=== PATIENT | female | born 1960 | race Caucasian/White ===

== ENCOUNTER 2022-11-06 09:48 | Outpatient (OUT) | payer OTHER, SELFPAY ==
[2022-11-06 10:13] LABS: Basophils Percent Auto 0.7 % (0.2-2.0); Eosinophils Absolute Auto 0.1 10^3/uL (0.0-0.7); Eosinophils Percent Auto 2.4 % (0.9-7.0); Hematocrit 40.3 % (36.0-48.0); Hemoglobin 13.6 g/dL (12.0-16.0); Immature Granulocytes Abs Auto 0.01 10^3/uL (0.00-0.03); Immature Granulocytes Pct Auto 0.2 % (0.0-0.5); Lymphocytes Absolute Auto 1.5 10^3/uL (1.2-3.8); Lymphocytes Percent Auto 32.3 % (20.5-60.0); Mean Corpuscular HGB Conc 33.7 g/dL (29.9-35.2); Mean Corpuscular Hemoglobin 29.6 pg (26.7-34.0); Mean Corpuscular Volume 87.6 fL (81.0-99.0); Mean Platelet Volume 10.5 fL (9.5-13.5); Monocytes Absolute Auto 0.4 10^3/uL (0.3-0.8); Monocytes Percent Auto 8.7 % (1.7-12.0); Neutrophils Absolute Auto 2.6 10^3/uL (1.4-6.5); Neutrophils Percent Auto 55.7 % (43.0-75.0); Platelet Count 208 10^3/uL (150-450); Red Cell Distribution Width 12.4 % (11.0-15.0); White Blood Count 4.6 10^3/uL (4.0-11.0)
[2022-11-06 12:29] LABS: Estimated Average Glucose 105 mg/dL; Glycohemoglobin A1C 5.3 % (4.5-6.2)
[2022-11-06 14:41] LABS: Alanine Aminotransferase 22 U/L (14-59); Albumin Globulin Ratio 1.2; Albumin Level 4.1 g/dL (3.4-5.0); Alkaline Phosphatase 106 U/L (46-116); Anion Gap 10.2; Aspartate Amino Transferase 16 U/L (15-37); BUN Creatinine Ratio 19.7; Bilirubin Total 0.5 mg/dL (0.2-1.0); Calcium 9.4 mg/dL (8.5-10.1); Carbon Dioxide 27.9 mmol/L (21.0-32.0); Chloride 106 mmol/L (98-107); Chol HDL Ratio 2.8; Cholesterol 167 mg/dL (<=200); Estimated GFR (African America >60 (>=60); Estimated GFR (Non-African Ame >60 (>=60); Free T3 2.51 pg/mL (2.18-3.98); Globulin 3.3 g/dL; Glucose 98 mg/dL (74-106); HDL Cholesterol 60 mg/dL (40-60); LDL Cholesterol Calculated 89.4 mg/dL; Potassium 4.1 mmol/L (3.5-5.1); Sodium 140 mmol/L (136-145); Thyroid Stimulating Hormone 1.279 uIU/mL (0.358-3.740); Total Protein 7.4 g/dL (6.4-8.2); Triglycerides 88 mg/dL (<=150); VLDL CHOLESTEROL 17.6 mg/dL
== END 2022-11-06 09:49 | disposition home or self-care (01) ==
LOC: LAB 09:51
PROVIDERS: PCP Family Medicine; Visit Provider Family Medicine
DX: Z00.00 Encounter for general adult medical examination without abnormal findings (principal)
CPT/HCPCS: 36415; 80053; 80061; 83036; 84436; 84443; 84481; 85025

== ENCOUNTER 2022-11-11 09:36 | Outpatient (OUT) | payer OTHER, SELFPAY ==
--- NOTE | 2022-11-11 09:44 | XR_ITS ---
[place] [id number] Patient Name: OLIVE TURPIN MRN: [id number] date: 1960 Sex: F Assigned Patient Location: [facility] Current Patient Location: [facility] Accession/Order Number: [id number] Exam Date: 11/11/2022 09:52 Report Date: 11/11/2022 10:35 At the request of: MIREYA MARTIN Procedure: XR hip RT 2V w/ pelvis PROCEDURE: XR hip RT 2V w/ pelvis COMPARISON: None. HISTORY: RIGHT HIP PAIN M25.551 FINDINGS: BONES:No fracture, acute abnormality, or significant arthropathy. SOFT TISSUES:Negative. No visible soft tissue swelling. EFFUSION:None visible. OTHER: Negative. IMPRESSION: No acute radiographic abnormality Electronically authenticated by: RYAN BRADSHAW Date: 11/11/2022 10:35
== END 2022-11-11 09:37 | disposition home or self-care (01) ==
LOC: RAD 09:37
PROVIDERS: PCP Family Medicine; Visit Provider Family Medicine
DX: M25.551 Pain in right hip (principal)
CPT/HCPCS: 73502

== ENCOUNTER 2022-11-19 12:44 | Day surgery (SDC) | payer OTHER, SELFPAY ==
--- NOTE | 2022-11-19 12:49 | FL_ITS ---
[address] [address] Patient Name: OLIVE TURPIN MRN: [id number] date: 1960 Sex: F Assigned Patient Location: MRI Current Patient Location: MRI Accession/Order Number: [id number] Exam Date: 11/19/2022 13:00 Report Date: 11/19/2022 14:03 At the request of: MIREYA MARTIN Procedure: FL arthrogram hip RT EXAMINATION: FL arthrogram hip RT HISTORY: Right Hip Pain M25.551 COMPARISON: No relevant comparison available. TECHNIQUE: An arthrogram was performed under fluoroscopic guidance using non-ionic contrast material in the usual sterile manner after obtaining informed consent. Standard level fluoroscopic mode of operation utilized. FINDINGS: JOINT: NEEDLE: Right hip MEDICATION: 2 mL buffered 1% lidocaine for subcutaneous anesthesia. Approximately 8 mL injected into joint space consisting of a mixture of 5 mL Omnipaque-300, 5 mL 1% Xylocaine and 0.2 mL Dotarem. TECHNIQUE: Anterior approach under fluoroscopic guidance. CLINICAL: No change in pain following the injection. COMPLICATIONS: None. OTHER: Negative. IMPRESSION: 1. Technically successful arthrogram without complication. 2. Please see separate MRI arthrogram report. Electronically authenticated by: DAMON OLIVAREZ Date: 11/19/2022 14:03
[2022-11-19] MEDS: LIDOCAINE HCL 15 ML, SODIUM BICARBONATE 1 MEQ INJ (13:25)
--- NOTE | 2022-11-19 13:45 | MR_ITS ---
[address] [address] Patient Name: OLIVE TURPIN MRN: [id number] date: 1960 Sex: F Assigned Patient Location: MRI Current Patient Location: MRI Accession/Order Number: [id number] Exam Date: 11/19/2022 13:45 Report Date: 11/20/2022 08:46 At the request of: MIREYA MARTIN Procedure: MR arthogram hip EXAMINATION: MR arthrogram hip HISTORY: Right Hip Pain M25.551 COMPARISON: No relevant comparison available. TECHNIQUE: A comprehensive examination was performed utilizing a variety of imaging planes and imaging parameters to optimize visualization of suspected pathology. Images were obtained without and/or with IV contrast as indicated by type of examination. FINDINGS: FEMORAL HEAD: Normal. No AVN, fracture, or significant arthropathy. ACETABULUM: Normal. No fracture or significant arthropathy. OTHER BONES: Normal appearance of the visualized portion of the pelvis. LABRUM: Normal appearance for a patient in this age group, with no visible tear. EFFUSIONS: None. No synovitis or loose bodies. BURSAE: Normal. No evidence of iliopsoas or trochanteric bursitis. TENDONS: Normal. Normal gluteus tendons, iliopsoas tendon, and hamstring origin. MUSCLES: Normal. No tear or strain. No inappropriate atrophy. OTHER: Negative. IMPRESSION: 1. No abnormal or suspicious findings to account for patient's symptoms. Electronically authenticated by: DAMON OLIVAREZ Date: 11/20/2022 08:46
[2022-11-19 14:10] VITALS: BMI 24.2
== END 2022-11-19 13:40 | disposition home or self-care (01) ==
LOC: MRI 12:44
PROVIDERS: Radiology Diagnostic Radiology; PCP Family Medicine; Visit Provider Family Medicine
DX: M25.551 Pain in right hip (principal)
CPT/HCPCS: 27093; 73525; 73722; 77002; A9575; Q9967

== ENCOUNTER 2023-02-15 17:24 | Outpatient (OUT) | payer OTHER, SELFPAY ==
--- NOTE | 2023-02-15 | XR_ITS ---
The [address] [address] Patient Name: OLIVE TURPIN MRN: [id number] date: 1960 Sex: F Assigned Patient Location: [facility] Current Patient Location: [facility] Accession/Order Number: [id number] Exam Date: 02/15/2023 17:43 Report Date: 02/15/2023 18:03 At the request of: MIREYA MARTIN Procedure: XR hand RT min 3V EXAM: XR hand RT min 3V HISTORY: L03.019; Paronychia . Pain. COMPARISON: None. TECHNIQUE: 3 views of the right hand were obtained. FINDINGS: There is no evidence of an acute fracture or dislocation. The joint spaces are intact throughout no significant focal osseous abnormality is identified. Soft tissue swelling is seen along the dorsal aspect of the thumb at the level of the base of the distal phalanx, which may be related to the nail bed. No abnormal soft tissue calcifications are present. XR/XR hand RT min 3V IMPRESSION: Acute fracture or dislocation. The joint spaces are intact and no significant osseous abnormality is identified. Soft tissue swelling of the distal thumb is noted. Electronically authenticated by: BRISA REDDY Date: 02/15/2023 18:03
== END 2023-02-15 17:25 | disposition home or self-care (01) ==
PROVIDERS: PCP Family Medicine; Visit Provider Family Medicine
DX: L03.019 Cellulitis of unspecified finger (principal)
CPT/HCPCS: 73130

== ENCOUNTER 2023-09-10 08:59 | Outpatient (OUT) | payer OTHER, SELFPAY ==
[2023-09-10 09:31] LABS: Basophils Absolute Auto 0.1 10^3/uL (0.0-0.1); Eosinophils Absolute Auto 0.1 10^3/uL (0.0-0.7); Eosinophils Percent Auto 1.8 % (0.9-7.0); Estimated Average Glucose 108 mg/dL; Glycohemoglobin A1C 5.4 % (4.5-6.2); Hematocrit 41.8 % (36.0-48.0); Hemoglobin 13.4 g/dL (12.0-16.0); Immature Granulocytes Abs Auto 0.02 10^3/uL (0.00-0.03); Immature Granulocytes Pct Auto 0.4 % (0.0-0.5); Lymphocytes Absolute Auto 1.7 10^3/uL (1.2-3.8); Lymphocytes Percent Auto 33.7 % (20.5-60.0); Mean Corpuscular HGB Conc 32.1 g/dL (29.9-35.2); Mean Corpuscular Hemoglobin 28.7 pg (26.7-34.0); Mean Corpuscular Volume 89.5 fL (81.0-99.0); Mean Platelet Volume 10.6 fL (9.5-13.5); Monocytes Absolute Auto 0.5 10^3/uL (0.3-0.8); Monocytes Percent Auto 9.1 % (1.7-12.0); Neutrophils Absolute Auto 2.8 10^3/uL (1.4-6.5); Platelet Count 216 10^3/uL (150-450); Red Blood Count 4.67 10^6/uL (4.20-5.40); Red Cell Distribution Width 12.4 % (11.0-15.0); White Blood Count 5.1 10^3/uL (4.0-11.0)
[2023-09-10 12:32] LABS: Alanine Aminotransferase 23 U/L (14-59); Albumin Globulin Ratio 1.4; Albumin Level 4.2 g/dL (3.4-5.0); Alkaline Phosphatase 96 U/L (46-116); Anion Gap 13.9; Aspartate Amino Transferase 14 U/L (15-37); BUN Creatinine Ratio 28.6; Bilirubin Total 0.4 mg/dL (0.2-1.0); Calcium 9.5 mg/dL (8.5-10.1); Carbon Dioxide 27.6 mmol/L (21.0-32.0); Chloride 106 mmol/L (98-107); Cholesterol 203 mg/dL (<=200); Estimated GFR (African America >60 (>=60); Estimated GFR (Non-African Ame >60 (>=60); Free T3 2.98 pg/mL (2.18-3.98); Globulin 3.1 g/dL; Glucose 96 mg/dL (74-106); HDL Cholesterol 67 mg/dL (40-60); Potassium 4.5 mmol/L (3.5-5.1); Sodium 143 mmol/L (136-145); Total Protein 7.3 g/dL (6.4-8.2); Triglycerides 84 mg/dL (<=150); VLDL CHOLESTEROL 16.8 mg/dL
== END 2023-09-10 09:00 | disposition home or self-care (01) ==
LOC: LAB 09:00
PROVIDERS: PCP Family Medicine; Visit Provider Family Medicine
DX: Z00.00 Encounter for general adult medical examination without abnormal findings (principal); E78.5 Hyperlipidemia, unspecified; R73.09 Other abnormal glucose
CPT/HCPCS: 36415; 80053; 80061; 83036; 84436; 84443; 84481; 85025

== ENCOUNTER 2024-10-12 09:26 | Outpatient (OUT) | payer OTHER, SELFPAY ==
--- OUTSIDE RECORDS SUMMARY | 2024-10-12 09:36 | XMS_ITS | CCD ---
Author Organization [facility] Care Team Providers Care Oil Transport Driver Name Role Phone DR MIREYA ALLEN Consulting Unavailable MARIO, DR GOMES Attending Unavailable MARIO, DR GOMES Admitting Unavailable MARIO, DR GOMES Primary Care Unavailable MARIO, DR GOMES Attending Unavailable MARIO, DR GOMES Admitting Unavailable MARIO, DR GOMES Consulting Unavailable MD Mireya Allen Primary Care Provider [phone] DO Fiona Fraser Attending Provider MD Mireya Allen Primary Care Provider [phone] MD Kasi Antoine II Attending Provider Kasi Antoine II Unavailable [phone] Roque Davila Attending Unava ilable MD Mireya Allen Primary Care Provider Self, Referral Attending Provider Unavailable DO Fiona Fraser Referring Provider Mireya Allen Primary Care Physician Wali MCCOY Attending Unavailable Wali MCCOY Attending Unavailable Mireya Allen Referring Unavailable Wali MCCOY Attending Unavailable Wali MCCOY Attending Unavailable Wali MCCOY Admitting Unavailable Wali MCCOY Attending Unavailable Mireya Allen MD Primary Care Provider Self, Referral Attending Provider Unavailable Fiona Fraser DO Referring Provider Mireya Allen Primary Care Unavailable Fiona Fraser Referring Unavailable Self, Referral Attending Unavailable Self, Referral Admitting Unavailable Mireya Allen MD Primary Care Provider FIONA FRASER Attending Unavailable Allergies Allergy Classification Reported Allergen(s) Allergy Type Date of Onset Reaction(s) Facility (1 source) No Known Medication Allergies; Translations: [No Known Medication Allergies] Propensity to adverse reactions (disorder) [facility] Repository Medications Current Medications Medication Drug Class(es) Dates Sig (Normalized) Sig (Original) eletriptan 40 mg oral tablet (7 sources) Serotonin-1b and Serotonin-1d Receptor Agonist Start: 12-30-2023 take 1 tablet by mouth once Relpax 40 mg Tab 40 mg = 1 tab(s), Oral, Once, Refills(s) 0 Start Date: 12/30/23 Status: Ordered take 1 tablet by mouth every two hours eletriptan (Relpax) 40 MG tablet 1 tablet Orally At onset of migraine. May repeat in 2 hours Active topiramate 25 mg oral tablet (3 sources) topiramate (Topa max) 25 MG tablet 1 (one) time each day at the same time Active Problems Problem Classification Problem Date Documented Da te Episodic/Chronic Abdominal pain (1 source) Unspecified abdominal pain Episodic Allergic reactions (6 sources) Vesicular eczema; Translations: [Eczema] Onset: 02-15-2024 12-30-2023 Episodic Headache; including migraine (4 sources) Migraine 12-30-2023 Chronic Neoplasms of unspecified nature or uncertain behavior (6 sources) Neoplasm of uncertain behavior of skin; Translations: [Neoplasm of uncertain behavior of skin] Onset: 01-19-2024 Episodic Other non-traumatic joint disorders (1 source) Pain in right hip Episodic Other screening for suspected conditions (not mental disorders or infectious disease) (5 sources) Encounter for screening mammogram for malignant neoplasm of breast; Translations: [Cancer cervix screening status] Onset: 08-26-2024 09-27-2024 Episodic Prolapse of female genital organs (4 sources) Uterine prolapse; Translations: [Uterovaginal prolapse, unspecified] 09-28-2024 Chronic Residual codes; unclassified (4 sources) Insomnia 12-30-2023 Episodic Results Test Name Value Interpretation Reference Range Facility MM screening mammo BI w/CADo n 08-28-2024 MM screening mammo BI w/CAD [facility] [address] [place] [address] Mammography Report Signed Patient: Olive Turpin MR#: [id number] : 1960 Acct:[id number] Age/Sex: 63 / F Adm Date: 08/26/24 Loc: [place] Room: Type: [facility] Attending Dr: Referral Ton Ordering Provider: SELF,REFERRAL Date of Service: 08/26/24 Procedure(s): MM screening mammo BI w/CAD Accession Number(s): ([id number]) MM/MM screening mammo BI w/CAD: ROUTINE Copies to: MD Fiona Joy, SELF,REFERRAL CLINICAL DATA: Screening for malignancy. SCREENING MAMMOGRAM - FULL FIELD DIGITAL WITH TOMOSYNTHESIS AND CAD COMPARISON:Mammogram s dating back to 2019 Tomosynthesis craniocaudal and mediolateral oblique views of both breasts were obtained using low- dose digital technique. This examination was reviewed with the aid of CAD. FINDINGS: The breast tissue is composed of scattered fibroglandular densities. There are no dominant masses, typically malignant calcifications or architectural distortion. There has been no significant interval change. MM/MM screening mammo BI w/CAD IMPRESSION: NO MAMMOGRAPHIC EVIDENCE OF MALIGNANCY. ROUTINE FOLLOW-UP IS RECOMMENDED IN ONE YEAR. RESULT CODE: 1 Negative DENSITY CODE: 2 (approximately 25-50% glandular) There are scattered areas of fibroglandular density. FOLLOW UP: 1YR The false-negative rate of mammography is approximately 10-percent. Management of a palpable abnormality must be based on clinical grounds. Patient was entered into a reminder system with a target due date for the next mammogram. Impression dictated by: Junaid Ware Jr., D.O.08/28/2024 9:44 AM Dictation Location: [facility] Dictated By: Junaid Ware Jr, DO 08/28/24 0943 Signed By: 08/28/24 0944 Normal [facility] Ambulatory Visit Summaryon 1 Ambulatory Visit Summary Ambulatory Visit Summary OLIVE TURPIN :1960 Visit Date:02/15/2024 Ambulatory Visit Instructions Your Diagnosis Eczematous dermatitis Your Care Team Attending Physician - DARIUS OCONNOR, Wali Baxter Primary Care Physician - Mireya Allen MD This Is Your Medications List Contact prescribing physician if questions or concerns eletriptan (Relpax 40 mg Tab) Procedures Performed Endometrial ablation. Medications What How Much When Instructions Unchanged eletriptan (Relpax 40 mg Tab) 1 Tablets By Mouth Once Contact prescribing physician if questions or concerns Allergies No Known Allergies No Known Medication Allergies Problems Ongoing - Any problem that you are currently receiving treatment for. 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 Please share your experience with us by completing your survey. We appreciate your feedback and thank you for choosing us for your care. Normal [facility] General Surgery Office/Clini c Noteon 02-15-2024 General Surgery Office/Clinic Note General Surgery Office/Clinic Note Chief Complaint follow up incisional biopsy HPI Staff 13 day follow up post in-office incisional biopsy right ankle lesion. Denies discomfort, bleeding or drainage. Sutures intact. History of Present Illness 13 days s/p incisional biopsy of right ankle skin lesion; consistent with eczematous dermatitis; lesions resolving spontaneously. Review of Systems ROS - Provider Constitutional: no fever, no sweats, no weight loss. Eyes: no glasses, no blurred vision, no visual loss. ENMT: no dentures, no hoarseness, no swallowing difficulties, no hearing loss, no ear infection(s), no nose bleeds. Cardiovascular: normal blood pressure, no chest pain, regular heartbeat, no heart murmur. Respiratory: no shortness of breath, no cough, no asthma, no wheezing. Gastrointestinal: no nausea, no vomiting, no diarrhea, no constipation, no blood in stool, no change in bowel habits, no abdominal pain, no hepatitis. Genitourinary: no kidney stones, no urine infection, no dysuria. Musculoskeletal: no pain, no weakness. Skin: no changing moles, no rash, no skin lumps. Neurologic: no seizures, no epilepsy, no headache. Psychiatric: no emotional or psychiatric problem. Heme/Lymph: no bleeding problems, no anemia, no blood clots, no transfusions. Allergy/Immunologic: no swollen lymph nodes/glands, no IV drug abuse. Other: Additional ROS info: Except as noted in the above Review of Systems and in the History of Present Illness, all other systems have been reviewed and are negative or noncontributory. Physical Exam skin: lesions resolving; incision healing well, no erythema or drainage; no ecchymosis. Assessment/Plan 1. 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 Medications Relpax 40 mg Tab, 40 mg= 1 tab(s), Oral, Once Allergies No Known Allergies No Known Medication Allergies Social History Alcohol Current, Wine, 1-2 times per week, 01/19/2024 Substance Abuse - Denies Substance Abuse, 01/19/2024 Tobacco Never (less than 100 in lifetime) Tobacco Use:. Never Smokeless Tobacco Use:., 02/02/2024 Family History Primary malignant neoplasm of female breast: Sister. Immunizations Vaccine Date Status influenza virus vaccine, inactivated 03/31/2023 Recorded SARS-CoV-2 (COVID-19) mRNA-1273 vaccine 06/12/2020 Recorded SARS-CoV-2 (COVID-19) mRNA-1273 vaccine 05/14/2020 Recorded Normal [facility] Comment on above: Result Comment: Elec tronically Signed By: DARIUS OCONNOR, Wali Baxter\.br\Date and Time Signed: 02/15/24 15:15 EDT Surgical Pathology Reporton 02-11-2024 Surgical Pathology Report [facility] [address] [place] [address]- Surgical Pathology Report Collected Date/Time: 02/02/2024 15:46 EDT Pathologist: Joel March MD Received Date/Time: 02/04/2024 08:40 EDT DARIUS OCONNOR, Wali MCCOY MD, Wali Sousa Surgical Pathology Report - 02/11/2024 09:26 EDT - Auth (Verified) Final Diagnosis SKIN LESION, RIGHT ANKLE, EXCISION: - Spongiotic dermatitis with perivascular lymphocytic infiltrate and mild pigmentation. - See Comment. (Electronic Signature) Yan. Anca MD 02/11/2024 09:26 Diagnosis Comment These findings are most consistent with an eczematous dermatitis, such as may be seen in atopic dermatitis, ID reaction, eczematous drug reaction, or contact dermatitis. Clinical correlation is required. 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 The specimen is not oriented. The resection margin is inked green. Specimen is trisected and entirely submitted in one cassette. (DC) DC:[facility] Microscopic Description Microscopic examination performed unless gross only specified. Normal [facility] Comment on above: Performed By: #### [id number] #### [facility] [address] [place] [address] Ambulatory Visit Summaryon 0 02-02-2024 Ambulatory Visit Summary Ambulatory Visit Summary OLIVE TURPIN :1960 Visit Date:02/02/2024 Ambulatory Visit Instructions Your Care Team Attending Physician - Wali MCCOY MD Primary Care Physician - Mireya Allen MD This Is Your Medications List eletriptan (Relpax 40 mg Tab) Procedures Performed Endometrial ablation. What to do next Scheduled Follow-Up Appointments Wednesday 3:00 PM EDT With: Wali MCCOY MD Where: [address], [address], [place] [address]- Medications What How Much When Instructions Unchanged eletriptan (Relpax 40 mg Tab) 1 Tablets By Mouth Once Allergies No Known Allergies No Known Medication Allergies Problems Ongoing - Any problem that you are currently receiving treatment for. 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 Please share your experience with us by completing your survey. We appreciate your feedback and thank you for choosing us for your care. Normal [facility] General Surgery Office/Clini c Noteon 02-02-2024 General Surgery Office/Clinic Note General Surgery Office/Clinic Note Chief Complaint in-office incisional biopsy HPI Staff Presents for in-office incisional biopsy right anterior ankle lesion. Physical Exam skin; 2 adjacent pigmented lesions with indistinct borders, no ulceration or scab; no change. Procedure patient brought to the procedure room, placed in supine position, area prepped and draped in sterile fashion; anesthetized with 1 % lidocaine; incisional biopsy performed in elliptical fashion down to subcutaneous fat; total length 5 mm; closed with interrupted 4-0 nylon sutures; tolerated well; ebl < 2 ml; sterile dressing applied. Assessment/Plan 1. 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 Medications Relpax 40 mg Tab, 40 mg= 1 tab(s), Oral, Once Allergies No Known Allergies No Known Medication Allergies Social History Alcohol Current, Wine, 1-2 times per week, 01/19/2024 Substance Abuse - Denies Substance Abuse, 01/19/2024 Tobacco Never (less than 100 in lifetime) Tobacco Use:. Never Smokeless Tobacco Use:., 02/02/2024 Family History Primary malignant neoplasm of female breast: Sister. Immunizations Vaccine Date Status influenza virus vaccine, inactivated 03/31/2023 Recorded SARS-CoV-2 (COVID-19) mRNA-1273 vaccine 06/12/2020 Recorded SARS-CoV-2 (COVID-19) mRNA-1273 vaccine 05/14/2020 Recorded Normal [facility] Comment on above: Result Comment: Elec tronically Signed By: DARIUS OCONNOR, Wali Rick\Date and Time Signed: 02/02/24 15:34 EDT Charles Stiles 02-19-2023 Charles VILLA ------- Final No anaerobic growth after 72 hrs. Normal [facility] Comment on above: Performed By: #### A NAC #### [facility] [address] [place] [id number] C [place] 02-18-2023 C Wound ------- Final Light Growth of Methicillin-Resistan t Staphylococcus aureus isolated ORGANISM MRSA ----- SUSCEPTIBILITY ---- ORGANISM ID: 1 ANTIBIOTIC INTERPRETATION PENELOPE STATUS POS Methicillin-Resistan t Staphylococcus aureus Clindamycin S 0.25 V Daptomycin S 0.5 V Doxycycline S <=0.5 V Erythromycin R >=8 V Linezolid S 2 V Levofloxacin I 4 V Oxacillin R 2 V This Organism should be considered resistant to cephalosporin vivo Per (CLSI) Clinical and Laboratory Standards Krypton. oxacillin resistant, beta-lactamase positive (penicillin-R) staphlococci are considered resistant to all cephems,beta-lactam/ beta-lactamase inhibitor combination,carbapen ems, and penicillins. INFECTION PREVENTION NOTE:CONTACT or DROPLET Isolation Precautions may be appropriate in addition to Standard Precautions for this patient with Multi-drug Resistant Organism.This patient may be a candidate for antibiotic nasal cream. Tetracycline S <=1 V Trimethoprim/Sulfa S <=10 V Vancomycin S 1 V Normal [facility] Comment on above: Performed By: #### W DC #### [facility] (DEFAULT) [address] [place] [address] [address] T4 LABCORPon 10-10-2021 T4 [Mass/Vol] 8.3 ug/dL Normal 4.5-12.0 [facility] Comment on above: Performed By: #### T 4LC #### [facility] [address] [place] [address] Dr. Ingris Acosta CBC AUTO DIFFon 2021 BASO # 0.1 103/ul Normal 0.0-0.1 [facility] Comment on above: Performed By: #### C BC #### [facility] [address] [place] [address] Dr. Ingris Acosta Basophils/100 WBC (Bld) 1.1 % Normal 0.2-2.0 [facility] Comment on above: Performed By: #### C BC #### [facility] [address] [place] [address] Dr. Ingris Acosta EO # 0.1 103/ul Normal 0.0-0.7 [facility] Comment on above: Performed By: #### C BC #### [facility] [address] [place] [address] Dr. Ingris Acosta Eosinophils/100 WBC (Bld) 1.7 % Normal 0.9-7.0 [facility] Comment on above: Performed By: #### C BC #### [facility] [address] [place] [address] Dr. Ingris Acosta Erythrocyte distribution width (RBC) [Ratio] 12.6 % Normal 11.0-15.0 [facility] Comment on above: Performed By: #### C BC #### [facility] [address] [place] [address] Dr. Ingris Acosta Hematocrit (Bld) [Volume fraction] 40.2 % Normal 36.0-48.0 [facility] Comment on above: Performed By: #### C BC #### [facility] [address] [place] [address] Dr. Ingris Acosta Hemoglobin (Bld) [Mass/Vol] 13.3 g/dL Normal 12.0-16.0 [facility] Comment on above: Performed By: #### C BC #### [facility] [address] [place] [address] Dr. Ingris Acosta IG # 0.01 10e3/ul Normal 0.00-0.03 [facility] Comment on above: Performed By: #### C BC #### [facility] [address] [address] [address] Ingris Acosta IG % 0.2 % Normal 0.0-0.5 [facility] Comment on above: Performed By: #### C BC #### [facility] [address] [place] [address] Dr. Ingris Acosta LYMPH # 1.7 103/ul Normal 1.2-3.8 [facility] Comment on above: Performed By: #### C BC #### [facility] [address] [place] [address] Dr. Ingris Acosta Lymphocytes/100 WBC (Bld) 36.2 % Normal 20.5-60.0 [facility] Comment on above: Performed By: #### C BC #### [facility] [address] [place] [address] Dr. Ingris Acosta MANUAL DIFF REQ NO Normal [facility] Comment on above: Performed By: #### C BC #### [facility] [address] [place] [address] Dr. Ingris Acosta MCH (RBC) [Entitic mass] 29.3 pg Normal 26.7-34.0 [facility] Comment on above: Performed By: #### C BC #### [facility] [address] [place] [address] Dr. Ingris Acosta MCHC (RBC) [Mass/Vol] 33.1 g/dL Normal 29.9-35.2 [facility] Comment on above: Performed By: #### C BC #### [facility] [address] [place] [address] Dr. Ingris Acosta MCV (RBC) [Entitic vol] 88.5 fL Normal 81.0-99.0 [facility] Comment on above: Performed By: #### C BC #### [facility] [address] [place] [address] Dr. Ingris Acosta MONO # 0.5 103/ul Normal 0.3-0.8 [facility] Comment on above: Performed By: #### C BC #### [facility] [address] [place] [address] Dr. Ingris Acosta Monocytes/100 WBC (Bld) 10.4 % Normal 1.7-12.0 [facility] Comment on above: Performed By: #### C BC #### [facility] [address] [place] [address] Dr. Ingris Acosta NEUT # 2.3 103/ul Normal 1.4-6.5 [facility] Comment on above: Performed By: #### C BC #### [facility] [address] [place] [address] Dr. Ingris Acosta Neutrophils/100 WBC (Bld) 50.4 % Normal 43.0-75.0 [facility] Comment on above: Performed By: #### C BC #### [facility] [address] [place] [address] Dr. Ingris Acosta Platelet mean volume (Bld) [Entitic vol] 10.8 fL Normal 9.5-13.5 [facility] Comment on above: Performed By: #### C BC #### [facility] [address] [place] [address] Dr. Ingris Acosta PLT 211 103/ul Normal 150-450 [facility] Comment on above: Performed By: #### C BC #### [facility] [address] [place] [address] Dr. Ingris Acosta RBC 4.54 106/ul Normal 4.20-5.40 [facility] Comment on above: Performed By: #### C BC #### [facility] [address] [place] [address] Dr. Ingris Acosta WBC 4.6 103/ul Normal 4.0-11.0 [facility] Comment on above: Performed By: #### C BC #### [facility] [address] [place] [address] Dr. Ingris Acotsa FREE THYROXINE INDEX T7on FTI 2.66 Normal 1.30-4.50 [facility] Comment on above: Performed By: #### T 7, TSH, CMP, LIPID #### [facility] [address] [address] [address] Ingris Acosta T3U 32.0 % Normal 30.0-39.0 [facility] Comment on above: Performed By: #### T 7, TSH, CMP, LIPID #### [facility] [address] [place] [address] Dr. Ingris Acosta T4 [Mass/Vol] 8.30 ug/dL Normal 4.80-13.90 [facility] Comment on above: Performed By: #### T 7, TSH, CMP, LIPID #### [facility] [address] [place] [address] Dr. Ingris Acosta GLYCOHEMOGLOBIN A1Con 2021 ADA RECOMMENDATION SEE BELOW Normal [facility] Comment on above: Result Comment: ADA RECOMMENDED LIMIT 4.0 - 6.0 ADA THERAPEUTIC TARGET < 7.0 ACTION SUGGESTED > 7.0 Performed By: #### A 1C #### [facility] [address] [place] [address] Dr. Ingris Acosta Glucose [Mass/Vol] 111 mg/dL Normal [facility] Comment on above: Performed By: #### A 1C #### [facility] [address] [place] [address] Dr. Ingris Acosta HbA1c (Bld) [Mass fraction] 5.5 % Normal 4.5-6.2 [facility] Comment on above: Performed By: #### A 1C #### [facility] [address] [place] [address] Dr. Ingris Acosta LIPID PROFILEon 2021 CHOL-HDL RATIO NORM SEE BELOW Normal [facility] Comment on above: Result Comment: 3.3 - 4.4 LOW RISK 4.4 - 7.1 AVERAGE RISK 7.1 - 11.0 MODERATE RISK >11.0 HIGH RISK Performed By: #### T 7, TSH, CMP, LIPID #### [facility] [address] [place] [address] Dr. Ingris Acosta Cholesterol [Mass/Vol] 153 mg/dL Normal <=200 [facility] Comment on above: Performed By: #### T 7, TSH, CMP, LIPID #### [facility] [address] [address] [address] Ingris Acosta Cholesterol in HDL [Mass/Vol] 59 mg/dL Normal 40-60 [facility] Comment on above: Performed By: #### T 7, TSH, CMP, LIPID #### [facility] [address] [address] [address] Ingris Acosta Cholesterol in LDL [Mass/Vol] 80.8 mg/dL Normal [facility] Comment on above: Performed By: #### T 7, TSH, CMP, LIPID #### [facility] [address] [address] [address] Ingris Acosta Cholesterol.total/Cho lesterol in HDL [Mass ratio] 2.6 {ratio} Normal [facility] Comment on above: Performed By: #### T 7, TSH, CMP, LIPID #### [facility] [address] [address] [address] Ingris Acosta HDL NORMAL > or = 60 mg/dl - LOW CARDIOVASCULAR RISK <40 mg/dl - HIGH CARDIOVASCULAR RISK Normal [facility] Comment on above: Performed By: #### T 7, TSH, CMP, LIPID #### [facility] [address] [address] [address] Ingris Acosta LDL CALC NORMAL SEE BELOW Normal [facility] [facility] Comment on above: Result Comment: <100 mg/dl OPTIMAL 100 - 129 mg/dl NEAR OR ABOVE OPTIMAL 130 - 159 mg/dl BORDERLINE HIGH 160 - 189 mg/dl HIGH >190 mg/dl VERY HIGH Performed By: #### T 7, TSH, CMP, LIPID #### [facility] [address] [address] [address] Ingris Acotsa Triglyceride [Mass/Vol] 66 mg/dL Normal <=150 [facility] Comment on above: Performed By: #### T 7, TSH, CMP, LIPID #### [facility] [address] [address] [address] Ingris Acosta VLDL CALC 13.2 mg/dL Normal [facility] Comment on above: Performed By: #### T 7, TSH, CMP, LIPID #### [facility] [address] [address] [address] Ingris Acosta PROF 14(COMP METB)on 022 Albumin [Mass/Vol] 4.2 g/dL Normal 3.4-5.0 [facility] Comment on above: Performed By: #### T 7, TSH, CMP, LIPID #### [facility] [address] [address] [address] Ingris Acosta Albumin/Globulin [Mass ratio] 1.4 {ratio} Normal [facility] Comment on above: Performed By: #### T 7, TSH, CMP, LIPID #### [facility] [address] [address] [address] Ingris Acosta ALP [Catalytic activity/Vol] 106 U/L Normal 46-116 [facility] Comment on above: Performed By: #### T 7, TSH, CMP, LIPID #### [facility] [address] [place] [address] Dr. Ingris Acosta ALT [Catalytic activity/Vol] 34 U/L Normal 14-59 [facility] Comment on above: Performed By: #### T 7, TSH, CMP, LIPID #### [facility] [address] [address] [address] Ingris Acosta Anion gap [Moles/Vol] 11.9 mmol/L Normal [facility] Comment on above: Performed By: #### T 7, TSH, CMP, LIPID #### [facility] [address] [address] [address] Ingris Acosta AST [Catalytic activity/Vol] 14 U/L Critically low 15-37 [facility] Comment on above: Performed By: #### T 7, TSH, CMP, LIPID #### [facility] [address] [address] [address] Ingris Acosta Bilirubin [Mass/Vol] 0.5 mg/dL Normal 0.2-1.0 [facility] Comment on above: Performed By: #### T 7, TSH, CMP, LIPID #### [facility] [address] [address] [address] Ingris Acosta Calcium [Mass/Vol] 9.2 mg/dL Normal 8.5-10.1 [facility] Comment on above: Performed By: #### T 7, TSH, CMP, LIPID #### [facility] [address] [address] [address] Ingris Acosta Chloride [Moles/Vol] 107 mmol/L Normal 98-107 [facility] Comment on above: Performed By: #### T 7, TSH, CMP, LIPID #### [facility] [address] [address] [address] Ingris Acosta CO2 [Moles/Vol] 26.7 mmol/L Normal 21.0-32.0 [facility] Comment on above: Performed By: #### T 7, TSH, CMP, LIPID #### [facility] [address] [place] [address] Dr. Ingris Acosta Creatinine [Mass/Vol] 0.70 mg/dL Normal 0.55-1.02 [facility] Comment on above: Performed By: #### T 7, TSH, CMP, LIPID #### [facility] [address] [place] [address] Dr. Ingris Acosta EGFR-AF CAP[place] VERDEAN >60 Normal >=60 [facility] Comment on above: Performed By: #### T 7, TSH, CMP, LIPID #### [facility] [address] [place] [address] Dr. Ingris Acosta EGFR-NON AF [place] >60 Normal >=60 [facility] Comment on above: Performed By: #### T 7, TSH, CMP, LIPID #### [facility] [address] [place] [address] Dr. Ingris Acosta Globulin (S) [Mass/Vol] 3.0 g/dL Normal [facility] Comment on above: Performed By: #### T 7, TSH, CMP, LIPID #### [facility] [address] [place] [address] Dr. Ingris Acosta Glucose [Mass/Vol] 96 mg/dL Normal 74-106 [facility] Comment on above: Performed By: #### T 7, TSH, CMP, LIPID #### [facility] [address] [place] [address] Dr. Ingris Acosta Potassium [Moles/Vol] 3.6 mmol/L Normal 3.5-5.1 [facility] Comment on above: Performed By: #### T 7, TSH, CMP, LIPID #### [facility] [address] [place] [address] Dr. Ingris Acosta Protein [Mass/Vol] 7.2 g/dL Normal 6.4-8.2 [facility] Comment on above: Performed By: #### T 7, TSH, CMP, LIPID #### [facility] [address] [place] [address] Dr. Ingris Acosta Sodium [Moles/Vol] 142 mmol/L Normal 136-145 [facility] Comment on above: Performed By: #### T 7, TSH, CMP, LIPID #### [facility] [address] [place] [address] Dr. Ingris Acosta Urea nitrogen [Mass/Vol] 14.0 mg/dL Normal 7.0-18.0 [facility] Comment on above: Performed By: #### T 7, TSH, CMP, LIPID #### [facility] [address] [place] [address] Dr. Ingris Acosta Urea nitrogen/Creatinine [Mass ratio] 20.0 mg/mg Normal [facility] Comment on above: Performed By: #### T 7, TSH, CMP, LIPID #### [facility] [address] [place] [address] Dr. Ingris Acosta TSHon 2021 TSH 1.206 uIU/mL Normal 0.358-3.740 [facility] Comment on above: Performed By: #### T 7, TSH, CMP, LIPID #### [facility] [address] [place] [address] Dr. Ingris Acosta TSH RANGE SEE BELOW Normal [facility] Comment on above: Result Comment: <0.3 4 UIU/ml HYPERTHYROID 0.34-5.60 UIU/ml EUTHYROID >5.60 UIU/ml HYPOTHYROID Performed By: #### T 7, TSH, CMP, LIPID #### [facility] [address] [place] [address] Dr. Ingris Acosta CBC AUTO DIFFon 11-08-2020 BASO # 0.0 103/ul Normal 0.0-0.1 [facility] Comment on above: Performed By: #### C BC #### [facility] [address] [place], [place] [address] Jasen Devorah Basophils/100 WBC (Bld) 0.6 % Normal 0.2-2.0 [facility] Comment on above: Performed By: #### C BC #### [facility] [address] [place] [address] Jasen Devorah EO # 0.2 103/ul Normal 0.0-0.7 [facility] Comment on above: Performed By: #### C BC #### [facility] [address] [place] [address] Jasen Devorah Eosinophils/100 WBC (Bld) 2.3 % Normal 0.9-7.0 [facility] Comment on above: Performed By: #### C BC #### [facility] [address] [place] [address] Jasen Devorah Erythrocyte distribution width (RBC) [Ratio] 12.6 % Normal 11.0-15.0 [facility] Comment on above: Performed By: #### C BC #### [facility] [address] [place] [address] Jasen Devorah Hematocrit (Bld) [Volume fraction] 38.6 % Normal 36.0-48.0 [facility] Comment on above: Performed By: #### C BC #### [facility] [address] [place] [address] Jasen Devorah Hemoglobin (Bld) [Mass/Vol] 12.7 g/dL Normal 12.0-16.0 [facility] Comment on above: Performed By: #### C BC #### [facility] [address] [place], [place] [address] Jasen Devorah IG # 0.03 10e3/ul Normal 0.00-0.03 [facility] Comment on above: Performed By: #### C BC #### [facility] [address] [place], [place] [address] Jasen Devorah IG % 0.4 % Normal 0.0-0.5 [facility] Comment on above: Performed By: #### C BC #### [facility] [address] [place] [address] Jasen Devorah LYMPH # 1.3 103/ul Normal 1.2-3.8 [facility] Comment on above: Performed By: #### C BC #### [facility] [address] [place] [address] Jasen Devorah Lymphocytes/100 WBC (Bld) 18.8 % Critically low 20.5-60.0 [facility] Comment on above: Performed By: #### C BC #### [facility] [address] [place] [address] Jasenandrzej Fairchild MANUAL DIFF REQ NO Normal [facility] Comment on above: Performed By: #### C BC #### [facility] [address] [place] [address] Jasenandrzej Viverosen MCH (RBC) [Entitic mass] 29.0 pg Normal 26.7-34.0 [facility] Comment on above: Performed By: #### C BC #### [facility] [address] [place], [place] [address] Jasenandrzej Fairchild MCHC (RBC) [Mass/Vol] 32.9 g/dL Normal 29.9-35.2 [facility] Comment on above: Performed By: #### C BC #### [facility] [address] [place] [address] Jasenandrzej Fairchild MCV (RBC) [Entitic vol] 88.1 fL Normal 81.0-99.0 [facility] Comment on above: Performed By: #### C BC #### [facility] [address] [place] [address] Jasen Devorah MONO # 0.6 103/ul Normal 0.3-0.8 [facility] Comment on above: Performed By: #### C BC #### [facility] [address] [place], [place] [address] Jasen Devorah Monocytes/100 WBC (Bld) 9.1 % Normal 1.7-12.0 [facility] Comment on above: Performed By: #### C BC #### [facility] [address] [place], [place] [address] Jasen Viverosen NEUT # 4.8 103/ul Normal 1.4-6.5 [facility] Comment on above: Performed By: #### C BC #### [facility] [address] [place], [place] [address] Jasen Fairchild Neutrophils/100 WBC (Bld) 68.8 % Normal 43.0-75.0 [facility] Comment on above: Performed By: #### C BC #### [facility] [address] [place], [place] [address] Jasen Fairchild Platelet mean volume (Bld) [Entitic vol] 10.8 fL Normal 9.5-13.5 [facility] Comment on above: Performed By: #### C BC #### [facility] [address] [place] [address] Jasen Devorah PLT 199 103/ul Normal 150-450 [facility] Comment on above: Performed By: #### C BC #### [facility] [address] [place], [place] [address] Jasen Devorah RBC 4.38 106/ul Normal 4.20-5.40 [facility] Comment on above: Performed By: #### C BC #### [facility] [address] [place] [address] Jasenandrzej Viverosen WBC 7.0 103/ul Normal 4.0-11.0 [facility] Comment on above: Performed By: #### C BC #### [facility] [address] [place], [place] [address] Jasenandrzej Viverosen FREE THYROXINE INDEX T7on FTI 2.74 Normal [facility] Comment on above: Performed By: #### A 1C #### [facility] [address] [place] [address] Jasenandrzej Viverosen T3U 33.0 % Normal 23.5-40.5 [facility] Comment on above: Performed By: #### A 1C #### [facility] [address] [phone] Jasen Devorah T4 [Mass/Vol] 8.30 ug/dL Normal 5.53-11.00 [facility] Comment on above: Performed By: #### A 1C #### [facility] [address] [place] [address] Jasen Devorah GLYCOHEMOGLOBIN A1Con 2020 ADA RECOMMENDATION ADA THERAPEUTIC TARGET 6.0 - 7.0 ACTION SUGGESTED > 7.0 Normal [facility] Comment on above: Performed By: #### A 1C #### [facility] [address] [phone] Jasen Devorah Glucose [Mass/Vol] 111 mg/dL Normal [facility] Comment on above: Performed By: #### A 1C #### [facility] [address] [place], [place] [address] Jasen Devorah HbA1c (Bld) [Mass fraction] 5.5 % Normal <=6.0 [facility] Comment on above: Performed By: #### A 1C #### [facility] [address] [place], [place] [address] Jasen Devorah LIPID PROFILEon 11-08-2020 CHOL-HDL RATIO NORM SEE BELOW Normal [facility] Comment on above: Result Comment: 3.3 - 4.4 LOW RISK 4.4 - 7.1 AVERAGE RISK 7.1 - 11.0 MODERATE RISK >11.0 HIGH RISK Performed By: #### A 1C #### [facility] [address] [place], [place] [address] Jasen Devorah Cholesterol [Mass/Vol] 147 mg/dL Normal <=200 [facility] Comment on above: Performed By: #### A 1C #### [facility] [address] [place], [place] [address] Jasen Devorah Cholesterol in HDL [Mass/Vol] 50 mg/dL Normal [facility] Comment on above: Performed By: #### A 1C #### [facility] [address] [place] [address] Jasen Devorah Cholesterol in LDL [Mass/Vol] 76.6 mg/dL Normal [facility] Comment on above: Performed By: #### A 1C #### [facility] [address] [place], [place] [address] Jasen Devorah Cholesterol.total/Cho lesterol in HDL [Mass ratio] 2.9 {ratio} Normal [facility] Comment on above: Performed By: #### A 1C #### [facility] [address] [place], [place] [address] Jasen Devorah HDL NORMAL > or = 60 mg/dl - LOW CARDIOVASCULAR RISK <40 mg/dl - HIGH CARDIOVASCULAR RISK Normal [facility] Comment on above: Performed By: #### A 1C #### [facility] [address] [place], [place] [address] Jasen Devorah LDL CALC NORMAL SEE BELOW Normal [facility] Comment on above: Result Comment: <100 mg/dl OPTIMAL 100 - 129 mg/dl NEAR OR ABOVE OPTIMAL 130 - 159 mg/dl BORDERLINE HIGH 160 - 189 mg/dl HIGH >190 mg/dl VERY HIGH Performed By: #### A 1C #### [facility] [address] [phone] Jasen Devorah Triglyceride [Mass/Vol] 102 mg/dL Normal <=150 [facility] Comment on above: Performed By: #### A 1C #### [facility] [address] [phone] Jasen Devorah VLDL CALC 20.4 mg/dL Normal [facility] Comment on above: Performed By: #### A 1C #### [facility] [address] [place], [place] [address] Jasenandrzej Viverosen PROF 14(COMP METB)on 021 Albumin [Mass/Vol] 4.0 g/dL Normal 3.5-5.0 [facility] Comment on above: Performed By: #### A 1C #### [facility] [address] [place], [place] [address] Jasen Devorah Albumin/Globulin [Mass ratio] 1.2 {ratio} Normal [facility] Comment on above: Performed By: #### A 1C #### [facility] [address] [place], [place] [address] Jasen Devorah ALP [Catalytic activity/Vol] 99 U/L Normal 38-126 [facility] Comment on above: Performed By: #### A 1C #### [facility] [address] [place], [place] [address] Jasen Devorah ALT [Catalytic activity/Vol] 20 U/L Normal 9-52 [facility] Comment on above: Performed By: #### A 1C #### [facility] [address] [place], [place] [address] Jasen Devorah Anion gap [Moles/Vol] 13.3 mmol/L Normal [facility] Comment on above: Performed By: #### A 1C #### [facility] [address] [place], [place] [address] Jasen Devorah AST [Catalytic activity/Vol] 15 U/L Normal 14-36 [facility] Comment on above: Performed By: #### A 1C #### [facility] [address] [place] [address] Jasen Devorah Bilirubin [Mass/Vol] 0.4 mg/dL Normal 0.2-1.3 [facility] Comment on above: Performed By: #### A 1C #### [facility] [address] [place] [address] Jasen Devorah Calcium [Mass/Vol] 9.2 mg/dL Normal 8.4-10.2 [facility] Comment on above: Performed By: #### A 1C #### [facility] [address] [place], [place] [address] Jasen Devorah Chloride [Moles/Vol] 109 mmol/L Critically high 98-107 [facility] Comment on above: Performed By: #### A 1C #### [facility] [address] [place] [address] Jasen Devorah CO2 [Moles/Vol] 27.4 mmol/L Normal 22.0-30.0 [facility] Comment on above: Performed By: #### A 1C #### [facility] [address] [place], [place] [address] Jasen Devorah Creatinine [Mass/Vol] 0.72 mg/dL Normal 0.52-1.04 [facility] Comment on above: Performed By: #### A 1C #### [facility] [address] [place], [place] [address] Jasen Devorah EGFR-AF CAP[place] VERDEAN >60 Normal >=60 [facility] Comment on above: Performed By: #### A 1C #### [facility] [address] [place], [place] [address] Jasen Devorah EGFR-NON AF [place] >60 Normal >=60 [facility] Comment on above: Performed By: #### A 1C #### [facility] [address] [place], [place] [address] Jasen Devorah Globulin (S) [Mass/Vol] 3.3 g/dL Normal [facility] Comment on above: Performed By: #### A 1C #### [facility] [address] [place], [place] [address] Jasen Devorah Glucose [Mass/Vol] 97 mg/dL Normal 74-106 [facility] Comment on above: Performed By: #### A 1C #### [facility] [address] [place] [address] Jasen Devorah Potassium [Moles/Vol] 3.7 mmol/L Normal 3.4-5.0 [facility] Comment on above: Performed By: #### A 1C #### [facility] [address] [place], [place] [address] Jasen Devorah Protein [Mass/Vol] 7.3 g/dL Normal 6.1-8.2 [facility] Comment on above: Performed By: #### A 1C #### [facility] [address] [place], [place] [address] Jasen Devorah Sodium [Moles/Vol] 146 mmol/L Critically high 137-145 [facility] Comment on above: Performed By: #### A 1C #### [facility] [address] [place], [place] [address] Jasen Devorah Urea nitrogen [Mass/Vol] 15.0 mg/dL Normal 7.0-17.0 [facility] Comment on above: Performed By: #### A 1C #### [facility] [address] [place], [place] [address] Jasen Devorah Urea nitrogen/Creatinine [Mass ratio] 20.8 mg/mg Normal [facility] Comment on above: Performed By: #### A 1C #### [facility] [address] [place], [place] [address] Jasen Fairchild TSHon 11-08-2020 TSH 2.227 uIU/mL Normal 0.470-4.680 [facility] Comment on above: Performed By: #### T 7, CMP, TSH, LIPID #### [facility] [address] [phone] Jasen Fairchild TSH RANGE SEE BELOW Normal [facility] Comment on above: Result Comment: <0.3 4 UIU/ml HYPERTHYROID 0.34-5.60 UIU/ml EUTHYROID >5.60 UIU/ml HYPOTHYROID Performed By: #### T 7, CMP, TSH, LIPID #### [facility] [address] [place], [place] [address] Jasen Fairchild Vital Signs Date Time Vital Sign Value Performing Clinician Facility 09-28-2024 10:27-0400 Body mass index (BMI) [Ratio] 25.13 kg/m2 Fiona AMCAD DO Work Phone: [facility] 09-28-2024 10:27-0400 Body weight 60.33 kg Fiona AMCAD DO Work Phone: [facility] 09-28-2024 10:27-0400 Diastolic blood pressure 70 mm[Hg] FionaScan DO Work Phone: [facility] 09-28-2024 10:27-0400 Systolic blood pressure 126 mm[Hg] FionaScan DO Work Phone: [facility] 01-19-2024 14:06-0400 Blood Pressure Location Wali MCCOY [facility] 01-19-2024 14:06-0400 Diastolic blood pressure 78 mm[Hg] Wali MCCOY [facility] 01-19-2024 14:06-0400 Heart rate 72 /min Wali MCCOY [facility] 01-19-2024 14:06-0400 Respiratory rate 16 /min Wali MCCOY [facility] 01-19-2024 14:06-0400 Systolic blood pressure 138 mm[Hg] Wali MCCOY [facility] 01-20-2023 14:30-0400 Body height 154.94 cm [facility] 01-20-2023 14:30-0400 Body mass index (BMI) [Ratio] 23.62 kg/m2 [facility] Other 01-20-2023 14:30-0400 Body weight 56.7 kg [facility] Other Encounters Encounter Date Encounter Type Care Provider Facility Start: 09-28-2024 End: 09-28-2024 Bamboo flowsheet Fiona Fraser DO Work Phone: [facility] Start: 09-28-2024 End: 09-28-2024 Bamboo flowsheet Fiona Fraser DO Work Phone: [facility] Start: 09-28-2024 End: 09-28-2024 Patient encounter status Fiona Fraser DO Work Phone: [facility] Work Phone: Start: 09-28-2024 End: 09-28-2024 Periodic preventive med est patient 40-64yrs Fiona Fraser DO Work Phone: [facility] Comment on above: Encounter for gyneco logical examination without abnormal finding (Primary Dx); Screening for malignant neoplasm of cervix; Encounter for screening mammogram for breast cancer; Uterine prolapse; Cystocele, midline Start: 09-28-2024 End: 09-28-2024 ambulatory FIONA FRASER Not Available Start: 08-26-2024 End: 08-26-2024 Patient encounter procedure [facility]ireya Allen MD [facility] Work Phone: Start: 08-26-2024 End: 08-26-2024 ambulatory Mireya Allen MD Work Phone: [facility] Work Phone: Start: 02-15-2024 End: 02-15-2024 ambulatory Wali R NILL Facility: [facility] Start: 02-15-2024 End: 02-15-2024 Patient encounter procedure Wali R NILL [facility] Start: 02-02-2024 End: 02-02-2024 Lab Drop off Wali R NILL [facility] Start: 02-02-2024 End: 02-02-2024 ambulatory Wali R NILL Facility:[facility] Start: 02-02-2024 End: 02-02-2024 Patient encounter procedure Wali R NILL [facility] Start: 01-19-2024 End: 01-19-2024 ambulatory Wali R NILL Facility: [facility] Start: 01-19-2024 End: 01-19-2024 Patient encounter procedure Wali R NILL [facility] Start: 12-23-2023 ambulatory Wali R NILL Facility : [facility] Start: 05-08-2023 End: 05-08-2023 ambulatory MD Mireya Allen Work Phone: [facility] Work Phone: Start: 05-08-2023 End: 05-08-2023 Patient encounter procedure MD Mireya Allen [facility] Work Phone: Start: 02-16-2023 End: 02-17-2023 ambulatory Roque Davila Facility:[facility] Start: 01-20-2023 End: 01-20-2023 Patient encounter procedure MD Mireya Allen Work Phone: [facility] Start: 01-20-2023 End: 01-20-2023 ambulatory MD Mireya Allen Work Phone: [facility] Work Phone: Start: 01-20-2023 Office outpatient ne w 45 minutes Kasi Antoine II [facility] Start: 04-04-2022 End: 04-04-2022 ambulatory MD Mireya Allen Work Phone: [facility] Work Phone: Start: 04-04-2022 End: 04-04-2022 Patient encounter procedure MD Mireya Allen Work Phone: [facility] Start: 10-09-2021 Encounter for genera l adult medical examination without abnormal findings DR MIREYA ALLEN [facility] Start: 2021 End: 10-04-[address] MIREYA ALLEN Facility:[facility] Start: 2021 End: 10-04-2021 Encounter for general adult medical examination without abnormal findings DR MIREYA ALLEN Facility:[facility] Start: 11-08-2020 End: 11-09-[address] MIREYA ALLEN Facility:[facility] Procedures Date Procedure Procedure Detail Performing Clinician Start: 08-28-2024 Mammography Fiona thomason DO Work Phone: Endometrial ablation Wali MCCOY Plan of Treatment Date Care Activity Detail Author Start: 07-20-2028 Screening for malign ant neoplasm of cervix [facility] Start: 09-28-2025 End: 11-28-2025 DBT Breast - bilateral screening Bilateral screening mammogram with tomosynthesis Imaging Routine Encounter for screening mammogram for breast cancer Expected: 09/28/2025, Expires: 11/28/2025 [facility] Comment on above: Expected: 09/28/2025 , Expires: 11/28/2025 Start: 08-28-2025 Screening for malign ant neoplasm of breast Mammogram [facility] Start: 01-15-2025 Influenza vaccination Influenz a Vaccine (Season Ended) [facility] Start: 09-28-2024 End: 09-28-2024 Patient encounter procedure 09/28/2024 10:30 AM EDT Office Visit [facility] [address] [place] [address] Evelio Fiona Carmelita, DO [address] [place] [address] Encounter for gynecological examination without abnormal finding; Screening for malignant neoplasm of cervix; Encounter for screening mammogram for breast cancer [facility] Comment on above: Encounter for gyneco logical examination without abnormal finding; Screening for malignant neoplasm of cervix; Encounter for screening mammogram for breast cancer Start: 08-26-2024 MG Breast - bilatera l Screening [facility] Start: 08-26-2024 Screening mammograph y of bilateral breasts MM screening mammo BI w/CAD [facility] Start: 05-08-2023 MG Breast - bilatera l Screening [facility] Start: 05-08-2023 Screening mammograph y of bilateral breasts MM screening mammo BI w/CAD [facility] Start: 01-20-2023 Plain X-ray of right hip XR hi p RT min 2V(w/wo pelvis)* [facility] Start: 04-04-2022 Screening mammograph y of bilateral breasts MM screening mammo BI w/CAD [facility] Start: 10-04-1983 Screening for malign ant neoplasm of cervix Pap Smear [facility] Start: 1960 Screening for malign ant neoplasm of colon [facility] IGP, RFX APTIMA HPV ASCU IGP, RF X APTIMA HPV ASCU Lab Routine Screening for malignant neoplasm of cervix Ordered: 09/28/2024 [facility] Work Phone: Comment on above: Ordered: 09/28/2024 Immunizations Immunization Date Immunization Notes Care Provider Inocencia flood 04-18-2024 influenza virus vaccine, unspecified formulation Fiona Fraser DO Work Phone: [facility] 03-31-2023 influenza virus vaccine, unspecified formulation Wali MCCOY [facility] 06-12-2020 SARS-CoV-2 (COVID-19 ) mRNA-1273 vaccine Wali MCCOY [facility] 05-14-2020 SARS-CoV-2 (COVID-19 ) mRNA-1273 vaccine Wali MCCOY [facility] Payers Date Payer Category Payer Self-pay [id number] 2024 Unknown [id number] 2023 Private Health Insurance [id number] 2023 Private Health Insurance 1960 Unknown [id number] 2.16.84 [id number] 1960 Unknown [id number] 2.16.84 [id number] 1960 Unknown [id number] 2.16. [id number] 1960 Unknown [id number] 2.16.8 [id number] 1960 Unknown [id number] 2.16.8 [id number] 1960 Unknown [id number] 2.16.8 [id number] 1960 Unknown [id number] 2.16.8 [id number] 1960 Unknown [id number] 2.16.8 [id number] 1960 Unknown [id number] 2.16.84 [id number] 1959 Private Health Insurance [id number] Unknown [id number] 2.16.8 [id number] Social History Date Type Detail [facility] Work Phone: Start: 1960 Sex Assigned At Female F [facility] Start: 04-19-2023 End: 07-21-2023 Sex Assigned At [facility] Start: 07-21-2023 End: 01-19-2024 Tobacco smoking status Never smoked tobacco (finding) [facility] Tobacco smoking status Never [facility] Work Phone: Start: 08-27-2024 Sex Female (finding) [facility] Start: 07-21-2023 Tobacco use and exposure Smokeless tobacco non-user [facility] Start: 09-27-2024 End: 09-28-2024 Alcoholic beverage intake Current drinker of alcohol (finding) [facility] Start: 07-21-2023 End: 09-27-2024 Alcoholic beverage intake [facility] How often to you hav e a drink containing alcohol? Monthly or less [facility] How many standard drinks containing alcohol do you have on a typical day? 1 or 2 [facility] How often do you hav e 6 or more drinks on 1 occasion? Never [facility] Start: 04-19-2023 Alcohol Comment Caffeine intak e: 1-2 cups per day [facility] Start: 1960 Sex assigned at Not on file [facility] Functional Status Date Assessment Result Facility 01-19-2024 Functional Status N/A [facility] Clinical Notes 01-20-2023 to 09-28-2024 Fiona Fraser, DO - 09/28/2024 10:30 AM EDT Note Date & Type Note Facility 09-28-2024 History of Present illness Narrative Images from the original note were not included. Fiona Fraser D.O. Obstetrics and Gynecology Patient: Olive Turpin : 1960 (63 y.o.) Yearly Wellness Exam Date: 09/28/2024 Reason for Visit - Chief Complaint Patient presents with Gynecologic Exam Pt would like to discuss hysterectomy, states in the past was recommended d/t prolapse. Denies bowel/bladder/breast concerns. Pt up to date with mammogram. Denies vaginal bleeding/spotting. Visit Vitals BP 126/70 Wt 133 lb BMI 25.13 kg/m OB Status Ablation Smoking Status Never BSA 1.61 m No Known Allergies History of Present Illness, Associated Treatments and Results - OB History Para Term AB Living 2 2 2 0 0 0 SAB IAB Ectopic Multiple Live Births 0 0 0 0 2 # Outcome Date GA Lbr Adriano/2nd Weight Sex Type Anes PTL Lv 2 Term 1 Term Obstetric Comments Pap smear 07/21/23 wnl, Mammogram 08/26/24 [place] [facility] Review of Systems - General: Chills denies. Allergy/Immunology: Rash Denies. ENT: Denies Difficulty swallowing. Endocrine: Denies Cold intolerance denies. Heat intolerance denied. Respiratory: Denies Chest pain denies. Shortness of breath denies. Breast: Denies Bloody nipple discharge denies. Breast lump denies. Cardiovascular: Denies Chest pain. Gastrointestinal: Abdominal pain denies. Blood in stool denies. Hematology: Easy bruising denies. Prolonged bleeding denies. Women Only: Breast lump denies. Vaginal bleeding between periods is denied. Vaginal discharge/itching denied. Genitourinary: Blood in urine denies. Painful urination denies. Incontinence denies. Skin: Hair changes. Neurologic: Seizures denied. Stroke denies. Psychiatric: Anxiety denies. Depressed mood denies. Medication Documentation Review Audit Reviewed by Lacie Sabillon MA (Gizzard Puller) on 09/28/24 at 1026 Medication Order Taking? Sig Documenting Provider Last Dose Status eletriptan (Relpax) 40 MG tablet [id number] tablet Orally At onset of migraine. May repeat in 2 hours Fiona Fraser DO Active topiramate (Topamax) 25 MG tablet [id number] 1 (one) time each day at the same time Fiona Fraser DO Active Past Medical History: Diagnosis Date Cystocele History of cataract surgery 2009 samantha. History of medical problems prolapse (normal spontaneous vaginal delivery) x2- full term Past Surgical History: Procedure Laterality Date CATARACT EXTRACTION, BILATERAL 2009 COLONOSCOPY 2015 ENDOMETRIAL ABLATION OTHER SURGICAL HISTORY 2012 Novasure ablation Family History Problem Relation Name Age of Onset Breast cancer Sister Kim Wilkins Breast cancer Sibling Physical Exam - General appearance, mentation, extraocular movements, facial strength and movement, hearing, upper and lower extremity strength and tone, sensation to gross testing, coordination, and gait are normal or at baseline unless noted below. General Examination: GENERAL APPEARANCE: alert oriented well developed, well nourished. HEAD: normocephalic atraumatic. EYES: sclera anicteric. EARS: no obvious hearing deficit. SKIN: warm and dry. HEART: regular rate and rhythm. LUNGS: clear to auscultation bilaterally. CHEST: axillary nodes grossly normal. BREASTS: no masses palpable bilaterally, normal nipples bilaterally. ABDOMEN: soft, nontender, nondistended, no masses palpable. BACK: no costovertebral angle tenderness, no obvious scoliosis/kyphosis. FEMALE GENITOURINARY: cystocele grade 3, atrophic vaginal mucosa, cervix absent of lesions, nontender, uterus AV, mobile, uterine prolapse grade 2, ovaries nonpalpable and nontender. EXTREMITIES: no edema. NEUROLOGIC: alert and oriented. PSYCH: cooperative with exam. Diagnoses and all orders for this visit: Encounter for gynecological examination without abnormal finding Screening for malignant neoplasm of cervix - IGP, RFX APTIMA HPV ASCU Encounter for screening mammogram for breast cancer - Bilateral screening mammogram with tomosynthesis; Future Uterine prolapse Cystocele, midline Pap, pelvic and breast exam completed. Findings of today's exam discussed with the patient. Continue MSBE. Ca/Vit D recommendations reviewed with the patient. The patient is to contact the office with any changes to her gynecological condition. The patient is to return in 1 year or as needed Patient is wanting to proceed with surgical management for prolapse. Discussed surgery briefly- will schedule pelvic US first, then preop visit different day. Patient is looking around November for surgery ICD-10-CM 1. Encounter for gynecological examination without abnormal finding Z01.419 2. Screening for malignant neoplasm of cervix Z12.4 IGP, RFX APTIMA HPV ASCU 3. Encounter for screening mammogram for breast cancer Z12.31 Bilateral screening mammogram with tomosynthesis 4. Uterine prolapse N81.4 5. Cystocele, midline N81.11 documented in this encounter [facility] 01-19-2024 Note General Surgery Offi ce/Clinic Note Chief Complaint consultation for skin lesion HPI Staff 63 year old female presents on consultation from Dr. Allen for skin lesion. Reports noting red/purple discoloration to right ankle approximately 4 months ago. Reports this has been enlarging. Denies pain or discomfort. Does not recall injury to area. History of Present Illness 63 yo female with h/o insomnia, referred for changing skin lesion right ankle; initial lesion present for 4 months, no injury to area, no pain or itching; no h/o other similar lesions; gradually increased in size, now second lesion appeared lateral to first lesion; no asa or NSAID use; no personal or fmhx of skin cancers; no tobacco use. Review of Systems PHQ Score Initial Depression Screen Score: 0 SCORE ROS - Provider Constitutional: no fever, no sweats, no weight loss. Eyes: no glasses, no blurred vision, no visual loss. ENMT: no dentures, no hoarseness, no swallowing difficulties, no hearing loss, no ear infection(s), no nose bleeds. Cardiovascular: normal blood pressure, no chest pain, regular heartbeat, no heart murmur. Respiratory: no shortness of breath, no cough, no asthma, no wheezing. Gastrointestinal: no nausea, no vomiting, no diarrhea, no constipation, no blood in stool, no change in bowel habits, no abdominal pain, no hepatitis. Genitourinary: no kidney stones, no urine infection, no dysuria. Musculoskeletal: no pain, no weakness. Skin: no changing moles, no rash, yes skin lumps. Neurologic: no seizures, no epilepsy, no headache. Psychiatric: no emotional or psychiatric problem. Heme/Lymph: no bleeding problems, no anemia, no blood clots, no transfusions. Allergy/Immunologic: no swollen lymph nodes/glands, no IV drug abuse. Other: Additional ROS info: Except as noted in the above Review of Systems and in the History of Present Illness, all other systems have been reviewed and are negative or noncontributory. Physical Exam Vitals & Measurements HR: 72(Peripheral) RR: 16 BP: 138/78 HT: 61 in HT: 154.9 cm WT: 59.8 kg WT: 131.56 lb BMI: 24.92 HEENT: normal conjunctiva, sclera clear, no scleral icterus, EOM intact, PERRLA, oral mucosa moist without lesions. Neck: trachea midline, no mass, symmetric, no thyromegaly or nodules, no adenopathy Musculoskeletal: normal gait, digits and nails without infection, nodes, cyanosis, clubbing. Skin: no rashes, no ulcers, right anterior ankle with 2 cm oval, raised, thickened purple lesion with indistinct border, slight scale to center, no ulceration or bleeding; 7 mm adjacent lesion laterally no subcutaneous nodules, induration. Psychiatric/Neuro: oriented to time, place, person, judgement normal, affect appropriate for age, insight intact, no focal deficits. Tests: review of old records completed , Discussed surgical options, risks, and possible complications with patient. Assessment/Plan 1. Neoplasm of uncertain behavior of skin of ankle (D48.5: Neoplasm of uncertain behavior of skin) unclear etiology; plan incisional biopsy of larger lesion for tissue diagnosis; informed consent obtained. Follow-up No qualifying data available Problem List/Past Medical History Ongoing Dyshidrotic eczema Insomnia Migraines Neoplasm of uncertain behavior of skin of ankle Historical No qualifying data Procedure/Surgical History Endometrial ablation. Medications Relpax 40 mg Tab, 40 mg= 1 tab(s), Oral, Once Allergies No Known Allergies No Known Medication Allergies Social History Alcohol Current, Wine, 1-2 times per week, 01/19/2024 Substance Abuse - Denies Substance Abuse, 01/19/2024 Tobacco Never (less than 100 in lifetime) Tobacco Use:. Never Smokeless Tobacco Use:., 01/19/2024 Family History Primary malignant neoplasm of female breast: Sister. Immunizations Vaccine Date Status influenza virus vaccine, inactivated 03/31/2023 Recorded SARS-CoV-2 (COVID-19) mRNA-1273 vaccine 06/12/2020 Recorded SARS-CoV-2 (COVID-19) mRNA-5111 vaccine 05/14/2020 Recorded [facility] Comment on above: Result Comment: Elec tronically Signed By: Wali MCCOY MD\.br\Date and Time Signed: 01/19/24 14:53 EDT 01-20-2023 Evaluation note Encounter Date Diagnosis Assessment Notes Jan, Right hip pain (ICD-10 - M25.551) Jan, Right flank pain (ICD-10 - R10.9) Jan, Other We had a long discussion today as I explained to her that her hip x-rays and MRI look relatively normal. Overall her exam is extremely benign. The fact that this is intermittent in nature to me does not seem overly concerning. At this point I would recommend getting into formal physical therapy for an evaluation and treatment. She can follow-up as needed [facility] Other Evaluation + Plan note Future Appointments Appointment Date:02/02/2024 03:20:00 PM Scheduled Provider:Wali MCCOY MD Location:[facility] Appointment Type:GS Procedure [facility] Evaluation + Plan note Future Appointments Appointment Date:02/15/2024 03:00:00 PM Scheduled Provider:Wali MCCOY MD [facility] Type:GS Established [facility] Evaluation noteNo assessment information available [facility] Work Phone: Evaluation note* Diagnosis Encounter for gynecological examination without abnormal finding- Primary Screening for malignant neoplasm of cervix Screening for malignant neoplasm of the cervix Encounter for screening mammogram for breast cancer Uterine prolapse Uterine prolapse without mention of vaginal wall prolapse Cystocele, midline [facility] - Reported* Type Description Date Surgical History ablation [facility] Other Hospital course Narrative No data available for this section [facility] Discharge instructions No data available for this section [facility] Progress note No data available for this section [facility] [place] Summary Purpose Family History No Family History Records Found Relationship Condition Age at Onset Recorded Date/T [place] sister Malignant neoplasm of breast Unknown Malignant neoplasm Unknown Advance Directives No Advanced Directives Records Found Advance Directive Response Recorded Date/ Time Advance Directives No January 3:50pm Advance Directive Response Recorded Date/ Time Advance Directives No January 4:50pm Chief Complaint and Reason for Visit Chief Complaint Screening Chief Complaint Admit Date Screening August 26, 2024 9:3 4am Additional Source Comments INFORMATION SOURCE (unrecogn ized section and content) DATE CREATED AUTHOR 10/12/2021 [facility] DATE CREATED AUTHOR AUTHOR'S ORGANIZ ATION 02/20/2023 [facility] DATE CREATED AUTHOR AUTHOR'S ORGANIZ ATION 02/12/2024 [facility] DATE CREATED AUTHOR AUTHOR'S ORGANIZ ATION 02/17/2024 [facility] DATE CREATED AUTHOR AUTHOR'S ORGANIZ ATION 02/18/2024 [facility] DATE CREATED AUTHOR AUTHOR'S ORGANIZ ATION 08/30/2024 [facility] DATE CREATED AUTHOR AUTHOR'S ORGANIZ ATION 09/29/2024 [facility] [employer] Care Teams (unrecognized sec tion and content) Team Status: Inactive Member Role Status Wilbur Allen MD Primary Care Provider Active Fiona Fraser DO Attending Provider Active Team Status: Active Member Role Status Wilbur Allen MD Primary Care Provider Active Team Status: Inactive Member Role Status Wilbur Allen MD Primary Care Provider Active Kasi Antoine II, MD Attending Provider Active Team Status: Inactive Member Role Status Wilbur Allen MD Primary Care Provider Active Referral Self Attending Provider Active Fiona Fraser DO Referring Provider Active Team Status: Inactive Member Role Status Wilbur Allen MD Primary Care Provider Active Start: August 26, 2024 End: August 26, 2024 Referral Self Attending Provider Active Start: A pril 2024 End: August 26, 2024 Fiona Fraser DO Referring Provider Active S tart: August 26, 2024 End: August 26, 2024 Oil Transport Driver Relationship Specialty Start Date End Date Mireya Allen MD PCP - General Family Medicine 04/20/23 Oil Transport Driver Relationship Specialty Start Date End Date Mireya Allen MD PCP - General Family Medicine 04/20/23 Goals (unrecognized section and content) Goals may be documented in a n alternate sectionGoals may be documented in an alternate sectionNo InformationGoals may be documented in an alternate section No data available for this section No data available for this section No data available for this section No data available for this sectionGoals may be documented in an alternate section REASON FOR VISIT (unrecogniz ed section and content) Reason Comments Gynecologic Exam Pt would like to dis cuss hysterectomy, states in the past was recommended d/t prolapse. Denies bowel/bladder/breast concerns. Pt up to date with mammogram. Denies vaginal bleeding/spotting. FOR RECORDS PERTAINING TO PATIENTS WHO ARE OR HAVE BEEN ENROLLED IN A CHEMICAL DEPENDENCY/SUBSTANCEABUSE PROGRAM, SOME INFORMATION MAY BE OMITTED. This clinical summary was aggregated from multiple sources. Caution should be exercised in using it in the provision of clinical care. This summary normalizes information from multiple sources, and as a consequence, information in this document may materially change the coding, format and clinical context of patient data. In addition, data may be omitted in some cases. CLINICAL DECISIONS SHOULD BE BASED ON THE PRIMARY CLINICAL RECORDS. [employer] provides no warranty or guarantee of the accuracy or completeness of information in this document.
[2024-10-12 09:42] LABS: Basophils Percent Auto 0.6 % (0.2-2.0); Eosinophils Absolute Auto 0.1 10^3/uL (0.0-0.7); Eosinophils Percent Auto 1.6 % (0.9-7.0); Hematocrit 40.4 % (36.0-48.0); Hemoglobin 13.4 g/dL (12.0-16.0); Immature Granulocytes Abs Auto 0.02 10^3/uL (0.00-0.03); Immature Granulocytes Pct Auto 0.4 % (0.0-0.5); Lymphocytes Absolute Auto 1.6 10^3/uL (1.2-3.8); Lymphocytes Percent Auto 31.8 % (20.5-60.0); Mean Corpuscular HGB Conc 33.2 g/dL (29.9-35.2); Mean Corpuscular Hemoglobin 29.3 pg (26.7-34.0); Mean Corpuscular Volume 88.2 fL (81.0-99.0); Mean Platelet Volume 10.7 fL (9.5-13.5); Monocytes Absolute Auto 0.4 10^3/uL (0.3-0.8); Monocytes Percent Auto 8.7 % (1.7-12.0); Neutrophils Absolute Auto 2.8 10^3/uL (1.4-6.5); Neutrophils Percent Auto 56.9 % (43.0-75.0); Platelet Count 210 10^3/uL (150-450); Red Blood Count 4.58 10^6/uL (4.20-5.40); Red Cell Distribution Width 12.7 % (11.0-15.0); White Blood Count 4.9 10^3/uL (4.0-11.0)
[2024-10-12 10:21] LABS: Alanine Aminotransferase 26 U/L (14-59); Albumin Globulin Ratio 1.3; Alkaline Phosphatase 99 U/L (46-116); Anion Gap 12.4; Aspartate Amino Transferase 17 U/L (15-37); BUN Creatinine Ratio 30.5; Bilirubin Total 0.4 mg/dL (0.2-1.0); Calcium 9.3 mg/dL (8.5-10.1); Carbon Dioxide 28.6 mmol/L (21.0-32.0); Chloride 109 mmol/L (98-107); Chol HDL Ratio 2.7; Cholesterol 169 mg/dL (<=200); Estimated GFR (African America >60 (>=60 mL/min/1.73m^2); Estimated GFR (Non-African Ame >60 (>=60 mL/min/1.73m^2); Free T3 2.89 pg/mL (2.18-3.98); Globulin 3.1 g/dL; Glucose 94 mg/dL (74-106); HDL Cholesterol 63 mg/dL (40-60); Sodium 146 mmol/L (136-145); Total Protein 7.1 g/dL (6.4-8.2); Triglycerides 72 mg/dL (<=150); VLDL CHOLESTEROL 14.4 mg/dL
[2024-10-12 10:36] LABS: Estimated Average Glucose 117 mg/dL; Glycohemoglobin A1C 5.7 % (4.5-6.2)
== END 2024-10-12 09:27 | disposition home or self-care (01) ==
LOC: LAB 09:29
PROVIDERS: PCP Family Medicine; Visit Provider Family Medicine
DX: Z00.00 Encounter for general adult medical examination without abnormal findings (principal)
CPT/HCPCS: 36415; 80053; 80061; 83036; 84436; 84443; 84481; 85025

== ENCOUNTER 2025-01-02 17:32 | Inpatient (IN) | payer OTHER, SELFPAY ==
--- OUTSIDE RECORDS SUMMARY | 2024-10-12 04:45 | XMS_ITS ---
Author Organization [facility] in [place] Address [address] [place] [address] Care Team Providers Care Audio Experience Expert Name Role Phone Edgar Allen Primary Care Provider [phone] Allergies No Known Allergies REASON FOR VISIT wellness Medications Medication SIG (Take, Route, Frequency, Duration) Notes Start Date End Date Status Relpax 40 MG 1 tablet Orally At o nset of migraine. May repeat in 2 hours PRN Active Social History Tobacco Use: Social History Observation Description Date Details (start date - stop date) Never Smoker NA - NA Tobacco Use/Smoking Question Answer Notes Patient is a nonsmoker AUDIT-C (Standard) Question Answer Notes Did you have a drink contain ing alcohol in the past year? Yes How often did you have a dri nk containing alcohol in the past year? Never (0 point) How many drinks did you have on a typical day when you were drinking in the past year? 1 or 2 drinks (0 point) How often did you have six o r more drinks on one occasion in the past year? 2 to 4 times a month (2 points) Points 2 Interpretation Negative Vital Signs Weight 137.6 lbs 10/12/2024 Height 61 in 10/12/2024 Blood pressure systolic 144 mm Hg 10/13/19 25 Blood pressure diastolic 70 mm Hg 025 BMI 26 kg/m2 10/12/2024 Encounters Encounter Location Date Provider Diagnosis [facility] [address] [place] [address] 10/12/2024 Edgar Allen Well adult Z00.0 0 Assessments Encounter Date Diagnosis (ICD Code) Assessment Notes Treatment Notes Treatment Clinical Notes Section Notes 10/12/2024 Well adult (ICD-10 - Z00.00) Plan Of Treatment Pending Test Test Name Order Date HEMOGLOBIN A1C (GLYCO) 10/12/2024 LIPID PANEL (CHOL/TRIG/HDL/LDL) 10/13/19 25 STOOL OCCULT BLOOD 10/12/2024 THYROID PANEL (T4/TSH/FREE T3) 5 CMP (COMP MET CORNELIUS) w/eGFR CKD-EPI 2024 CBC WITH DIFF 10/12/2024 Progress Notes * Jen TURPIN ADOB:1960 (64 yo F)Acc No.[id number]:10/12/2024 Progress Note Patient: Jen HINKLE Provider: Reshma Allen ([facility])MD :1960 A ge:64 Y S ex:Female Date:10/12/2024 Address:[address] [place], [place] [id number] Check In:08:39 AM ESTCheck O ut:09:21 AM EST Subjective: * Chief Complaints: * W ellness * HPI: D epression Screening: PHQ-2 (2015 Edition) L ittle interest or pleasure in doing things??Not at all F eeling down, depressed, or hopeless? N ot at all T otal Score 0 * ROS: E ENT: hearing changes d enies. v isual changes d enies.?non-healing mouth sores d enies. s wollen glands or neck lumps d enies. h oarseness d enies. s ore throat d enies. d ifficulty swallowing d enies. n ose bleeds d enies. n karyn congestion d enies. e ar ache d enies. e ar discharge?denies. r inging in ears d enies. l ight sensitivity d enies. e ye pain d enies. b lurring d enies. e ye irritation d enies. d ouble vision d enies.?vision loss d enies. G eneral/Constitutional: Sweats: D enies. F atigue d enies. S leep problems d enies. A norexia d enies. M alaise d enies. W eight loss d enies.?Fatigue or Weakness d enies. F ever or Chills d enies. C ardiovascular: Shortness of Breath w/lying flat d enies. L ightheadedness/dizziness d enies. C hest tightness/ heavy pressure d enies. S welling of legs, ankles, or feet d enies. W aking up with shortness of breath d enies. C hest pain denies. P alpitations d enies. W eight gain d enies. R espiratory: Chronic or frequent cough d enies. C oughing up blood?denies. D ifficulty breathing d enies. P roductive cough d enies. S noring?denies. S hortness of breath that awakens from sleep (PND) d enies. C hest pain d enies. S putum production d enies. W heezing d enies. M usculoskeletal: Joint pain d enies. J oint Fluid d enies. B ack pain d enies. K nee pain d enies. N ernie pain d enies. J oint Stiffness d enies. M uscle cramps d enies. W eakness of muscles d enies. A rthritis d enies. M uscle aches d enies. P ain in shoulder(s) d enies. S wollen joints d enies. 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 M other: alive. B rother(s): alive. S ister(s): alive, breast ca, diagnosed with Other malignant neoplasm of unspecified site. D aughter(s): alive. 1 brother(s) , 2 sister(s) - healthy. 2 daughter(s) - healthy. . * Social History: T obacco Use: T obacco Use/Smoking P atient is a n onsmoker D rug/Alcohol: A VLADIMIR-C (Standard) D id you have a drink containing alcohol in the past year? Y es H ow often did you have a drink containing alcohol in the past year? N ever (0 point) H ow many drinks did you have on a typical day when you were drinking in the past year? 1 or 2 drinks (0 point) H ow often did you have six or more drinks on one occasion in the past year? 2 to 4 times a month (2 points) P oints 2 I nterpretation N egative * Medications: T akingRelpax(Eletriptan Hydrobromide) 40 MG Tablet 1 tablet Orally At onset of migraine. May repeat in 2 hours , Notes to Pharmacist: PRNMedication List reviewed and reconciled with the patientTaking Relpax(Eletriptan Hydrobromide) 40 MG Tablet 1 tablet Orally At onset of migraine. May repeat in 2 hours , Notes to Pharmacist: PRNMedication List reviewed and reconciled with the patient * Allergies: N .K.D.A.no[Allergies Verified] Objective: * Vitals: W t:137.6lbs, Ht: 61 in, BP:144/70mm Hg, BMI:26Index, Ht-cm: 154.94 cm, Wt-k.41 kg. * Examination: P hysical Exam: GENERAL: w ell developed, well nourished, in no acute distress. HEAD: n ormocephalic/atraumatic. EYES: p upils equal, round and reactive to light, conjunctivae and sclerae normal. EARS: n o deformity or lesion of external ear, canals and TM appear normal bilaterally, TM's intact, not inflamed with normal light reflex, hearing grossly normal to conversational speech. NOSE: n o deformity, discharge, inflammation, or lesions.? MOUTH: m ucous membranes moist, normal oropharynx and posterior pharynx without lesions or exudates, tongue normal, dentition normal. NECK: n ernie supple, no masses or palpable cervical nodes, trachea midline, thyroid without nodules, masses, tenderness, or enlargement. CHEST: n o chest wall deformity, no chest wall tenderness.? LUNGS: n ormal respiratory effort and clear to auscultation, no wheezes, rales, or rhonchi, good air exchange. CARDIO: r egular rate and rhythm, normal S1 and S2, nor murmur, rub, or gallop. PULSES: n ormal capillary refill. ABDOMEN: s oft, non-distended, non-tender, no masses. MUSCULOSKELETAL: n o deformity or scoliosis noted, normal range of motion, joints normal, no erythema, edema, effusion, or ecchymosis. EXTREMITY: n o clubbing, cyanosis, edema, or deformity with normal ROM in both upper and lower bilateral extremities. NEUROLOGIC: g rossly normal. SKIN: n o rashes, ulcerations, or suspicious lesions. LYMPH NODES: n o cervical adenopathy, nodes normal. MENTAL STATUS: a lert and oriented x3, normal mood and affect. Assessment: * Assessment: 1. W ell adult - Z00.00 (Primary) Plan: * Treatment: * Procedure Codes: * Preventive Medicine: Screenings/Counseling: B DE ACTION PLAN Above Normal BMI Follow-up D ietary management education, guidance, and counseling * * Sign off status: Completed Visit Status: C HK (Check Out) true * Provider: Reshma Allen ([facility])MD Date: 0 10/12/2024 Generated for Juliannai ng/Ned/eTransmitting on: 0 01/02/2025 05:45 PM EDT History and Physical Notes * HPI (History of Present Illness) Category Sub-Category Detail Notes Category Not es Depression Screening PHQ-2 (2015 Edition) Little interest or pleasure in doing things?: Not at all Feeling down, depressed, or hopeless?: N ot at all Total Score: 0 Examination Category Sub-Category Detail Notes Category Not es Physical Exam GENERAL: well developed, well nourished, in no acute distress HEAD: normocephalic/atraum atic EYES: pupils equal, round and reactive to light, conjunctivae and sclerae normal EARS: no deformity or lesi on of external ear, canals and TM appear normal bilaterally, TM's intact, not inflamed with normal light reflex, hearing grossly normal to conversational speech NOSE: no deformity, discha rge, inflammation, or lesions MOUTH: mucous membranes suy[address] st, normal oropharynx and posterior pharynx without lesions or exudates, tongue normal, dentition normal NECK: neck supple, no mass es or palpable cervical nodes, trachea midline, thyroid without nodules, masses, tenderness, or enlargement CHEST: no chest wall deform ity, no chest wall tenderness LUNGS: normal respiratory e ffort and clear to auscultation, no wheezes, rales, or rhonchi, good air exchange CARDIO: regular rate and rhy thm, normal S1 and S2, nor murmur, rub, or gallop PULSES: normal capillary ref ill ABDOMEN: soft, non-distended, non-tender, no masses RECTAL: MUSCULOSKELETAL: no deformity or scol iosis noted, normal range of motion, joints normal, no erythema, edema, effusion, or ecchymosis EXTREMITY: no clubbing, cyanosi s, edema, or deformity with normal ROM in both upper and lower bilateral extremities NEUROLOGIC: grossly normal SKIN: no rashes, ulceratio ns, or suspicious lesions LYMPH NODES: no cervical adenopat hy, nodes normal MENTAL STATUS: alert and oriented x 3, normal mood and affect
--- OUTSIDE RECORDS SUMMARY | 2024-10-12 05:16 | XMS_ITS ---
Author Organization [facility] in [place] Address [address] [place] [address] Care Team Providers Care Supervisor [employer] Name Role Phone Edgar Allen Primary Care Provider REASON FOR VISIT colonoscopy Encounters Encounter Location Date Provider Diagnosis [facility] [address] [place] [address] 10/12/2024 Edgar Allen Plan Of Treatment No Information Progress Notes * Jen TURPIN ADOB:1960 (64 yo F)Acc No.[id number]:10/12/2024 Patient: Jen HINKLE :1960 A ge:64 Y S ex:Female Address:[address] [place] [id number] * true * Date: Generated for Reji green/Ned/eTransmitting on: 0 01/02/2025 05:44 PM EDT
--- OUTSIDE RECORDS SUMMARY | 2024-10-12 13:53 | XMS_ITS ---
Author Organization [facility] [place] Address [address] [place] [address] Care Team Providers Care Barrel Roller Name Role Phone Edgar Allen Primary Care Provider REASON FOR VISIT labs Encounters Encounter Location Date Provider Diagnosis [facility] [address] [place] [address] 10/12/2024 Edgar Allen Plan Of Treatment No Information Progress Notes * Jen TURPIN ADOB:1960 (64 yo F)Acc No.[id number]:10/12/2024 Patient: Jen HINKLE :1960 A ge:64 Y S ex:Female Address:[address] [place] [id number] * true * Date: Generated for Reji green/Ned/eTransmitting on: 0 01/02/2025 02:36 PM EDT
[2025-01-02] VITALS (7 sets, daily range): BP systolic 120–134; BP diastolic 62–76; PULSE 72–96; TEMP 37.5; O2SAT 92–98; BMI 23.6; BMI 24.5
--- OUTSIDE RECORDS SUMMARY | 2025-01-02 10:15 | XMS_ITS | Encounter Summary ---
Author Organization [facility] Address [address] [place] [address] Care Team Providers Care Plastic Sheets Supervisor Name Role Phone Sami Allen MD Primary Care Provider [phone] Reason for Visit * Reason Comments Post-op Visit 12/18/24 TLH/BSO anter ior Colporrhapy. Denies vaginal bleeding/spotting. Denies bowel concerns. Pt notice a little bit of bladder leakage. Denies incision concerns. Pt will have random pain/discomfort about bellybutton. Encounter Details Date Type Department Care Team (Late st Contact Info) Description 01/02/2025 10:15 AM EDT Office Visit [facility] [address] [place] [phone] Fiona Fraser DO [address] [place] [address] Postoperative examination Social History Tobacco Use Types Packs/Day Years Used Date Smoking Tobacco: Never Smokeless Tobacco: Never Alcohol Use Standard Drinks/Week Comments Yes 2 (1 standard drink = 0.6 oz pure alcohol) Caffeine intake: 1-2 cups per day AUDIT-C Answer Date Recorded Q1: How often do you have a drink containing alc ohol? Monthly or less 04/19/2023 Q2: How many drinks containi ng alcohol do you have on a typical day when you are drinking? 1 or 2 04/19/2023 Q3: How often do you have si x or more drinks on one occasion? Never 04/19/2023 PHQ-2 Answer Date Recorded Patient Health Questionnaire-2 Score 0 07/21/2023 Comments No Sex and Gender Information Value Date Recorded Sex Assigned at Not on file Legal Sex Female 8:33 PM EDT Gender Identity Not on file Sexual Orientation Not on file documented as of this encounter Last Filed Vital Signs Vital Sign Reading Time Taken Comments Blood Pressure 120/78 01/02/2025 10:28 AM EDT Pulse - - Temperature - - Respiratory Rate - - Oxygen Saturation - - Inhaled Oxygen Concentration - - Weight 60.3 kg (133 lb) 01/02/2025 10:28 AM EDT Height - - Body Mass Index 25.13 04/20/2023 10:34 AM EST documented in this encounter Progress Notes * Fiona Fraser DO - 01/02/2025 10:15 AM EDT Images from the original note were not included. Fiona Fraser D.O. Obstetrics and Gynecology Patient: Jen Balderrama : 1960 (64 y.o.) Exam Date: 01/02/2025 Reason for Visit - Chief Complaint Patient presents with Post-op Visit 12/18/24 TLH/BSO anterior Colporrhapy. Denies vaginal bleeding/spotting. Denies bowel concerns. Pt notice a little bit of bladder leakage. Denies incision concerns. Pt will have random pain/discomfort about bellybutton. Visit Vitals BP 120/78 Wt 133 lb BMI 25.13 kg/m?? OB Status Ablation Smoking Status Never BSA 1.61 m?? No Known Allergies History of Present Illness, Associated Treatments and Results - OB History Para Term AB Living 2 2 2 0 0 0 SAB IAB Ectopic Multiple Live Births 0 0 0 0 2 # Outcome Date GA Lbr Adriano/2nd Weight Sex Type Anes PTL Lv 2 Term 1 Term Obstetric Comments Pap smear 07/21/23 wnl, Mammogram 08/26/24 wnl @ [facility] Review of Systems - Const: Denies appetite change, fever, chills. Allergy: Denies medication reaction. Ocular: Denies visual acuity change. ENT: Denies hearing change. Endoc: Denies weight loss. Resp: Denies dyspnoea, wheezing. Cardiac: Denies angina, palpitations. GI: Denies nausea, vomiting. Haem: Denies bleeding. : Denies incontinence. MSK: Denies arthralgias, joint oedema. Derm: Denies rash, hair loss. Neuro: Denies ataxia, tremor. Also see HPI for elements of ROS documented therein and for details of positive findings, which shall supersede the foregoing. Medication Documentation Review Audit Reviewed by Lacie Sabillon MA ([facility]pr Ambulance Driver) on 01/02/25 at 1028 Medication Order Taking? Sig Documenting Provider Last Dose Status eletriptan (Relpax) 40 MG tablet [id number] 1 tablet Orally At onset of migraine. May repeat in 2 hours Fiona Fraser DO Active topiramate (Topamax) 25 MG tablet [id number] 1 (one) time each day at the same time Fiona Fraser DO Active Past Medical History: Diagnosis Date Cystocele History of cataract surgery 2009 samantha. History of medical problems prolapse (normal spontaneous vaginal delivery) ([facility]) x2- full term Past Surgical History: Procedure Laterality Date CATARACT EXTRACTION, BILATERAL 2009 COLONOSCOPY 2015 ENDOMETRIAL ABLATION HYSTERECTOMY 12/18/2024 TLH/BSO OTHER SURGICAL HISTORY 2012 Novasure ablation Family History Problem Relation Name Age of Onset Breast cancer Sister Kim Wilkins Breast cancer Sibling Physical Exam - General appearance, mentation, extraocular movements, facial strength and movement, hearing, upper and lower extremity strength and tone, sensation to gross testing, coordination, and gait are normalor at baseline unless noted below. General: Alert, cooperative, no distress, appears stated age Head: Normocephalic, without obvious abnormality, atraumatic Eyes: sclera anicteric Ears: no obvious hearing deficit Skin: Warm and dry Heart: Regular rate and rhythm, S1 and S2 normal, no murmur Lungs: Clear to auscultation bilaterally, respirations unlabored Abdomen: Soft, non-tender, no masses, no organomegaly, incisions healing well Extremities normal, atraumatic, no cyanosis or edema Diagnoses and all orders for this visit: Postoperative examination Pathology reviewed with the patient. Operative pictures reviewed with and given to the patient. Thepatient is to maintain pelvic rest until further notice. Activity restrictions and post operative expectations reviewed with the patient. All questions have been answered. She is to contact the office with any heavy vaginal bleeding, severe pelvic pain or fever. The patient is to return in 4 weeks for her PO visit. ICD-10-CM 1. Postoperative examination Z09 documented in this encounter Plan of Treatment Upcoming Encounters Date Type Department Care Team (Late st Contact Info) Description 02/01/2025 4:00 PM EDT Office Visit [facility]ERSON[facility] [address] [place] [address] Fiona Fraser DO [address] [place] [address] 10/02/2025 11:45 AM EDT Office Visit [facility] G[facility] [address] [place] [phone] Fiona Fraser DO [address] [place] [address] documented as of this encounter Visit Diagnoses Diagnosis Postoperative examination Follow-up examination, following unspecified surgery documented in this encounter Care Teams Plastic Sheets Supervisor Relationship Specialty Start Date End Date Sami Allen MD PCP - General Family Medicine 04/20/23 documented as of this encounter
--- OUTSIDE RECORDS SUMMARY | 2025-01-02 17:44 | XMS_ITS | Patient Health Record ---
Author Organization [facility] [place] Address [address] [place] [address] Care Team Providers Care Claims Associate Name Role Phone JovannyEdgar ahn Primary Care Provider Allergies No Known Allergies Results Component Value Reference Range Notes CBC AUTO DIFF Reviewed date:10/12/2024 05:54:43 PM Interpretation: Performing Lab: Notes/Report: [facility] , White Blood Count 4.9 4.0-11.0 10 3/uL Red Blood Count 4.58 4.20-5.40 10 6/uL Hemoglobin 13.4 12.0-16.0 g/dL Hematocrit 40.4 36.0-48.0 % Mean Corpuscular Volume 88.2 81.0-99.0 fL Mean Corpuscular Hemoglobin 29.3 26.7-34.0 pg Mean Corpuscular HGB Conc 33.2 29.9-35.2 g/dL Red Cell Distribution Width 12.7 11.0-15.0 % Platelet Count 210 150-450 10 3/uL Mean Platelet Volume 10.7 9.5-13.5 fL Neutrophils Percent Auto 56.9 43.0-75.0 % Lymphocytes Percent Auto 31.8 20.5-60.0 % Monocytes Percent Auto 8.7 1.7-12.0 % Eosinophils Percent Auto 1.6 0.9-7.0 % Basophils Percent Auto 0.6 0.2-2.0 % Immature Granulocytes Pct Auto 0.4 0.0-0.5 % Neutrophils Absolute Auto 2.8 1.4-6.5 10 3/uL Lymphocytes Absolute Auto 1.6 1.2-3.8 10 3/uL Monocytes Absolute Auto 0.4 0.3-0.8 10 3/uL Eosinophils Absolute Auto 0.1 0.0-0.7 10 3/uL Basophils Absolute Auto 0.0 0.0-0.1 10 3/uL Immature Granulocytes Abs Auto 0.02 0.00-0.03 10 3/uL Performing Lab: see note ML - [facility] GLYCOHEMOGLOBIN A1C Reviewed date:10/12/2024 05:54:43 PM Interpretation: Performing Lab: Notes/Report: [facility] , Glycohemoglobin A1C 5.7 4.5-6.2 % ACTION SUGGESTED > 7.0 ADA RECOMMENDED LIMIT 4.0 - 6.0 ADA THERAPEUTIC TARGET < 7.0 Estimated Average Glucose 117 Performing Lab: see note - [facility] TSH Reviewed date:10/12/2024 05:54:43 PM Interpretation: Performing Lab: Notes/Report: [facility] , Thyroid Stimulating Hormone 1.560 0.358-3.740 u IU/mL Performing Lab: see note - [facility] T4 Reviewed date:10/12/2024 05:54:43 PM Interpretation: Performing Lab: Notes/Report: [facility] , T4 Thyroxine 6.80 4.80-13.90 ug/dL Performing Lab: see note - [facility] PROF 14(COMP METB) Reviewed date:10/12/2024 05:54:43 PM Interpretation: Performing Lab: Notes/Report: [facility] , Sodium 146 136-145 mmol/L Potassium 4.0 3.5-5.1 mmol/L Chloride 109 98-107 mmol/L Carbon Dioxide 28.6 21.0-32.0 mmol/L Anion Gap 12.4 Glucose 94 74-106 mg/dL Blood Urea Nitrogen 18.0 7.0-18.0 mg/dL Creatinine 0.59 0.55-1.02 mg/dL Estimated GFR ( Isabel >60 >=60 mL/min/1.73m 2 Estimated GFR (Non- Beverley >60 >=60 mL/min/1.73m 2 BUN Creatinine Ratio 30.5 Calcium 9.3 8.5-10.1 mg/dL Bilirubin Total 0.4 0.2-1.0 mg/dL Aspartate Amino Transferase 17 15-37 U/L Alanine Aminotransferase 26 14-59 U/L Alkaline Phosphatase 99 46-116 U/L Total Protein 7.1 6.4-8.2 g/dL Albumin Level 4.0 3.4-5.0 g/dL Globulin 3.1 Albumin Globulin Ratio 1.3 Performing Lab: see note ML - [facility] LIPID PROFILE Reviewed date:10/12/2024 05:54:43 PM Interpretation: Performing Lab: Notes/Report: [facility] , Triglycerides 72 <=150 mg/dL Cholesterol 169 <=200 mg/dL HDL Cholesterol 63 40-60 mg/dL > or =60 mg/dl - LOW CARDIOVASCULAR RISK <40 mg/dl - HIGH CARDIOVASCULAR RISK LDL Cholesterol Calculated 92.0 160-189 mg/dl HIGH >190 mg/dl VERY HIGH 100-129 mg/dl NEAR OR ABOVE OPTIMAL 130-159 mg/dl BORDERLINE HIGH <100 mg/dl OPTIMAL VLDL CHOLESTEROL 14.4 Chol HDL Ratio 2.7 7.1 - 11.0 MODERATE RISK >11.0 HIGH RISK 4.4 - 7.1 AVERAGE RISK 3.3 - 4.4 LOW RISK Performing Lab: see note ML - [facility] FREE T3 Reviewed date:10/12/2024 05:54:43 PM Interpretation: Performing Lab: Notes/Report: [facility] , Free T3 2.89 2.18-3.98 pg/mL Performing Lab: see note ML - [facility] Reason For Referral No Information Medications Medication SIG (Take, Route, Frequency, Duration) Notes Start Date End Date Status Relpax 40 MG 1 tablet Orally At o nset of migraine. May repeat in 2 hours PRN Active Social History Tobacco Use: Social History Observation Description Date Details (start date - stop date) Never Smoker NA - NA Tobacco Use/Smoking Question Answer Notes Patient is a nonsmoker Alcohol Screen (Audit-C) Question Answer Notes Did you have a drink contain ing alcohol in the past year? Yes How often did you have 6 or more drinks on one occasion in the past year? Never (0 point) How many drinks did you have on a typical day when you were drinking in the past year? 1 or 2 drinks (0 point) How often did you have a dri nk containing alcohol in the past year? Weekly (3 points) Points 3 Interpretation Positive AUDIT-C (Standard) Question Answer Notes Did you [...] month (2 points) Points 2 Interpretation Negative Problems Problem Type SNOMED Code ICD Code Onset Dates Problem Status W/U Status Risk Notes Problem 55850202852472795 Cutaneous abscess of right hand (L02.511) Active confirmed Problem 287586751 Unspecified abdominal pain (R10.9) Active confirmed Problem Insomnia (394165775) Insomnia (G47.00) Active confirmed Problem Migraine (26113775) Migraine (G43.909) Active confirmed Problem Chronic sinusitis (46219735) Chronic sinusitis (J32.9) Active confirmed Problem Well adult (011060455) Well adult (Z00.00) Active confirmed Problem Cystocele (514296662) Cystocele (N81.10) Active confirmed Problem Paronychia (82709321) Paronychia (L03.019) Active confirmed Problem Uterine prolapse (47742318) Uterine prolapse (N81.4) Active confirmed Problem Dyshidrotic eczema (786586049) Dyshidrotic eczema (L30.1) Active confirmed Problem Nevus (2923928234) Nevus (D22.9) Active confirm ed Problem Pelvic congestion syndrome (42879430) Pelvic congestion syndrome (N94.89) Active confirmed Vital Signs Blood pressure diastolic 70 mm Hg 10/12/2024 Height 61 in 10/12/2024 Blood pressure systolic 144 mm Hg 10/12/2024 Weight 137.6 lbs 10/12/2024 BMI 26 kg/m2 10/12/2024 Encounters Encounter Location Date Provider Diagnosis [facility] [address] [place] [address] 10/12/2024 Edgar Tiffany Well adult Z00.0 0 [facility] [address] [place] [address] 08/28/2024 Edgar Allen [facility] [address] [place] [address] 10/12/2024 Edgar Allen [facility] [address] [place] [address] 10/12/2024 Edgar Allen Assessments Encounter Date Diagnosis (ICD Code) Assessment Notes Treatment Notes Treatment Clinical Notes Section Notes 10/12/2024 Well adult (ICD-10 - Z00.00) Plan Of Treatment Pending Test Test Name Order Date CMP (COMPLETE METABOLIC PANEL) 3 CMP (COMPLETE METABOLIC PANEL) 4 HEMOGLOBIN A1C (GLYCO) 09/10/2023 HEMOGLOBIN A1C (GLYCO) 10/12/2024 HEMOGLOBIN A1C (GLYCO) 11/06/2022 LIPID PANEL (CHOL/TRIG/HDL/LDL) 09/10/19 24 LIPID PANEL (CHOL/TRIG/HDL/LDL) 11/07/19 LIPID PANEL (CHOL/TRIG/HDL/LDL) 10/13/19 25 CBC WITH DIFF 11/06/2022 CBC WITH DIFF 09/10/2023 MRI Hip RT w/o contrast 11/06/2022 STOOL OCCULT BLOOD 10/12/2024 XR HIP RT 2 3V W PELVIS 11/06/2022 THYROID PANEL (T4/TSH/FREE T3) 3 THYROID PANEL (T4/TSH/FREE T3) 5 THYROID PANEL (T4/TSH/FREE T3) 4 CMP (COMP MET CORNELIUS) w/eGFR CKD-EPI 2024 CBC WITH DIFF 10/12/2024 Insurance Providers Payer Name Payer Address Payer Phone Subscriber Number Group Number Insured Name Patient Relationship to Insured Coverage Start Date Coverage End Date MMO [address] [place], [place] [id number] [phone] [id number] Jen Balderrama Self - patient is the insured Medications Administered Medication Instructions Date of Administration Dosage Notes Ceftriaxone 1 gram 02/12/2023 1 g 1 gm Ketorolac Tromethamine 02/12/2023 60 mg 60 Medical (General) History Medical History History ICD Code Dyshidrotic eczema L30.1 Pneumonia J18.9 Insomnia G47.00 Dysfunctional uterine bleeding N93.8 Migraine G43.909 Pelvic congestion syndrome N94.89 Surgical History Surgery Date(Month/Year) Cervical Ablation Colonoscopy 12/11/2015 Hospitalization History Reason Date(Month/Year) denies
--- OUTSIDE RECORDS SUMMARY | 2025-01-02 17:44 | XMS_ITS | Patient Health Record ---
Author Organization [facility] Address [address] [place] [address] Care Team Providers Care Fuel Agent Name Role Phone Sami Allen Primary Care Provider Roque Massey Unavailable [phone] Reason For Referral No Information Social History Tobacco Use: Social History Observation Description Date Details (start date - stop date) Never Smoker NA - NA Smoking History Question Answer Notes Smoking Status NonSmoker Problems Problem Type SNOMED Code ICD Code Onset Dates Problem Status W/U Status Risk Notes Problem 10505788618618024 Abscess of right thumb (L02.511) Active confirmed Problem 348869240 MRSA infection (A49.02) Active confirmed Plan Of Treatment Pending Test Test Name Order Date ANAEROBIC CULTURE 02/16/2023 AEROBIC CULTURE 02/16/2023 Insurance Providers Payer Name Payer Address Payer Phone Subscriber Number Group Number Insured Name Patient Relationship to Insured Coverage Start Date Coverage End Date [employer] [address] [place] [address] [id number] OLIVE TURPIN Self - patient is the insured
--- OUTSIDE RECORDS SUMMARY | 2025-01-02 17:44 | XMS_ITS | Encounter Summary ---
Author Organization [facility] Address [address] [place] [address] Care Team Providers Care History Tutor Name Role Phone Sami Allen MD Primary Care Provider [phone] Encounter Details Date Type Department Care Team (Latest Contact Info) Description 01/02/2025 Travel Social History Tobacco Use Types Packs/Day Years [...] on file documented as of this encounter Plan of Treatment Upcoming Encounters Date Type Department Care Team (Late st Contact Info) Description 02/01/2025 4:00 PM EDT Office Visit [facility] [address] [place] [phone] Fiona Fraser DO [address] [place] [address] 10/02/2025 11:45 AM EDT Office Visit [facility] [place] [facility] [address] [place] [address] Fiona Fraser DO [address] [place] [address] documented as of this encounter Visit Diagnoses Not on filedocumented in this encounter Care Teams History Tutor Relationship Specialty Start Date End Date Sami Allen MD PCP - General Family Medicine 04/20/23 documented as of this encounter
--- OUTSIDE RECORDS SUMMARY | 2025-01-02 17:44 | XMS_ITS | Encounter Summary ---
Author Organization [facility] Address [address] [place] [address] Care Team Providers Care Weeder Thinner Name Role Phone Sami Allen MD Primary Care Provider [phone] Encounter Details Date Type Department Care Team (Late st Contact Info) Description 08/28/2024 External Result Encounter [facility] External Department Unsolicited Provider, Generic External Data Social History Tobacco Use Types Packs/Day Years [...] [facility] [address] [place] [address] Fiona Fraser DO [address] [place] [address] 10/02/2025 11:45 AM EDT Office Visit [facility]Les PERSONMaría Elena [address] [place] [phone] EvelioFiona DO [address] [place] [address] documented as of this encounter Procedures Procedure Name Priority Date/Time Associated Diagnosis Comments BI MAMMOGRAM SCREENING TOMOSYNTHESIS BILATERAL 08/28/2024 9:43 AM EDT documented in this encounter Results * Bilateral screening mammogram with tomosynthesis (08/28/2024 9:43 AM EDT) Anatomical Region Laterality Modality Breast Bilateral Mammography 08/28/2024 9:43 AM EDT Impressions 08/28/2024 9:46 AM EDT NO MAMMOGRAPHIC EVIDENCE OF MALIGNANCY. ROUTINE FOLLOW-UP [...] mammogram. Impression dictated by: Junaid Ware Jr., D.OChaim08/28/2024 9:44 AM Dictation Location: DW01 Dictated By: Junaid Ware Jr, DO 08/28/24 0943 Signed By: <Electronically signed by Junaid Ware Jr, DO in OV> 08/28/24 0944 Narrative 08/28/2024 9:46 AM EDT [facility] [address] [place] [address] [address] [place] [address] Mammography Report Signed Patient: Jen Balderrama MR#: [id number] : 1960 Acct:[id number] Age/Sex: 63 / F Adm Date: 08/26/24 Loc: [place] Room: Type: DEP CLI Attending Dr: Referral Ton Ordering Provider: SELF,REFERRAL Date of Service: 08/26/24 Procedure(s): MM screening mammo BI w/CAD Accession Number(s): ([id number]) MM/MM screening mammo BI w/CAD: ROUTINE Copies to: MD Fiona Joy, DO SELF,REFERRAL CLINICAL DATA: Screening for malignancy. SCREENING MAMMOGRAM - FULL FIELD DIGITAL WITH TOMOSYNTHESIS AND CAD COMPARISON:Mammograms dating back to 2019 Tomosynthesis craniocaudal and mediolateral oblique views of both breasts were obtained using low- dose digital technique. This examination was reviewed with the aid of CAD. FINDINGS: The breast tissue is composed of scattered fibroglandular densities. There are no dominant masses, typically malignant calcifications or architectural distortion. There has been no significant interval change. MM/MM screening mammo BI w/CAD Procedure Note Junaid Ware Jr., MD - 08/28/2024 [place] [address] Mammography Report Signed Patient: Jen Balderrama AMR#: [id number] : 1960Acct:[id number] Age/Sex: 63 / FAdm Date: 08/26/24 Loc: [place] Room:Type: [facility] CLI Attending Dr: Laurie Camilo Ordering Provider: SELF,REFERRAL Date of Service: 08/26/24 Procedure(s): MM screening mammo BI w/CAD Accession Number(s): ([id number]) MM/MM screening mammo BI w/CAD: ROUTINE Copies to: MD Fiona Joy, DO SELF,REFERRAL CLINICAL DATA: Screening for malignancy. SCREENING MAMMOGRAM - FULL FIELD DIGITAL WITH TOMOSYNTHESIS AND CAD COMPARISON:Mammograms dating back to 2019 Tomosynthesis craniocaudal and mediolateral oblique views of both breastswere obtained using low- dose digital technique. This examination was reviewed with the aid ofCAD. FINDINGS: The breast tissue is composed of scattered fibroglandular densities.There are no dominant masses, typically malignant calcifications or architectural distortion. There hasbeen no significant interval change. MM/MM screening mammo BI w/CAD IMPRESSION: NO MAMMOGRAPHIC EVIDENCE OF MALIGNANCY. ROUTINE FOLLOW-UP IS RECOMMENDED IN ONE YEAR. RESULT CODE: 1 Negative DENSITY CODE: 2 (approximately 25-50% glandular) There are scattered areasof fibroglandular density. FOLLOW UP: 1YR The false-negative rate of mammography is approximately 10-percent. Management of a palpable abnormality must be based on clinical grounds. Patient was entered into a reminder system with a target due date for thenext mammogram. Impression dictated by: Junaid Ware Jr., Hever08/28/2024 9:44 AM Dictation Location: [facility] Dictated By: Junaid Ware Jr, DO 08/28/24 0943 Signed By: <Electronically signed by Junaid Ware Jr, DO inOV> 08/28/24 0944 Generic External Data Provider IMG BI PROCEDURES Final Result documented in this encounter Visit Diagnoses Not on filedocumented in this encounter Care Teams Weeder Thinner Relationship Specialty Start Date End Date Sami Allen MD PCP - General Family Medicine 04/20/23 documented as of this encounter
--- OUTSIDE RECORDS SUMMARY | 2025-01-02 17:45 | XMS_ITS | Encounter Summary ---
Author Organization [facility] Address [address] [place] [address] Care Team Providers Care Rcis Name Role Phone Sami Allen MD Primary Care Provider [phone] Encounter Details Date Type Department Care Team (Late st Contact Info) Description 05/11/2023 Orders Only [facility] [place] OBJACQUIEN [address] [place] [phone] Fiona Fraser DO [address] [place] [address] Social History Tobacco Use Types Packs/Day Years Used Date Smoking Tobacco: Never Alcohol Use Standard Drinks/Week Comments Yes 0 (1 standard drink = 0.6 oz pure [...] more drinks on one occasion? Never 04/19/2023 Comments Unknown Sex and Gender Information Value Date Recorded Sex Assigned at Not on file Legal Sex Female 8:33 PM EDT Gender Identity Not on file Sexual Orientation Not on file COVID-19 Exposure Response Date Recorded In the last 10 days, have yo u been in contact with someone who was confirmed or suspected to have Coronavirus/COVID-19? No / Unsure 04/19/2023 7:20 PM EST documented as of this encounter Plan of Treatment Upcoming Encounters Date Type Department Care Team (Late st Contact Info) Description 02/01/2025 4:00 PM EDT Office Visit MARISA [facility] [address] [place] [address] Fiona Fraser, DO [address] [place] [address] 10/02/2025 11:45 AM EDT Office Visit MARISA PERSONN [address] [place] [address] Fiona Fraser, DO [address] [place] [address] documented as of this encounter Procedures Procedure Name Priority Date/Time Associated Diagnosis Comments MAMMOGRAM* Routine 05/11/2023 1:54 PM EST documented in this encounter Results * MAMMOGRAM* (05/11/2023 1:54 PM EST) Anatomical Region Laterality Modality Radiographic Jazmin ging us Fiona Fraser DO IMG XR PROCEDURES Final Res ult documented in this encounter Visit Diagnoses Not on filedocumented in this encounter Care Teams Rcis Relationship Specialty Start Date End Date Sami Allen MD PCP - General Family Medicine 04/20/23 documented as of this encounter
--- OUTSIDE RECORDS SUMMARY | 2025-01-02 17:45 | XMS_ITS | Encounter Summary ---
Author Organization [facility] Address [address] [place] [address] Care Team Providers Care Vice President Regulatory Name Role Phone Sami Allen MD Primary Care Provider [phone] Encounter Details Date Type Department Care Team (Late Contact Info) Description 12/04/2024 External Result Encounter [facility] Unsolicited Fiona Fraser DO [address] [place] [address] Social History Tobacco Use Types Packs/Day Years [...] Encounters Date Type Department Care Team (Late Contact Info) Description 02/01/2025 4:00 PM EDT Office Visit [facility] [address] [place] [phone] Fiona Fraser DO [address] [place] [address] 10/02/2025 11:45 AM EDT Office Visit [facility] [address] [place] [phone] Fiona Fraser, DO [address] [place] [address] documented as of this encounter Procedures Procedure Name Priority Date/Time Associated Diagnosis Comments ECG 12-LEAD 12/04/2024 4:01 PM EDT documented in this encounter Results * ECG 12 lead (12/04/2024 4:01 PM EDT) 12/04/2024 4:01 PM EDT [facility] - 12/05/2024 2:53 PM EDT [facility] Main [address] [address] Electrocardiograph Report Signed Patient: Jen Balderrama MR#: [id number] : 1960 Acct:[id number] Age/Sex: 64 / F ADM Date: 12/04/24 Loc: Room: Type: [facility] Attending Dr: Fiona Fraser DO Ordering Provider: Fiona Fraser DO Date of Service: 12/04/24 ECG/ECG 12 lead ECG: surgery 12/18 Copies to: Test Reason : Blood Pressure : */* mmHG Vent. Rate : 67 BPM Atrial Rate : 67 BPM P-R Int : 124 ms QRS Dur : 78 ms QT Int : 424 ms P-R-T Axes : 84 69 86 degrees QTcB Int : 448 ms Normal sinus rhythm Normal ECG When compared with ECG of 05-May-2013 15:52, T wave inversion no longer evident in Anterior leads Confirmed by JONNY OCONNOR, THAIS ([id number]) on 12/05/2024 2:53:12 PM Referred By: Electronically Signed By: THAIS JONES MD Transcribed By: AZEB Signed By Thais Jones MD 0 12/05/24 3163 Procedure Note Thais Jones MD - 12/05/2024 [facility] Main [place] [address] [place] [id number] Electrocardiograph Report Signed Patient: Jen Balderrama AMR#: [id number] : 1960Acct:[id number] Age/Sex: 64 / FADM Date: 12/04/24 Loc: Room:Type: [facility] Attending Dr: Fiona Fraser DO Ordering Provider: Fiona Fraser DO Date of Service: 12/04/24 ECG/ECG 12 lead ECG: surgery 12/18 Copies to: Test Reason : Blood Pressure : */* mmHG Vent. Rate : 67 BPM Atrial Rate : 67 BPM P-R Int : 124 ms QRS Dur : 78 ms QT Int : 424 ms P-R-T Axes : 84 69 86 degrees QTcB Int : 448 ms Normal sinus rhythm Normal ECG When compared with ECG of 05-May-2013 15:52, T wave inversion no longer evident in Anterior leads Confirmed by THAIS JONES MD ([id number]) on 12/05/2024 2:53:12 PM Referred By: Electronically Signed By: THAIS JONES MD Transcribed By: AZEB Signed By Thais Jones MD0 12/05/24 7719 us Fiona Fraser DO ECG ORDERABLES Final Resul t [address] [address], documented in this encounter Visit Diagnoses Not on filedocumented in this encounter Care Teams Vice President Regulatory Relationship Specialty Start Date End Date Sami Allen MD PCP - General Family Medicine 04/20/23 documented as of this encounter
--- OUTSIDE RECORDS SUMMARY | 2025-01-02 17:50 | XMS_ITS | CCD ---
Author Organization [facility] Care Team Providers Care Mother Helper Name Role Phone DR MIREYA ALLEN Consulting Unavailable MARIO, DR GOMES Attending Unavailable MARIO, DR GOMES Admitting Unavailable MARIO, DR GOMES Primary Care Unavailable MARIO, DR GOMES Attending Unavailable MARIO, DR GOMES Admitting Unavailable MARIO, DR GOMES Consulting Unavailable MD Mireya Allen Primary Care Provider DO Fiona Fraser Attending Provider [phone] MD Mireya Allen Primary Care Provider MD Kasi Antoine II Attending Provider [phone] Kasi Antoine II Unavailable Roque Davila Attending Unava ilable MD Mireya [...] Fiona Fraser DO Referring Provider Mireya Allen MD Primary Care Provider FIONA FRASER Attending Unavailable FIONA FRASER Attending Unavailable Mireya Allen MD Primary Care Provider Fiona Fraser DO Attending Provider Self, Referral Attending Unavailable Fiona Fraser Referring Unavailable Mireya Allen Primary Care Unavailable Self, Referral Admitting Unavailable Fiona Fraser Admitting Unavailable Fiona Fraser Attending Unavailable Mireya Allen Primary Care Unavailable Fiona Fraser Admitting Unavailable Fiona Fraser Attending Unavailable Mireya Allen Primary Care Unavailable Allergies Allergy Classification Reported Allergen(s) Allergy Type Date of Onset Reaction(s) Facility (1 source) No Known Medication Allergies; Translations: [No Known Medication Allergies] Propensity to adverse reactions (disorder) [facility] Repository Medications Current Medications Medication Drug Class(es) Dates Sig (Normalized) Sig (Original) acetaminophen 500 mg oral tablet (2 sources) Start: 12-04-2024 take 1 tablet by mouth every six hours as needed for pain Acetaminophen (Tylenol Extra Strength) 500 mg tablet Active 500 MG PO Every 6 hours as needed for pain December 04, 2024 12:00am Complies with drug therapy docusate sodium 100 mg oral capsule (1 source) Start: 12-18-2024 take 1 capsule by mouth twice daily as needed for constipation eletriptan 40 mg oral tablet (14 sources) Serotonin-1b and Serotonin-1d Receptor Agonist Start: 12-30-2023 take 1 tablet by mouth once Relpax 40 mg Tab 40 mg = 1 tab(s), Oral, Once, Refills(s) 0 Start Date: 12/30/23 Status: Ordered take 1 tablet by mouth every two hours eletriptan (Relpax) 40 MG tablet 1 tablet Orally At onset of migraine. May repeat in 2 hours Active ibuprofen 600 mg oral tablet (1 source) Nonsteroidal Anti-inflammatory Drug Start: 12-18-2024 take 1 tablet by mouth every six hours as needed for pain topiramate 25 mg oral tablet (10 sources) topiramate (Topamax) 25 MG tablet 1 (one) time each day at the same time Active traMADol hydrochloride 50 mg oral tablet (1 source) Opioid Agonist Start: 12-18-2024 take 1 tablet by mouth every six hours as needed for pain Problems Active Problems Problem Classification Problem Date Documented [...] behavior of skin] Onset: 01-19-2024 Episodic Other aftercare (2 sources) Surgical follow-up; Translations: [Encounter for follow-up examination after completed treatment for conditions other than malignant neoplasm] 12-29-2024 Episodic Other non-traumatic joint disorders (1 source) Pain in right hip Episodic Prolapse of female genital organs (8 sources) Uterine prolapse; Translations: [Uterovaginal prolapse, unspecified] 09-28-2024 Chronic Residual codes; unclassified (4 sources) Insomnia 12-30-2023 Episodic Residual codes; unclassified (1 source) Acquired absence of both cervix and uterus; Translations: [Acquired absence of both cervix and uterus] Onset: 12-18-2024 Episodic Past or Other Problems Problem Classification Problem Date Documented Da te Episodic/Chronic Other screening for suspected conditions (not mental disorders or infectious disease) (5 sources) Cancer cervix screening status; Translations: [Encounter for screening for malignant neoplasm of cervix] Onset: 08-26-2024 09-27-2024 Episodic Results Test Name Value Interpretation Reference Range Facility [place] 12-18-2024 L ------ Specimen: [id number] Received: 12/18/24 Status: MADELYN Xie Num: [id number] Spec Type: Surgical Subm Dr: Fiona Fraser DO Tissues: A Uterus w/ or w/o tubes ovaries except neoplastic or prolap (CERVIX, UTERUS Procedures: , Gross/Micro L5 Age/ Patient Sex Location Account Attending Physician Olive Turpin 64/F [place] [id number] Fiona Fraser DO SPEC NUM: [id number] RECD: 12/18/24 STATUS: MADELYN XIE NUM: [id number] BRADLEY: 12/18/24- [facility] DR: Fiona Fraser DO ENTERED: 12/18/24 LC SHARPE: OTILIA TYPE: Surgical DEPT: S ENTERED BY: [id number] RECV BY: [id number] ORDERED: , Gross/Micro L5 ORDERED: , Gross/Micro L5 Pathological Diagnosis Uterus with cervix, bilateral fallopian tubes and bilateral ovaries, total hysterectomy and bilateral salpingo-oophorectomy: - Vaginal mucosa with fibrosis. - Cervix with Nabothian cysts. - Denuded endometrium consistent with the patient's history of endometrial ablation. - Adenomyoma, intramural and subserosal leiomyomata with hyalinization. - Bilateral fallopian tubes with focal endometriosis. - Bilateral ovaries with no significant histopathology. Clinical Information Uterus prolapse, cystocele, previous endometrial ablation. Gross Description Received in formalin labeled with the patients name, date of , and cervix, uterus, tubes, ovaries is a hysterectomy specimen identified by the surgeon as weighing 42 grams, which consists of a uterine corpus with attached cervix, resected with attached bilateral adnexa and 2 detached strips of mucosal lined tissue. The uterine corpus is symmetrical, 2.5 cm cornu to cornu, 2.2 cm anterior to posterior and 6.5 cm fundus to ectocervical face. The serosa is sepulveda-pink, smooth and glistening with two 0.2 and 0.7 cm in greatest dimension subserosal nodules. The ectocervical face is 0.8 cm in length by up to 3.2 cm in diameter, and exhibits sepulveda- pink, smooth, glistening mucosa. The cervical os is slitlike, up to 0.8 cm in diameter. The Specimen: [id number] Received: 12/18/24 Status: MADELYN Dianabenita Num: [id number] Spec Type: Surgical Subm Dr: Fiona Fraser, Tissues: A Uterus w/ or w/o tubes ovaries except neoplastic or prolap (CERVIX, UTERUS Procedures: , Gross/Micro L5 Patient: Olive Turpin [id number] (Continued) Specimen: [id number] Received: 12/18/24 (Continued) Gross Description (Continued) Signed (signature on file) Joel March MD 12/19/24 1100 Specimen: [id number] Received: 12/18/24 Status: MADELYN Dianabenita Num: [id number] Spec Type: Surgical Subm Dr: Fiona Fraser DO Tissues: A Uterus w/ or w/o tubes ovaries except neoplastic or prolap (CERVIX, UTERUS Procedures: , Gross/Micro L5 Patient: Olive Turpin [id number] (Continued) Specimen: [id number] Received: 12/18/24 (Continued) Gross Description (Continued) specimen is opened to reveal a sepulveda-pink, wrinkled and glistening endocervical canal. The endometrial cavity is sepulveda-pink, focally erythematous, glistening, distorted and somewhat ovoid, 1.8 x 1.4 cm with focal regions of possible endometrium, up to 0.1 cm in thickness. The myometrium is sepulveda-pink and trabecular, up to 1.3 cm in thickness. Within the myometrium are two well-circumscribed, 0.8 and 0.3 cm in greatest dimension intramural nodules. The cut surfaces of the subserosal and intramural nodules are white, whorled, rubbery and uniform with no hemorrhage or degeneration identified. The left fallopian tube with fimbriated distal end is 5.5 cm in length by up to 0.6 cm in diameter, and the right fallopian tube with fimbriated distal end is 5 cm in length by 0.6 cm in diameter. The serosa is payton purple, smooth and glistening with paratubal cysts, 0.2 cm in greatest dimension. Serial sections reveal pinpoint lumen within each segment. The left ovary is 2.3 x 0.9 x 0.7 cm, and the right ovary is 2.3 x 0.9 x 0.8 cm. The capsula r surfaces are sepulveda-pink to yellow, and (more content not included)... Normal [facility] Basic Metabolic Panelon 11-15 GFR/1.73 sq M.predicted MDRD (S/P/Bld) [Vol rate/Area] mL/min/{1.73_m2} Normal [facility] Comment on above: Performed By: #### B MP #### [address] Basic metabolic 1998 panelon 12-04-2024 Anion gap [Moles/Vol] 9.3 mmol/L 6.0 - 15.0 [facility] Calcium [Mass/Vol] 9.5 mg/dL 8.6 - 10. 3 mg/dL [facility] Chloride [Moles/Vol] 108 mmol/L High 98 - 10 7 mmol/L [facility] CO2 [Moles/Vol] 29.7 mmol/L 21.0 - 31.0 mmol/L [facility] Creatinine (U) [Mass/Vol] 0.63 mg/dL 0.60 - 1.20 mg[facility] Glucose [Mass/Vol] 95 mg/dL 70 - 100 mg/dL [facility] Comment on above: Random Glucose Refer ence Range is dependent on time and content of last meal. Glucose of more than 200 mg/dL in a nonstressed, ambulatory subject supports the diagnosis of Diabetes Mellitus. ADA recommended reference range Interpretation and review of laboratory results Abnormal [facility] Potassium [Moles/Vol] 4 mmol/L 3.5 - 5.1 mmol/L [facility] Sodium [Moles/Vol] 143 mmol/L 136 - 145 mmol/L [facility] Urea nitrogen [Mass/Vol] 11 mg/dL 7 - 25 mg/dL [facility] Basophils [#/volume] in Bloo d by Automated countOrdered By: Fiona Fraser on 12-04-2024 Basophils (Bld) [#/Vol] 0.1 10*3/uL Normal 0.0-0.2 [facility] Comment on above: Result Comment: PERF ORMED BY: [place] [address] PATHOLOGIST YARD MANAGER MICHELLE PATEL M.D. Performed By: #### C BC #### [address] Basophils/100 leukocytes in Blood by Automated countOrdered By: Fiona Fraser on 12-04-2024 Basophils/100 WBC (Bld) 0.8 % Normal . [facility] Comment on above: Performed By: #### C BC #### [address] CBC W Auto Differential pane l (Bld)on 12-04-2024 Basophils (Bld) [#/Vol] 0.1 10*3/uL 0.0 - 0.2 10*3/uL [facility] Basophils/100 WBC Manual cnt (Syn fld) 0.8 % . [facility] Eosinophils (Bld) [#/Vol] 0.1 10*3/uL 0.0 - 0.45 10*3/uL [facility] Eosinophils/100 WBC Manual cnt (Syn fld) 1.4 % . [facility] Erythrocyte distribution width (RBC) [Ratio] 13.4 % 11.9 - 15.3 % [facility] Hematocrit (Bld) [Volume fraction] 38.9 % 34.0 - 46.4 % [facility] Hemoglobin (Bld) [Mass/Vol] 13.4 g/dL 11.8 - 15.4 g/dL [facility] Lymphocytes (Bld) [#/Vol] 1.6 10*3/uL 1.00 - 4.8 10*3/uL [facility] Lymphocytes/100 WBC Manual cnt (Syn fld) 26.6 % . [facility] MCH (RBC) [Entitic mass] 29.6 pg 24.7 - 34.3 pg [facility] MCHC (RBC) [Mass/Vol] 34.4 g/dL 32.0 - 35.0 g/dL [facility] MCV (RBC) [Entitic vol] 86 fL 80 - 100 fL [facility] Monocytes (Bld) [#/Vol] 0.5 10*3/uL 0.0 - 0.8 10*3/uL [facility] Monocytes+Macrophages/ 100 WBC Manual cnt (Syn fld) 7.9 % . [facility] Neutrophils (Bld) [#/Vol] 3.8 10*3/uL 1.8 - 7.7 10*3/uL [facility] Neutrophils/100 WBC Manual cnt (Syn fld) 63.3 % . [facility] NRBC 0.1 /100{WBC} 0 - 0.5 /100{WBC} [facility] Platelet mean volume (Bld) [Entitic vol] 8.9 fL 6.3 - 10.7 fL [facility] Platelets (Bld) [#/Vol] 221 10*3/uL 150 - 450 10*3/uL [facility] RBC LM.HPF (Urine sed) [#/Area] 4.52 10*6/uL 3.60 - 5.00 10*6/uL [facility] WBC (Bld) [#/Vol] 6.1 10*3/uL 3.8 - 11.6 10*3/uL [facility] WBC LM.HPF (Urine sed) [#/Area] 6.1 [CFU]/mL 3.8 - 11.6 [CFU]/mL [facility] Calcium [Mass/volume] in Ser um or PlasmaOrdered By: Fiona Fraser on 12-04-2024 Calcium [Mass/Vol] 9.5 mg/dL Normal 8.6-10.3 [facility] Comment on above: Result Comment: PERF ORMED BY: [place] [address] PATHOLOGIST YARD MANAGER MICHELLE PATEL M.D. Performed By: #### B MP #### [address] Carbon dioxide, total [Moles /volume] in Serum or PlasmaOrdered By: Fiona Fraser on 12-04-2024 CO2 [Moles/Vol] 29.7 mmol/L Normal 21.0-31.0 [facility] Comment on above: Performed By: #### B MP #### [address] Chloride [Moles/volume] in S maria laejandra or PlasmaOrdered By: Fiona Fraser on 12-04-2024 Chloride [Moles/Vol] 108 mmol/L High 98-107 [facility] Comment on above: Performed By: #### B MP #### [address] Complete Blood Count Auto Di ffon 12-04-2024 Mean Corpuscular HGB Conc 34.4 g/dL Normal 32.0-35.0 [facility] Comment on above: Performed By: #### C BC #### [address] NRBC% 0.1 /100{WBC} Normal 0-0.5 [facility] Comment on above: Performed By: #### C BC #### [address] White Blood Count 6.1 [CFU]/mL Normal 3.8-11.6 [facility] Comment on above: Performed By: #### C BC #### [address] Creatinine [Mass/volume] in Serum or PlasmaOrdered By: Fiona Fraser on 12-04-2024 Creatinine [Mass/Vol] 0.63 mg/dL Normal 0.60-1.20 [facility] Comment on above: Performed By: #### B MP #### [facility] [address] [place] [id number] [facility] ECG 12 lead ECGon 12-04-2024 ECG 12 lead ECG [facility] [place] [address] [place] [id number] Electrocardiograph Report Signed Patient: Olive Turpin MR#: [id number] : 1960 Acct:[id number] Age/Sex: 64 / F ADM Date: 12/04/24 Loc: PS Room: Type: [facility] Attending Dr: Fiona Fraser DO Ordering Provider: [...] longer evident in Anterior leads Confirmed by KATELYN JONES MD ([facility]) on 12/05/2024 2:53:12 PM Referred By: Electronically Signed By: KATELYN JONES MD Transcribed By: MUS Signed By Katelyn Jones MD 0 12/05/24 1453 Normal [facility] Eosinophils [#/volume] in Bl ood by Automated countOrdered By: Fiona Fraser on 12-04-2024 Eosinophils (Bld) [#/Vol] 0.1 10*3/uL Normal 0.0-0.45 [facility] Comment on above: Performed By: #### C BC #### [address] [address] [place] Eosinophils/100 leukocytes i n Blood by Automated countOrdered By: Fiona Fraser on 12-04-2024 Eosinophils/100 WBC (Bld) 1.4 % Normal . [facility] Comment on above: Performed By: #### C BC #### [facility] [address] Erythrocyte distribution wid th [Ratio] by Automated countOrdered By: Fiona Fraser on 12-04-2024 Erythrocyte distribution width (RBC) [Ratio] 13.4 % Normal 11.9-15.3 [facility] Comment on above: Performed By: #### C BC #### [address] Erythrocytes [#/volume] in B lood by Automated countOrdered By: Fiona Fraser on 12-04-2024 RBC (Bld) [#/Vol] 4.52 10*6/uL Normal 3.60-5.00 [facility] Comment on above: Performed By: #### C BC #### [address] Glucose [Mass/volume] in Ser um or PlasmaOrdered By: Fiona Fraser on 12-04-2024 Glucose [Mass/Vol] 95 mg/dL Normal 70-100 [facility] Comment on above: ADA recommended refe rence rangeRandom Glucose Reference Range is dependent on time and content of last meal. Glucose of more than 200 mg/dL in a nonstressed, ambulatory subject supports the diagnosis of Diabetes Mellitus. Result Comment: [place] Glucose Reference Range is dependent on time and content of last meal. Glucose of more than 200 mg/dL in a nonstressed, ambulatory subject supports the diagnosis of Diabetes Mellitus. ADA recommended reference range Performed By: #### B MP #### [address] Hematocrit [Volume Fraction] of Blood by Automated countOrdered By: Fiona Fraser on 12-04-2024 Hematocrit (Bld) [Volume fraction] 38.9 % Normal 34.0-46.4 [facility] Comment on above: Performed By: #### C BC #### [address] Hemoglobin [Mass/volume] in BloodOrdered By: Fiona Fraser on 12-04-2024 Hemoglobin (Bld) [Mass/Vol] 13.4 g/dL Normal 11.8-15.4 [facility] Comment on above: Performed By: #### C BC #### [address] INR in Platelet poor plasma by Coagulation assayOrdered By: Fiona Fraser on 12-04-2024 INR Coag (PPP) [Relative time] 1.0 {INR} Normal [facility] Comment on above: INR Therapeutic Rang e A) Pre- and Peroperative OAT started two weeks before surgery. NOT HIP SURGERY: 1.5 - 2.5 HIP SURGERY: 2 - 3B) Primary and secondary prevention of venous THROMBOSIS: 2 - 3C) Active venous thrombosis, pulmonary embolismand prevention of recurrent venous thrombosis: 2 - 3D) Prevention of arterial thromboembolismincluding patients with mechanical heart valves: 3 - 4.5 Result Comment: INR Therapeutic Range A) Pre- and Peroperative OAT started two weeks before surgery. NOT HIP SURGERY: 1.5 - 2.5 HIP SURGERY: 2 - 3 B) Primary and secondary prevention of venous THROMBOSIS: 2 - 3 C) Active venous thrombosis, pulmonary embolism and prevention of recurrent venous thrombosis: 2 - 3 D) Prevention of arterial thromboembolism including patients with mechanical heart valves: 3 - 4.5 Performed By: #### P T, PTT #### [address] Leukocytes [#/volume] correc flakito for nucleated erythrocytes in Blood by Automated counOrdered By: Fiona Fraser on 12-04-2024 WBC corrected for nucl RBC Auto (Bld) [#/Vol] 6.1 10*3/uL 3.8-11.6 [facility] Leukocytes [#/volume] in Blo od by Automated countOrdered By: Fiona Fraser on 12-04-2024 WBC (Bld) [#/Vol] 6.1 10*3/uL Normal 3.8-11.6 [facility] Comment on above: Performed By: #### C BC #### [address] Lymphocytes [#/volume] in Bl ood by Automated countOrdered By: Fiona Fraser on 12-04-2024 Lymphocytes (Bld) [#/Vol] 1.6 10*3/uL Normal 1.00-4.8 [facility] Comment on above: Performed By: #### C BC #### [place] [address] [place] Lymphocytes/100 leukocytes i n Blood by Automated countOrdered By: Fiona Fraser on 12-04-2024 Lymphocytes/100 WBC (Bld) 26.6 % Normal . [facility] Comment on above: Performed By: #### C BC #### [address] MCH [Entitic mass] by Automa flakito countOrdered By: Fiona Fraser on 12-04-2024 MCH (RBC) [Entitic mass] 29.6 pg Normal 24.7-34.3 [facility] Comment on above: Performed By: #### C BC #### [address] MCHC Auto (RBC) [Mass/Vol]Or dered By: Fiona Fraser on 12-04-2024 MCHC (RBC) [Mass/Vol] 34.4 g/dL 32.0-35.0 [facility] MCV [Entitic volume] by Auto mated countOrdered By: Fiona Fraser on 12-04-2024 MCV (RBC) [Entitic vol] 86.0 fL Normal 80-100 [facility] Comment on above: Performed By: #### C BC #### [place] [address] [place] Monocytes [#/volume] in Bloo d by Automated countOrdered By: Fiona Fraser on 12-04-2024 Monocytes (Bld) [#/Vol] 0.5 10*3/uL Normal 0.0-0.8 [facility] Comment on above: Performed By: #### C BC #### [place] [address] [place] Monocytes/100 leukocytes in Blood by Automated countOrdered By: Fiona Fraser on 12-04-2024 Monocytes/100 WBC (Bld) 7.9 % Normal . [facility] Comment on above: Performed By: #### C BC #### [facility] [address] [place] [address] [place] Neutrophils [#/volume] in Bl ood by Automated countOrdered By: Fiona Fraser on 12-04-2024 Neutrophils (Bld) [#/Vol] 3.8 10*3/uL Normal 1.8-7.7 [facility] Comment on above: Performed By: #### C BC #### [facility] [address] [place] [address] Neutrophils/100 leukocytes i n Blood by Automated countOrdered By: Fiona Fraser on 12-04-2024 Neutrophils/100 WBC (Bld) 63.3 % Normal . [facility] Comment on above: Performed By: #### C BC #### [facility] [address] [place] [address] No Panel Informationon 12-04 [facility] No Panel InformationOrdered By: Fiona Fraser on 12-04-2024 Estimated GFR (CKD-EPI) > 60.0 mL/Min [facility] Creatinine Clearance (Chem N/A [facility] Nucleated erythrocytes [Pres ence] in Blood by Automated countOrdered By: Fiona Fraser on 12-04-2024 Nucleated RBC Auto Ql (Bld) 0.1 /100{WBC} 0-0.5 [facility] PARTIAL THROMBOPLASTIN TIMEo n 12-04-2024 aPTT Coag (Bld) [Time] 29.7 s 25.1 - 36.5 s [facility] Comment on above: A hematocrit value g reater than 55% may lead to inaccurate results in coagulation testing. Patients having hematocrit values >55% require a special collection tube for coagulation studies. Please contact the laboratory at [phone] for redraw instructions. PST Type and Screenon 2024 ABO and Rh group Nom (Bld) Blood group B Rh(D) positive Normal [facility] Comment on above: Order Comment: Date of Surgery: 20241218 Result Comment: PERF ORMED BY: [address] [place] [address] PATHOLOGIST YARD MANAGER MICHELLE PATEL M.D. PT Coag (Bld) [Time]on 12-04 INR Coag (PPP) [Relative time] 1 {INR} [facility] Comment on above: INR Therapeutic Rang e A) Pre- and Peroperative OAT started two weeks before surgery. NOT HIP SURGERY: 1.5 - 2.5 HIP SURGERY: 2 - 3 B) Primary and secondary prevention of venous THROMBOSIS: 2 - 3 C) Active venous thrombosis, pulmonary embolism and prevention of recurrent venous thrombosis: 2 - 3 D) Prevention of arterial thromboembolism including patients with mechanical heart valves: 3 - 4.5 PT Coag (PPP) [Time] 11.6 s 9.0 - 1 2.9 s [facility] Comment on above: A hematocrit value g reater than 55% may lead to inaccurate results in coagulation testing. Patients having hematocrit values >55% require a special collection tube for coagulation studies. Please contact the laboratory at [phone] for redraw instructions. Partial Thromboplastin Timeo n 12-04-2024 aPTT Coag (Bld) [Time] 29.7 s Normal 25.1-36.5 [facility] Comment on above: Result Comment: A he matocrit value greater than 55% may lead to inaccurate results in coagulation testing. Patients having hematocrit values >55% require a special collection tube for coagulation studies. Please contact the laboratory at [phone] for redraw instructions. PERFORMED BY: [place] [address] PATHOLOGIST YARD MANAGER MICHELLE PATEL M.D. Performed By: #### P T, PTT #### [facility] [address] [place] [address] [place] Platelet mean volume [Entiti c volume] in Blood by Automated countOrdered By: Fiona Fraser on 12-04-2024 Platelet mean volume (Bld) [Entitic vol] 8.9 fL Normal 6.3-10.7 [facility] Comment on above: Performed By: #### C BC #### [facility] [address] [place] [address] [place] Platelets [#/volume] in Bloo d by Automated countOrdered By: Fiona Fraser on 12-04-2024 Platelets (Bld) [#/Vol] 221 10*3/uL Normal 150-450 [facility] Comment on above: Performed By: #### C BC #### [address] Potassium [Moles/volume] in Serum or PlasmaOrdered By: Fiona Fraser on 12-04-2024 Potassium [Moles/Vol] 4.0 mmol/L Normal 3.5-5.1 [facility] Comment on above: Performed By: #### B MP #### [address] Prothrombin time (PT)Ordered By: Fiona Fraser on 12-04-2024 PT Coag (PPP) [Time] 11.6 s Normal 9.0-12.9 [facility] Comment on above: A hematocrit value g reater than 55% may lead to inaccurate results in coagulation testing. Patients having hematocrit values >55% require a special collection tube for coagulation studies. Please contact the laboratory at [phone] for redraw instructions. Result Comment: A he matocrit value greater than 55% may lead to inaccurate results in coagulation testing. Patients having hematocrit values >55% require a special collection tube for coagulation studies. Please contact the laboratory at [phone] for redraw instructions. Performed By: #### P T, PTT #### [address] Serum or plasma anion gap de terminationOrdered By: Fiona Fraser on 12-04-2024 Anion gap [Moles/Vol] 9.3 mmol/L Normal 6.0-15.0 [facility] Comment on above: Performed By: #### B MP #### [place] [address] [place] Sodium [Moles/volume] in Ser um or PlasmaOrdered By: Fiona Fraser on 12-04-2024 Sodium [Moles/Vol] 143 mmol/L Normal 136-145 [facility] Comment on above: Performed By: #### B MP #### [address] [place] [address] [facility] Urea nitrogen [Mass/volume] in Serum or PlasmaOrdered By: Fiona Fraser on 12-04-2024 Urea nitrogen [Mass/Vol] 11 mg/dL Normal 12-08 [facility] Comment on above: Performed By: #### B MP #### [facility] [address] [id number] [facility] aPTT in Platelet poor plasma by Coagulation assayOrdered By: Fiona Fraser on 12-04-2024 aPTT Coag (PPP) [Time] 29.7 s 25.1-36.5 [facility] Comment on above: A hematocrit value g reater than 55% may lead to inaccurate results in coagulation testing. Patients having hematocrit values >55% require a special collection tube for coagulation studies. Please contact the laboratory at [phone] for redraw instructions. MM screening mammo BI w/CADo n 08-28-2024 MM screening mammo BI w/CAD [facility] [address] [place] [address] Mammography Report Signed Patient: Olive Turpin MR#: [id number] : 1960 Acct:[id number] Age/Sex: 63 / F Adm Date: 08/26/24 Loc: [place] Room: Type: [facility] Attending Dr: Referral Self Ordering Provider: SELF,REFERRAL Date of Service: 08/26/24 Procedure(s): MM screening mammo BI w/CAD Accession Number(s): ([id number]) MM/MM screening mammo BI w/CAD: ROUTINE Copies [...] Ware Jr., D.OChaim08/28/2024 9:44 AM Dictation Location: [facility] Dictated By: Junaid Ware Jr, DO 08/28/2443 Signed By: 08/28/24943 Normal [facility] Ambulatory Visit Summaryon 1 Ambulatory [...] for choosing us for your care. Normal [facility] General Surgery Office/Clini c Noteon 02-15-2024 General [...] SARS-CoV-2 (COVID-19) mRNA-1273 vaccine 05/14/2020 Recorded Normal [facility] Comment on above: Result Comment: Elec tronically Signed By: DARIUS OCONNOR, Wali Saxena.br\Date and Time Signed: 02/15/24 15:15 EDT Surgical Pathology Reporton 02-11-2024 Surgical Pathology Report [facility] [address] [place] [address]- Surgical Pathology Report Collected Date/Time: 02/02/2024 15:46 [...] and entirely submitted in one cassette. (DC) DC:[facility] Microscopic Description Microscopic examination performed unless gross only specified. Normal [facility] Comment on above: Performed By: #### [id number] #### [facility] [address] [place] [address] Ambulatory Visit Summaryon 0 02-02-2024 Ambulatory Visit [...] PM EDT With: Wali MCCOY MD Where: [address], [address], [place] [address]- Medications What How Much When Instructions Unchanged [...] for choosing us for your care. Normal [facility] General Surgery Office/Clini c Noteon 02-02-2024 General [...] Ordered: Incisional biopsy of skin, single lesion [address] Pathology Tissue Exam Follow-up No qualifying data [...] SARS-CoV-2 (COVID-19) mRNA-1273 vaccine 05/14/2020 Recorded Normal [facility] Comment on above: Result Comment: Elec tronically Signed By: DARIUS OCONNOR, Wali Rick\Date and Time Signed: 02/02/24 15:34 EDT C ANAon 02-19-2023 C DAISY ------ Final No anaerobic growth after 72 hrs. Normal [facility] Comment on above: Performed By: #### A NAC #### [address] [address] [place] 02-18-2023 C Wound ------ Final Light Growth of Methicillin-Resistant Staphylococcus aureus isolated ORGANISM MRSA SUSCEPTIBILITY ORGANISM ID: 1 ANTIBIOTIC INTERPRETATION PENELOPE STATUS POS Methicillin-Resistant Staphylococcus aureus Clindamycin S 0.25 V Daptomycin S 0.5 V Doxycycline S <=0.5 V Erythromycin R >=8 V Linezolid S 2 V Levofloxacin I 4 V Oxacillin R 2 V This Organism should be considered resistant to cephalosporin vivo Per (CLSI) Clinical and Laboratory Standards [place]. oxacillin resistant, beta-lactamase positive (penicillin-R) staphlococci are considered resistant to all cephems,beta-lactam/ beta-lactamase inhibitor combination,carbapenems, and penicillins. INFECTION PREVENTION NOTE:CONTACT or DROPLET Isolation Precautions may be appropriate in addition to Standard Precautions for this patient with Multi-drug Resistant Organism.This patient may be a candidate for antibiotic nasal cream. Tetracycline S <=1 V Trimethoprim/Sulfa S <=10 V Vancomycin S 1 V Normal [facility] Comment on above: Performed By: #### W DC #### [facility] (DEFAULT) [address] [place] [address] T4 LABCORPon 10-10-2021 T4 [Mass/Vol] 8.3 ug/dL Normal 4.5-12.0 [facility] Comment on above: Performed By: #### T 4LC #### [facility] [address] [place] [address] Dr. Ingris Acosta CBC AUTO DIFFon 2021 BASO # 0.1 103/ul Normal 0.0-0.1 [facility] Comment on above: Performed By: #### C BC #### [facility] [address] [place] [address] Dr. Ingris Acosta Basophils/100 WBC (Bld) 1.1 % Normal 0.2-2.0 [facility] Comment on above: Performed By: #### C BC #### [facility] [address] [place] [address] Dr. Ingris Acosta EO # 0.1 103/ul Normal 0.0-0.7 [facility] Comment on above: Performed By: #### C BC #### [facility] [address] [place] [address] Dr. Ingris Acosta Eosinophils/100 WBC (Bld) 1.7 % Normal 0.9-7.0 [facility] Comment on above: Performed By: #### C BC #### [facility] [address] [place] [address] Dr. Ingris Acosta Erythrocyte distribution width (RBC) [Ratio] 12.6 % Normal 11.0-15.0 [facility] Comment on above: Performed By: #### C BC #### [facility] [address] [place] [address] Dr. Ingris Acosta Hematocrit (Bld) [Volume fraction] 40.2 % Normal 36.0-48.0 [facility] Comment on above: Performed By: #### C BC #### [facility] [address] [place] [address] Dr. Ingris Acosta Hemoglobin (Bld) [Mass/Vol] 13.3 g/dL Normal 12.0-16.0 [facility] Comment on above: Performed By: #### C BC #### [facility] [address] [place] [address] Dr. Ingris Acosta IG # 0.01 10e3/ul Normal 0.00-0.03 [facility] Comment on above: Performed By: #### C BC #### [facility] [address] [place] [address] Dr. Ingris Acosta IG % 0.2 % Normal 0.0-0.5 [facility] Comment on above: Performed By: #### C BC #### [facility] [address] [place] [address] Dr. Ingris Acosta LYMPH # 1.7 103/ul Normal 1.2-3.8 [facility] Comment on above: Performed By: #### C BC #### [facility] [address] [place] [address] Dr. Ingris Acosta Lymphocytes/100 WBC (Bld) 36.2 % Normal 20.5-60.0 [facility] Comment on above: Performed By: #### C BC #### [facility] [address] [place] [address] Dr. Ingris Acosta MANUAL DIFF REQ NO Normal [facility] Comment on above: Performed By: #### C BC #### [facility] [address] [address] [address] Ingris Acosta MCH (RBC) [Entitic mass] 29.3 pg Normal 26.7-34.0 [facility] Comment on above: Performed By: #### C BC #### [facility] [address] [place] [address] Dr. Ingris Acosta MCHC (RBC) [Mass/Vol] 33.1 g/dL Normal 29.9-35.2 [facility] Comment on above: Performed By: #### C BC #### [facility] [address] [place] [address] Dr. Ingris Acosta MCV (RBC) [Entitic vol] 88.5 fL Normal 81.0-99.0 [facility] Comment on above: Performed By: #### C BC #### [facility] [address] [place] [address] Dr. Ingris Acosta MONO # 0.5 103/ul Normal 0.3-0.8 [facility] Comment on above: Performed By: #### C BC #### [facility] [address] [place] [address] Dr. Ingris Acosta Monocytes/100 WBC (Bld) 10.4 % Normal 1.7-12.0 [facility] Comment on above: Performed By: #### C BC #### [facility] [address] [place] [address] Dr. Ingris Acosta NEUT # 2.3 103/ul Normal 1.4-6.5 [facility] Comment on above: Performed By: #### C BC #### [facility] [address] [place] [address] Dr. Ingris Acosta Neutrophils/100 WBC (Bld) 50.4 % Normal 43.0-75.0 [facility] Comment on above: Performed By: #### C BC #### [facility] [address] [place] [address] Dr. Ingris Aocsta Platelet mean volume (Bld) [Entitic vol] 10.8 fL Normal 9.5-13.5 [facility] Comment on above: Performed By: #### C BC #### [facility] [address] [address] [address] Ingris Acosta PLT 211 103/ul Normal 150-450 [facility] Comment on above: Performed By: #### C BC #### [facility] [address] [address] [address] Ingris Acosta RBC 4.54 106/ul Normal 4.20-5.40 [facility] Comment on above: Performed By: #### C BC #### [facility] [address] [place] [address] Dr. Ingris Acosta WBC 4.6 103/ul Normal 4.0-11.0 [facility] Comment on above: Performed By: #### C BC #### [facility] [address] [place] [address] Dr. Ingris Acosta FREE THYROXINE INDEX T7on FTI 2.66 Normal 1.30-4.50 [facility] Comment on above: Performed By: #### T 7, TSH, CMP, LIPID #### [facility] [address] [place] [address] Dr. Ingris Acosta T3U 32.0 % Normal 30.0-39.0 [facility] Comment on above: Performed By: #### T 7, TSH, CMP, LIPID #### [facility] [address] [place] [address] Dr. Ingris Acosta T4 [Mass/Vol] 8.30 ug/dL Normal 4.80-13.90 [facility] Comment on above: Performed By: #### T 7, TSH, CMP, LIPID #### [facility] [address] [place] [address] Dr. Ingris Acosta GLYCOHEMOGLOBIN A1Con 2021 ADA RECOMMENDATION SEE BELOW Normal [facility] Comment on above: Result Comment: ADA RECOMMENDED LIMIT 4.0 - 6.0 ADA THERAPEUTIC TARGET < 7.0 ACTION SUGGESTED > 7.0 Performed By: #### A 1C #### [facility] [address] [place] [address] Dr. Ingris Acosta Glucose [Mass/Vol] 111 mg/dL Normal [facility] Comment on above: Performed By: #### A 1C #### [facility] [address] [address] [address] Ingris Acosta HbA1c (Bld) [Mass fraction] 5.5 % Normal 4.5-6.2 [facility] Comment on above: Performed By: #### A 1C #### [facility] [address] [address] [address] Ingris Acosta LIPID PROFILEon 2021 CHOL-HDL RATIO NORM SEE BELOW Normal [facility] Comment on above: Result Comment: 3.3 - 4.4 LOW RISK 4.4 - 7.1 AVERAGE RISK 7.1 - 11.0 MODERATE RISK >11.0 HIGH RISK Performed By: #### T 7, TSH, CMP, LIPID #### [facility] [address] [address] [address] Ingris Acosta Cholesterol [Mass/Vol] 153 mg/dL Normal <=[address] [facility] Comment on above: Performed By: #### T 7, TSH, CMP, LIPID #### [facility] [address] [address] [address] Ingris Acosta Cholesterol in HDL [Mass/Vol] 59 mg/dL Normal 40-60 [facility] Comment on above: Performed By: #### T 7, TSH, CMP, LIPID #### [facility] [address] [address] [address] Ignris Acosta Cholesterol in LDL [Mass/Vol] 80.8 mg/dL Normal [facility] Comment on above: Performed By: #### T 7, TSH, CMP, LIPID #### [facility] [address] [address] [address] Ingris Acosta Cholesterol.total/Chol esterol in HDL [Mass ratio] 2.6 {ratio} Normal [facility] Comment on above: Performed By: #### T 7, TSH, CMP, LIPID #### [facility] [address] [address] [address] Ingris Acosta HDL NORMAL > or = 60 mg/dl - LO W CARDIOVASCULAR RISK <40 mg/dl - HIGH CARDIOVASCULAR RISK Normal [facility] Comment on above: Performed By: #### T 7, TSH, CMP, LIPID #### [facility] [address] [place] [address] Dr. Ingris Acosta LDL CALC NORMAL SEE BELOW Normal [facility] Comment on above: Result Comment: <100 mg/dl OPTIMAL 100 - 129 mg/dl NEAR OR ABOVE OPTIMAL 130 - 159 mg/dl BORDERLINE HIGH 160 - 189 mg/dl HIGH >190 mg/dl VERY HIGH Performed By: #### T 7, TSH, CMP, LIPID #### [facility] [address] [address] [address] Ingris Acosta Triglyceride [Mass/Vol] 66 mg/dL Normal <=150 [facility] Comment on above: Performed By: #### T 7, TSH, CMP, LIPID #### [facility] [address] [place] [address] Dr. Ingris Acosta VLDL CALC 13.2 mg/dL Normal [facility] Comment on above: Performed By: #### T 7, TSH, CMP, LIPID #### [facility] [address] [place] [address] Dr. Ingris Acosta PROF 14(COMP METB)on 022 Albumin [Mass/Vol] 4.2 g/dL Normal 3.4-5.0 [facility] Comment on above: Performed By: #### T 7, TSH, CMP, LIPID #### [facility] [address] [place] [address] Dr. Ingris Acosta Albumin/Globulin [Mass ratio] 1.4 {ratio} Normal [facility] Comment on above: Performed By: #### T 7, TSH, CMP, LIPID #### [facility] [address] [address] [address] Ingris Acosta ALP [Catalytic activity/Vol] 106 U/L Normal 46-116 [facility] Comment on above: Performed By: #### T 7, TSH, CMP, LIPID #### [facility] [address] [address] [address] Ingris Acosta ALT [Catalytic activity/Vol] 34 U/L Normal 14-59 [facility] Comment on above: Performed By: #### T 7, TSH, CMP, LIPID #### [facility] [address] [address] [address] Ingris Acosta Anion gap [Moles/Vol] 11.9 mmol/L Normal Th e [facility] Comment on above: Performed By: #### T 7, TSH, CMP, LIPID #### [facility] [address] [address] [address] Ingris Acosta AST [Catalytic activity/Vol] 14 U/L Critically low 15-37 [facility] Comment on above: Performed By: #### T 7, TSH, CMP, LIPID #### [facility] [address] [place] [address] Dr. Ingris Acosta Bilirubin [Mass/Vol] 0.5 mg/dL Normal 0.2-1.0 [facility] Comment on above: Performed By: #### T 7, TSH, CMP, LIPID #### [facility] [address] [place] [address] Dr. Ingris Acosta Calcium [Mass/Vol] 9.2 mg/dL Normal 8.5-10.1 [facility] Comment on above: Performed By: #### T 7, TSH, CMP, LIPID #### [facility] [address] [place] [address] Dr. Ingris Acosta Chloride [Moles/Vol] 107 mmol/L Normal 98-107 [facility] Comment on above: Performed By: #### T 7, TSH, CMP, LIPID #### [facility] [address] [place] [address] Dr. Ingris Acosta CO2 [Moles/Vol] 26.7 mmol/L Normal 21.0-32.0 [facility] Comment on above: Performed By: #### T 7, TSH, CMP, LIPID #### [facility] [address] [place] [address] Dr. Ingris Acosta Creatinine [Mass/Vol] 0.70 mg/dL Normal 0.55-1.02 [facility] Comment on above: Performed By: #### T 7, TSH, CMP, LIPID #### [facility] [address] [address] [address] Ingris Acosta EGFR-AF MALAWIAN >60 Normal >=60 [facility] Comment on above: Performed By: #### T 7, TSH, CMP, LIPID #### [facility] [address] [address] [address] Ingris Acosta EGFR-NON AF MALAWIAN >60 Normal >=60 [facility] Comment on above: Performed By: #### T 7, TSH, CMP, LIPID #### [facility] [address] [address] [address] Ingris Acosta Globulin (S) [Mass/Vol] 3.0 g/dL Normal [facility] Comment on above: Performed By: #### T 7, TSH, CMP, LIPID #### [facility] [address] [address] [address] Ingris Acosta Glucose [Mass/Vol] 96 mg/dL Normal 74-106 [facility] Comment on above: Performed By: #### T 7, TSH, CMP, LIPID #### [facility] [address] [address] [address] Ingris Acosta Potassium [Moles/Vol] 3.6 mmol/L Normal 3.5-5.1 [facility] Comment on above: Performed By: #### T 7, TSH, CMP, LIPID #### [facility] [address] [address] [address] Ingris Acosta Protein [Mass/Vol] 7.2 g/dL Normal 6.4-8.2 [facility] Comment on above: Performed By: #### T 7, TSH, CMP, LIPID #### [facility] [address] [address] [address] Ingris Acosta Sodium [Moles/Vol] 142 mmol/L Normal 136-145 [facility] Comment on above: Performed By: #### T 7, TSH, CMP, LIPID #### [facility] [address] [address] [address] Ingris Acosta Urea nitrogen [Mass/Vol] 14.0 mg/dL Normal 7.0-18.0 [facility] Comment on above: Performed By: #### T 7, TSH, CMP, LIPID #### [facility] [address] [place] [address] Dr. Ingris Acosta Urea nitrogen/Creatinine [Mass ratio] 20.0 mg/mg Normal [facility] Comment on above: Performed By: #### T 7, TSH, CMP, LIPID #### [facility] [address] [place] [address] Dr. Ingris Acosta TSHon 2021 TSH 1.206 uIU/mL Normal 0.358-3.74 0 [facility] Comment on above: Performed By: #### T 7, TSH, CMP, LIPID #### [facility] [address] [place] [address] Dr. Ingris Acosta TSH RANGE SEE BELOW Normal [facility] Comment on above: Result Comment: <0.3 4 UIU/ml HYPERTHYROID 0.34-5.60 UIU/ml EUTHYROID >5.60 UIU/ml HYPOTHYROID Performed By: #### T 7, TSH, CMP, LIPID #### [facility] [address] [place] [address] Dr. Ingris Acosta CBC AUTO DIFFon 11-08-2020 BASO # 0.0 103/ul Normal 0.0-0.1 [facility] Comment on above: Performed By: #### C BC #### [facility] [address] [place] [address] Jasen Devorah Basophils/100 WBC (Bld) 0.6 % Normal 0.2-2.0 [facility] Comment on above: Performed By: #### C BC #### [facility] [address] [place] [address] Jasen Devorah EO # 0.2 103/ul Normal 0.0-0.7 [facility] Comment on above: Performed By: #### C BC #### [facility] [address] [place] [address] Jasen Devorah Eosinophils/100 WBC (Bld) 2.3 % Normal 0.9-7.0 [facility] Comment on above: Performed By: #### C BC #### [facility] [address] [place] [address] Jasen Deovrah Erythrocyte distribution width (RBC) [Ratio] 12.6 % Normal 11.0-15.0 [facility] Comment on above: Performed By: #### C BC #### [facility] [address] [place] [address] Jasen Devorah Hematocrit (Bld) [Volume fraction] 38.6 % Normal 36.0-48.0 [facility] Comment on above: Performed By: #### C BC #### [facility] [address] [place] [address] Jasen Devorah Hemoglobin (Bld) [Mass/Vol] 12.7 g/dL Normal 12.0-16.0 [facility] Comment on above: Performed By: #### C BC #### [facility] [address] [place] [address] Jasen Devorah IG # 0.03 10e3/ul Normal 0.00-0.03 [facility] Comment on above: Performed By: #### C BC #### [facility] [address] [place] [address] Jasen Devorah IG % 0.4 % Normal 0.0-0.5 [facility] Comment on above: Performed By: #### C BC #### [facility] [address] [place] [address] Jasen Devorah LYMPH # 1.3 103/ul Normal 1.2-3.8 [facility] Comment on above: Performed By: #### C BC #### [facility] [address] [place] [address] Jasen Devorah Lymphocytes/100 WBC (Bld) 18.8 % Critically low 20.5-60.0 [facility] Comment on above: Performed By: #### C BC #### [facility] [address] [place], [place] [id number] Jasen Devorah MANUAL DIFF REQ NO Normal [facility] Comment on above: Performed By: #### C BC #### [facility] [address] [place] [address] Jasen Devorah MCH (RBC) [Entitic mass] 29.0 pg Normal 26.7-34.0 [facility] Comment on above: Performed By: #### C BC #### [facility] [address] [place] [address] Jasen Fairchild MCHC (RBC) [Mass/Vol] 32.9 g/dL Normal 29.9-35.2 [facility] Comment on above: Performed By: #### C BC #### [facility] [address] [address] Jasen Fairchild MCV (RBC) [Entitic vol] 88.1 fL Normal 81.0-99.0 [facility] Comment on above: Performed By: #### C BC #### [facility] [address] [place] [address] Jasen Fairchild MONO # 0.6 103/ul Normal 0.3-0.8 [facility] Comment on above: Performed By: #### C BC #### [facility] [address] [place] [address] Jasen Fairchild Monocytes/100 WBC (Bld) 9.1 % Normal 1.7-12.0 [facility] Comment on above: Performed By: #### C BC #### [facility] [address] [place] [address] Jasen Fairchild NEUT # 4.8 103/ul Normal 1.4-6.5 [facility] Comment on above: Performed By: #### C BC #### [facility] [address] [place] [address] Jasen Fairchild Neutrophils/100 WBC (Bld) 68.8 % Normal 43.0-75.0 [facility] Comment on above: Performed By: #### C BC #### [facility] [address] [place], [place] [id number] Jasenandrzej Fairchild Platelet mean volume (Bld) [Entitic vol] 10.8 fL Normal 9.5-13.5 [facility] Comment on above: Performed By: #### C BC #### [facility] [address] [place], [place] [id number] Jasen Devorah PLT 199 103/ul Normal 150-450 [facility] Comment on above: Performed By: #### C BC #### [facility] [address] [id number] Jasenandrzej Viverosen RBC 4.38 106/ul Normal 4.20-5.40 [facility] Comment on above: Performed By: #### C BC #### [facility] [address] [id number] Jasenandrzej Viverosen WBC 7.0 103/ul Normal 4.0-11.0 [facility] Comment on above: Performed By: #### C BC #### [facility] [address] [id number] Jasen Fairchild FREE THYROXINE INDEX T7on FTI 2.74 Normal [facility] Comment on above: Performed By: #### A 1C #### [facility] [address] [place] [address] Jasenandrzej Viverosen T3U 33.0 % Normal 23.5-40.5 [facility] Comment on above: Performed By: #### A 1C #### [facility] [address] [place], [place] [id number] Jasenandrezj Viverosen T4 [Mass/Vol] 8.30 ug/dL Normal 5.53-11.00 [facility] Comment on above: Performed By: #### A 1C #### [facility] [address] [place] [address] Jasen Fairchild GLYCOHEMOGLOBIN A1Con 2020 ADA RECOMMENDATION ADA THERAPEUTIC TARG ET 6.0 - 7.0 ACTION SUGGESTED > 7.0 Normal [facility] Comment on above: Performed By: #### A 1C #### [facility] [address], [place] [address] Jasen Devorah Glucose [Mass/Vol] 111 mg/dL Normal [facility] Comment on above: Performed By: #### A 1C #### [facility] [address] [place] [address] Jasen Devorah HbA1c (Bld) [Mass fraction] 5.5 % Normal <=6.0 [facility] Comment on above: Performed By: #### A 1C #### [facility] [address], [place] [address] Jasen Devorah LIPID PROFILEon 11-08-2020 CHOL-HDL RATIO NORM SEE BELOW Normal [facility] Comment on above: Result Comment: 3.3 - 4.4 LOW RISK 4.4 - 7.1 AVERAGE RISK 7.1 - 11.0 MODERATE RISK >11.0 HIGH RISK Performed By: #### A 1C #### [facility] [address], [place] [address] Jasen Devorah Cholesterol [Mass/Vol] 147 mg/dL Normal <=[address] [facility] Comment on above: Performed By: #### A 1C #### [facility] [address] [id number] Jasen Devorah Cholesterol in HDL [Mass/Vol] 50 mg/dL Normal [facility] Comment on above: Performed By: #### A 1C #### [facility] [address] [id number] Jasen Devorah Cholesterol in LDL [Mass/Vol] 76.6 mg/dL Normal [facility] Comment on above: Performed By: #### A 1C #### [facility] [address], [place] [address] Jasen Devorah Cholesterol.total/Chol esterol in HDL [Mass ratio] 2.9 {ratio} Normal [facility] Comment on above: Performed By: #### A 1C #### [facility] [address] [place] [address] Jasen Devorah HDL NORMAL > or = 60 mg/dl - LO W CARDIOVASCULAR RISK <40 mg/dl - HIGH CARDIOVASCULAR RISK Normal [facility] Comment on above: Performed By: #### A 1C #### [facility] [address], [place] [address] Jasen Devorah LDL CALC NORMAL SEE BELOW Normal [facility] Comment on above: Result Comment: <100 mg/dl OPTIMAL 100 - 129 mg/dl NEAR OR ABOVE OPTIMAL 130 - 159 mg/dl BORDERLINE HIGH 160 - 189 mg/dl HIGH >190 mg/dl VERY HIGH Performed By: #### A 1C #### [facility] [address], [place] [address] Jasen Devorah Triglyceride [Mass/Vol] 102 mg/dL Normal <=150 [facility] Comment on above: Performed By: #### A 1C #### [facility] [address] [place], [place] [id number] Jasen Devorah VLDL CALC 20.4 mg/dL Normal [facility] Comment on above: Performed By: #### A 1C #### [facility] [address] [place], [place] [id number] Jasenandrzej Fairchild PROF 14(COMP METB)on 021 Albumin [Mass/Vol] 4.0 g/dL Normal 3.5-5.0 [facility] Comment on above: Performed By: #### A 1C #### [facility] [address] [place] [address] Jasenandrzej Fairchild Albumin/Globulin [Mass ratio] 1.2 {ratio} Normal [facility] Comment on above: Performed By: #### A 1C #### [facility] [address] [place], [place] [id number] Jasen Devorah ALP [Catalytic activity/Vol] 99 U/L Normal 38-126 [facility] Comment on above: Performed By: #### A 1C #### [facility] [address] [place] [address] Jasen Devorah ALT [Catalytic activity/Vol] 20 U/L Normal 9-52 [facility] Comment on above: Performed By: #### A 1C #### [facility] [address] [place], [place] [id number] Jasen Devorah Anion gap [Moles/Vol] 13.3 mmol/L Normal [facility] Comment on above: Performed By: #### A 1C #### [facility] [address] [place], [place] [id number] Jasen Devorah AST [Catalytic activity/Vol] 15 U/L Normal 14-36 [facility] Comment on above: Performed By: #### A 1C #### [facility] [address] [place] [address] Jasen Devorah Bilirubin [Mass/Vol] 0.4 mg/dL Normal 0.2-1.3 [facility] Comment on above: Performed By: #### A 1C #### [facility] [address] [id number] Jasen Devorah Calcium [Mass/Vol] 9.2 mg/dL Normal 8.4-10.2 [facility] Comment on above: Performed By: #### A 1C #### [facility] [address] [address] Jasen Devorah Chloride [Moles/Vol] 109 mmol/L Critically high 98-107 [facility] Comment on above: Performed By: #### A 1C #### [facility] [address] [address] Jasen Devorah CO2 [Moles/Vol] 27.4 mmol/L Normal 22.0-30.0 [facility] Comment on above: Performed By: #### A 1C #### [facility] [address] [address] Jasen Devorah Creatinine [Mass/Vol] 0.72 mg/dL Normal 0.52-1.04 [facility] Comment on above: Performed By: #### A 1C #### [facility] [address] [phone] Jasen Devorah EGFR-AF MALAWIAN >60 Normal >=60 [facility] Comment on above: Performed By: #### A 1C #### [facility] [address] [phone] Jasen Devorah EGFR-NON AF MALAWIAN >60 Normal >=60 [facility] Comment on above: Performed By: #### A 1C #### [facility] [address] [phone] Jasen Devorah Globulin (S) [Mass/Vol] 3.3 g/dL Normal [facility] Comment on above: Performed By: #### A 1C #### [facility] [address] [phone] Jasen Devorah Glucose [Mass/Vol] 97 mg/dL Normal 74-106 [facility] Comment on above: Performed By: #### A 1C #### [facility] [address] [address] Jasen Devorah Potassium [Moles/Vol] 3.7 mmol/L Normal 3.4-5.0 [facility] Comment on above: Performed By: #### A 1C #### [facility] [address] [place], [place] [phone] Jasen Devorah Protein [Mass/Vol] 7.3 g/dL Normal 6.1-8.2 [facility] Comment on above: Performed By: #### A 1C #### [facility] [address] [place] [address] Jasen Devorah Sodium [Moles/Vol] 146 mmol/L Critically high 137-145 [facility] Comment on above: Performed By: #### A 1C #### [facility] [address] [place] [address] Jasen Devorah Urea nitrogen [Mass/Vol] 15.0 mg/dL Normal 7.0-17.0 [facility] Comment on above: Performed By: #### A 1C #### [facility] [address] [place] [address] Jasen Devorah Urea nitrogen/Creatinine [Mass ratio] 20.8 mg/mg Normal [facility] Comment on above: Performed By: #### A 1C #### [facility] [address] [place], [place] [id number] Jasen Devorah TSHon 11-08-2020 TSH 2.227 uIU/mL Normal 0.470-4.68 0 [facility] Comment on above: Performed By: #### T 7, CMP, TSH, LIPID #### [facility] [address] [place], [place] [phone] Jasen Devorah TSH RANGE SEE BELOW Normal [facility] Comment on above: Result Comment: <0.3 4 UIU/ml HYPERTHYROID 0.34-5.60 UIU/ml EUTHYROID >5.60 UIU/ml HYPOTHYROID Performed By: #### T 7, CMP, TSH, LIPID #### [facility] [address] [place], [place] [phone] Jasen Devorah Vital Signs Date Time Vital Sign Value Performing Clinician Facility 01-02-2025 10:28-0400 Body mass index (BMI) [Ratio] 25.13 kg/m2 Fiona Rinkes DO Work Phone: [facility] 01-02-2025 10:28-0400 Body weight 60.33 kg Fiona Rinkes DO Work Phone: [facility] 01-02-2025 10:28-0400 Diastolic blood pressure 78 mm[Hg] Fiona Rinkes DO Work Phone: [facility] 01-02-2025 10:28-0400 Systolic blood pressure 120 mm[Hg] Fiona Rinkes DO Work Phone: [facility] 12-18-2024 11:53-0400 Diastolic blood pressure 69 mm[Hg] Mireya Allen MD Work Phone: [facility] 12-18-2024 11:53-0400 Heart rate 71 /min Mireya Allen MD Work Phone: [facility] 12-18-2024 11:53-0400 Respiratory rate 14 /min Mireya Allen MD Work Phone: [facility] 12-18-2024 11:53-0400 SaO2% (BldA) [Mass fraction] 98 % Mireya Allen MD Work Phone: [facility] 12-18-2024 11:53-0400 Systolic blood pressure 120 mm[Hg] Mireya Allen MD Work Phone: [facility] 12-18-2024 09:55-0400 Body temperature 97.8 [degF] Mireya Allen MD Work Phone: [facility] 12-18-2024 09:15-0400 Inhaled oxygen flow rate 8 L/min Mireya Allen MD Work Phone: [facility] 12-18-2024 06:35-0400 Body height 154.94 cm Mireya Allen MD Work Phone: [facility] 12-18-2024 06:35-0400 Body weight 59.4 kg Mireya Allen MD Work Phone: [facility] 11-09-2024 14:15-0400 Body mass index (BMI) [Ratio] 25.13 kg/m2 Fiona Rinkes DO Work Phone: [facility] 11-09-2024 14:15-0400 Body weight 60.33 kg Fiona Rinkes DO Work Phone: [facility] 11-09-2024 14:15-0400 Diastolic blood pressure 70 mm[Hg] Fiona Rinkes DO Work Phone: [facility] 11-09-2024 14:15-0400 Systolic blood pressure 120 mm[Hg] Fiona Rinkes DO Work Phone: [facility] 09-28-2024 10:27-0400 Body mass index (BMI) [Ratio] 25.13 kg/m2 Fiona Rinkes DO Work Phone: [facility] 09-28-2024 10:27-0400 Body weight 60.33 kg Fiona Rinkes DO Work Phone: [facility] 09-28-2024 10:27-0400 Diastolic blood pressure 70 mm[Hg] Fiona Rinkes DO Work Phone: [facility] 09-28-2024 10:27-0400 Systolic blood pressure 126 mm[Hg] Fiona Rinkes DO Work Phone: [facility] 01-19-2024 14:06-0400 Blood Pressure Location Wali ADONAYL [facility] 01-19-2024 14:06-0400 Diastolic blood pressure 78 mm[Hg] Wali URIASL [facility] [place] 01-19-2024 14:06-0400 Heart rate 72 /min Wali URIASL [facility] 01-19-2024 14:06-0400 Respiratory rate 16 /min Wali URIASL [facility] 01-19-2024 14:06-0400 Systolic blood pressure 138 mm[Hg] Wali MCCOY [facility] 01-20-2023 14:30-0400 Body height 154.94 cm Kasi Antoine II Other [facility] Other 01-20-2023 14:30-0400 Body mass index (BMI) [Ratio] 23.62 kg/m2 Kasi Antoine II Other [facility] Other 01-20-2023 14:30-0400 Body weight 56.7 kg Kasi Antoine II Other [facility] Other Encounters Encounter Date Encounter Type Care Provider Facility Start: 01-02-2025 End: 01-02-2025 Postop follow up visit related to original px Fiona Fraser DO Work Phone: [facility] Comment on above: Postoperative examin ation Start: 12-18-2024 End: 12-18-2024 Admission to same day surgery center Fiona Fraser DO [facility] Start: 12-18-2024 End: 12-18-2024 ambulatory Mireya Allen MD Work Phone: [facility] Work Phone: Start: 12-04-2024 End: 12-04-2024 Patient encounter procedure Fiona Fraser DO -Pre-Surgical Testing Work Phone: Start: 12-04-2024 End: 12-04-2024 ambulatory Mireya Allen MD Work Phone: [facility] Work Phone: Start: 12-04-2024 Encounter for other preprocedural examination Fiona Fraser [facility] Start: 12-04-2024 End: 12-04-2024 External Result Encounter Fiona Fraser DO Work Phone: [facility] External Department Unsolicited Start: 12-04-2024 End: 12-04-2024 External Result Encounter Fiona E Rinkes DO Work Phone: [facility] External Department Unsolicited Start: 11-09-2024 End: 11-09-2024 Office outpatient visit 25 minutes Fiona E Rinkes DO Work Phone: [facility] Comment on above: Cystocele, midline; Uterine prolapse Start: 11-09-2024 End: 11-09-2024 ambulatory FIONA E RINKES Not Available Start: 11-08-2024 End: 11-08-2024 ambulatory FIONA RINKES Not Available Start: 09-28-2024 End: 09-28-2024 Bamboo flowsheet Fiona E Rinkes DO Work Phone: [facility] Start: 09-28-2024 End: 09-28-2024 Bamboo flowsheet Fiona E Rinkes DO Work Phone: [facility] Start: 09-28-2024 End: 09-28-2024 Patient encounter status Fiona E Rinkes DO Work Phone: [facility] Work Phone: Start: 09-28-2024 End: 09-28-2024 Periodic preventive med est patient 40-64yrs Fiona E Rinkes DO Work Phone: [facility] Comment on above: Encounter for gyneco logical examination without abnormal finding (Primary Dx); Screening for malignant neoplasm of cervix; Encounter for screening mammogram for breast cancer; Uterine prolapse; Cystocele, midline Start: 09-28-2024 End: 09-28-2024 ambulatory FIONA E RINKES Not Available Start: 08-26-2024 End: 08-26-2024 Patient encounter procedure Mireya Allen MD Work Phone: [facility] Work Phone: Start: 08-26-2024 End: 08-26-2024 ambulatory Mireya Allen MD Work Phone: [facility] Work Phone: Start: 02-15-2024 End: 02-15-2024 ambulatory Wali R NILL Facility: [facility] Start: 02-15-2024 End: 02-15-2024 Patient encounter procedure Wali R NILL [facility] Start: 02-02-2024 End: 02-02-2024 Lab Drop off Wali R NILL [facility] Start: 02-02-2024 End: 02-02-2024 ambulatory Wali R NILL Facility:[facility] Start: 02-02-2024 End: 02-02-2024 Patient encounter procedure Wali R NILL [facility] Start: 01-19-2024 End: 01-19-2024 ambulatory [facility]ILL [facility] Start: 01-19-2024 End: 01-19-2024 Patient encounter procedure Wali R NILL [facility] Start: 12-23-2023 ambulatory [facility] R NILL [facility] Start: 05-08-2023 End: 05-08-2023 ambulatory MD Mireya Allen Work Phone: [facility] Work Phone: Start: 05-08-2023 End: 05-08-2023 Patient encounter procedure MD Mireya Allen Work Phone: [facility] Work Phone: Start: 02-16-2023 End: 02-17-2023 ambulatory Roque Davila Facility:[facility] Start: 01-20-2023 End: 01-20-2023 Patient encounter procedure MD Mireya Allen Work Phone: [facility] [place] [facility] Start: 01-20-2023 End: 01-20-2023 ambulatory MD Mireya Allen Work Phone: [facility] Work Phone: Start: 01-20-2023 Office outpatient ne w 45 minutes Kasi Antoine II [facility] Start: 04-04-2022 End: 04-04-2022 ambulatory MD Mireya Allen Work Phone: [facility] Work Phone: Start: 04-04-2022 End: 04-04-2022 Patient encounter procedure MD Mireya Allen Work Phone: [facility] Start: 10-09-2021 Encounter for genera l adult medical examination without abnormal findings DR MIREYA ALLEN [facility] Start: 2021 End: 10-04-[address] MIREYA ALLEN Facility:[facility] Start: 2021 End: 10-04-2021 Encounter for general adult medical examination without abnormal findings DR MIREYA ALLEN Facility:[facility] Start: 11-08-2020 End: 11-09-[address] MIREYA ALLEN Facility:[facility] Procedures Date Procedure Procedure Detail Performing Clinician Start: 12-18-2024 Total hysterectomy v ia vaginal approach Mireya Allen MD Work Phone: Start: 12-04-2024 Antibody screen Referra l Self Comment on above: Order Comment: Date of Surgery: [id number] Result Comment: PERF ORMED BY: [facility] [address] [place] [address] PATHOLOGIST YARD MANAGER MICHELLE PATEL M.D. Start: 12-04-2024 aPTT in Blood by Coagulation assay Fiona Fraser DO Work Phone: Start: 12-04-2024 Complete blood count with white cell differential, automated Fiona Fraser DO Work Phone: Start: 12-04-2024 Prothrombin time Sandy Fraser DO Work Phone: Start: 08-28-2024 Mammography Fiona thomason DO Work Phone: Endometrial ablation Wali MCCOY H/O: hysterectomy S/P laparoscop ic hysterectomy Mireya Allen MD Work Phone: Plan of Treatment Date Care Activity Detail Author Start: 07-20-2028 Screening for malign ant neoplasm of cervix [facility] Start: 10-02-2025 End: 10-02-2025 Patient encounter procedure [facility] Start: 09-28-2025 End: 11-28-2025 DBT Breast - bilateral screening Bilateral screening mammogram with tomosynthesis Imaging Routine Encounter for screening mammogram for breast cancer Expected: 09/28/2025, Expires: 11/28/2025 [facility] Comment on above: Expected: 09/28/2025 , Expires: 11/28/2025 Start: 08-28-2025 Screening for malign ant neoplasm of breast Mammogram [facility] Start: 01-15-2025 Influenza vaccination N [facility] Start: 01-02-2025 End: 01-02-2025 Patient encounter procedure 01/02/2025 10:15 AM EDT Office Visit [facility] [address] [place] [phone] Fiona Fraser, DO [address] [place] [address] [facility] Start: 12-18-2024 [facility] Start: 09-28-2024 End: 09-28-2024 Patient encounter procedure 09/28/2024 10:30 AM EDT Office Visit [facility] [address] [place] [phone] Fiona Fraser, DO [address] [place] [address] Encounter for gynecological examination without abnormal finding; Screening for malignant neoplasm of cervix; Encounter for screening mammogram for breast cancer [facility] Comment on above: Encounter for gyneco logical examination without abnormal finding; Screening for malignant neoplasm of cervix; Encounter for screening mammogram for breast cancer Start: 08-26-2024 MG Breast - bilatera l Screening [facility] Start: 08-26-2024 Screening mammograph y of bilateral breasts MM screening mammo BI w/CAD [facility] Start: 05-08-2023 MG Breast - bilatera l Screening [facility] Start: 05-08-2023 Screening mammograph y of bilateral breasts MM screening mammo BI w/CAD [facility] Start: 01-20-2023 Plain X-ray of right hip XR hi p RT min 2V(w/wo pelvis)* [facility] Start: 04-04-2022 Screening mammograph y of bilateral breasts MM screening mammo BI w/CAD [facility] Start: 10-04-1983 Screening for malign ant neoplasm of cervix Pap Smear [facility] Start: 1960 Screening for malign ant neoplasm of colon [facility] IGP, RFX APTIMA HPV ASCU IGP, RF X APTIMA HPV ASCU Lab Routine Screening for malignant neoplasm of cervix Ordered: 09/28/2024 [facility] Work Phone: Comment on above: Ordered: 09/28/2024 Patient Education Know your Meds [facility] Work Phone: Patient referral [facility] Work Phone: Immunizations Immunization Date Immunization Notes Care Provider Inocencia flood 04-18-2024 influenza virus vaccine, unspecified formulation Fiona Fraser DO Work Phone: [facility] 03-31-2023 influenza virus vaccine, unspecified formulation Wali MCCOY [facility] 06-12-2020 SARS-CoV-2 (COVID-19 ) mRNA-1273 vaccine Wali MCCOY [facility] 05-14-2020 SARS-CoV-2 (COVID-19 ) mRNA-1273 vaccine Wali MCCOY [facility] Payers Date Payer Category Payer Self-pay [id number] 2024 Unknown [id number] 2023 Private Health Insurance 2 [id number] 2023 Private Health Insurance 1960 Unknown [id number] 2.16.84 [id number] 1960 Unknown [id number] 2.16.84 [id number] 1960 Unknown [id number] 2.16. [id number] 1960 Unknown [id number] 2.16.8 [id number] 1960 Unknown [id number] 2.16.8 [id number] 1960 Unknown [id number] 2.16.8 [id number] 1960 Unknown [id number] 2.16.8 [id number] 1962 Unknown [id number] 2.16.8 [id number] 1960 Unknown [id number] 2.16.8 [id number] 1962 Unknown [id number] 2.16.8 [id number] 1960 Unknown [id number] 2.16.84 [id number] 1959 Private Health Insurance 2 [id number] Unknown [id number] 2.16.8 [id number] Unknown [id number] 2.16.8 [id number] Unknown [id number] 2.16.8 [id number] Social History Date Type Detail Facility [facility] Work Phone: Start: 1960 Sex Assigned At Female F [facility] Start: 04-19-2023 End: 07-21-2023 Sex Assigned At [facility] Start: 07-21-2023 End: 01-19-2024 Tobacco smoking status Never smoked tobacco (finding) [facility] Tobacco smoking status Never [facility] Work Phone: Start: 08-27-2024 Sex Female (finding) [facility] Start: 07-21-2023 Tobacco use and exposure Smokeless tobacco non-user [facility] Start: 09-27-2024 End: 01-02-2025 Alcoholic beverage intake Current drinker of alcohol [...] at Not on file [facility] Goals Date Patient Goal Desired Activity /State Functional Status Date Assessment Result Facility 12-18-2024 Functional status Patient at Baseline [facility] Work Phone: 01-19-2024 Functional Status N/A [facility] Mental Status Date Assessment Result Facility 12-18-2024 Cognitive function Cognitive Sta tus Patient at Baseline [facility] Work Phone: Clinical Notes 01-20-2023 to 01-02-2025 Fiona Fraser, - 01/02/2025 10:15 AM EDClara Fraser, DO - 11/09/2024 2:15 PM EDClara Carmelita Isabelsanam, DO - 09/28/2024 10:30 AM EDT Note Date & Type Note Facility 01-02-2025 History of Present illness Narrative Images from the original note were not included. Fiona Fraser D.O. Obstetrics and Gynecology Patient: Olive Turpin : 1960 (64 y.o.) Exam Date: 01/02/2025 Reason for Visit - Chief Complaint Patient presents with Post-op Visit 12/18/24 TLH/BSO anterior Colporrhapy. Denies vaginal bleeding/spotting. Denies bowel concerns. Pt notice a little bit of bladder leakage. Denies incision concerns. Pt will have random pain/discomfort about bellybutton. Visit Vitals BP 120/78 Wt 133 lb BMI 25.13 kg/m OB [...] smear 07/21/23 wnl, Mammogram 08/26/24 [place] [place] [facility] Review of Systems - Const: Denies appetite [...] Review Audit Reviewed by Lacie Sabillon MA (Toter) on 01/02/25 at 1028 Medication Order Taking? Sig Documenting Provider Last Dose Status eletriptan (Relpax) 40 MG tablet [id number] 1 tablet Orally At onset of migraine. May repeat in 2 hours Fiona Fraser DO Active topiramate (Topamax) 25 MG tablet [id number] 1 (one) time each day at the same time Fiona Fraser DO Active Past Medical History: Diagnosis Date Cystocele History of cataract surgery 2009 samantha. History of medical problems prolapse (normal spontaneous vaginal delivery) ([facility]) x2- full term Past Surgical History: Procedure [...] normal or at baseline unless noted below. General: Alert, [...] reviewed with and given to the patient. The patient is to maintain pelvic rest until further notice. Activity restrictions and post operative expectations reviewed with the patient. All questions have been answered. She is to contact the office with any heavy vaginal bleeding, severe pelvic pain or fever. The patient is to return in 4 weeks for her PO visit. ICD-10-CM 1. Postoperative examination Z09 documented in this encounter [facility] 11-09-2024 History of Present illness Narrative Images from the original note were not included. Fiona Fraser D.O. Obstetrics and Gynecology Patient: Olive Turpin : 1960 (64 y.o.) Exam Date: 11/09/2024 Reason for Visit - Chief Complaint Patient presents with Follow-up Pt presents for US follow up. Denies concerns. Visit Vitals BP 120/70 Wt 133 lb BMI 25.13 kg/m OB [...] smear 07/21/23 wnl, Mammogram 08/26/24 wnl [facility] [facility] Review of Systems - Const: Denies appetite [...] Review Audit Reviewed by Lacie Sabillon MA (Toter) on 11/09/24 at 1415 Medication Order Taking? Sig Documenting Provider Last Dose Status eletriptan (Relpax) 40 MG tablet [id number] 1 tablet Orally At onset of migraine. May repeat in 2 hours Fiona Fraser DO Active topiramate (Topamax) 25 MG tablet [id number] 1 (one) time each day at the same time Fiona Fraser DO Active Past Medical History: Diagnosis Date Cystocele History of cataract surgery 2009 samantha. History of medical problems prolapse (normal spontaneous vaginal delivery) ([facility]) x2- full term Past Surgical History: Procedure [...] normal or at baseline unless noted below. General: Alert, cooperative, no distress, appears stated age Head: Normocephalic, without obvious abnormality, atraumatic Eyes: sclera anicteric Ears: no obvious hearing deficit Skin: Warm and dry Heart: Regular rate and rhythm, S1 and S2 normal, no murmur Lungs: Clear to auscultation bilaterally, respirations unlabored Extremities normal, atraumatic, no cyanosis or edema Neurologic: alert and oriented Psych: cooperative with exam Diagnoses and all orders for this visit: Cystocele, midline Uterine prolapse Reviewed pelvic US at length- small calcified fibroids noted. Ovaries WNL. The patient desires treatment with hysterectomy. Will plan for TLH/BSO, anterior repair. The surgical procedure was reviewed at length with the patient. The risks and alternatives of surgery were reviewed. The patient was advised of the potential complications of surgery- including, but not limited to- bleeding, infection, scarring, injury to the bowel/bladder/ureters/major blood vessels - further surgery to repair those injuries- stroke, heart attack, blood clots to the legs/lungs or . Postoperative expectations and activity restrictions reviewed with the patient. Time was given for the patient to ask questions and all questions have been answered. The surgical consent was signed. ICD-10-CM 1. Cystocele, midline N81.11 2. Uterine prolapse N81.4 documented in this encounter [facility] 09-28-2024 History of Present illness Narrative Images [...] smear 07/21/23 wnl, Mammogram 08/26/24 wnl @ [facility] Review of Systems - General: Chills denies. [...] denies. Medication Documentation Review Audit Reviewed by Lcaie Sabillon MA (Toter) on 09/28/24 at 1026 Medication Order Taking? Sig Documenting Provider Last Dose Status eletriptan (Relpax) 40 MG tablet [id number] 1 tablet Orally At onset of migraine. May repeat in 2 hours Fiona Fraser DO Active topiramate (Topamax) 25 MG tablet [id number] 1 (one) time each day at the [...] Cystocele, midline N81.11 documented in this encounter [facility] 01-19-2024 Note General Surgery Offi ce/Clinic Note [...] Recorded SARS-CoV-2 (COVID-19) mRNA-1273 vaccine 05/14/2020 Recorded [facility] Comment on above: Result Comment: Elec tronically Signed By: DARIUS OCONNOR, Wali Rick\Date and Time Signed: 01/19/24 14:53 EDT 01-20-2023 [...] and treatment. She can follow-up as needed [employer] Other Evaluation + Plan note Future Appointments Appointment Date:02/02/2024 03:20:00 PM Scheduled Provider:Wali MCCOY MD Location:[facility] Aya[place] Appointment Type:GS Procedure [facility] note Future Appointments Appointment Date:02/15/2024 03:00:00 PM Scheduled Provider:Wali MCCOY MD Location:[facility] Aya[place] Appointment Type:GS Established 15 [facility] [place] Evaluation noteNo assessment information available [facility] Work Phone: evaluation note* Diagnosis Encounter for gynecological examination without abnormal finding- Primary Screening for malignant neoplasm of cervix Screening for malignant neoplasm of the cervix Encounter for screening mammogram for breast cancer Uterine prolapse Uterine prolapse without mention of vaginal wall prolapse Cystocele, midline [facility] Diagnosis Cystocele, midline Uterine prolapse Uterine prolapse without mention of vaginal wall prolapse [facility] Diagnosis Postoperative examination Follow-up examination, following unspecified surgery [facility] N[facility]ative - Reported* Type Description Date Surgical History ablation [facility] Other Hospital course Narrative No data available for this section [facility] Discharge instructions No data available for this section [facility] Discharge instructions Additional Instructions DISCHARGE INSTRUCTIONS FOR HYSTERECTOMY (TVH, LAVH, TLH) -During your time at home until your first office appointment we recommend that you assume the same type of activities that you have been doing while in the hospital. You may ride in the car unless otherwise specifically told not to. Unless specifically otherwise stated, generally you may drive the car when you feel strong enough to make emergency manuevers as needed. -You may walk up and down stairs. At first take one step at a time -- one step - stop, one step - stop, one step - stop. -You may do light housework, such as dusting, dishes, and cooking. -From your first office visit until the six week postoperative examination we recommend that you do not do any heavy lifting or straining, that you do not do any vacuuming, mopping, or sweeping. -We advise that you do not lift any heavy grocery bags from the cart to the car or from the car home. -We recommend that you do not do any yard work such as shoveling of snow, raking of leaves, cutting grass or gardening. -We recommend that you do not make beds or lift mattresses to change fitted sheets. -Light bleeding is normal for the first 4 weeks (i.e. changing panty liner 3 - 4 times a day.) Call me or go to the Emergency Room for heavy bleeding (soaking a maxipad every hour for 4 hours.) -Call the office or go to the Emergency Room if unable to reach me for fever, chills, worsening pain, persistent nausea/vomiting. -Call the office or go to the Emergency Room for shortness of breath, pain in your calfs or unusual swelling in your legs. -Showers are allowed, but no tub baths until advised when to resume. -The incisions on your abdomen have been closed with suture that will dissolve. The outer bandages may be removed in 48 hours and the steri-strips underlying may be removed in 7 days. You may get these incisions wet while in the shower, but otherwise keep clean and dry. -You will be advised at your first office visit when you may resume intercourse. This will be dependent upon the type of surgery performed. -We recommend that you use home remedies such as aspirin, Tylenol, Motrin for pain, Milk of Magnesia for laxative. If these preparations do not take care of your problem we want to be called and notified of your distress. -Please get prescriptions filled upon leaving the hospital and follow directions as outlined. Please note the refill limitations on the prescription. -If you have any specific questions not covered by these instructions please feel free to contact myself or one of the nurses who will answer your questions with my recommendations. -These instructions are intended to be a guideline for your postoperative care and recovery and are by no means intended to be totally complete. FOLLOW UP -Please call the office at ([phone]) to make follow appointment before leaving the hospital. -2 Weeks [facility] Work Phone: Progress note No data available for this section [facility] [place] Reason for referral (narrative)No reason for referral information available[facility] Work Phone: Summary Purpose Family History Relationship Condition Age at Onset Recorded Date/T [place] sister Malignant neoplasm of breast Unknown Malignant neoplasm Unknown Advance Directives Advance Directive Response Recorded Date/ Time Advance Directives No January 3:50pm Advance Directive Response Recorded Date/ Time Advance Directives No January 4:50pm Chief Complaint and Reason for Visit Chief Complaint Screening Chief Complaint Admit Date Screening August 26, 2024 9:3 4am Chief Complaint Admit Date Uterine Prolapse, Cystocele December 04, 2 025 3:38pm Chief Complaint Admit Date Uterine Prolapse, Cystocele December 04, 2 025 3:38pm Uterine Prolapse, Cystocele December 18, 2024 6:17am Additional Source Comments INFORMATION SOURCE (unrecogn ized section and content) DATE CREATED AUTHOR 10/12/2021 [facility] DATE CREATED AUTHOR AUTHOR'S ORGANIZ ATION 02/20/2023 [facility] DATE CREATED AUTHOR AUTHOR'S ORGANIZ ATION 02/12/2024 [facility] DATE CREATED AUTHOR AUTHOR'S ORGANIZ ATION 02/17/2024 [facility] DATE CREATED AUTHOR AUTHOR'S ORGANIZ ATION 02/18/2024 [facility] DATE CREATED AUTHOR AUTHOR'S ORGANIZ ATION 11/09/2024 [facility] DATE CREATED AUTHOR AUTHOR'S ORGANIZ ATION 12/21/2024 [facility] Care Teams (unrecognized sec tion and content) Team Status: Inactive Member Role Status Dates Mireya Allen MD Primary Care Provider Active Fiona Fraser DO Attending Provider Active Team Status: Active Member Role Status Dates Mireya Allen MD Primary Care Provider Active Team Status: Inactive Member Role Status Dates Mireya Allen MD Primary Care Provider Active Kasi Antoine II, MD Attending Provider Active Team Status: Inactive Member Role Status Dates Mireya Allen MD Primary Care Provider Active Referral Self Attending Provider Active Fiona Fraser DO Referring Provider Active Team Status: Inactive Member Role Status Dates Mireya Allen MD Primary Care Provider Active Start: August 26, 2024 End: August 26, 2024 Referral Self Attending Provider Active Start: A pril 2024 End: August 26, 2024 Fiona Fraser DO Referring Provider Active S tart: August 26, 2024 End: August 26, 2024 Mother Helper Relationship Specialty Start Date End Date Mireya Allen MD PCP - General Family Medicine 04/20/23 Mother Helper Relationship Specialty Start Date End Date Mireya Allen MD PCP - General Family Medicine 04/20/23 Mother Helper Relationship Specialty Start Date End Date Mireya Allen MD PCP - General Family Medicine 04/20/23 Mother Helper Relationship Specialty Start Date End Date Mireya Allen MD PCP - General Family Medicine 04/20/23 Mother Helper Relationship Specialty Start Date End Date Mireya Allen MD PCP - General Family Medicine 04/20/23 Team Status: Inactive Member Role Status Wilbur Allen MD Primary Care Provider Active Start: December 04, 2024 End: December 04, 2024 Fiona Fraser DO Attending Provider Active S tart: December 04, 2024 End: December 04, 2024 Team Status: Inactive Member Role Status Dates Mireya Allen MD Primary Care Provider Active Start: December 18, 2024 End: December 18, 2024 Fiona Fraser DO Attending Provider Active S tart: December 18, 2024 End: December 18, 2024 Mother Helper Relationship Specialty Start Date End Date iMreya Allen MD PCP - General Family Medicine [...] sectionGoals may be documented in an alternate sectionGoals may be documented in an alternate section REASON FOR VISIT (unrecogniz ed section and content) Reason Comments Gynecologic Exam Pt would like to dis cuss hysterectomy, states in the past was recommended d/t prolapse. Denies bowel/bladder/breast concerns. Pt up to date with mammogram. Denies vaginal bleeding/spotting. Reason Comments Follow-up Pt presents for US roly carusolow up. Denies concerns. Reason Comments Post-op Visit 12/18/24 TLH/BSO anter ior Colporrhapy. Denies vaginal bleeding/spotting. Denies bowel concerns. Pt notice a little bit of bladder leakage. Denies incision concerns. Pt will have random pain/discomfort about bellybutton. FOR RECORDS PERTAINING TO PATIENTS WHO ARE [...] BE BASED ON THE PRIMARY CLINICAL RECORDS. [facility]. provides no warranty or guarantee of the accuracy or completeness of information in this document.
--- NOTE | 2025-01-02 17:52 | ECG_ITS ---
[facility] Test Date: 2025-01-02 Pat Name: OLIVE TURPIN Department: Room: - Gender: Female Management Analyst: : 1960 Requested By: [id number] Order Number: [id number] Reading MD: ASPEN CHAVEZ M.D. Measurements Intervals [place] Rate: 89 P: 63 IL: 126 QRS: -27 QRSD: 116 T: 86 QT: 398 QTc: 444 Interpretive Statements 1100 Sinus rhythm LEFT BUNDLE BRANCH BLOCK 9150 abnormal ECG No previous ECG available for comparison Electronically Signed On 01-02-2025 21:00:35 EDT by ASPEN CHAVEZ M.D.
--- NOTE | 2025-01-02 18:05 | XR_ITS ---
[place] [id number] Patient Name: OLIVE TURPIN MRN: [id number] date: 1960 Sex: F Assigned Patient Location: ER Current Patient Location: ER Accession/Order Number: [id number] Exam Date: 01/02/2025 18:53 Report Date: 01/02/2025 18:57 At the request of: MARLYN PRADHAN Procedure: XR chest 1V Plain film chest Single view HISTORY: Upper back pain with radiation to lower back COMPARISON: None FINDINGS: SUPPORT DEVICES: None POSTSURGICAL CHANGES: None HEART: Within normal limits PULMONARY VICTORIA: Within normal limits MEDIASTINUM: Unremarkable LUNGS AND PLEURA: No acute lung process, pleural effusion or pneumothorax identified. Mild atelectasis BONY STRUCTURES: Intact ADDITIONAL FINDINGS None XR/XR chest 1V IMPRESSION: No acute process. Impression dictated by: Pablo Swift M.D. 01/02/2025 6:57 PM Dictation Location: [place] [address] Electronically authenticated by: [id number] Y Date: 01/02/2025 18:57
[2025-01-02 18:13] LABS: Hematocrit 40.2 % (36.0-48.0); Hemoglobin 13.8 g/dL (12.0-16.0); Immature Granulocytes Abs Auto 0.03 10^3/uL (0.00-0.03); Immature Granulocytes Pct Auto 0.2 % (0.0-0.5); Lymphocytes Absolute Auto 1.5 10^3/uL (1.2-3.8); Mean Corpuscular HGB Conc 34.3 g/dL (29.9-35.2); Mean Corpuscular Hemoglobin 30.3 pg (26.7-34.0); Mean Corpuscular Volume 88.2 fL (81.0-99.0); Platelet Count 254 10^3/uL (150-450); Red Blood Count 4.56 10^6/uL (4.20-5.40); White Blood Count 12.7 10^3/uL (4.0-11.0)
[2025-01-02 18:26] LABS: INR 1.00; Partial Thromboplastin Time 26.2 sec (22.3-36.2); Prothrombin Time 10.6 sec (9.0-11.6)
[2025-01-02] MEDS: MORPHINE SULFATE 2 MG/ML SYRINGE IV (18:28)
[2025-01-02 18:31] LABS: Alanine Aminotransferase 19 U/L (14-59); Albumin Globulin Ratio 1.2; Albumin Level 4.5 g/dL (3.4-5.0); Alkaline Phosphatase 112 U/L (46-116); Anion Gap 13.1; Aspartate Amino Transferase 13 U/L (15-37); Blood Urea Nitrogen 11.0 mg/dL (7.0-18.0); Calcium 9.5 mg/dL (8.5-10.1); Carbon Dioxide 27.6 mmol/L (21.0-32.0); Chloride 104 mmol/L (98-107); Estimated GFR (African America >60 (>=60 mL/min/1.73m^2); Estimated GFR (Non-African Ame >60 (>=60 mL/min/1.73m^2); Globulin 3.9 g/dL; Glucose 106 mg/dL (74-106); Potassium 3.7 mmol/L (3.5-5.1); Sodium 141 mmol/L (136-145); Total Protein 8.4 g/dL (6.4-8.2)
--- NOTE | 2025-01-02 18:48 | CT_ITS ---
[address] [address] Patient Name: OLIVE TURPIN MRN: [id number] date: 1960 Sex: F Assigned Patient Location: ER Current Patient Location: ER Accession/Order Number: [id number] Exam Date: 01/02/2025 18:59 Report Date: 01/02/2025 19:07 At the request of: MARLYN PRADHAN Procedure: CT angio chest CTA Chest with PE protocol TECHNIQUE: Axial imaging with 2-D and 3-D reconstruction 100 cc of Omnipaque [address] exam was performed using one or more the following dose reduction techniques: Automated exposure control, adjustment of the MA and/or Kv according to patient size, or use of the iterative reconstruction technique. History: Upper back pain rating to lower back. 2 days duration COMPARISON: None THYROID: Unremarkable TRACHEA AND BRONCHI: Patent ESOPHAGUS: Unremarkable. HEART: Within normal limits no right ventricular strain. PERICARDIAL EFFUSION: None CORONARY ARTERY CALCIFICATION: None MEDIASTINUM: No adenopathy. No pneumoperitoneum. No mediastinal hematoma. PULMONARY VICTORIA: No hilar mass or adenopathy is seen. THORACIC AORTA Unremarkable PULMONARY EMBOLUS: Small burden of pulmonary metastases identified in the right lower lobe pulmonary artery branch. Adjacent consolidation suggests atelectasis/infarction. LUNG NODULE None LUNGS: Right basilar atelectasis/infarction. Linear left basilar atelectasis. PLEURAL EFFUSION: A tiny layering right pleural effusion. PNEUMOTHORAX: No pneumothorax seen. CHEST WALL: No abnormality AXILLA: Unremarkable BONY STRUCTURES Intact UPPER ABDOMEN: Images of the upper abdomen are noncontributory. CT/CT angio chest IMPRESSION: Small burden of pulmonary embolus in branches of right lower lobe pulmonary artery. Adjacent wedge-shaped consolidation suggests atelectasis and/or infarct. Tiny layering right pleural effusion. No right ventricular strain. Impression dictated by: Pablo Swift M.D. 01/02/2025 7:07 PM Dictation Location: [facility] Electronically authenticated by: [id number] Y Date: 01/02/2025 19:07
--- NOTE | 2025-01-02 18:49 | ED_ITS ---
HPI HPI - General Adult General Chief complaint: Back Pain/Injury Stated complaint: Back Pain Time Seen by Provider: 01/02/25 17:46 Source: patient Mode of arrival: Wheelchair Limitations: no limitations History of Present Illness HPI narrative: 64-year-old female presents here with a chief complaint of back pain that radiates from her shoulder down to her right lower rib cage. Patient had a total abdominal hysterectomy performed on December 18 at [facility]. She states she saw her PHYSICAL CHEMISTRY TEACHER today for postop. Back Pain began last evening and became progressivley worse today. She had no other injury or trauma. She does denies chest pain but has shortness of breath with movement. Pain increased with deep inspiration. She is not tachycardic or tachypneic. She does have a low-grade fever. Related Data Home Medications ?Medication ?Instructions ?Recorded ?Confirmed eletriptan 40 mg tablet (Relpax) 40 mg PO Q2H PRN migr hussein headache 11/13/22 11/19/22 Allergies Allergy/AdvReac Type Severity Reaction Status Date / Time No Known Drug Allergies Allergy Verified 01/02/25 17:44 Opioid HPI Opioid Management Most Recent Opioid Data: Last Pain Scale 9 Today, 18:28 Last MAR Pain Assessment Today, 18:28 Review of Systems ROS Status of ROS 10 or more systems reviewed and unremark able except as noted in history and below [facility] Medical History (Updated 01/02/25 @ 19:37 by Shelia Arnold) Hip pain, right ?M25.551 - Pain in right hip (ICD-10) Migraines ?G43.909 - Migraine, unspecified, not intractable, without status migrainosus (ICD-10) Surgical History (Updated 11/13/22 @ 13:45 by Virginia Mares) History of endometrial ablation ?Z98.890 - Other specified postprocedural states (ICD-10) Social History Little interest or pleasure in doing things: not at all Feeling down, depressed, or hopeless: not at all Exam Narrative Exam Narrative: All Systems are negative except as noted/marked.All systems reviewed and otherwise negative Nurses note and vital signs reviewed and patient is not hypoxic. General: The patient appears well and in no apparent distress. Patient is resting comfortably on cart. Skin: Warm, dry, no pallor noted. There is no rash noted. Head: Normocephalic, atraumatic Eye: Normal conjunctiva, no drainage, EOMI. PERRL Ears, Nose, Mouth, and Throat: oral mucosa is moist. Nares patent. Mouth without vesicles. Ear canals patent. Tm's without Erythema Cardiovascular: Regular Rate and Rhythm Respiratory: Patient is in no distress, no accessory muscle use, lungs are clear to auscultation, no wheezing, rales or rhonchi Back: non-tender, no CVA tenderness bilaterally to percussion. GI: Normal bowel sounds, no tenderness to palpation, no masses appreciated. No rebound, guarding, or rigidity noted. Musculoskeletal: The patient has no evidence of calf tenderness, no pitting edema, symmetrical pulses noted bilaterally Neurological: A&O x4, normal speech Psychiatric: Cooperative Constitutional Vital Signs, click to edit/add: Last Vital Signs Temp 99.5 F 01/02/25 17:45 Pulse 96 H 01/02/25 17:45 Resp 16 01/02/25 17:45 BP 128/62 01/02/25 17:45 Pulse Ox 97 01/02/25 18:37 O2 Del Method Room Air 01/02/25 18:37 Course Vital Signs Vital signs: Vital Signs Temperature 99.5 F 01/02/25 17:45 Pulse Rate 96 H 01/02/25 17:45 Respiratory Rate 16 01/02/25 17:45 Blood Pressure 128/62 01/02/25 17:45 Pulse Oximetry 97 01/02/25 17:45 Oxygen Delivery Method Room Air 01/02/25 17:45 Temperature 99.5 F 01/02/25 17:45 Pulse Rate 96 H 01/02/25 17:45 Respiratory Rate 16 01/02/25 17:45 Blood Pressure 128/62 01/02/25 17:45 Pulse Oximetry 97 01/02/25 18:37 Oxygen Delivery Method Room Air 01/02/25 18:37 Medical Decision Making MDM Narrative Medical decision making narrative: 64-year-old female presents here with a chief complaint of back pain that radiates from her shoulder down to her right lower rib cage. Patient had a total abdominal hysterectomy performed on December 18 at [facility]. She states she saw her PHYSICAL CHEMISTRY TEACHER today for postop. Back Pain began last evening and became progressivley worse today. She had no other injury or traum a. She does denies chest pain but has shortness of breath with movement. Pain increased with deep inspiration. She is not tachycardic or tachypneic. She does have a low-grade fever. Presenting here to the emergency room chief complaint of back pain that radiated down her right scapula and into her right lower rib cage. She states the pain was worsening throughout the day she did see her PHYSICAL CHEMISTRY TEACHER today. At that time she did not have this pain has been so this now. Upon arrival to the emergency room IV was established patient did have a CTA of the chest. CTA results does show a pulmonary embolism with no heart strain. EKG had some change with ST depression but troponin was negative here. I did speak to hospitalist Dr. rivera this patient's care. He agrees to have the patient admitted. Patient be medically MedSurg telemetry here in the hospital. She does agree with plan of care. Patient had been medicated here with 2 mg of morphine and her pain went from a 9 out of 10 down to a 2. Patient is currently stable. Differential Diagnosis Differential Diagnosis: pneumonia, pe Medical Records Medical records reviewed: Yes I reviewed the patient's medical records Lab Data Lab results reviewed: Yes I reviewed the patient's lab results Labs: Lab Results 01/02/25 Range/Units 18:02 WBC 12.7 H (4.0-11.0) 10^3/uL RBC 4.56 (4.20-5.40) 10^6/uL Hgb 13.8 (12.0-16.0) g/dL Hct 40.2 (36.0-48.0) % MCV 88.2 (81.0-99.0) fL MCH 30.3 (26.7-34.0) pg MCHC 34.3 (29.9-35.2) g/dL RDW 12.3 (11.0-15.0) % Plt Count 254 (150-450) 10^3/uL MPV 10.5 (9.5-13.5) fL Neut % (Auto) 78.0 H (43.0-75.0) % Lymph % (Auto) 11.6 L (20.5-60.0) % Levy % (Auto) 9.2 (1.7-12.0) % Eos % (Auto) 0.8 L (0.9-7.0) % Baso % (Auto) 0.2 (0.2-2.0) % Neut # (Auto) 9.9 H (1.4-6.5) 10^3/uL Lymph # (Auto) 1.5 (1.2-3.8) 10^3/uL Levy # (Auto) 1.2 H (0.3-0.8) 10^3/uL Eos # (Auto) 0.1 (0.0-0.7) 10^3/uL Baso # (Auto) 0.0 (0.0-0.1) 10^3/uL Abs Immat Gran (auto) 0.03 (0.00-0.03) 10^3/uL Imm/Tot Granulo (auto) 0.2 (0.0-0.5) % PT 10.6 (9.0-11.6) sec INR 1.00 APTT 26.2 (22.3-36.2) sec Sodium 141 (136-145) mmol/L Potassium 3.7 (3.5-5.1) mmol/L Chloride 104 (98-107) mmol/L Carbon Dioxide 27.6 (21.0-32.0) mmol/L Anion Gap 13.1 BUN 11.0 (7.0-18.0) mg/dL Creatinine 0.70 (0.55-1.02) mg/dL Est GFR ( Amer) >60 (>=60 mL/min/1.73m^2) Est GFR (Non-Af Amer) >60 (>=60 mL/min/1.73m^2) BUN/Creatinine Ratio 15.7 Glucose 106 (74-106) mg/dL Calcium 9.5 (8.5-10.1) mg/dL Total Bilirubin 0.8 (0.2-1.0) mg/dL AST 13 L (15-37) U/L ALT 19 (14-59) U/L Alkaline Phosphatase 112 (46-116) U/L Troponin I High Sens <4.0 L (4.0-51.3) pg/mL Total Protein 8.4 H (6.4-8.2) g/dL Albumin 4.5 (3.4-5.0) g/dL Globulin 3.9 g/dL Albumin/Globulin Ratio 1.[address] scan - chest: Radiologist's impression: ITS Impressions Chest X-Ray 01/02/25 18:05 IMPRESSION: No acute process. Impression dictated by: Pablo Swift M.D. 01/02/2025 6:57 PM Dictation Location: [employer] Electronically authenticated by: [id number] Y Date: 01/02/2025 18:57 Chest CTA 01/02/25 18:48 IMPRESSION: Small burden of pulmonary embolus in branches of right lower lobe pulmonary artery. Adjacent wedge-shaped consolidation suggests atelectasis and/or infarct. Tiny layering right pleural effusion. No right ventricular strain. Impression dictated by: Pablo Swift M.D. 01/02/2025 7:07 PM Dictation Location: [employer] Electronically authenticated by: [id number] Y Date: 01/02/2025 19:07 ECG Data Interpretation: 1834 sinus rhythm with a rate of 90 bpm [place] interval 126 ms and QRS duration 116 ms depression noted in 1 and aVL,no comparison ekg Discharge Plan Discharge Chief Complaint: Back Pain/Injury Clinical Impression: Pulmonary embolism Patient Disposition: Admitted As Inpatient Time of Disposition Decision: 19:36 Condition: Good
--- NOTE | 2025-01-02 20:30 | ECG_ITS ---
[facility] Test Date: 2025-01-02 Pat Name: OLIVE TURPIN Department: Room: 213 Gender: Female Data Analytics Analyst: : [id number] Requested By: [id number] Order Number: [id number] Reading MD: ASPEN CHAVEZ M.D. Measurements Intervals [place] Rate: 89 P: 56 LA: 126 QRS: -30 QRSD: 118 T: 106 QT: 386 QTc: 471 Interpretive Statements SINUS RHYTHM LEFT BUNDLE BRANCH BLOCK Compared to ECG 01/02/2025 18:34:02 No significant changes Electronically Signed On 01-03-2025 18:21:07 EDT by ASPEN CHAVEZ M.D.
--- OUTSIDE RECORDS SUMMARY | 2025-01-02 20:48 | XMS_ITS | CCD ---
Author Organization [facility] Care Team Providers Care Fuel Cell Assembler Name Role Phone DR MIREYA ALLEN Consulting Unavailable MARIO, DR GOMES Attending Unavailable MARIO, DR GOMES Admitting Unavailable MARIO, DR GOMES Primary Care Unavailable MARIO, DR GOMES Attending Unavailable MARIO, DR GOMES Admitting Unavailable MARIO, DR GOMES Consulting Unavailable MD Mireya Allen Primary Care Provider DO Fiona Fraser Attending Provider [phone] MD Mireya Allen Primary Care Provider MD Kasi Antoine II Attending Provider Kasi Antoine II Unavailable [phone] Roque Davila Attending Unava ilable MD Mireya Allen Primary Care Provider Self, Referral Attending Provider Unavailable DO Fiona Fraser Referring Provider [phone] Mireya Allen Primary Care Physician Wali MCCOY [...] Medication Allergies] Propensity to adverse reactions (disorder) [facility] Repository Medications Current Medications Medication Drug [...] [place] Facility [place] 12-18-2024 L ------ Specimen: [id number] Received: 12/18/24 Status: MADELYN Xie Num: [id number] Spec Type: Surgical Subm Dr: Fiona Fraser DO Tissues: A Uterus w/ or w/o tubes ovaries except neoplastic or prolap (CERVIX, UTERUS Procedures: , Gross/Micro L5 Age/ Patient Sex Location Account Attending Physician Olive Turpin 64/F [place] [id number] Fiona Fraser DO SPEC NUM: [id number] RECD: 12/18/24 STATUS: MADELYN XIE NUM: [id number] BRADLEY: 12/18/24- [facility] DR: Fiona Fraser DO ENTERED: 12/18/24 LC SHARPE: OTILIA TYPE: Surgical DEPT: S ENTERED BY: [id number] RECV BY: [id number] ORDERED: , Gross/Micro L5 ORDERED: , Gross/Micro [...] to 0.8 cm in diameter. The Specimen: [id number] Received: 12/18/24 Status: MADELYN Dianabenita Num: [id number] Spec Type: Surgical Subm Dr: Fiona Fraser, Tissues: A Uterus w/ or w/o tubes ovaries except neoplastic or prolap (CERVIX, UTERUS Procedures: , Gross/Micro L5 Patient: Olive Turpin [id number] (Continued) Specimen: [id number] Received: 12/18/24 (Continued) Gross Description (Continued) Signed (signature on file) Joel March MD 12/19/24 1100 Specimen: [id number] Received: 12/18/24 Status: MADELYN Dianabenita Num: [id number] Spec Type: Surgical Subm Dr: Fiona Fraser DO Tissues: A Uterus w/ or w/o tubes ovaries except neoplastic or prolap (CERVIX, UTERUS Procedures: , Gross/Micro L5 Patient: Olive Turpin [id number] (Continued) Specimen: [id number] Received: 12/18/24 (Continued) Gross Description (Continued) specimen [...] and (more content not included)... Normal [facility] Basic Metabolic Panelon 11-15 GFR/1.73 sq M.predicted MDRD (S/P/Bld) [Vol rate/Area] mL/min/{1.73_m2} Normal [facility] Comment on above: Performed By: #### B MP #### [address] Basic metabolic 1998 panelon 12-04-2024 Anion gap [Moles/Vol] 9.3 mmol/L 6.0 - 15.0 [facility] Calcium [Mass/Vol] 9.5 mg/dL 8.6 - 10. 3 mg/dL [facility] Chloride [Moles/Vol] 108 mmol/L High 98 - 10 7 mmol/L [facility] CO2 [Moles/Vol] 29.7 mmol/L 21.0 - 31.0 mmol/L [facility] Creatinine (U) [Mass/Vol] 0.63 mg/dL 0.60 - 1.20 mg/dL [facility] ESTIMATED GFR [facility] [...] [Mass/Vol] 11 mg/dL 7 - 25 mg/dL [facility] Basophils [#/volume] in Bloo d by Automated countOrdered By: Fiona Fraser on 12-04-2024 Basophils (Bld) [#/Vol] 0.1 10*3/uL Normal 0.0-0.2 [facility] Comment on above: Result Comment: PERF ORMED BY: [place] [address] PATHOLOGIST [employer] TECHNICIAN MICHELLE PATEL M.D. Performed By: #### C BC #### [address] Basophils/100 leukocytes in Blood by Automated countOrdered By: Fiona Fraser on 12-04-2024 Basophils/100 WBC (Bld) 0.8 % Normal . [facility] Comment on above: Performed By: #### C BC #### [address] CBC W Auto Differential pane l [...] [#/Area] 6.1 [CFU]/mL 3.8 - 11.6 [CFU]/mL [facility] Calcium [Mass/volume] in Ser um or PlasmaOrdered By: Fiona Fraser on 12-04-2024 Calcium [Mass/Vol] 9.5 mg/dL Normal 8.6-10.3 [facility] Comment on above: Result Comment: PERF ORMED BY: [place] [address] PATHOLOGIST [employer] TECHNICIAN MICHELLE PATEL M.D. Performed By: #### B MP #### [address] Carbon dioxide, total [Moles /volume] in Serum or PlasmaOrdered By: Fiona Fraser on 12-04-2024 CO2 [Moles/Vol] 29.7 mmol/L Normal 21.0-31.0 [facility] Comment on above: Performed By: #### B MP #### [address] Chloride [Moles/volume] in S maria alejandra or PlasmaOrdered By: Fiona Fraser on 12-04-2024 Chloride [Moles/Vol] 108 mmol/L High 98-107 [facility] Comment on above: Performed By: #### B MP #### [address] Complete Blood Count Auto Di ffon 12-04-2024 Mean Corpuscular HGB Conc 34.4 g/dL Normal 32.0-35.0 [facility] Comment on above: Performed By: #### C BC #### [address] NRBC% 0.1 /100{WBC} Normal 0-0.5 [facility] Comment on above: Performed By: #### C BC #### [address] White Blood Count 6.1 [CFU]/mL Normal 3.8-11.6 [facility] Comment on above: Performed By: #### C BC #### [address] Creatinine [Mass/volume] in Serum or PlasmaOrdered By: Fiona Fraser on 12-04-2024 Creatinine [Mass/Vol] 0.63 mg/dL Normal 0.60-1.20 [facility] Comment on above: Performed By: #### B MP #### [facility] [address] [place] [address] [facility] ECG 12 lead ECGon 12-04-2024 ECG 12 lead ECG [facility] Main Panther [address] [place] [id number] Electrocardiograph Report Signed Patient: Olive Turpin MR#: [id number] : 1960 Acct:[id number] Age/Sex: 64 / F ADM Date: 12/04/24 Loc: PS Room: Type: [facility] Attending Dr: Fiona Fraser DO [...] Anterior leads Confirmed by KATELYN JONES MD ([facility]) on 12/05/2024 2:53:12 PM Referred By: Electronically Signed By: KATELYN JONES MD Transcribed By: MUS Signed By Katelyn Jones MD 0 12/05/24 1453 Normal [facility] Eosinophils [#/volume] in Bl ood by Automated countOrdered By: Fiona Fraser on 12-04-2024 Eosinophils (Bld) [#/Vol] 0.1 10*3/uL Normal 0.0-0.45 [facility] Comment on above: Performed By: #### C BC #### [address] [address] [place] Eosinophils/100 leukocytes i n Blood by Automated countOrdered By: Fiona Fraser on 12-04-2024 Eosinophils/100 WBC (Bld) 1.4 % Normal . [facility] Comment on above: Performed By: #### C BC #### [facility] [address] Erythrocyte distribution wid th [Ratio] by Automated countOrdered By: Fiona Fraser on 12-04-2024 Erythrocyte distribution width (RBC) [Ratio] 13.4 % Normal 11.9-15.3 [facility] Comment on above: Performed By: #### C BC #### [address] Erythrocytes [#/volume] in B lood by Automated countOrdered By: Fiona Fraser on 12-04-2024 RBC (Bld) [#/Vol] 4.52 10*6/uL Normal 3.60-5.00 [facility] Comment on above: Performed By: #### C BC #### [address] Glucose [Mass/volume] in Ser um or PlasmaOrdered By: Fiona Fraser on 12-04-2024 Glucose [Mass/Vol] 95 mg/dL Normal 70-100 [facility] Comment on above: ADA recommended refe rence rangeRandom Glucose Reference Range is dependent on time and content of last meal. Glucose of more than 200 mg/dL in a nonstressed, ambulatory subject supports the diagnosis of Diabetes Mellitus. Result Comment: [place] om Glucose Reference Range is dependent on time and content of last meal. Glucose of more than 200 mg/dL in a nonstressed, ambulatory subject supports the diagnosis of Diabetes Mellitus. ADA recommended reference range Performed By: #### B MP #### [address] Hematocrit [Volume Fraction] of Blood by Automated countOrdered By: Fiona Fraser on 12-04-2024 Hematocrit (Bld) [Volume fraction] 38.9 % Normal 34.0-46.4 [facility] Comment on above: Performed By: #### C BC #### [address] Hemoglobin [Mass/volume] in BloodOrdered By: Fiona Fraser on 12-04-2024 Hemoglobin (Bld) [Mass/Vol] 13.4 g/dL Normal 11.8-15.4 [facility] Comment on above: Performed By: #### C BC #### [address] INR in Platelet poor plasma by Coagulation assayOrdered By: Fiona Fraser on 12-04-2024 INR Coag (PPP) [Relative time] 1.0 {INR} Normal [facility] Comment on above: INR Therapeutic Rang e [...] Performed By: #### P T, PTT #### [address] Leukocytes [#/volume] correc flakito for nucleated erythrocytes in Blood by Automated counOrdered By: Fiona Fraser on 12-04-2024 WBC corrected for nucl RBC Auto (Bld) [#/Vol] 6.1 10*3/uL 3.8-11.6 [facility] Leukocytes [#/volume] in Blo od by Automated countOrdered By: Fiona Fraser on 12-04-2024 WBC (Bld) [#/Vol] 6.1 10*3/uL Normal 3.8-11.6 [facility] Comment on above: Performed By: #### C BC #### [address] Lymphocytes [#/volume] in Bl ood by Automated countOrdered By: Fiona Fraser on 12-04-2024 Lymphocytes (Bld) [#/Vol] 1.6 10*3/uL Normal 1.00-4.8 [facility] Comment on above: Performed By: #### C BC #### [place] [address] [place] Lymphocytes/100 leukocytes i n Blood by Automated countOrdered By: Fiona Fraser on 12-04-2024 Lymphocytes/100 WBC (Bld) 26.6 % Normal . [facility] Comment on above: Performed By: #### C BC #### [address] MCH [Entitic mass] by Automa flakito countOrdered By: Fiona Fraser on 12-04-2024 MCH (RBC) [Entitic mass] 29.6 pg Normal 24.7-34.3 [facility] Comment on above: Performed By: #### C BC #### [address] MCHC Auto (RBC) [Mass/Vol]Or dered By: Fiona Fraser on 12-04-2024 MCHC (RBC) [Mass/Vol] 34.4 g/dL 32.0-35.0 [facility] MCV [Entitic volume] by Auto mated countOrdered By: Fiona Fraser on 12-04-2024 MCV (RBC) [Entitic vol] 86.0 fL Normal 80-100 [facility] Comment on above: Performed By: #### C BC #### [place] [address] [place] Monocytes [#/volume] in Bloo d by Automated countOrdered By: Fiona Fraser on 12-04-2024 Monocytes (Bld) [#/Vol] 0.5 10*3/uL Normal 0.0-0.8 [facility] Comment on above: Performed By: #### C BC #### [place] [address] [place] Monocytes/100 leukocytes in Blood by Automated countOrdered By: Fiona Fraser on 12-04-2024 Monocytes/100 WBC (Bld) 7.9 % Normal . [facility] Comment on above: Performed By: #### C BC #### [facility] [address] [place] [address] [place] Neutrophils [#/volume] in Bl ood by Automated countOrdered By: Fiona Fraser on 12-04-2024 Neutrophils (Bld) [#/Vol] 3.8 10*3/uL Normal 1.8-7.7 [facility] Comment on above: Performed By: #### C BC #### [facility] [address] [place] [address] Neutrophils/100 leukocytes i n Blood by Automated countOrdered By: Fiona Fraser on 12-04-2024 Neutrophils/100 WBC (Bld) 63.3 % Normal . [facility] Comment on above: Performed By: #### C BC #### [facility] [address] [place] [address] No Panel Informationon 12-04 [facility] No Panel InformationOrdered By: Fiona Fraser on 12-04-2024 Estimated GFR (CKD-EPI) > 60.0 mL/Min [facility] Creatinine Clearance (Chem N/A [facility] Nucleated erythrocytes [Pres ence] in Blood by Automated countOrdered By: Fiona Fraser on 12-04-2024 Nucleated RBC Auto Ql (Bld) 0.1 /100{WBC} 0-0.5 [facility] PARTIAL THROMBOPLASTIN TIMEo n 12-04-2024 aPTT Coag (Bld) [Time] 29.7 s 25.1 - 36.5 s [facility] Comment on above: A hematocrit value g reater than 55% may lead to inaccurate results in coagulation testing. Patients having hematocrit values >55% require a special collection tube for coagulation studies. Please contact the laboratory at [phone] for redraw instructions. PST Type and Screenon 2024 ABO and Rh group Nom (Bld) Blood group B Rh(D) positive Normal [facility] Comment on above: Order Comment: Date of Surgery: [id number] Result Comment: PERF ORMED BY: [address] [place] [address] PATHOLOGIST [employer] TECHNICIAN MICHELLE PATEL M.D. PT Coag (Bld) [Time]on [...] coagulation studies. Please contact the laboratory at [phone] for redraw instructions. Partial Thromboplastin Timeo n 12-04-2024 aPTT Coag (Bld) [Time] 29.7 s Normal 25.1-36.5 [facility] Comment on above: Result Comment: A he matocrit value greater than 55% may lead to inaccurate results in coagulation testing. Patients having hematocrit values >55% require a special collection tube for coagulation studies. Please contact the laboratory at [phone] for redraw instructions. PERFORMED BY: [place] [address] PATHOLOGIST [employer] TECHNICIAN MICHELLE PATEL M.D. Performed By: #### P T, PTT #### [facility] [address] [place] [address] [place] Platelet mean volume [Entiti c volume] in Blood by Automated countOrdered By: Fiona Fraser on 12-04-2024 Platelet mean volume (Bld) [Entitic vol] 8.9 fL Normal 6.3-10.7 [facility] Comment on above: Performed By: #### C BC #### [facility] [address] [place] [address] [place] Platelets [#/volume] in Bloo d by Automated countOrdered By: Fiona Fraser on 12-04-2024 Platelets (Bld) [#/Vol] 221 10*3/uL Normal 150-450 [facility] Comment on above: Performed By: #### C BC #### [address] Potassium [Moles/volume] in Serum or PlasmaOrdered By: Fiona Fraser on 12-04-2024 Potassium [Moles/Vol] 4.0 mmol/L Normal 3.5-5.1 [facility] Comment on above: Performed By: #### B MP #### [address] Prothrombin time (PT)Ordered By: Fiona Fraser on 12-04-2024 PT Coag (PPP) [Time] 11.6 s Normal 9.0-12.9 [facility] Comment on above: A hematocrit value g reater than 55% may lead to inaccurate results in coagulation testing. Patients having hematocrit values >55% require a special collection tube for coagulation studies. Please contact the laboratory at [phone] for redraw instructions. Result Comment: A he matocrit value greater than 55% may lead to inaccurate results in coagulation testing. Patients having hematocrit values >55% require a special collection tube for coagulation studies. Please contact the laboratory at [phone] for redraw instructions. Performed By: #### P T, PTT #### [address] Serum or plasma anion gap de terminationOrdered By: Fiona Fraser on 12-04-2024 Anion gap [Moles/Vol] 9.3 mmol/L Normal 6.0-15.0 [facility] Comment on above: Performed By: #### B MP #### [place] [address] [place] Sodium [Moles/volume] in Ser um or PlasmaOrdered By: Fiona Fraser on 12-04-2024 Sodium [Moles/Vol] 143 mmol/L Normal 136-145 [facility] Comment on above: Performed By: #### B MP #### [address] [place] [address] [facility] Urea nitrogen [Mass/volume] in Serum or PlasmaOrdered By: Fiona Fraser on 12-04-2024 Urea nitrogen [Mass/Vol] 11 mg/dL Normal 12-08 [facility] Comment on above: Performed By: #### B MP #### [facility] [address] [id number] [facility] aPTT in Platelet poor plasma by Coagulation assayOrdered By: Fiona Fraser on 12-04-2024 aPTT Coag (PPP) [Time] 29.7 s 25.1-36.5 [facility] Comment on above: A hematocrit value g reater than 55% may lead to inaccurate results in coagulation testing. Patients having hematocrit values >55% require a special collection tube for coagulation studies. Please contact the laboratory at [phone] for redraw instructions. MM screening mammo BI w/CADo n 08-28-2024 MM screening mammo BI w/CAD [facility] [address] [place] [address] Mammography Report Signed Patient: Olive Turpin MR#: [id number] : 1960 Acct:[id number] Age/Sex: 63 / F Adm Date: 08/26/24 Loc: DC Room: Type: [facility] Attending Dr: Referral Self Ordering Provider: SELF,REFERRAL Date of Service: 08/26/24 Procedure(s): MM screening mammo BI w/CAD Accession Number(s): ([id number]) MM/MM screening mammo BI w/CAD: ROUTINE Copies [...] Ware Jr., D.OChaim08/28/2024 9:44 AM Dictation Location: [facility] Dictated By: Junaid Ware Jr, DO 08/28/2443 Signed By: 08/28/24943 Normal [facility] Ambulatory Visit Summaryon 1 Ambulatory [...] for choosing us for your care. Normal [facility] General Surgery Office/Clini c Noteon 02-15-2024 [...] SARS-CoV-2 (COVID-19) mRNA-1273 vaccine 05/14/[address] [facility] Comment on above: Result Comment: Elec tronically Signed By: DARIUS OCONNOR, Wali Saxena.br\Date and Time Signed: 02/15/24 15:15 EDT Surgical Pathology Reporton 02-11-2024 Surgical Pathology Report [facility] [address] [facility] [place] [address]- Surgical Pathology Report Collected Date/Time: 02/02/2024 15:46 [...] and entirely submitted in one cassette. (DC) DC:[facility] Microscopic Description Microscopic examination performed unless gross only specified. Normal [facility] Comment on above: Performed By: #### [id number] #### [facility] [address] [place] [address] Ambulatory Visit Summaryon 0 02-02-2024 Ambulatory Visit [...] PM EDT With: Wali MCCOY MD Where: [address], [address], [place] [address]- Medications What How Much When Instructions Unchanged [...] for choosing us for your care. Normal [facility] General Surgery Office/Clini c Noteon 02-02-2024 [...] Ordered: Incisional biopsy of skin, single lesion 173[address] Pathology Tissue Exam Follow-up No qualifying data [...] SARS-CoV-2 (COVID-19) mRNA-1273 vaccine 05/14/[address] [facility] Comment on above: Result Comment: Elec tronically Signed By: DARIUS OCONNOR, Wali Rick\Date and Time Signed: 02/02/24 15:34 EDT C ANAon 02-19-2023 C DAISY ------ Final No anaerobic growth after 72 hrs. Normal [facility] Comment on above: Performed By: #### A NAC #### [address] [address] [place] 02-18-2023 C Wound ------ Final [...] vivo Per (CLSI) Clinical and Laboratory Standards [place]. oxacillin resistant, beta-lactamase positive (penicillin-R) staphlococci are considered resistant to all cephems,beta-lactam/ beta-lactamase inhibitor combination,carbapenems, and penicillins. INFECTION PREVENTION NOTE:CONTACT or DROPLET Isolation Precautions may be appropriate in addition to Standard Precautions for this patient with Multi-drug Resistant Organism.This patient may be a candidate for antibiotic nasal cream. Tetracycline S <=1 V Trimethoprim/Sulfa S <=10 V Vancomycin S 1 V Normal [facility] Comment on above: Performed By: #### W DC #### [facility] (DEFAULT) [address] [place] [address] T4 [facility]ORPon 10-10-2021 T4 [Mass/Vol] 8.3 ug/dL Normal 4.5-12.0 [facility] Comment on above: Performed By: #### T 4LC #### [facility] [address] [place] [address] Dr. Ingris Acosta CBC AUTO DIFFon 2021 BASO # 0.1 103/ul Normal 0.0-0.1 [facility] Comment on above: Performed By: #### C BC #### [facility] [address] [place] [address] Dr. Ingris Acosta Basophils/100 WBC (Bld) 1.1 % Normal 0.2-2.0 [facility] Comment on above: Performed By: #### C BC #### [facility] [address] [place] [address] Dr. Ingris Acosta EO # 0.1 103/ul Normal 0.0-0.7 [facility] Comment on above: Performed By: #### C BC #### [facility] [address] [place] [address] Dr. Ingris Acosta Eosinophils/100 WBC (Bld) 1.7 % Normal 0.9-7.0 [facility] Comment on above: Performed By: #### C BC #### [facility] [address] [place] [address] Dr. Ingris Acosta Erythrocyte distribution width (RBC) [Ratio] 12.6 % Normal 11.0-15.0 [facility] Comment on above: Performed By: #### C BC #### [facility] [address] [place] [address] Dr. Ingris Acosta Hematocrit (Bld) [Volume fraction] 40.2 % Normal 36.0-48.0 [facility] Comment on above: Performed By: #### C BC #### [facility] [address] [place] [address] Dr. Ingris Acosta Hemoglobin (Bld) [Mass/Vol] 13.3 g/dL Normal 12.0-16.0 [facility] Comment on above: Performed By: #### C BC #### [facility] [address] [place] [address] Dr. Ingris Acosta IG # 0.01 10e3/ul Normal 0.00-0.03 [facility] Comment on above: Performed By: #### C BC #### [facility] [address] [place] [address] Dr. Ingris Acosta IG % 0.2 % Normal 0.0-0.5 [facility] Comment on above: Performed By: #### C BC #### [facility] [address] [place] [address] Dr. Ingris Acosta LYMPH # 1.7 103/ul Normal 1.2-3.8 [facility] Comment on above: Performed By: #### C BC #### [facility] [address] [place] [address] Dr. Ingris Acosta Lymphocytes/100 WBC (Bld) 36.2 % Normal 20.5-60.0 [facility] Comment on above: Performed By: #### C BC #### [facility] [address] [place] [address] Dr. Ingris Acosta MANUAL DIFF REQ NO Normal [facility] Comment on above: Performed By: #### C BC #### [facility] [address] [address] [address] Ingris Acosta MCH (RBC) [Entitic mass] 29.3 pg Normal 26.7-34.0 [facility] Comment on above: Performed By: #### C BC #### [facility] [address] [place] [address] Dr. Ingris Acosta MCHC (RBC) [Mass/Vol] 33.1 g/dL Normal 29.9-35.2 [facility] Comment on above: Performed By: #### C BC #### [facility] [address] [place] [address] Dr. Ingris Acosta MCV (RBC) [Entitic vol] 88.5 fL Normal 81.0-99.0 [facility] Comment on above: Performed By: #### C BC #### [facility] [address] [place] [address] Dr. Ingris Acosta MONO # 0.5 103/ul Normal 0.3-0.8 [facility] Comment on above: Performed By: #### C BC #### [facility] [address] [place] [address] Dr. Ingris Acosta Monocytes/100 WBC (Bld) 10.4 % Normal 1.7-12.0 [facility] Comment on above: Performed By: #### C BC #### [facility] [address] [place] [address] Dr. Ingris Acosta NEUT # 2.3 103/ul Normal 1.4-6.5 [facility] Comment on above: Performed By: #### C BC #### [facility] [address] [place] [address] Dr. Ingris Acosta Neutrophils/100 WBC (Bld) 50.4 % Normal 43.0-75.0 [facility] Comment on above: Performed By: #### C BC #### [facility] [address] [place] [address] Dr. Ingris Acosta Platelet mean volume (Bld) [Entitic vol] 10.8 fL Normal 9.5-13.5 [facility] Comment on above: Performed By: #### C BC #### [facility] [address] [address] [address] Ingris Acosta PLT 211 103/ul Normal 150-450 [facility] Comment on above: Performed By: #### C BC #### [facility] [address] [address] [address] Ingris Acosta RBC 4.54 106/ul Normal 4.20-5.40 [facility] Comment on above: Performed By: #### C BC #### [facility] [address] [place] [address] Dr. Ingris Acosta WBC 4.6 103/ul Normal 4.0-11.0 [facility] Comment on above: Performed By: #### C BC #### [facility] [address] [place] [address] Dr. Ingris Acosta FREE THYROXINE INDEX T7on FTI 2.66 Normal 1.30-4.50 [facility] Comment on above: Performed By: #### T 7, TSH, CMP, LIPID #### [facility] [address] [place] [address] Dr. Ingris Acosta T3U 32.0 % Normal 30.0-39.0 [facility] Comment on above: Performed By: #### T 7, TSH, CMP, LIPID #### [facility] [address] [place] [address] Dr. Ingris Acosta T4 [Mass/Vol] 8.30 ug/dL Normal 4.80-13.90 [facility] Comment on above: Performed By: #### T 7, TSH, CMP, LIPID #### [facility] [address] [place] [address] Dr. Ingris Acosta GLYCOHEMOGLOBIN A1Con 2021 ADA RECOMMENDATION SEE BELOW Normal [facility] Comment on above: Result Comment: ADA RECOMMENDED LIMIT 4.0 - 6.0 ADA THERAPEUTIC TARGET < 7.0 ACTION SUGGESTED > 7.0 Performed By: #### A 1C #### [facility] [address] [place] [address] Dr. Ingris Acosta Glucose [Mass/Vol] 111 mg/dL Normal [facility] Comment on above: Performed By: #### A 1C #### [facility] [address] [address] [address] Ingris Acosta HbA1c (Bld) [Mass fraction] 5.5 % Normal 4.5-6.2 [facility] Comment on above: Performed By: #### A 1C #### [facility] [address] [address] [address] Ingris Acosta LIPID PROFILEon 2021 CHOL-HDL RATIO NORM SEE BELOW Normal [facility] Comment on above: Result Comment: 3.3 - 4.4 LOW RISK 4.4 - 7.1 AVERAGE RISK 7.1 - 11.0 MODERATE RISK >11.0 HIGH RISK Performed By: #### T 7, TSH, CMP, LIPID #### [facility] [address] [address] [address] Ingris Acosta Cholesterol [Mass/Vol] 153 mg/dL Normal <=200 [facility] Comment on above: Performed By: #### T 7, TSH, CMP, LIPID #### [facility] [address] [address] [address] Ingris Acosta Cholesterol in HDL [Mass/Vol] 59 mg/dL Normal 40-60 [facility] Comment on above: Performed By: #### T 7, TSH, CMP, LIPID #### [facility] [address] [address] [address] Ingris Acosta Cholesterol in LDL [Mass/Vol] 80.8 mg/dL Normal [facility] Comment on above: Performed By: #### T 7, TSH, CMP, LIPID #### [facility] [address] [address] [address] Ingris Acosta Cholesterol.total/Chol esterol in HDL [Mass ratio] 2.6 {ratio} Normal [facility] Comment on above: Performed By: #### T 7, TSH, CMP, LIPID #### [facility] [address] [address] [address] Ingris Acosta HDL NORMAL > or = 60 mg/dl - LO W CARDIOVASCULAR RISK <40 mg/dl - HIGH CARDIOVASCULAR RISK Normal [facility] Comment on above: Performed By: #### T 7, TSH, CMP, LIPID #### [facility] [address] [place] [address] Dr. Ingris Acosta LDL CALC NORMAL SEE BELOW Normal [facility] Comment on above: Result Comment: <100 mg/dl OPTIMAL 100 - 129 mg/dl NEAR OR ABOVE OPTIMAL 130 - 159 mg/dl BORDERLINE HIGH 160 - 189 mg/dl HIGH >190 mg/dl VERY HIGH Performed By: #### T 7, TSH, CMP, LIPID #### [facility] [address] [address] [address] Ingris Acosta Triglyceride [Mass/Vol] 66 mg/dL Normal <=150 [facility] Comment on above: Performed By: #### T 7, TSH, CMP, LIPID #### [facility] [address] [place] [address] Dr. Ingris Acosta VLDL CALC 13.2 mg/dL Normal [facility] Comment on above: Performed By: #### T 7, TSH, CMP, LIPID #### [facility] [address] [place] [address] Dr. Ingris Acosta PROF 14(COMP METB)on 022 Albumin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 History of cataract surgery 2009 [facility]. History of medical problems prolapse (normal spontaneous vaginal delivery) ([facility]) x2- full term Past Surgical History: Procedure [...] smear 07/21/23 wnl, Mammogram 08/26/24 wnl @ [facility] Review of Systems - Const: Denies appetite [...] Review Audit Reviewed by Lacie Sabillon MA (Condenser Tube Tender) on 11/09/24 at 1415 Medication Order Taking? Sig Documenting Provider Last Dose Status eletriptan (Relpax) 40 MG tablet [id number] 1 tablet Orally At onset of migraine. May repeat in 2 hours Fiona Fraser DO Active topiramate (Topamax) 25 MG tablet [id number] 1 (one) time each day at the same time Fiona Fraser DO Active Past Medical History: Diagnosis Date Cystocele History of cataract surgery 2009 [facility]. History of medical problems prolapse (normal spontaneous vaginal delivery) ([facility]) x2- full term Past Surgical History: Procedure [...] smear 07/21/23 wnl, Mammogram 08/26/24 wnl @ [facility] Review of Systems - General: Chills denies. [...] Review Audit Reviewed by Lacie Sabillon MA (Condenser Tube Tender) on 09/28/24 at 1026 Medication Order Taking? Sig Documenting Provider Last Dose Status eletriptan (Relpax) 40 MG tablet [id number] 1 tablet Orally At onset of migraine. May repeat in 2 hours Fiona Fraser DO Active topiramate (Topamax) 25 MG tablet [id number] 1 (one) time each day at the [...] Recorded SARS-CoV-2 (COVID-19) mRNA-1273 vaccine 05/14/[address] [facility] Comment on above: Result Comment: Elec [...] and treatment. She can follow-up as needed [facility] Other Evaluation + Plan note Future Appointments Appointment Date:02/02/2024 03:20:00 PM Scheduled Provider:Wali MCCOY MD Location:[facility] [place] Appointment Type[facility] note Future Appointments Appointment Date:02/15/2024 03:00:00 PM Scheduled Provider:Wali MCCOY MD Location:[facility] [place] Appointment Type:GS Established 15 [facility] [place] Evaluation noteNo assessment information available [facility] Work Phone: evaluation note* Diagnosis Encounter [...] Reported* Type Description Date Surgical History ablation [facility] Other Hospital course Narrative No data available for this section [facility] Discharge instructions No data available for this section [facility] Discharge instructions Additional Instructions DISCHARGE [...] FOLLOW UP -Please call the office at ([phone]) to make follow appointment before leaving the hospital. -2 Weeks [facility] Work Phone: Progress note No data available for this section [facility] [place] Reason for referral (narrative)No reason for referral [facility] Work Phone: Summary Purpose Family History [...] and content) DATE CREATED AUTHOR 10/12/2021 [facility] DATE CREATED AUTHOR AUTHOR'S ORGANIZ ATION 02/20/2023 [facility] DATE CREATED AUTHOR AUTHOR'S ORGANIZ ATION 02/12/2024 [facility] DATE CREATED AUTHOR AUTHOR'S ORGANIZ ATION 02/17/2024 [facility] DATE CREATED AUTHOR AUTHOR'S ORGANIZ ATION 02/18/2024 [facility] DATE CREATED AUTHOR AUTHOR'S ORGANIZ ATION 11/09/2024 [facility] Specialists [facility] DATE CREATED AUTHOR AUTHOR'S ORGANIZ ATION 12/21/2024 [facility] ysician Group Care Teams (unrecognized sec tion [...] August 26, 2024 End: August 26, 2024 [employer] 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 Assembler Relationship Specialty Start Date End Date Mireya Allen MD PCP - General Family Medicine 04/20/23 [employer] As[employer]er Relationship Specialty Start Date End Date Mireya Allen MD PCP - General Family Medicine 04/20/23 [employer] Cell Assembler Relationship Specialty Start Date End Date Mireya Allen MD PCP - General Family Medicine 04/20/23 [employer] Cell Assembler Relationship Specialty Start Date End Date Mireya Allen MD PCP - General Family Medicine 04/20/23 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 [facility]. provides no warranty or guarantee of the accuracy or completeness of information in this document.
[2025-01-02] MEDS: ENOXAPARIN SODIUM 60 MG/0.6 ML SYRINGE SUBQ (22:13)
[2025-01-02] MEDS: ACETAMINOPHEN 325 MG TABLET 650 MG PO (22:13)
[2025-01-02] MEDS: HYDROMORPHONE HCL 1 MG/ML CARTRIDGE 0.5 MG IVP (22:39)
[2025-01-03] VITALS (21 sets, daily range): BP systolic 112–124; BP diastolic 66–83; PULSE 69–103; TEMP 36.6–37.6; O2SAT 92–97
[2025-01-03] MEDS: ACETAMINOPHEN 325 MG TABLET 650 MG PO (04:35)
[2025-01-03 05:36] LABS: Hematocrit 36.1 % (36.0-48.0); Hemoglobin 12.2 g/dL (12.0-16.0); Immature Granulocytes Abs Auto 0.04 10^3/uL (0.00-0.03); Immature Granulocytes Pct Auto 0.4 % (0.0-0.5); Lymphocytes Absolute Auto 1.2 10^3/uL (1.2-3.8); Mean Corpuscular HGB Conc 33.8 g/dL (29.9-35.2); Mean Corpuscular Hemoglobin 29.8 pg (26.7-34.0); Mean Corpuscular Volume 88.0 fL (81.0-99.0); Platelet Count 226 10^3/uL (150-450); Red Blood Count 4.10 10^6/uL (4.20-5.40); White Blood Count 11.3 10^3/uL (4.0-11.0)
[2025-01-03 05:49] LABS: Anion Gap 11.9; Blood Urea Nitrogen 12.0 mg/dL (7.0-18.0); Calcium 9.4 mg/dL (8.5-10.1); Carbon Dioxide 28.1 mmol/L (21.0-32.0); Chloride 104 mmol/L (98-107); Estimated GFR (African America >60 (>=60 mL/min/1.73m^2); Estimated GFR (Non-African Ame >60 (>=60 mL/min/1.73m^2); Glucose 125 mg/dL (74-106); Potassium 4.0 mmol/L (3.5-5.1); Sodium 140 mmol/L (136-145)
[2025-01-03] MEDS: ENOXAPARIN SODIUM 60 MG/0.6 ML SYRINGE SUBQ ×2 (08:12→21:09)
--- NOTE | 2025-01-03 08:20 | CM.NOTE ---
Rounds made with Dr. Arredondo, discussed diagnosis and plan of care with patient. Dr. Arredondo talked with patient about starting Eliquis d/t PE. Pt verbalizes understanding of reason for Eliquis and how it will be taken. CM will also go back out and give patient card for free 30 day supply of Eliquis and 10 dollar co-pay card.
--- NOTE | 2025-01-03 09:40 | P.HP_ITS ---
HPI H&P: HPI History of Present Illness Chief complaint: Back PainPULMONARY EMBO Narrative: Mrs. Law is a 64-year-old female who came to the emergency room complaining of 3 days history of progressive cough, shortness of breath, dyspnea, pleuritic chest pain when she takes deep breath, back pain. No fever or chills. No hemoptysis. She was found to have pulm embolism. Patient had hysterectomy 2 weeks ago. No abdominal pain. No nausea or vomiting. Opioid HPI Opioid Management Most Recent Pain and Opioid Data: Last Pain Scale 4 Today, 07:32 Last Pain Assessment 01/02/25, 22:00 Last MAR Pain Assessment 01/02/25, 18:28 Last ORT Total Score 0 01/02/25, 21:04 Last ORT Risk Category Low Risk 01/02/25, 21:04 Review of Systems ROS Status of ROS 10 or more systems reviewed and unremark able except as noted in history and below PFSH PFS Medical History (Updated 01/03/25 @ 09:41 by Miranda Arredondo MD) Hip pain, right ?M25.551 - Pain in right hip (ICD-10) Migraines ?G43.909 - Migraine, unspecified, not intractable, without status migrainosus (ICD-10) Surgical History (Updated 01/02/25 @ 21:52 by Lacie Issa) H/O: hysterectomy ?Z90.710 - Acquired absence of both cervix and uterus (ICD-10) History of endometrial ablation ?Z98.890 - Other specified postprocedural states (ICD-10) Family History (Updated 01/02/25 @ 22:08 by Lacie Issa) Sister Family history of cancer Social History (Updated 01/02/25 @ 22:09 by Lacie Issa) Within the past year, how often did you have a drink containing alcohol: monthly or less Smoking status: Never smoker Non-prescribed substance use: denies use Previous occupational history: [employer] Highest level of school completed/degree received: high school graduate Are you now , , , , never or living with a partner: In a typical week, how many times do you talk on the telephone with family, friends, or neighbors: 3 or more times per week How often do you get together with friends or relatives: 3 or more times per week How often do you attend baptism or moravian services: 4 or more times per year Little interest or pleasure in doing things: not at all Feeling down, depressed, or hopeless: not at all Feel stressed/tense/nervous/anxious/difficulty sleeping: not at all Do you think of yourself as: straight/heterosexual Gender Identity: female Gender Identity Comment: patient had a hysterectomy on Meds Home Medications and Allergies Home Medications ?Medication ?Instructions ?Recorded ?Confirmed ?Type eletriptan 40 mg tablet (Relpax) 40 mg PO Q2H PRN migr hussein headache 11/13/22 01/02/25 History Allergies Allergy/AdvReac Type Severity Reaction Status Date / Time No Known Drug Allergies Allergy Verified 01/02/25 17:44 Exam Narrative Exam Narrative: [pt is awake and alert. oriented to place, time and person HEENT: Northwest conjunctiva and NL buccal mucosa Neck: Supple, no tenderness Endocrine: No Thyromegaly. Vascular: No JVD or carotid bruit. Lymphatic: No cervical lymphadenopathy. Chest: CTA no DTP. Heart RRR, no extra sound or murmur. Abd: Soft, no tenderness, no rebound and no rigidity. Increase abd girth therefore clinically I could not exclude the possibility of intra abd mass or organomegaly. LE: No cyanosis or clubbing, no varices or edema. Neuro: A A O. Nl speech, comprehension and attention. Nl and symetrical motor and tone examination through out. []] Constitutional Vital Signs, click to edit/add: Last Vital Signs Temp 98.4 F 01/03/25 04:00 Pulse 91 H 01/03/25 08:00 Resp 14 01/03/25 07:12 BP 114/70 01/03/25 07:12 Pulse Ox 95 01/03/25 07:12 O2 Del Method Room Air 01/03/25 07:12 Results Labs Labs: Short CBC 01/02/25 01/03/25 Range/Units 18:02 05:06 WBC 12.7 H 11.3 H (4.0-11.0) 10^3/uL Hgb 13.8 12.2 (12.0-16.0) g/dL Hct 40.2 36.1 (36.0-48.0) % Plt Count 254 226 (150-450) 10^3/uL BMP 01/02/25 01/03/25 18:02 05:06 Sodium 141 140 Potassium 3.7 4.0 Chloride 104 104 Carbon Dioxide 27.6 28.1 BUN 11.0 12.0 Creatinine 0.70 0.61 Glucose 106 125 H Calcium 9.5 9.4 Liver Function 01/02/25 Range/Units 18:02 Total Bilirubin 0.8 (0.2-1.0) mg/dL AST 13 L (15-37) U/L ALT 19 (14-59) U/L Alkaline Phosphatase 112 (46-116) U/L Albumin 4.5 (3.4-5.0) g/dL Assessment and Plan Assessment and Plan (1) Pulmonary embolism: (2) Pulmonary infarct: Plan Acute pulmonary embolus Pulmonary infarction Pleuritic chest pain I had accepted to admit patient to the medical telemetry unit I started patient on Lovenox 1 mg/kg twice a day. Convert to Eliquis 10 mg twice a day for 7 days followed by 5 mg twice a day Echocardiogram rule out cardiac strain. Venous ultrasound rule out DVT. Recent history of hysterectomy No active bleed. Patient is to follow-up with BENEFITS ASSISTANT I discussed her case with her
[2025-01-03] MEDS: HYDROMORPHONE HCL 0.5 MG/0.5 ML SYRINGE IVP ×2 (10:37→15:24)
--- NOTE | 2025-01-03 11:30 | CA_ITS ---
Patient Name: OLIVE TURPIN MR#: [id number] : 1960 Exam Date: 01/03/2025 Ordering Doctor: MIMA BOWLING ECHOCARDIOGRAM REPORT PROCEDURE: CA ECHO DOPPLER COMPLETE INDICATIONS: Pulmonary emboli COMPARISON: None. DESCRIPTION: COMPLETE ECHOCARDIOGRAM Real-time transthoracic echocardiography with 2D, M-mode, spectral and color flow Doppler performed. QUALITY: Technical quality was good. LEFT VENTRICLE: Normal chamber size. Normal left ventricular wall thickness. Estimated left ventricular ejection fraction is 60-65 %. LV EF: Normal left ventricular ejection fraction, (>55%). DIASTOLIC: Normal diastolic function. ATRIAL SEPTUM: LEFT ATRIUM: Normal chamber size. RIGHT ATRIUM: Normal chamber size. RIGHT VENTRICLE: Normal chamber size. Normal right ventricular systolic function. TRICUSPID VALVE: Normal mobility and thickness. No stenosis with mild regurgitation. No evidence of pulmonary hypertension. RVSP 33 mmHg MITRAL VALVE: Normal mobility and thickness. No evidence of mitral valve stenosis. There is no mitral annular calcification. No mitral regurgitation. AORTIC VALVE: Normal trileaflet appearance. No visible sclerosis. Normal leaflet mobility. No evidence of aortic valve stenosis. No aortic regurgitation. AORTIC ROOT: Normal diameter and appearance, measuring 3.0 cm. Ascending aorta is normal in size, measuring 2.5 cm. PULMONIC VALVE: Normal thickness and mobility. No stenosis. Trivial regurgitation. PERICARDIUM: No evidence of pericardial effusion. IVC: Not well visualized. PLEURA: CONCLUSION: 1. Normal left ventricular size and systolic function. LVEF is 60 to 65%. 2. Normal right ventricular size and systolic function. 3. Normal diastolic function. 4. Mild tricuspid regurgitation. 5. Normal right-sided pressures. Adult Echocardiography Procedure Report Left Ventricle LVEDD (3.7 - 5.6 cm): 3.57 cm LVESD (2.2 - 4.0 cm): 2.22 cm LVIVS thickness (0.6 - 1.2 cm): 0.78 cm LVPW thickness (0.5 - 1.0 cm): 0.96 cm e': 0.10 m/s E - e': 6.84 LVOT Max Gradient: 6.13 mm[Hg] LVOT Area (cm2): 1.24 m/s Peak Velocity (LVOT): 1.24 m/s Mean Velocity (LVOT): 0.86 m/s LVOT Diameter 1.99 cm Left Ventricular Ejection Fraction: 60-65 % Left Atrium LA Volume Index (2D A2C): 26.53 ml/m2 Left Atrium Systolic Dimension: 2.81 cm Mitral Valve MV E to A Ratio: 0.93 Mitral Valve A-Wave Peak Velocity: 0.75 m/s Mitral Valve E-Wave Peak Velocity: 0.70 m/s Right Ventricle Aorta AO Root Diam: 2.96 cm Ascending Ao Diam: 2.48 cm Aortic Valve AoV Area (Peak Filipe): 2.17 cm2, 2.17 cm2 AoV Area (VTI): 1.99 cm2, 1.99 cm2 Peak Velocity(Antegrade Flow): 1.78 m/s Peak Gradient(Antegrade Flow): 12.61 mm[Hg] Mean Velocity(Antegrade Flow): 1.07 m/s Mean Gradient(Antegrade Flow): 5.60 mm[Hg] Velocity Time Integral: 32.14 cm Tricuspid Valve Peak Velocity (Regurgitant Flow): 2.46 m/s, 2.73 m/s, 2.59 m/s Pulmonic Valve Peak Gradient: 7.58 mm[Hg], 6.44 mm[Hg] Right Atrium Right Atrium Systolic Pressure: 24.91 ml, 24.91 ml Dictated by: Vinicius Real M.D. on 01/03/2025 at 17:47 Approved by: Vinicius Real M.D. on 01/03/2025 at 17:50
--- NOTE | 2025-01-03 15:01 | SWNOTE1 ---
SW provided pt with free 30 day triall Eliquis card and $10 co pay card. Pt's in room as well. At this time no further questions. SW let pt and know to reach out if further questions in regards to Eliquis.
[2025-01-03] MEDS: OXYCODONE HCL 5 MG TABLET PO ×2 (17:54→22:44)
[2025-01-04] VITALS (17 sets, daily range): BP systolic 96–115; BP diastolic 60–71; PULSE 64–93; TEMP 36.7–37.6; O2SAT 93
[2025-01-04] MEDS: OXYCODONE HCL 5 MG TABLET PO (03:53)
--- NOTE | 2025-01-04 08:20 | CM.NOTE ---
Rounds made with Dr. Arredondo, pt continues to have pain. No discharge today, will repeat EKG.
--- NOTE | 2025-01-04 08:57 | ECG_ITS ---
[facility] Test Date: 2025-01-04 Pat Name: OLIVE TURPIN Department: Room: 2131 Gender: Female Shear Helper: : 1960 Requested By: MIREYA MARTIN Order Number: [id number] Reading MD: OH MONAHAN Measurements Intervals [place] Rate: 84 P: 56 MI: 124 QRS: 18 QRSD: 90 T: 26 QT: 354 QTc: 420 Interpretive Statements SINUS RHYTHM MINIMAL VOLTAGE CRITERIA FOR LVH, CONSIDER NORMAL VARIANT [MEETS CRITERIA IN ONE OF: R(aVL), S(V1), R(V5), R(V5/V6)+S(V1)] NONSPECIFIC T-WAVE ABNORMALITY Compared to ECG 01/02/2025 21:11:41 T-wave abnormality now present Left bundle-branch block no longer present Electronically Signed On 01-04-2025 16:40:37 EDT by OH MONAHAN
--- NOTE | 2025-01-04 09:15 | P.PN_ITS ---
Progress Note: Subjective Subjective Interval history: Patient continues to have pleuritic chest pain mostly in the right mid back. That is causing her to catch her breath. No pain in the left side. Exam Narrative Exam Narrative: [pt is awake and alert. oriented to place, time and person. Patient appears to be uncomfortable. Unable to take deep breath. HEENT: [place] conjunctiva and NL buccal mucosa Neck: Supple, no tenderness Endocrine: No Thyromegaly. Vascular: No JVD or carotid bruit. Lymphatic: No cervical lymphadenopathy. Chest: Diminished breath sound. Crackles of the right lower lung Heart RRR, no extra sound or murmur. Abd: Soft, no tenderness, no rebound and no rigidity. Increase abd girth therefore clinically I could not exclude the possibility of intra abd mass or organomegaly. LE: No cyanosis or clubbing, no varices or edema. Neuro: A A O. Nl speech, comprehension and attention. Nl and symetrical motor and tone examination through out. []] Constitutional Vital Signs, click to edit/add: Last Vital Signs Temp 99.6 F 01/04/25 07:11 Pulse 88 01/04/25 07:11 Resp 18 01/04/25 07:11 BP 115/70 01/04/25 07:11 Pulse Ox 93 L 01/04/25 07:11 O2 Del Method Room Air 01/04/25 07:11 Progress Note: A&P Assessment and Plan (1) Pulmonary embolism: (2) Pulmonary infarct: (3) Pleuritic chest pain: (4) Left bundle branch block: Plan Acute pulmonary embolus Acute pulmonary infarction causing severe pleuritic chest pain. I started patient on Lovenox 1 mg/kg twice a day. Converting today to Eliquis 10 mg twice a day for 7 days followed by 5 mg twice a day Echocardiogram rule out cardiac strain. Echocardiogram does not show any strain however her EKG showed left bundle branch block. I reviewed her records from [facility]. She had an EKG a few weeks ago which did not show any LBBB Requested repeat EKG to see if there is any resolution of LBBB Venous ultrasound rule out DVT. Skin back negative for DVT Pleuritic chest pain secondary to pulmonary infarction Patient is not ready to go home as a result requiring intravenous pain medication I started patient on Decadron, Lyrica, Tylenol and Toradol Monitor pain intensity over the next 24 to 48 hours Recent history of hysterectomy No active bleed. Patient is to follow-up with BUSINESS DEVELOPMENT ASSOCIATE
[2025-01-04] MEDS: APIXABAN 5 MG TABLET 10 MG PO ×2 (09:22→21:49)
[2025-01-04] MEDS: DOXYCYCLINE MONOHYDRATE 100 MG CAPSULE PO ×2 (09:22→21:49)
[2025-01-04] MEDS: KETOROLAC TROMETHAMINE 30 MG/ML VIAL 15 MG IVP ×3 (09:26→21:49)
[2025-01-04] MEDS: ACETAMINOPHEN 500 MG TABLET 1000 MG PO ×3 (09:26→21:49)
[2025-01-04] MEDS: PREGABALIN 50 MG CAPSULE PO ×2 (09:26→21:49)
[2025-01-04] MEDS: DEXAMETHASONE SOD PHOS 4 MG/ML VIAL IV ×2 (09:27→21:49)
[2025-01-05] VITALS (8 sets, daily range): BP systolic 107–119; BP diastolic 62–70; PULSE 57–80; TEMP 36.6–36.7; O2SAT 92
[2025-01-05] MEDS: KETOROLAC TROMETHAMINE 30 MG/ML VIAL 15 MG IVP (05:34)
--- NOTE | 2025-01-05 09:10 | CM.NOTE ---
Rounds made with Dr. Arredondo, pt c/o vaginal bleeding that started last night. Consult entered for Dr. Diaz to evaluate bleeding. Pt will discharge today if ok with OBGYN and will f/u with on Wednesday and PCP. [place] workers compensation legal secretary will call for f/u appointments. Pt will have repeat H&H prior to discharge.
[2025-01-05] MEDS: DEXAMETHASONE SOD PHOS 4 MG/ML VIAL IV (09:23)
[2025-01-05] MEDS: DOXYCYCLINE MONOHYDRATE 100 MG CAPSULE PO (09:23)
[2025-01-05] MEDS: APIXABAN 5 MG TABLET 10 MG PO (09:23)
[2025-01-05] MEDS: PREGABALIN 50 MG CAPSULE PO (09:23)
--- NOTE | 2025-01-05 09:31 | CM.NOTE ---
Spoke with Dr. Diaz regarding consult. Talked with OR and Delmy will bring over supplies to evaluate vaginal bleeding.
[2025-01-05 10:02] LABS: Hematocrit 38.4 % (36.0-48.0); Hemoglobin 13.0 g/dL (12.0-16.0)
--- NOTE | 2025-01-05 10:43 | CM.NOTE ---
Pt provided with outpatient lab requisition for CBC prior to f/u with OBGYN.
--- NOTE | 2025-01-05 10:51 | PM.DS1 ---
DS: Providers Provider Date of admission: 01/02/25 20:21 Primary care physician: Sami Allen MD Consults: 01/05/25 Consult to OBGYN Routine Consulting Provider: Santana Diaz Reason For Exam: Reason for consultation: vagnal bleeding, post hysterectomy DS: Diagnosis Discharge Diagnosis (1) Pulmonary embolism: (2) Pulmonary infarct: (3) Pleuritic chest pain: (4) Left bundle branch block: Plan As listed above and others that are not listed DS: Summary Hospital Course Hospital Course: Mrs. Balderrama is a 64-year-old female who came in with chest pain and was found to have the following Acute pulmonary embolus Acute pulmonary infarction causing severe pleuritic chest pain. I started patient on Lovenox 1 mg/kg twice a day. Converting today to Eliquis 10 mg twice a day for 7 days followed by 5 mg twice a day Echocardiogram rule out cardiac strain. Echocardiogram does not show any strain however her EKG showed left bundle branch block. I reviewed her records from [facility]. She had an EKG a few weeks ago which did not show any LBBB. Repeat EKG showed resolution of LBBB Venous ultrasound rule out DVT. Skin back negative for DVT Patient will be discharged home on oral Eliquis. Patient and her were given information about blood thinners benefit, risk, precautions, alerts and other related items Given the pulmonary infarction, the patient is at risk for developing infection in that region therefore I will discharge her on doxycycline orally. Consider repeat imaging if she continues to be symptomatic to be addressed by PCP. Pleuritic chest pain secondary to pulmonary infarction Patient is not ready to go home as a result requiring intravenous pain medication I started patient on Decadron, Lyrica, Tylenol and Toradol Monitor pain intensity over the next 24 to 48 hours Complete resolution of her pleuritic chest pain with the aforementioned treatment plan. Patient will be discharged home on as needed oxycodone and the Lyrica Recent history of hysterectomy Patient reported that having increased blood spotting vaginally. Patient was seen and examined by TIMERS INSPECTOR Dr. Diaz who stated that patient does not have major bleed and cleared for discharge on the blood thinner to follow-up with Dr. Talbot. Repeat hemoglobin is showing that her hemoglobin is climbing up and down no evidence of acute blood loss anemia. Patient is to follow-up with TIMERS INSPECTOR Time Spent with Patient Time attestation: Total time spent providing and/or coordinating discharge services: Time spent: greater than 30 minutes Exam Constitutional Vital Signs, click to edit/add: Last Vital Signs Temp 98.1 F 01/05/25 07:13 Pulse 80 01/05/25 10:00 Resp 18 01/05/25 04:00 BP 119/70 01/05/25 07:13 Pulse Ox 92 L 01/05/25 07:13 O2 Del Method Room Air 01/05/25 07:13 DS: Data Data Completed and Pending Labs on day of discharge: Labs from last 24 hours 01/05/25 09:57 Hgb 13.0 Hct 38.4 Discharge Plan Discharge Disposition: Home, Self-Care Condition: Good Discharge Medications: New acetaminophen [Tylenol] 325 mg Tablet 650 mg PO Q6H PRN (Reason: Pain Scale 1-3) Qty: 50 0RF doxycycline monohydrate 100 mg Capsule 100 mg PO BID Qty: 14 0RF oxycodone 5 mg Tablet 5 mg PO Q4H PRN (Reason: Pain Scale 4-6) Qty: 20 0RF pregabalin 50 mg Capsule 50 mg PO BID Qty: 20 0RF Eliquis 5 mg tablet 5 mg PO BID Qty: 60 3RF Rx Instructions: Take 10 mg tablet ( 2 X 5mg tablet ) in the morning and 10 mg ( 2 X 5mg tablets ) in the evening for 6 days After 6 days, take one 5 mg tablet in the morning and one 5 mg tablet in the evening Continued eletriptan [Relpax] 40 mg tablet 40 mg PO Q2H PRN (Reason: migraine headache) Rx Instructions: do not exceed 2 doses per 24 hrs Activity: increase activity as tolerated Diet: advance to your usual diet Print Language: Armenian Patient Instructions: Apixaban (By mouth) (Eliquis), Pulmonary Embolism (DC) Activity Restrictions/Additional Instructions: I may not have addressed or treated all of your medical illnesses or the abnormal blood work or imaging studies during this hospitalization. Please ask your primary care provider to obtain [facility] records entirely to follow up on all of the abnormal physical, laboratory, and imaging findings that I have not addressed. Please return back to the emergency room or seek medical attention if your symptoms worsen or return. Please follow-up with Dr. Allen. Please follow-up with Dr. Fraser Please report back to the emergency room if you develop worsening vaginal bleed Please have the blood test CBC Wednesday morning, results will be communicated to Dr. Allen Discharging you from [facility] does not mean that your medical care ends here and now. You may still need additional monitoring, work up, investigation, and treatment plan to be handled from this point on by out patient providers including your primary care provider and specialists. For any medication question, please contact your retail pharmacist or your primary care provider. Thank you. Forms: Portal Instructions Follow Up Appointments: Dr Allen Dec, @ 9:00 Dr. Fraser office (web site designer) will call the patient to schedule an appt. [phone]
--- NOTE | 2025-01-09 14:00 | CM.DCFOLLOWU ---
Person spoke with:patient How are you feeling?well How is your pain?none, bleeding stopped as well Did you understand your discharge instructions?yes Do you have any questions about your discharge instructions? no Were you given any prescriptions at discharge? yes Were you able to get your prescriptions filled?yes Do you understand how to take your medications as ordered?yes Do you have any questions about your follow up appointment and do you plan to keep your follow up appointment? no questions, had telephone follow up with OBGYN today, sees PCP tomorrow Is there anything else that you would like to discuss?no Questions/Comments/Concerns/Other:none
== END 2025-01-05 11:37 | disposition home or self-care (01) | DRG 176 ==
LOC: ER 19:39 → MS 20:44
PROVIDERS: Physician Assistant; Admitting Provider Internal Medicine; Emergency Provider Emergency Medicine; PCP Family Medicine; Visit Provider Internal Medicine
DX: I26.99 Other pulmonary embolism without acute cor pulmonale (principal); Z90.710 Acquired absence of both cervix and uterus; R07.81 Pleurodynia; I44.7 Left bundle-branch block, unspecified
CPT/HCPCS: 36415; 71045; 71275; 80048; 80053; 84484; 85014; 85018; 85025; 85610; 85730; 93005; 93306; 93970; 96374; 96375; 99285; J0696; J1100; J1171; J1650; J1885; J2270; J2405; Q9967

== ENCOUNTER 2025-01-08 08:01 | Outpatient (OUT) | payer OTHER, SELFPAY ==
--- OUTSIDE RECORDS SUMMARY | 2025-01-08 08:07 | XMS_ITS | CCD ---
Author Organization [facility] Care Team Providers Care [employer] Specialist Name Role Phone DR MIREYA ALLEN Consulting Unavailable MARIO, DR GOMES Attending Unavailable MARIO, DR GOMES Admitting Unavailable MARIO, DR GOMES Primary Care Unavailable MARIO, DR GOMES Attending Unavailable MARIO, DR GOMES Admitting Unavailable MAIRO, DR GOMES Consulting Unavailable MD Mireya Allen Primary Care Provider DO Fiona Fraser Attending Provider [phone] MD Mireya Allen Primary Care Provider MD Kasi Antoine II Attending Provider Kasi Antoine II Unavailable Roque Davila Attending Unava ilable MD Mireya Allen Primary Care Provider Self, Referral Attending Provider Unavailable DO Fiona Fraser Referring Provider [phone] Mireya Allen Primary Care Physician Wali MCCOY Attending Unavailable Wali MCCOY Attending Unavailable Mireya Allen Referring Unavailable Wali MCCOY Attending Unavailable NILWali Bennett Attending Unavailable NILWali Bennett Admitting Unavailable Wali MCCOY Attending Unavailable Mireya Allen MD Primary Care Provider [phone] Self, Referral Attending Provider Unavailable Fiona Fraser DO Referring Provider Mireya Allen MD Primary Care Provider Mireya Allen MD Primary Care Provider Fiona Fraser DO Attending Provider [phone] Self, Referral Attending Unavailable Fiona Fraser Referring Unavailable Mireya Allen Primary Care Unavailable Self, Referral Admitting Unavailable Sandy Fraserhleen Admitting Unavailable Evelio Fiona Attending Unavailable Mireya Allen Primary Care Unavailable Sandy Fraserhleen Admitting Unavailable Fiona Fraser Attending Unavailable Mireya Allen Primary Care Unavailable EVELIO, FIONA E Attending Unavailable EVELIO, FIONA E Attending Unavailable EVELIO, FIONA E Attending Unavailable Allergies Allergy Classification Reported Allergen(s) Allergy Type Date of Onset Reaction(s) Facility (1 source) No Known Medication Allergies; Translations: [No Known Medication Allergies] Propensity to adverse reactions (disorder) [facility] Repository Medications Current Medications Medication Drug [...] for constipation eletriptan 40 mg oral tablet (15 sources) Serotonin-1b and Serotonin-1d Receptor Agonist Start: [...] for pain topiramate 25 mg oral tablet (11 sources) topiramate (Topamax) 25 MG tablet 1 [...] Test Name Value Interpretation Reference Range Facility ECG 12-LEADon 01-02-2025 [place] [address] Electrocardiograph Report Signed Patient: OLIVE TURPIN MR#: [id number] : 1960 Acct:[id number] Age/Sex: 64 / F ADM Date: 01/02/25 Loc: [place] 213-[address]: Miranda Arredondo M.D. 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 Measurements Intervals [place] Rate: 89 P: 63 [place]: 126 QRS: -27 QRSD: 116 T: 86 QT: 398 QTc: 444 Interpretive Statements 1100 Sinus rhythm LEFT BUNDLE BRANCH BLOCK 9150 abnormal ECG No previous ECG available for comparison Electronically Signed On 01-02-2025 21:00:35 EDT by ASPEN CHAVEZ M.D. Dictated By: ASPEN CHAVEZ Signed By: 01/02/252100 DD/ 33 TD/TT: Supply Chain Specialist: [facility] Radiology, Radiologbeth sorenson MD - 01/02/2025 [place] [address] Electrocardiograph Report Signed Patient: OLIVE TURPIN MR#: [id number] : 1960 Acct:[id number] Age/Sex: 64 / F ADM Date: 01/02/25 Loc: [place] 213-[address]: Miranda Arredondo M.D. 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 Measurements Intervals [place] Rate: 89 P: 63 [place]: 126 QRS: -27 QRSD: 116 T: 86 QT: 398 QTc: 444 Interpretive Statements 1100 Sinus rhythm LEFT BUNDLE BRANCH BLOCK 9150 abnormal ECG No previous ECG available for comparison Electronically Signed On 01-02-2025 21:00:35 EDT by ASPEN CHAVEZ M.D. Dictated By: ASPEN CHAVEZ Signed By: 01/02/252100 DD/ 33 TD/TT: [facility] Chain [facility] Radiology Study observation (narrative) [facility] ECG 12-LEADOrdered By: Radio logist Radiology on 01-02-2025 [facility] Healthcare Work Phone: [place] 12-18-2024 L ------ Specimen: [id number] Received: 12/18/24 Status: MADELYN Xie Num: [id number] Spec Type: Surgical Subm Dr: Fiona Fraser DO Tissues: A Uterus w/ or w/o tubes ovaries except neoplastic or prolap (CERVIX, UTERUS Procedures: Gross/Micro L5 Age/ Patient Sex Location Account Attending Physician Olive Turpin 64/F [place] [id number] Fiona Fraser DO SPEC NUM: [id number] RECD: 12/18/24 STATUS: MADELYN XIE NUM: [id number] BRADLEY: 12/18/[address]: Fiona Fraser DO ENTERED: 12/18/[address] [facility] [address]: SPEC TYPE: Surgical DEPT: S ENTERED BY: [id number] RECV BY: [id number] ORDERED: , Gross/Micro L5 ORDERED: , Gross/Micro [...] to 0.8 cm in diameter. The Specimen: [id number] Received: 12/18/24 Status: REIDVamshi Xie Num: [id number] Spec Type: Surgical Subm Dr: Fiona Fraser DO Tissues: A Uterus w/ or w/o tubes ovaries except neoplastic or prolap (CERVIX, UTERUS Procedures: , Gross/Micro L5 Patient: Olive Turpin [id number] (Continued) Specimen: [id number] Received: 12/18/24 (Continued) Gross Description (Continued) Signed (signature on file) oJel March MD 12/19/24 1100 Specimen: [id number] Received: 12/18/24 Status: MADELYN Xie Num: [id number] Spec Type: Surgical Subm Dr: Fiona Fraser DO Tissues: A Uterus w/ or w/o tubes ovaries except neoplastic or prolap (CERVIX, UTERUS Procedures: , Gross/Micro L5 Patient: Olive Turpin [id number] (Continued) Specimen: [id number] Received: 12/18/24 (Continued) Gross Description (Continued) specimen [...] and (more content not included)... Normal [facility] Basic Metabolic Panelon 07-2 GFR/1.73 sq M.predicted MDRD (S/P/Bld) [Vol rate/Area] mL/min/{1.73_m2} Normal [facility] Comment on above: Performed By: #### B MP #### [facility] [address] [id number] [facility] Basic metabolic 1998 panelon 12-04-2024 Anion gap [Moles/Vol] 9.3 mmol/L 6.0 - 15.0 [facility] Calcium [Mass/Vol] 9.5 mg/dL 8.6 - 10. 3 mg/dL [facility] Chloride [Moles/Vol] 108 mmol/L High 98 - 10 7 mmol/L [facility] CO2 [Moles/Vol] 29.7 mmol/L 21.0 - 31.0 mmol/L [facility] Creatinine (U) [Mass/Vol] 0.63 mg/dL 0.60 - 1.20 mg/dL [facility] ESTIMATED GFR [facility] Glucose [Mass/Vol] 95 mg/dL 70 - 100 mg/dL [facility] Comment on above: Random Glucose Refer ence Range is dependent on time and content of last meal. Glucose of more than 200 mg/dL in a nonstressed, ambulatory subject supports the diagnosis of Diabetes Mellitus. ADA recommended reference range Interpretation and review of laboratory results Abnormal [facility] Potassium [Moles/Vol] 4 mmol/L 3.5 - 5.1 mmol/L [facility] Sodium [Moles/Vol] 143 mmol/L 136 - 145 mmol/L [facility] Urea nitrogen [Mass/Vol] 11 mg/dL 7 - 25 mg/dL [facility] Basophils [#/volume] in Bloo d by Automated countOrdered By: Fiona Fraser on 12-04-2024 Basophils (Bld) [#/Vol] 0.1 10*3/uL Normal 0.0-0.2 [facility] Comment on above: Result Comment: PERF ORMED BY: [place] [address] PATHOLOGIST [employer] APPRAISER MICHELLE PATEL M.D. Performed By: #### C BC #### [facility] [address] [id number] [facility] Basophils/100 leukocytes in Blood by Automated countOrdered By: Fiona Fraser on 12-04-2024 Basophils/100 WBC (Bld) 0.8 % Normal . [facility] Comment on above: Performed By: #### C BC #### [facility] [address] [id number] [facility] CBC W Auto Differential pane l (Bld)on 12-04-2024 Basophils (Bld) [#/Vol] 0.1 10*3/uL 0.0 - 0.2 10*3/uL [facility] Basophils/100 WBC Manual cnt (Syn fld) 0.8 % . [facility] Eosinophils (Bld) [#/Vol] 0.1 10*3/uL 0.0 - 0.45 10*3/uL [facility] Eosinophils/100 WBC Manual cnt (Syn fld) 1.4 % . [facility] Erythrocyte distribution width (RBC) [Ratio] 13.4 % 11.9 - 15.3 % [facility] Hematocrit (Bld) [Volume fraction] 38.9 % 34.0 - 46.4 % [facility] Hemoglobin (Bld) [Mass/Vol] 13.4 g/dL 11.8 - 15.4 g/dL [facility] Lymphocytes (Bld) [#/Vol] 1.6 10*3/uL 1.00 - 4.8 10*3/uL [facility] Lymphocytes/100 WBC Manual cnt (Syn fld) 26.6 % . [facility] MCH (RBC) [Entitic mass] 29.6 pg 24.7 - 34.3 pg [facility] MCHC (RBC) [Mass/Vol] 34.4 g/dL 32.0 - 35.0 g/dL [facility] MCV (RBC) [Entitic vol] 86 fL 80 - 100 fL [facility] Monocytes (Bld) [#/Vol] 0.5 10*3/uL 0.0 - 0.8 10*3/uL [facility] Monocytes+Macrophages/ 100 WBC Manual cnt (Syn fld) 7.9 % . [facility] Neutrophils (Bld) [#/Vol] 3.8 10*3/uL 1.8 - 7.7 10*3/uL [facility] Neutrophils/100 WBC Manual cnt (Syn fld) 63.3 % . [facility] NRBC 0.1 /100{WBC} 0 - 0.5 /100{WBC} [facility] Platelet mean volume (Bld) [Entitic vol] 8.9 fL 6.3 - 10.7 fL [facility] Platelets (Bld) [#/Vol] 221 10*3/uL 150 - 450 10*3/uL [facility] RBC LM.HPF (Urine sed) [#/Area] 4.52 10*6/uL 3.60 - 5.00 10*6/uL [facility] WBC (Bld) [#/Vol] 6.1 10*3/uL 3.8 - 11.6 10*3/uL [facility] WBC LM.HPF (Urine sed) [#/Area] 6.1 [CFU]/mL 3.8 - 11.6 [CFU]/mL [facility] Calcium [Mass/volume] in Ser um or PlasmaOrdered By: Fiona Fraser on 12-04-2024 Calcium [Mass/Vol] 9.5 mg/dL Normal 8.6-10.3 [facility] Comment on above: Result Comment: PERF ORMED BY: [place] [address] PATHOLOGIST [employer] APPRAISER MICHELLE PATEL M.D. Performed By: #### B MP #### [address] Carbon dioxide, total [Moles /volume] in Serum or PlasmaOrdered By: Fiona Fraser on 12-04-2024 CO2 [Moles/Vol] 29.7 mmol/L Normal 21.0-31.0 [facility] Comment on above: Performed By: #### B MP #### [place] [address] [place] Chloride [Moles/volume] in S maria alejandra or PlasmaOrdered By: Fiona Fraser on 12-04-2024 Chloride [Moles/Vol] 108 mmol/L High 98-107 [facility] Comment on above: Performed By: #### B MP #### [address] Complete Blood Count Auto Di ffon 12-04-2024 Mean Corpuscular HGB Conc 34.4 g/dL Normal 32.0-35.0 [facility] Comment on above: Performed By: #### C BC #### [address] NRBC% 0.1 /100{WBC} Normal 0-0.5 [facility] Comment on above: Performed By: #### C BC #### [address] White Blood Count 6.1 [CFU]/mL Normal 3.8-11.6 [facility] Comment on above: Performed By: #### C BC #### [address] Creatinine [Mass/volume] in Serum or PlasmaOrdered By: Fiona Fraser on 12-04-2024 Creatinine [Mass/Vol] 0.63 mg/dL Normal 0.60-1.20 [facility] Comment on above: Performed By: #### B MP #### [address] ECG 12 lead ECGon 12-04-2024 ECG 12 lead ECG [facility] Main [place] [address] [place] [address] Electrocardiograph Report Signed Patient: Olive Turpin MR#: [id number] : 1960 Acct:[id number] Age/Sex: 64 / F ADM Date: 12/04/24 Loc: Room: Type: [facility] Attending Dr: Fiona Fraser DO Ordering Provider: [...] Anterior leads Confirmed by KATELYN JONES MD ([id number]) on 12/05/2024 2:53:12 PM Referred By: Electronically Signed By: KATELYN JONES MD Transcribed By: MUS Signed By Katelyn Jones MD 0 12/05/24 1453 Normal [facility] Eosinophils [#/volume] in Bl ood by Automated countOrdered By: Fiona Fraser on 12-04-2024 Eosinophils (Bld) [#/Vol] 0.1 10*3/uL Normal 0.0-0.45 [facility] Comment on above: Performed By: #### C BC #### [place] [address] [place] Eosinophils/100 leukocytes i n Blood by Automated countOrdered By: Fiona Fraser on 12-04-2024 Eosinophils/100 WBC (Bld) 1.4 % Normal . [facility] Comment on above: Performed By: #### C BC #### [address] Erythrocyte distribution wid th [Ratio] by Automated countOrdered By: Fiona Fraser on 12-04-2024 Erythrocyte distribution width (RBC) [Ratio] 13.4 % Normal 11.9-15.3 [facility] Comment on above: Performed By: #### C BC #### [place] [address] [place] Erythrocytes [#/volume] in B lood by Automated countOrdered By: Fiona Fraser on 12-04-2024 RBC (Bld) [#/Vol] 4.52 10*6/uL Normal 3.60-5.00 [facility] Comment on above: Performed By: #### C BC #### [place] [address] [place] Glucose [Mass/volume] in Ser um or PlasmaOrdered By: Fiona Fraser on 12-04-2024 Glucose [Mass/Vol] 95 mg/dL Normal 70-100 [facility] Comment on above: ADA recommended refe rence rangeRandom Glucose Reference Range is dependent on time and content of last meal. Glucose of more than 200 mg/dL in a nonstressed, ambulatory subject supports the diagnosis of Diabetes Mellitus. Result Comment: [place] Glucose Reference Range is dependent on time and content of last meal. Glucose of more than 200 mg/dL in a nonstressed, ambulatory subject supports the diagnosis of Diabetes Mellitus. ADA recommended reference range Performed By: #### B MP #### [address] Hematocrit [Volume Fraction] of Blood by Automated countOrdered By: Fiona Fraser on 12-04-2024 Hematocrit (Bld) [Volume fraction] 38.9 % Normal 34.0-46.4 [facility] Comment on above: Performed By: #### C BC #### [address] Hemoglobin [Mass/volume] in BloodOrdered By: Fiona Fraser on 12-04-2024 Hemoglobin (Bld) [Mass/Vol] 13.4 g/dL Normal 11.8-15.4 [facility] Comment on above: Performed By: #### C BC #### [address] INR in Platelet poor plasma by Coagulation assayOrdered By: Fiona Fraser on 12-04-2024 INR Coag (PPP) [Relative time] 1.0 {INR} Normal [facility] Comment on above: INR Therapeutic Rang e [...] Performed By: #### P T, PTT #### [address] Leukocytes [#/volume] correc flakito for nucleated erythrocytes in Blood by Automated counOrdered By: Fiona Fraser on 12-04-2024 WBC corrected for nucl RBC Auto (Bld) [#/Vol] 6.1 10*3/uL 3.8-11.6 [facility] Leukocytes [#/volume] in Blo od by Automated countOrdered By: Fiona Fraser on 12-04-2024 WBC (Bld) [#/Vol] 6.1 10*3/uL Normal 3.8-11.6 [facility] Comment on above: Performed By: #### C BC #### [address] Lymphocytes [#/volume] in Bl ood by Automated countOrdered By: Fiona Fraser on 12-04-2024 Lymphocytes (Bld) [#/Vol] 1.6 10*3/uL Normal 1.00-4.8 [facility] Comment on above: Performed By: #### C BC #### [address] Lymphocytes/100 leukocytes i n Blood by Automated countOrdered By: Fiona Fraser on 12-04-2024 Lymphocytes/100 WBC (Bld) 26.6 % Normal . [facility] Comment on above: Performed By: #### C BC #### [address] MCH [Entitic mass] by Automa flakito countOrdered By: Fiona Fraser on 12-04-2024 MCH (RBC) [Entitic mass] 29.6 pg Normal 24.7-34.3 [facility] Comment on above: Performed By: #### C BC #### [address] MCHC Auto (RBC) [Mass/Vol]Or dered By: Fiona Fraser on 12-04-2024 MCHC (RBC) [Mass/Vol] 34.4 g/dL 32.0-35.0 [facility] MCV [Entitic volume] by Auto mated countOrdered By: Fiona Fraser on 12-04-2024 MCV (RBC) [Entitic vol] 86.0 fL Normal 80-100 [facility] Comment on above: Performed By: #### C BC #### [place] [address] [place] Monocytes [#/volume] in Bloo d by Automated countOrdered By: Fiona Fraser on 12-04-2024 Monocytes (Bld) [#/Vol] 0.5 10*3/uL Normal 0.0-0.8 [facility] Comment on above: Performed By: #### C BC #### [place] [address] [place] Monocytes/100 leukocytes in Blood by Automated countOrdered By: Fiona Fraser on 12-04-2024 Monocytes/100 WBC (Bld) 7.9 % Normal . [facility] Comment on above: Performed By: #### C BC #### [place] [address] [place] Neutrophils [#/volume] in Bl ood by Automated countOrdered By: Fiona Fraser on 12-04-2024 Neutrophils (Bld) [#/Vol] 3.8 10*3/uL Normal 1.8-7.7 [facility] Comment on above: Performed By: #### C BC #### [place] [address] [place] Neutrophils/100 leukocytes i n Blood by Automated countOrdered By: Fiona Fraser on 12-04-2024 Neutrophils/100 WBC (Bld) 63.3 % Normal . [facility] Comment on above: Performed By: #### C BC #### [address] No Panel Informationon 12-04 [facility] No Panel InformationOrdered By: Fiona Fraser on 12-04-2024 Estimated GFR (CKD-EPI) > 60.0 mL/Min [facility] Creatinine Clearance (Chem N/A [facility] Nucleated erythrocytes [Pres ence] in Blood by Automated countOrdered By: Fiona Fraser on 12-04-2024 Nucleated RBC Auto Ql (Bld) 0.1 /100{WBC} 0-0.5 [facility] PARTIAL THROMBOPLASTIN TIMEo n 12-04-2024 aPTT Coag (Bld) [Time] 29.7 s 25.1 - 36.5 s [facility] Comment on above: A hematocrit value g reater than 55% may lead to inaccurate results in coagulation testing. Patients having hematocrit values >55% require a special collection tube for coagulation studies. Please contact the laboratory at [phone] for redraw instructions. PST Type and Screenon 2024 ABO and Rh group Nom (d) Blood group B Rh(D) positive Normal [facility] Comment on above: Order Comment: Date of Surgery: [id number] Result Comment: PERF ORMED BY: [facility] [address] [place] [address] PATHOLOGIST [employer] APPRAISER MICHELLE PATEL M.D. PT Coag (Bld) [Time]on 12-04 INR Coag (PPP) [Relative time] 1 {INR} [facility] Comment on above: INR Therapeutic Rang e [...] 11.6 s 9.0 - 1 2.9 s [facility] Comment on above: A hematocrit value g reater than 55% may lead to inaccurate results in coagulation testing. Patients having hematocrit values >55% require a special collection tube for coagulation studies. Please contact the laboratory at [phone] for redraw instructions. Partial Thromboplastin Timeo n 12-04-2024 aPTT Coag (Bld) [Time] 29.7 s Normal 25.1-36.5 [facility] Comment on above: Result Comment: A he matocrit value greater than 55% may lead to inaccurate results in coagulation testing. Patients having hematocrit values >55% require a special collection tube for coagulation studies. Please contact the laboratory at [phone] for redraw instructions. PERFORMED BY: [place] [address] PATHOLOGIST [employer] APPRAISER MICHELLE PATEL M.D. Performed By: #### P T, PTT #### [address] Platelet mean volume [Entiti c volume] in Blood by Automated countOrdered By: Fiona Fraser on 12-04-2024 Platelet mean volume (Bld) [Entitic vol] 8.9 fL Normal 6.3-10.7 [facility] Comment on above: Performed By: #### C BC #### [address] Platelets [#/volume] in Bloo d by Automated countOrdered By: Fiona Fraser on 12-04-2024 Platelets (Bld) [#/Vol] 221 10*3/uL Normal 150-450 [facility] Comment on above: Performed By: #### C BC #### [address] Potassium [Moles/volume] in Serum or PlasmaOrdered By: Fiona Fraser on 12-04-2024 Potassium [Moles/Vol] 4.0 mmol/L Normal 3.5-5.1 [facility] Comment on above: Performed By: #### B MP #### [address] Prothrombin time (PT)Ordered By: Fiona Fraser on 12-04-2024 PT Coag (PPP) [Time] 11.6 s Normal 9.0-12.9 [facility] Comment on above: A hematocrit value g reater than 55% may lead to inaccurate results in coagulation testing. Patients having hematocrit values >55% require a special collection tube for coagulation studies. Please contact the laboratory at [phone] for redraw instructions. Result Comment: A he matocrit value greater than 55% may lead to inaccurate results in coagulation testing. Patients having hematocrit values >55% require a special collection tube for coagulation studies. Please contact the laboratory at [phone] for redraw instructions. Performed By: #### P T, PTT #### [address] Serum or plasma anion gap de terminationOrdered By: Fiona Fraser on 12-04-2024 Anion gap [Moles/Vol] 9.3 mmol/L Normal 6.0-15.0 [facility] Comment on above: Performed By: #### B MP #### [address] Sodium [Moles/volume] in Ser um or PlasmaOrdered By: Fiona Fraser on 12-04-2024 Sodium [Moles/Vol] 143 mmol/L Normal 136-145 [facility] Comment on above: Performed By: #### B MP #### [address] Urea nitrogen [Mass/volume] in Serum or PlasmaOrdered By: Fiona Fraser on 12-04-2024 Urea nitrogen [Mass/Vol] 11 mg/dL Normal 7-25 [facility] Comment on above: Performed By: #### B MP #### [address] aPTT in Platelet poor plasma by Coagulation assayOrdered By: Fiona Fraser on 12-04-2024 aPTT Coag (PPP) [Time] 29.7 s 25.1-36.5 [facility] Comment on above: A hematocrit value g reater than 55% may lead to inaccurate results in coagulation testing. Patients having hematocrit values >55% require a special collection tube for coagulation studies. Please contact the laboratory at [phone] for redraw instructions. MM screening mammo BI w/CADo n 08-28-2024 MM screening mammo BI w/CAD [facility] [address] [place] [address] [address] [place] [id number] Mammography Report Signed Patient: Olive Turpin MR#: [id number] : 1960 Acct:[id number] Age/Sex: 63 / F Adm Date: 08/26/24 Loc: [place] Room: Type: [facility] Attending Dr: Referral Ton Ordering Provider: SELF,REFERRAL Date of Service: 08/26/24 Procedure(s): MM screening mammo BI w/CAD Accession Number(s): ([id number]) MM/MM screening mammo BI w/CAD: ROUTINE Copies [...] Ware Jr., D.O.08/28/2024 9:44 AM Dictation Location: [facility] Dictated By: Junaid Ware Jr, DO 08/28/24 0943 Signed By: 08/28/24 0944 Normal [facility] Ambulatory Visit Summaryon 1 Ambulatory [...] choosing us for your care. Normal [facility] General Surgery Office/Clini c Noteon 02-15-2024 [...] SARS-CoV-2 (COVID-19) mRNA-1273 vaccine 05/14/2020 Recorded Normal [facility] Comment on above: Result Comment: Elec tronically Signed By: DARIUS OCNONOR, Wali Baxter\.br\Date and Time Signed: 02/15/24 15:15 EDT Surgical Pathology Reporton 02-11-2024 Surgical Pathology Report [facility] [address] [place] [address]- Surgical Pathology Report Collected Date/Time: 02/02/2024 15:46 [...] and entirely submitted in one cassette. (DC) DC:[facility] Microscopic Description Microscopic examination performed unless gross only specified. Normal [facility] Comment on above: Performed By: #### [id number] #### [facility] [address] [place] [address] Ambulatory Visit Summaryon 0 02-02-2024 Ambulatory Visit Summary Ambulatory Visit Summary OLIVE TURPIN :1960 Visit Date:02/02/2024 Ambulatory Visit Instructions Your Care Team Attending Physician - Wali MCCOY MD Primary Care Physician - Mireya Allen MD This Is Your Medications List eletriptan (Relpax 40 mg Tab) Procedures Performed Endometrial ablation. What to do next Scheduled Follow-Up Appointments Wednesday 3:00 PM EDT With: DARIUS OCONNOR, Wali Baxter Where: [address], [address], [place] [address]- Medications What How Much When Instructions Unchanged [...] for choosing us for your care. Normal [facility] General Surgery Office/Clini c Noteon 02-02-2024 [...] Ordered: Incisional biopsy of skin, single lesion 22591 Pathology Tissue Exam Follow-up No qualifying data [...] (COVID-19) mRNA-1273 vaccine 05/14/2020 Recorded Normal [facility] Comment on above: Result Comment: Elec tronically Signed By: DARIUS OCONNOR, Wali Rick\Date and Time Signed: 02/02/24 15:34 EDT Charles Stiles 02-19-2023 Charles VILAL ------ Final No anaerobic growth after 72 hrs. Normal [facility] Comment on above: Performed By: #### A NAC #### [facility] [address] [place] [address] C Woundon 02-18-2023 C Wound ------ Final [...] vivo Per (CLSI) Clinical and Laboratory Standards [place]. oxacillin resistant, beta-lactamase positive (penicillin-R) staphlococci are considered resistant to all cephems,beta-lactam/ beta-lactamase inhibitor combination,carbapenems, and penicillins. INFECTION PREVENTION NOTE:CONTACT or DROPLET Isolation Precautions may be appropriate in addition to Standard Precautions for this patient with Multi-drug Resistant Organism.This patient may be a candidate for antibiotic nasal cream. Tetracycline S <=1 V Trimethoprim/Sulfa S <=10 V Vancomycin S 1 V Normal [facility] Comment on above: Performed By: #### W DC #### [facility] (DEFAULT) [address] [place] [address] [address] T4 LABCORPon 10-10-2021 T4 [Mass/Vol] 8.3 ug/dL Normal 4.5-12.0 [facility] Comment on above: Performed By: #### T 4LC #### [facility] [address] [place] [address] Dr. Ingris Acosta CBC AUTO DIFFon 2021 BASO # 0.1 103/ul Normal 0.0-0.1 [facility] Comment on above: Performed By: #### C BC #### [facility] [address] [place] [address] Dr. Ingris Acosta Basophils/100 WBC (Bld) 1.1 % Normal 0.2-2.0 [facility] Comment on above: Performed By: #### C BC #### [facility] [address] [place] [address] Dr. Ingris Acosta EO # 0.1 103/ul Normal 0.0-0.7 [facility] Comment on above: Performed By: #### C BC #### [facility] [address] [place] [address] Dr. Ingris Acosta Eosinophils/100 WBC (Bld) 1.7 % Normal 0.9-7.0 [facility] Comment on above: Performed By: #### C BC #### [facility] [address] [place] [address] Dr. Ingris Acosta Erythrocyte distribution width (RBC) [Ratio] 12.6 % Normal 11.0-15.0 [facility] Comment on above: Performed By: #### C BC #### [facility] [address] [place] [address] Dr. Ingris Acosta Hematocrit (Bld) [Volume fraction] 40.2 % Normal 36.0-48.0 [facility] Comment on above: Performed By: #### C BC #### [facility] [address] [place] [address] Dr. Ingris Acosta Hemoglobin (Bld) [Mass/Vol] 13.3 g/dL Normal 12.0-16.0 [facility] Comment on above: Performed By: #### C BC #### [facility] [address] [place] [address] Dr. Ingris Acosta IG # 0.01 10e3/ul Normal 0.00-0.03 [facility] Comment on above: Performed By: #### C BC #### [facility] [address] [place] [address] Dr. Ingris Acosta IG % 0.2 % Normal 0.0-0.5 [facility] Comment on above: Performed By: #### C BC #### [facility] [address] [place] [address] Dr. Ingris Acosta LYMPH # 1.7 103/ul Normal 1.2-3.8 [facility] Comment on above: Performed By: #### C BC #### [facility] [address] [place] [address] Dr. Ingris Acosta Lymphocytes/100 WBC (Bld) 36.2 % Normal 20.5-60.0 [facility] Comment on above: Performed By: #### C BC #### [facility] [address] [place] [address] Dr. Ingris Acosta MANUAL DIFF REQ NO Normal [facility] Comment on above: Performed By: #### C BC #### [facility] [address] [place] [address] Dr. Ingris Acosta MCH (RBC) [Entitic mass] 29.3 pg Normal 26.7-34.0 [facility] Comment on above: Performed By: #### C BC #### [facility] [address] [place] [address] Dr. Ingris Acosta MCHC (RBC) [Mass/Vol] 33.1 g/dL Normal 29.9-35.2 [facility] Comment on above: Performed By: #### C BC #### [facility] [address] [place] [address] Dr. Ingris Acosta MCV (RBC) [Entitic vol] 88.5 fL Normal 81.0-99.0 [facility] Comment on above: Performed By: #### C BC #### [facility] [address] [place] [address] Dr. Ingris Acosta MONO # 0.5 103/ul Normal 0.3-0.8 [facility] Comment on above: Performed By: #### C BC #### [facility] [address] [place] [address] Dr. Ingris Acosta Monocytes/100 WBC (Bld) 10.4 % Normal 1.7-12.0 [facility] Comment on above: Performed By: #### C BC #### [facility] [address] [place] [address] Dr. Ingris Acosta NEUT # 2.3 103/ul Normal 1.4-6.5 [facility] Comment on above: Performed By: #### C BC #### [facility] [address] [place] [address] Dr. Ingris Acosta Neutrophils/100 WBC (Bld) 50.4 % Normal 43.0-75.0 [facility] Comment on above: Performed By: #### C BC #### [facility] [address] [place] [address] Dr. Ingris Acosta Platelet mean volume (Bld) [Entitic vol] 10.8 fL Normal 9.5-13.5 [facility] Comment on above: Performed By: #### C BC #### [facility] [address] [place] [address] Dr. Ingris Acosta PLT 211 103/ul Normal 150-450 [facility] Comment on above: Performed By: #### C BC #### [facility] [address] [place] [address] Dr. Ingris Acosta RBC 4.54 106/ul Normal 4.20-5.40 [facility] Comment on above: Performed By: #### C BC #### [facility] [address] [place] [address] Dr. Ingris Acosta WBC 4.6 103/ul Normal 4.0-11.0 [facility] Comment on above: Performed By: #### C BC #### [facility] [address] [place] [address] Dr. Ingris Acosta FREE THYROXINE INDEX T7on FTI 2.66 Normal 1.30-4.50 [facility] Comment on above: Performed By: #### T 7, TSH, CMP, LIPID #### [facility] [address] [place] [address] Dr. Ingris Acosta T3U 32.0 % Normal 30.0-39.0 [facility] Comment on above: Performed By: #### T 7, TSH, CMP, LIPID #### [facility] [address] [address] [address] Ingris Acosta T4 [Mass/Vol] 8.30 ug/dL Normal 4.80-13.90 [facility] Comment on above: Performed By: #### T 7, TSH, CMP, LIPID #### [facility] [address] [place] [address] Dr. Ingris Acosta GLYCOHEMOGLOBIN A1Con 2021 ADA RECOMMENDATION SEE BELOW Normal [facility] Comment on above: Result Comment: ADA RECOMMENDED LIMIT 4.0 - 6.0 ADA THERAPEUTIC TARGET < 7.0 ACTION SUGGESTED > 7.0 Performed By: #### A 1C #### [facility] [address] [place] [address] Dr. Ingris Acosta Glucose [Mass/Vol] 111 mg/dL Normal [facility] Comment on above: Performed By: #### A 1C #### [facility] [address] [place] [address] Dr. Ingris Acosta HbA1c (Bld) [Mass fraction] 5.5 % Normal 4.5-6.2 [facility] Comment on above: Performed By: #### A 1C #### [facility] [address] [place] [address] Dr. Ingris Acosta LIPID PROFILEon 2021 CHOL-HDL RATIO NORM SEE BELOW Normal [facility] Comment on above: Result Comment: 3.3 - 4.4 LOW RISK 4.4 - 7.1 AVERAGE RISK 7.1 - 11.0 MODERATE RISK >11.0 HIGH RISK Performed By: #### T 7, TSH, CMP, LIPID #### [facility] [address] [place] [address] Dr. Ingris Acosta Cholesterol [Mass/Vol] 153 mg/dL Normal <=200 Th [facility] Comment on above: Performed By: #### T 7, TSH, CMP, LIPID #### [facility] [address] [place] [address] Dr. Ingris Acosta Cholesterol in HDL [Mass/Vol] 59 mg/dL Normal 40-60 [facility] Comment on above: Performed By: #### T 7, TSH, CMP, LIPID #### [facility] [address] [address] [address] Ingris Acosta Cholesterol in LDL [Mass/Vol] 80.8 mg/dL Normal [facility] Comment on above: Performed By: #### T 7, TSH, CMP, LIPID #### [facility] [address] [place] [address] Dr. Ingris Acosta Cholesterol.total/Chol esterol in HDL [Mass ratio] 2.6 {ratio} Normal [facility] Comment on above: Performed By: #### T 7, TSH, CMP, LIPID #### [facility] [address] [address] [address] Ingris Acosta HDL NORMAL > or = 60 mg/dl - LO W CARDIOVASCULAR RISK <40 mg/dl - HIGH CARDIOVASCULAR RISK Normal [facility] Comment on above: Performed By: #### T 7, TSH, CMP, LIPID #### [facility] [address] [place] [address] Dr. Ingris Acosta LDL CALC NORMAL SEE BELOW Normal [facility] Comment on above: Result Comment: <100 mg/dl OPTIMAL 100 - 129 mg/dl NEAR OR ABOVE OPTIMAL 130 - 159 mg/dl BORDERLINE HIGH 160 - 189 mg/dl HIGH >190 mg/dl VERY HIGH Performed By: #### T 7, TSH, CMP, LIPID #### [facility] [address] [address] [address] Ingris Acosta Triglyceride [Mass/Vol] 66 mg/dL Normal <=150 [facility] Comment on above: Performed By: #### T 7, TSH, CMP, LIPID #### [facility] [address] [place] [address] Dr. Ingris Acosta VLDL CALC 13.2 mg/dL Normal [facility] Comment on above: Performed By: #### T 7, TSH, CMP, LIPID #### [facility] [address] [place] [address] Dr. Ingris Acosta PROF 14(COMP METB)on 022 Albumin [Mass/Vol] 4.2 g/dL Normal 3.4-5.0 [facility] Comment on above: Performed By: #### T 7, TSH, CMP, LIPID #### [facility] [address] [address] [address] Ingris Acosta Albumin/Globulin [Mass ratio] 1.4 {ratio} Normal [facility] Comment on above: Performed By: #### T 7, TSH, CMP, LIPID #### [facility] [address] [place] [address] Dr. Ingris Acosta ALP [Catalytic activity/Vol] 106 U/L Normal 46-116 [facility] Comment on above: Performed By: #### T 7, TSH, CMP, LIPID #### [facility] [address] [address] [address] Ingris Acosta ALT [Catalytic activity/Vol] 34 U/L Normal 14-59 [facility] Comment on above: Performed By: #### T 7, TSH, CMP, LIPID #### [facility] [address] [address] [address] Ingris Acosta Anion gap [Moles/Vol] 11.9 mmol/L Normal [facility] Comment on above: Performed By: #### T 7, TSH, CMP, LIPID #### [facility] [address] [address] [address] Ingris Acosta AST [Catalytic activity/Vol] 14 U/L Critically low 15-37 [facility] Comment on above: Performed By: #### T 7, TSH, CMP, LIPID #### [facility] [address] [address] [address] Ingris Acosta Bilirubin [Mass/Vol] 0.5 mg/dL Normal 0.2-1.0 [facility] Comment on above: Performed By: #### T 7, TSH, CMP, LIPID #### [facility] [address] [address] [address] Ingris Acosta Calcium [Mass/Vol] 9.2 mg/dL Normal 8.5-10.1 [facility] Comment on above: Performed By: #### T 7, TSH, CMP, LIPID #### [facility] [address] [address] [address] Ingris Acosta Chloride [Moles/Vol] 107 mmol/L Normal 98-107 [facility] Comment on above: Performed By: #### T 7, TSH, CMP, LIPID #### [facility] [address] [place] [address] Dr. Ingris Acosta CO2 [Moles/Vol] 26.7 mmol/L Normal 21.0-32.0 [facility] Comment on above: Performed By: #### T 7, TSH, CMP, LIPID #### [facility] [address] [place] [address] Dr. Ingris Acosta Creatinine [Mass/Vol] 0.70 mg/dL Normal 0.55-1.02 [facility] Comment on above: Performed By: #### T 7, TSH, CMP, LIPID #### [facility] [address] [place] [address] Dr. Ingris Acosta EGFR-AF RWANDAN >60 Normal >=60 [facility] Comment on above: Performed By: #### T 7, TSH, CMP, LIPID #### [facility] [address] [place] [address] Dr. Ingris Acosta EGFR-NON AF RWANDAN >60 Normal >=60 [facility] Comment on above: Performed By: #### T 7, TSH, CMP, LIPID #### [facility] [address] [place] [address] Dr. Ingris Acosta Globulin (S) [Mass/Vol] 3.0 g/dL Normal [facility] Comment on above: Performed By: #### T 7, TSH, CMP, LIPID #### [facility] [address] [place] [address] Dr. Ingris Acosta Glucose [Mass/Vol] 96 mg/dL Normal 74-106 [facility] Comment on above: Performed By: #### T 7, TSH, CMP, LIPID #### [facility] [address] [place] [address] Dr. Ingris Acosta Potassium [Moles/Vol] 3.6 mmol/L Normal 3.5-5.1 [facility] Comment on above: Performed By: #### T 7, TSH, CMP, LIPID #### [facility] [address] [place] [address] Dr. Ingris Acosta Protein [Mass/Vol] 7.2 g/dL Normal 6.4-8.2 [facility] Comment on above: Performed By: #### T 7, TSH, CMP, LIPID #### [facility] [address] [place] [address] Dr. Ingris Acosta Sodium [Moles/Vol] 142 mmol/L Normal 136-145 [facility] Comment on above: Performed By: #### T 7, TSH, CMP, LIPID #### [facility] [address] [place] [address] Dr. Ingris Acosta Urea nitrogen [Mass/Vol] 14.0 mg/dL Normal 7.0-18.0 [facility] Comment on above: Performed By: #### T 7, TSH, CMP, LIPID #### [facility] [address] [place] [address] Dr. Ingris Acosta Urea nitrogen/Creatinine [Mass ratio] 20.0 mg/mg Normal [facility] Comment on above: Performed By: #### T 7, TSH, CMP, LIPID #### [facility] [address] [place] [address] Dr. Ingris Acosta TSHon 2021 TSH 1.206 uIU/mL Normal 0.358-3.74 0 [facility] Comment on above: Performed By: #### T 7, TSH, CMP, LIPID #### [facility] [address] [place] [address] Dr. Ingris Acosta TSH RANGE SEE BELOW Normal [facility] Comment on above: Result Comment: <0.3 4 UIU/ml HYPERTHYROID 0.34-5.60 UIU/ml EUTHYROID >5.60 UIU/ml HYPOTHYROID Performed By: #### T 7, TSH, CMP, LIPID #### [facility] [address] [place] [address] Dr. Ingris Acosta CBC AUTO DIFFon 11-08-2020 BASO # 0.0 103/ul Normal 0.0-0.1 [facility] Comment on above: Performed By: #### C BC #### [facility] [address] [place], [place] [id number] Jasen Devorah Basophils/100 WBC (Bld) 0.6 % Normal 0.2-2.0 [facility] Comment on above: Performed By: #### C BC #### [facility] [address] [place], [place] [address] Jasen Devorah EO # 0.2 103/ul Normal 0.0-0.7 [facility] Comment on above: Performed By: #### C BC #### [facility] [address] [place] [address] Jasen Devorah Eosinophils/100 WBC (Bld) 2.3 % Normal 0.9-7.0 [facility] Comment on above: Performed By: #### C BC #### [facility] [address] [place] [address] Jasen Devorah Erythrocyte distribution width (RBC) [Ratio] 12.6 % Normal 11.0-15.0 [facility] Comment on above: Performed By: #### C BC #### [facility] [address] [place], [place] [address] Jasen Devorah Hematocrit (Bld) [Volume fraction] 38.6 % Normal 36.0-48.0 [facility] Comment on above: Performed By: #### C BC #### [facility] [address] [place], [place] [address] Jasen Devorah Hemoglobin (Bld) [Mass/Vol] 12.7 g/dL Normal 12.0-16.0 [facility] Comment on above: Performed By: #### C BC #### [facility] [address] [place], [place] [address] Jasen Devorah IG # 0.03 10e3/ul Normal 0.00-0.03 [facility] Comment on above: Performed By: #### C BC #### [facility] [address] [place] [address] Jasen Devorah IG % 0.4 % Normal 0.0-0.5 [facility] Comment on above: Performed By: #### C BC #### [facility] [address] [place], [place] [address] Jasen Devorah LYMPH # 1.3 103/ul Normal 1.2-3.8 [facility] Comment on above: Performed By: #### C BC #### [facility] [address] [place], [place] [address] Jasen Devorah Lymphocytes/100 WBC (Bld) 18.8 % Critically low 20.5-60.0 [facility] Comment on above: Performed By: #### C BC #### [facility] [address] [place], [place] [address] Jasen Devorah MANUAL DIFF REQ NO Normal [facility] Comment on above: Performed By: #### C BC #### [facility] [address] [place] [address] Jasen Devorah MCH (RBC) [Entitic mass] 29.0 pg Normal 26.7-34.0 [facility] Comment on above: Performed By: #### C BC #### [facility] [address] [place], [place] [address] Jasenandrzej Fairchild MCHC (RBC) [Mass/Vol] 32.9 g/dL Normal 29.9-35.2 [facility] Comment on above: Performed By: #### C BC #### [facility] [address] [place], [place] [address] Jasen Devorah MCV (RBC) [Entitic vol] 88.1 fL Normal 81.0-99.0 [facility] Comment on above: Performed By: #### C BC #### [facility] [address] [place] [address] Jasen Devorah MONO # 0.6 103/ul Normal 0.3-0.8 [facility] Comment on above: Performed By: #### C BC #### [facility] [address] [place], [place] [address] Jasen Devorah Monocytes/100 WBC (Bld) 9.1 % Normal 1.7-12.0 [facility] Comment on above: Performed By: #### C BC #### [facility] [address] [place] [address] Jasenandrzej Viverosen NEUT # 4.8 103/ul Normal 1.4-6.5 [facility] Comment on above: Performed By: #### C BC #### [facility] [address] [place], [place] [address] Jasenandrzej Fairchild Neutrophils/100 WBC (Bld) 68.8 % Normal 43.0-75.0 [facility] Comment on above: Performed By: #### C BC #### [facility] [address] [place] [address] Jasenandrzej Fairchild Platelet mean volume (Bld) [Entitic vol] 10.8 fL Normal 9.5-13.5 [facility] Comment on above: Performed By: #### C BC #### [facility] [address] [place] [address] Jasen Devorah PLT 199 103/ul Normal 150-450 [facility] Comment on above: Performed By: #### C BC #### [facility] [address] [place] [address] Jasen Devorah RBC 4.38 106/ul Normal 4.20-5.40 [facility] Comment on above: Performed By: #### C BC #### [facility] [address] [place] [address] Jasenandrzej Viverosen WBC 7.0 103/ul Normal 4.0-11.0 [facility] Comment on above: Performed By: #### C BC #### [facility] [address] [place], [place] [address] Jasenandrzej Viverosen FREE THYROXINE INDEX T7on FTI 2.74 Normal [facility] Comment on above: Performed By: #### A 1C #### [facility] [address] [place], [place] [address] Jasenandrzej Viverosen T3U 33.0 % Normal 23.5-40.5 [facility] Comment on above: Performed By: #### A 1C #### [facility] [address] [place], [place] [address] Jasen Devorah T4 [Mass/Vol] 8.30 ug/dL Normal 5.53-11.00 [facility] Comment on above: Performed By: #### A 1C #### [facility] [address] [place], [place] [address] Jasen Fairchild GLYCOHEMOGLOBIN A1Con 2020 ADA RECOMMENDATION ADA THERAPEUTIC TARG ET 6.0 - 7.0 ACTION SUGGESTED > 7.0 Normal [facility] Comment on above: Performed By: #### A 1C #### [facility] [address] [place] [address] Jasen Devorah Glucose [Mass/Vol] 111 mg/dL Normal [facility] Comment on above: Performed By: #### A 1C #### [facility] [address] [place] [address] Jasen Devorah HbA1c (Bld) [Mass fraction] 5.5 % Normal <=6.0 [facility] Comment on above: Performed By: #### A 1C #### [facility] [address] [place] [address] Jasen Viverosen LIPID PROFILEon 11-08-2020 CHOL-HDL RATIO NORM SEE BELOW Normal [facility] Comment on above: Result Comment: 3.3 - 4.4 LOW RISK 4.4 - 7.1 AVERAGE RISK 7.1 - 11.0 MODERATE RISK >11.0 HIGH RISK Performed By: #### A 1C #### [facility] [address] [place] [address] Jasen Devorah Cholesterol [Mass/Vol] 147 mg/dL Normal <=200 Th [facility] Comment on above: Performed By: #### A 1C #### [facility] [address] [place] [address] Jasen Devroah Cholesterol in HDL [Mass/Vol] 50 mg/dL Normal [facility] Comment on above: Performed By: #### A 1C #### [facility] [address] [place], [place] [address] Jasen Devorah Cholesterol in LDL [Mass/Vol] 76.6 mg/dL Normal [facility] Comment on above: Performed By: #### A 1C #### [facility] [address] [place] [id number] Jasen Devorah Cholesterol.total/Chol esterol in HDL [Mass ratio] 2.9 {ratio} Normal [facility] Comment on above: Performed By: #### A 1C #### [facility] [address] [place], [place] [address] Jasen Devorah HDL NORMAL > or = 60 mg/dl - LO W CARDIOVASCULAR RISK <40 mg/dl - HIGH CARDIOVASCULAR RISK Normal [facility] Comment on above: Performed By: #### A 1C #### [facility] [address] [id number] Jasen Devorah LDL CALC NORMAL SEE BELOW Normal [facility] Comment on above: Result Comment: <100 mg/dl OPTIMAL 100 - 129 mg/dl NEAR OR ABOVE OPTIMAL 130 - 159 mg/dl BORDERLINE HIGH 160 - 189 mg/dl HIGH >190 mg/dl VERY HIGH Performed By: #### A 1C #### [facility] [address] [place], [place] [address] Jasen Devorah Triglyceride [Mass/Vol] 102 mg/dL Normal <=150 [facility] Comment on above: Performed By: #### A 1C #### [facility] [address] [id number] Jasen Devorah VLDL CALC 20.4 mg/dL Normal [facility] Comment on above: Performed By: #### A 1C #### [facility] [address] [place] [id number] Jasen Devorah PROF 14(COMP METB)on 021 Albumin [Mass/Vol] 4.0 g/dL Normal 3.5-5.0 [facility] Comment on above: Performed By: #### A 1C #### [facility] [address] [place] [address] Jasen Devorah Albumin/Globulin [Mass ratio] 1.2 {ratio} Normal [facility] Comment on above: Performed By: #### A 1C #### [facility] [address] [place], [place] [address] Jasen Devorah ALP [Catalytic activity/Vol] 99 U/L Normal 38-126 [facility] Comment on above: Performed By: #### A 1C #### [facility] [address] [id number] Jasen Devorah ALT [Catalytic activity/Vol] 20 U/L Normal 9-52 [facility] Comment on above: Performed By: #### A 1C #### [facility] [address] [id number] Jasen Devorah Anion gap [Moles/Vol] 13.3 mmol/L Normal Th e [facility] Comment on above: Performed By: #### A 1C #### [facility] [address] [address] Jasen Devorah AST [Catalytic activity/Vol] 15 U/L Normal 14-36 [facility] Comment on above: Performed By: #### A 1C #### [facility] [address] [place] [address] Jasen Devorah Bilirubin [Mass/Vol] 0.4 mg/dL Normal 0.2-1.3 [facility] Comment on above: Performed By: #### A 1C #### [facility] [address] [place] [address] Jasen Devorah Calcium [Mass/Vol] 9.2 mg/dL Normal 8.4-10.2 [facility] Comment on above: Performed By: #### A 1C #### [facility] [address] [place] [address] Jasen Devorah Chloride [Moles/Vol] 109 mmol/L Critically high 98-107 [facility] Comment on above: Performed By: #### A 1C #### [facility] [address] [place] [address] Jasen Devorah CO2 [Moles/Vol] 27.4 mmol/L Normal 22.0-30.0 [facility] Comment on above: Performed By: #### A 1C #### [facility] [address] [place], [place] [id number] Jasen Devorah Creatinine [Mass/Vol] 0.72 mg/dL Normal 0.52-1.04 [facility] Comment on above: Performed By: #### A 1C #### [facility] [address] [place], [place] [address] Jasen Devorah EGFR-AF RWANDAN >60 Normal >=60 [facility] Comment on above: Performed By: #### A 1C #### [facility] [address] [place], [place] [id number] Jasen Devorah EGFR-NON AF RWANDAN >60 Normal >=60 [facility] Comment on above: Performed By: #### A 1C #### [facility] [address] [place], [place] [id number] Jasen Devorah Globulin (S) [Mass/Vol] 3.3 g/dL Normal [facility] Comment on above: Performed By: #### A 1C #### [facility] [address] [place], [place] [id number] Jasen Devorah Glucose [Mass/Vol] 97 mg/dL Normal 74-106 [facility] Comment on above: Performed By: #### A 1C #### [facility] [address] [place] [address] Jasen Devorah Potassium [Moles/Vol] 3.7 mmol/L Normal 3.4-5.0 [facility] Comment on above: Performed By: #### A 1C #### [facility] [address] [place], [place] [id number] Jasen Devorah Protein [Mass/Vol] 7.3 g/dL Normal 6.1-8.2 [facility] Comment on above: Performed By: #### A 1C #### [facility] [address] [place], [place] [id number] Jasen Devorah Sodium [Moles/Vol] 146 mmol/L Critically high 137-145 T [facility] Comment on above: Performed By: #### A 1C #### [facility] [address] [place], [place] [id number] Jasen Devorah Urea nitrogen [Mass/Vol] 15.0 mg/dL Normal 7.0-17.0 [facility] Comment on above: Performed By: #### A 1C #### [facility] [address] [place], [place] [id number] Jasen Devorah Urea nitrogen/Creatinine [Mass ratio] 20.8 mg/mg Normal [facility] Comment on above: Performed By: #### A 1C #### [facility] [address] [place], [place] [address] Jasen Fairchild TSHon 11-08-2020 TSH 2.227 uIU/mL Normal 0.470-4.68 0 [facility] Comment on above: Performed By: #### T 7, CMP, TSH, LIPID #### [facility] [address] [place], [place] [address] Jasen Fairchild TSH RANGE SEE BELOW Normal [facility] Comment on above: Result Comment: <0.3 4 UIU/ml HYPERTHYROID 0.34-5.60 UIU/ml EUTHYROID >5.60 UIU/ml HYPOTHYROID Performed By: #### T 7, CMP, TSH, LIPID #### [facility] [address] [place], [place] [address] Jasen Fairchild Vital Signs Date Time Vital Sign Value Performing Clinician Facility 01-02-2025 10:28-0400 Body mass index (BMI) [Ratio] 25.13 kg/m2 Fiona Hallkes DO Work Phone: [facility] 01-02-2025 10:28-0400 Body weight 60.33 kg Fiona Hallkes DO Work Phone: [facility] 01-02-2025 10:28-0400 Diastolic blood pressure 78 mm[Hg] Fiona Rinkes DO Work Phone: [facility] 01-02-2025 10:28-0400 Systolic blood pressure 120 mm[Hg] Fiona Hallkes DO Work Phone: [facility] 12-18-2024 11:53-0400 Diastolic blood pressure 69 mm[Hg] Mireya Allen MD Work Phone: [facility] 12-18-2024 11:53-0400 Heart rate 71 /min Mireya Allen MD Work Phone: [facility] 12-18-2024 11:53-0400 Respiratory rate 14 /min Mireya Allen MD Work Phone: [facility] 12-18-2024 11:53-0400 SaO2% (BldA) [Mass fraction] 98 % Mireya Allen MD Work Phone: [facility] 12-18-2024 11:53-0400 Systolic blood pressure 120 mm[Hg] Mireya Allen MD Work Phone: [facility] 12-18-2024 09:55-0400 Body temperature 97.8 [degF] Mireya Allen MD Work Phone: [facility] 12-18-2024 09:15-0400 Inhaled oxygen flow rate 8 L/min Mireya Allen MD Work Phone: [facility] 12-18-2024 06:35-0400 Body height 154.94 cm Mireya Allen MD Work Phone: [facility] 12-18-2024 06:35-0400 Body weight 59.4 kg Mireya Allen MD Work Phone: [facility] 11-09-2024 14:15-0400 Body mass index (BMI) [Ratio] 25.13 kg/m2 Fiona Rinkes DO Work Phone: [facility] 11-09-2024 14:15-0400 Body weight 60.33 kg Fiona Rinkes DO Work Phone: [facility] 11-09-2024 14:15-0400 Diastolic blood pressure 70 mm[Hg] Fiona Rinkes DO Work Phone: [facility] 11-09-2024 14:15-0400 Systolic blood pressure 120 mm[Hg] Fiona Rinkes DO Work Phone: [facility] 09-28-2024 10:27-0400 Body mass index (BMI) [Ratio] 25.13 kg/m2 Fiona Rinkes DO Work Phone: [facility] 09-28-2024 10:27-0400 Body weight 60.33 kg Fiona Rinkes DO Work Phone: [facility] 09-28-2024 10:27-0400 Diastolic blood pressure 70 mm[Hg] Fiona Rinkes DO Work Phone: [facility] 09-28-2024 10:27-0400 Systolic blood pressure 126 mm[Hg] Fiona Fraser DO Work Phone: [facility] 01-19-2024 14:06-0400 Blood Pressure Location Wali NILL [facility] 01-19-2024 14:06-0400 Diastolic blood pressure 78 mm[Hg] Wali NILL [facility] 01-19-2024 14:06-0400 Heart rate 72 /min Wali NILL [facility] 01-19-2024 14:06-0400 Respiratory rate 16 /min Wali NILL [facility] 01-19-2024 14:06-0400 Systolic blood pressure 138 mm[Hg] Wali NILL [facility] 01-20-2023 14:30-0400 Body height 154.94 cm [facility] Other [facility] Other 01-20-2023 14:30-0400 Body mass index (BMI) [Ratio] 23.62 kg/m2 [employer] Other [facility] Other 01-20-2023 14:30-0400 Body weight 56.7 kg [employer] Other [facility] Other Encounters Encounter Date Encounter Type Care Provider Facility Start: 01-02-2025 End: 01-02-2025 Clinisync Result Encounter Shelia RODRIGUEZ Work Phone: [facility] External Department Unsolicited Start: 01-02-2025 End: 01-02-2025 Clinisync Result Encounter Shelia RODRIGUEZ Work Phone: [facility] External Department Unsolicited Start: 01-02-2025 End: 01-02-2025 Postop follow up visit related to original px Fiona Hallkes DO Work Phone: [facility] [place] [facility] Comment on above: Postoperative examin ation Start: 01-02-2025 End: 01-02-2025 ambulatory FIONA Carmelita RINKES Not Available Start: 12-18-2024 End: 12-18-2024 Admission to same day surgery center Fiona Fraser DO -[facility] [place] Start: 12-18-2024 End: 12-18-2024 ambulatory Mireya Allen MD Work Phone: [facility] Work Phone: Start: 12-04-2024 End: 12-04-2024 Patient encounter procedure Fiona Fraser DO -Pre-Surgical Testing Work Phone: Start: 12-04-2024 End: 12-04-2024 ambulatory Mireya Allen MD Work Phone: [facility] Work Phone: Start: 12-04-2024 Encounter for other preprocedural examination Fiona Fraser [facility] Start: 12-04-2024 End: 12-04-2024 External Result Encounter Fiona Carmelita Rinkes DO Work Phone: [facility] External Department Unsolicited Start: 12-04-2024 End: 12-04-2024 External Result Encounter Fiona Carmelita Rinkes DO Work Phone: [facility] External Department Unsolicited Start: 11-09-2024 End: 11-09-2024 Office outpatient visit 25 minutes Fiona E Rinkes DO Work Phone: [facility] Comment on above: Cystocele, midline; Uterine prolapse Start: 11-09-2024 End: 11-09-2024 ambulatory FIONA E RINKES Not Available Start: 11-08-2024 End: 11-08-2024 ambulatory FIONA RINKES Not Available Start: 09-28-2024 End: 09-28-2024 Bamboo flowsheet Fiona E Rinkes DO Work Phone: [facility] Start: 09-28-2024 End: 09-28-2024 Bamboo flowsheet Fiona Fraser DO Work Phone: [facility] Start: 09-28-2024 End: 09-28-2024 Patient encounter status Fiona Fraser DO Work Phone: [facility] Work Phone: Start: 09-28-2024 End: 09-28-2024 Periodic preventive med est patient 40-64yrs Fiona Fraser DO Work Phone: [facility] Comment on above: Encounter for gyneco logical examination without abnormal finding (Primary Dx); Screening for malignant neoplasm of cervix; Encounter for screening mammogram for breast cancer; Uterine prolapse; Cystocele, midline Start: 09-28-2024 End: 09-28-2024 ambulatory FIONA FRASER Not Available Start: 08-26-2024 End: 08-26-2024 Patient encounter procedure Mireya Allen MD Work Phone: [facility] Work Phone: Start: 08-26-2024 End: 08-26-2024 ambulatory Mireya Allen MD Work Phone: [facility] Work Phone: Start: 02-15-2024 End: 02-15-2024 ambulatory Wali MCCOY Facility:[facility] Start: 02-15-2024 End: 02-15-2024 Patient encounter procedure Wali URIASL [facility] Start: 02-02-2024 End: 02-02-2024 Lab Drop off Wali URIASL [facility] Start: 02-02-2024 End: 02-02-2024 ambulatory Wali MCCOY Facility:[facility] [place] [place] Start: 02-02-2024 End: 02-02-2024 Patient encounter procedure Wali R ADONAYL [facility] [place] Start: 01-19-2024 End: 01-19-2024 ambulatory Wali R NILL Facility:[facility] Start: 01-19-2024 End: 01-19-2024 Patient encounter procedure Wali R NILL [facility] [place] Start: 12-23-2023 ambulatory Wali R ADONAYL Facility :[facility] Start: 05-08-2023 End: 05-08-2023 ambulatory MD Mireya Allen Work Phone: [facility] Work Phone: Start: 05-08-2023 End: 05-08-2023 Patient encounter procedure MD Mireya Allen Work Phone: [facility] Work Phone: Start: 02-16-2023 End: 02-17-[address] [facility] Facility:[facility] Start: 01-20-2023 End: 01-20-2023 Patient encounter procedure MD Mireya Allen Work Phone: [facility] Start: 01-20-2023 End: 01-20-2023 ambulatory MD Mireya Allen Work Phone: [facility] Work Phone: Start: 01-20-2023 Office outpatient ne w 45 minutes Kasi Antoine II [facility] Start: 04-04-2022 End: 04-04-2022 ambulatory MD Mireya Allen Work Phone: [facility] Work Phone: Start: 04-04-2022 End: 04-04-2022 Patient encounter procedure MD Mireya Allen Work Phone: [facility] Start: 10-09-2021 Encounter for genera l adult medical examination without abnormal findings DR MIREYA ALLEN [facility] Start: 2021 End: 10-04-[address] MIREYA ALLEN Facility:[facility] Start: 2021 End: 10-04-2021 Encounter for general adult medical examination without abnormal findings DR MIREYA ALLEN Facility:[facility] Start: 11-08-2020 End: 11-09-[address] MIREYA ALLEN Facility:[facility] Procedures Date Procedure Procedure Detail Performing Clinician Start: 01-02-2025 ECG 12-LEAD Shelia RODRIGUEZ Work Phone: Start: 12-18-2024 Total hysterectomy v ia vaginal approach Mireya Allen MD Work Phone: Start: 12-04-2024 Antibody screen Referra l Self Comment on above: Order Comment: Date of Surgery: [id number] Result Comment: PERF ORMED BY: [address] [place] [address] PATHOLOGIST [employer] MICHELLE PATEL M.D. Start: 12-04-2024 aPTT in [...] Screening for malign ant neoplasm of cervix [facility] Start: 10-02-2025 End: 10-02-2025 Patient encounter procedure [facility] Start: 09-28-2025 End: 11-28-2025 DBT Breast - bilateral screening Bilateral screening mammogram with tomosynthesis Imaging Routine Encounter for screening mammogram for breast cancer Expected: 09/28/2025, Expires: 11/28/2025 [facility] Comment on above: Expected: 09/28/2025 , Expires: 11/28/2025 Start: 08-28-2025 Screening for malign ant neoplasm of breast Mammogram [facility] Start: 02-01-2025 End: 02-01-2025 Patient encounter procedure 02/01/2025 4:00 PM EDT Office Visit [facility] [address] [place] [id number] Fiona Fraser, DO [address] [place] [address] [facility] Start: 01-15-2025 Influenza vaccination [facility] Start: 01-02-2025 End: 01-02-2025 Patient encounter procedure 01/02/2025 10:15 AM EDT Office Visit [facility] [address] [place] [address] Fiona Fraser, DO [address] [place] [address] [facility] Start: 12-18-2024 [facility] Start: 09-28-2024 End: 09-28-2024 Patient encounter procedure 09/28/2024 10:30 AM EDT Office Visit [facility] [address] [place] [id number] Fiona Fraser, DO [address] [place] [address] Encounter for gynecological examination without abnormal finding; Screening for malignant neoplasm of cervix; Encounter for screening mammogram for breast cancer [facility] Comment on above: Encounter for gyneco logical examination without abnormal finding; Screening for malignant neoplasm of cervix; Encounter for screening mammogram for breast cancer Start: 08-26-2024 MG Breast - bilatera l Screening [facility] Start: 08-26-2024 Screening mammograph y of bilateral breasts MM screening mammo BI w/CAD [facility] Start: 05-08-2023 MG Breast - bilatera l Screening [facility] Start: 05-08-2023 Screening mammograph y of bilateral breasts MM screening mammo BI w/CAD [facility] Start: 01-20-2023 Plain X-ray of right hip XR hi p RT min 2V(w/wo pelvis)* [facility] Start: 04-04-2022 Screening mammograph y of bilateral breasts MM screening mammo BI w/CAD [facility] Start: 10-04-1983 Screening for malign ant neoplasm of cervix Pap Smear [facility] Start: 1960 Screening for malign ant neoplasm of colon [facility] IGP, RFX APTIMA HPV ASCU IGP, RF X APTIMA HPV ASCU Lab Routine Screening for malignant neoplasm of cervix Ordered: 09/28/2024 [facility] Work Phone: Comment on above: Ordered: 09/28/2024 Patient Education Know your Meds [facility] Work Phone: Patient referral [facility] Work Phone: Immunizations Immunization Date Immunization Notes Care Provider Inocencia flood 04-18-2024 influenza virus vaccine, unspecified formulation Fiona Fraser DO Work Phone: [facility] 03-31-2023 influenza virus vaccine, unspecified formulation Wali MCCOY [facility] 06-12-2020 SARS-CoV-2 (COVID-19 ) mRNA-1273 vaccine Wali MCCOY [facility] 05-14-2020 SARS-CoV-2 (COVID-19 ) mRNA-1273 vaccine Wali MCCOY [facility] Payers Date Payer Category Payer Self-pay [id number] 2024 Unknown [id number] 2023 Private Health Insurance [id number] 2023 Private Health Insurance 1960 Unknown [id number] 2.16.84 [id number] 1962 Unknown [id number] 2.16.84 [id number] 1962 Unknown [id number] 2.16. [id number] 1962 Unknown [id number] 2.16.8 [id number] 1962 Unknown [id number] 2.16.8 [id number] 1962 Unknown [id number] 2.16.8 40.1.590930.3.579.2.727 1962 Unknown [id number] 2.16.8 40.1.132250.3.579.2.727 1962 Unknown [id number] 2.16.8 40.1.342512.3.579.2.727 1962 Unknown [id number] 2.16.8 40.1.336416.3.579.2.1259 1962 Unknown [id number] 2.16.8 40.1.971228.3.579.2.1259 1962 Unknown [id number] 2.16.8 [id number] 1962 Unknown [id number] 2.16.84 [id number] 1959 Private Health Insurance [id number] Unknown [id number] 2.16.8 40.1.260016.3.579.2.531 Unknown [id number] 2.16.8 40.1.453608.3.579.2.531 Unknown [id number] 2.16.8 [id number] Social History Date Type Detail [facility] Work Phone: Start: 1960 Sex Assigned At Female F [facility] Start: 04-19-2023 End: 07-21-2023 Sex Assigned At [facility] Start: 07-21-2023 End: 01-19-2024 Tobacco smoking status Never smoked tobacco (finding) [facility] Tobacco smoking status Never [facility] Work Phone: Start: 08-27-2024 Sex Female (finding) [facility] Start: 07-21-2023 Tobacco use and exposure Smokeless [...] Facility 12-18-2024 Functional status Patient at Baseline [facility] Work Phone: 01-19-2024 Functional Status N/A [facility] Mental Status Date Assessment Result Facility 12-18-2024 Cognitive function Cognitive Sta tus Patient at Baseline [facility] Work Phone: Clinical Notes 01-20-2023 to 01-02-2025 Fiona Fraser, DO - 01/02/2025 10:15 AM EDTMichellejaney Mae Isabelsanam, DO - 11/09/2024 2:15 PM Alyssia Carmelita Evelio, DO - 09/28/2024 10:30 AM EDT Note [...] smear 07/21/23 wnl, Mammogram 08/26/24 wnl @ [facility] [place] Review of Systems - Const: Denies appetite [...] Review Audit Reviewed by Lacie Sabillon MA (Slurry Man) on 01/02/25 at 1028 Medication Order Taking? Sig Documenting Provider Last Dose Status eletriptan (Relpax) 40 MG tablet [id number] 1 tablet Orally At onset of migraine. May repeat in 2 hours Fiona Fraser DO Active topiramate (Topamax) 25 MG tablet [id number] 1 (one) time each day at the same time Fiona Fraser DO Active Past Medical History: Diagnosis Date Cystocele History of cataract surgery 2009 samantha. History of medical problems prolapse (normal spontaneous vaginal delivery) ([facility]) x2- full term Past Surgical History: Procedure [...] Postoperative examination Z09 documented in this encounter [facility] 11-09-2024 History of Present illness Narrative Images from the original note were not included. Fiona Fraser D.O. Obstetrics and Gynecology Patient: Olive Tuprin : 1960 (64 y.o.) Exam Date: 11/09/2024 [...] smear 07/21/23 wnl, Mammogram 08/26/24 wnl @ [facility] [place] Review of Systems - Const: Denies appetite [...] Review Audit Reviewed by Lacie Sabillon MA (Slurry Man) on 11/09/24 at 1415 Medication Order Taking? Sig Documenting Provider Last Dose Status eletriptan (Relpax) 40 MG tablet [id number] 1 tablet Orally At onset of migraine. May repeat in 2 hours Fiona Fraser DO Active topiramate (Topamax) 25 MG tablet [id number] 1 (one) time each day at the same time Fiona Fraser DO Active Past Medical History: Diagnosis Date Cystocele History of cataract surgery 2009 samantha. History of medical problems prolapse (normal spontaneous vaginal delivery) ([facility]) x2- full term Past Surgical History: Procedure [...] Uterine prolapse N81.4 documented in this encounter [facility] 09-28-2024 History of Present illness Narrative Images [...] smear 07/21/23 wnl, Mammogram 08/26/24 wnl @ [facility] Review of Systems - General: Chills denies. [...] Review Audit Reviewed by Lacie Sabillon MA (Slurry Man) on 09/28/24 at 1026 Medication Order Taking? Sig Documenting Provider Last Dose Status eletriptan (Relpax) 40 MG tablet [id number] 1 tablet Orally At onset of migraine. May repeat in 2 hours Fiona Fraser DO Active topiramate (Topamax) 25 MG tablet [id number] 1 (one) time each day at the [...] Cystocele, midline N81.11 documented in this encounter [facility] 01-19-2024 Note General Surgery Offi ce/Clinic Note [...] Recorded SARS-CoV-2 (COVID-19) mRNA-1273 vaccine 05/14/2020 Recorded [facility] Comment on above: Result Comment: Elec [...] and treatment. She can follow-up as needed [facility] Other Evaluation + Plan note Future Appointments Appointment Date:02/02/2024 03:20:00 PM Scheduled Provider:Wali MCCOY MD Location:[facility] [place] [facility] Appointment Type:GS Procedure 30 [facility] evaluation + Plan note Future Appointments Appointment Date:02/15/2024 03:00:00 PM Scheduled Provider:Wali MCCOY MD Location:[facility] [place] Appointment Type:GS Established 15 [facility] evaluation noteNo assessment information available [facility] Work Phone: evaluation note* Diagnosis Encounter for [...] Reported* Type Description Date Surgical History ablation [facility] Other Hospital course Narrative No data available for this section [facility] Discharge instructions No data available for this section [facility] Discharge instructions Additional Instructions DISCHARGE INSTRUCTIONS [...] FOLLOW UP -Please call the office at ([phone]) to make follow appointment before leaving the hospital. -2 Weeks [facility] Work Phone: Progress note No data available for this section [facility] General Surgery [place] Reason for referral (narrative)No reason for referral [facility] Work Phone: Summary Purpose Family History No Family History [...] Admit Date Uterine Prolapse, Cystocele December 04, 025 3:38pm Chief Complaint Admit Date Uterine Prolapse, Cystocele December 04, 025 3:38pm Uterine Prolapse, Cystocele December 18, 2024 6:17am Additional Source Comments INFORMATION SOURCE (unrecogn ized section and content) DATE CREATED AUTHOR 10/12/2021 [facility] DATE CREATED AUTHOR AUTHOR'S ORGANIZ ATION 02/20/2023 [facility] DATE CREATED AUTHOR AUTHOR'S ORGANIZ ATION 02/12/2024 [facility] DATE CREATED AUTHOR AUTHOR'S ORGANIZ ATION 02/17/2024 [facility] DATE CREATED AUTHOR AUTHOR'S ORGANIZ ATION 02/18/2024 [facility] DATE CREATED AUTHOR AUTHOR'S ORGANIZ ATION 12/21/2024 [facility] DATE CREATED AUTHOR AUTHOR'S ORGANIZ ATION 01/03/2025 [facility] dical Specialists EPIC Care Teams (unrecognized sec [...] August 26, 2024 End: August 26, 2024 [employer] Specialist Relationship Specialty Start Date End Date Mireya Allen MD PCP - General Family Medicine 04/20/23 [employer] Specialist Relationship Specialty Start Date End Date Mireya Allen MD PCP - General Family Medicine 04/20/23 [employer] Specialist Relationship Specialty Start Date End Date Mireya Allen MD PCP - General Family Medicine 04/20/23 [employer] Specialist Relationship Specialty Start Date End Date Mireya Allen MD PCP - General Family Medicine 04/20/23 [employer] Specialist Relationship Specialty Start Date End Date Mireya Allen MD PCP - General Family Medicine 04/20/23 Team Status: Inactive Member Role Status Dates [...] December 18, 2024 End: December 18, 2024 [employer] Specialist Relationship Specialty Start Date End Date Mireya [...] bleeding/spotting. Reason Comments Follow-up Pt presents for f ollow up. Denies concerns. Reason Comments Post-op Visit [...] BE BASED ON THE PRIMARY CLINICAL RECORDS. [employer] provides no warranty or guarantee of the accuracy or completeness of information in this document.
[2025-01-08 09:15] LABS: Hematocrit 34.8 % (36.0-48.0); Hemoglobin 11.5 g/dL (12.0-16.0); Immature Granulocytes Abs Auto 0.18 10^3/uL (0.00-0.03); Immature Granulocytes Pct Auto 2.0 % (0.0-0.5); Lymphocytes Absolute Auto 1.9 10^3/uL (1.2-3.8); Mean Corpuscular HGB Conc 33.0 g/dL (29.9-35.2); Mean Corpuscular Hemoglobin 29.4 pg (26.7-34.0); Mean Corpuscular Volume 89.0 fL (81.0-99.0); Platelet Count 359 10^3/uL (150-450); Red Blood Count 3.91 10^6/uL (4.20-5.40); White Blood Count 9.2 10^3/uL (4.0-11.0)
== END 2025-01-08 08:02 | disposition home or self-care (01) ==
LOC: LAB 08:01
PROVIDERS: PCP Family Medicine; Visit Provider Internal Medicine
DX: I26.99 Other pulmonary embolism without acute cor pulmonale (principal); I44.7 Left bundle-branch block, unspecified
CPT/HCPCS: 36415; 85025

== ENCOUNTER 2025-01-25 08:44 | Outpatient (RCR) | payer OTHER, SELFPAY ==
[2025-01-25 09:17] LABS: Hematocrit 36.7 % (36.0-48.0); Hemoglobin 12.1 g/dL (12.0-16.0); Immature Granulocytes Abs Auto 0.02 10^3/uL (0.00-0.03); Immature Granulocytes Pct Auto 0.5 % (0.0-0.5); Lymphocytes Absolute Auto 1.4 10^3/uL (1.2-3.8); Mean Corpuscular HGB Conc 33.0 g/dL (29.9-35.2); Mean Corpuscular Hemoglobin 29.3 pg (26.7-34.0); Mean Corpuscular Volume 88.9 fL (81.0-99.0); Platelet Count 225 10^3/uL (150-450); Red Blood Count 4.13 10^6/uL (4.20-5.40); White Blood Count 4.4 10^3/uL (4.0-11.0)
[2025-02-08 10:52] LABS: Hematocrit 38.5 % (36.0-48.0); Hemoglobin 12.7 g/dL (12.0-16.0); Immature Granulocytes Abs Auto 0.02 10^3/uL (0.00-0.03); Immature Granulocytes Pct Auto 0.3 % (0.0-0.5); Lymphocytes Absolute Auto 1.8 10^3/uL (1.2-3.8); Mean Corpuscular HGB Conc 33.0 g/dL (29.9-35.2); Mean Corpuscular Hemoglobin 29.3 pg (26.7-34.0); Mean Corpuscular Volume 88.9 fL (81.0-99.0); Platelet Count 231 10^3/uL (150-450); Red Blood Count 4.33 10^6/uL (4.20-5.40); White Blood Count 5.9 10^3/uL (4.0-11.0)
== END 2025-02-14 08:08 | disposition home or self-care (01) ==
LOC: LAB 08:44
PROVIDERS: PCP Family Medicine; Visit Provider Family Medicine
DX: I26.99 Other pulmonary embolism without acute cor pulmonale (principal)
CPT/HCPCS: 36415; 85025

== ENCOUNTER 2025-04-20 13:39 | Outpatient (OUT) | payer OTHER, SELFPAY ==
--- OUTSIDE RECORDS SUMMARY | 2025-04-20 13:43 | XMS_ITS | CCD ---
Author Organization [facility] Care Team Providers Care Water Tender Name Role Phone DR MIREYA ALLEN Consulting Unavailable MARIO, DR GOMES Attending Unavailable MARIO, DR GOMES Admitting Unavailable MARIO, DR GOMES Primary Care Unavailable MARIO, DR GOMES Attending Unavailable MARIO, DR GOMES Admitting Unavailable MARIO, DR GOMES Consulting Unavailable MD Mireya Allen Primary Care Provider DO Fiona Fraser Attending Provider MD Mireya Allen Primary Care Provider MD [...] Care Provider Fiona Fraser DO Attending Provider FIONA FRASER Attending Unavailable FIONA FRASER Attending Unavailable FIONA FRASER E Attending Unavailable FIONA FRASER E Attending Unavailable Self, Referral Attending Unavailable Self, Referral Admitting Unavailable Mireya Allen Primary Care Unavailable Fiona Fraser Referring Unavailable Fiona Fraser Admitting Unavailable Mireya Allen Primary Care Unavailable Fiona Fraser Attending Unavailable Fiona Fraser Attending Unavailable Fiona Fraser Admitting Unavailable Mireya Allen Maurice Primary Care Unavailable Allergies Allergy ClassificationReported Allergen(s)Allergy TypeDate of OnsetReaction(s) Facility (1 source)No Known Medication Allergies; Translations: [No Known Medication Allergies]Propensity to adverse reactions (disorder)[facility] Repository Medications Current Medications MedicationDrug Class(es)DatesSig (Normalized)Sig (Original)acetaminophen 500 mg oral tablet (2 sources)Start: 54-41-7378eblk 1 tablet by mouth every six hours as needed for painAcetaminophen (Tylenol Extra Strength) 500 mg tablet Active 500 MG PO Every 6 hours as needed for pain December 04, 2024 12:00am Complies with drug therapy apixaban 5 mg oral tablet (2 sources)Factor Xa InhibitorStart: 48-84-2799kwyl 1 tablet by mouth twice dailyEliquis 5 MG tablet Take 1 tablet Orally twice daily; Duration: 30 days 01/10/2025 Activedocusate sodium 100 mg oral capsule (1 source)Start: 08-21-3696zluw 1 capsule by mouth twice daily as needed for constipationeletriptan 40 mg oral tablet (17 sources)Serotonin-1b and Serotonin-1d Receptor AgonistStart: 65-33-8591qxkk 1 tablet by mouth onceRelpax 40 mg Tab 40 mg = 1 tab(s), Oral, Once, Refills(s) 0 Start Date: 12/30/23 Status: Orderedtake 1 tablet by mouth every two hours eletriptan (Relpax) 40 MG tablet 1 tablet Orally At onset of migraine. May repeat in 2 hours Activeferrous sulfate 325 mg oral tablet (2 sources)take 1 tablet by mouth at mealtimeferrous sulfate 325 (65 Fe) MG tablet Take 325 mg by mouth in the morning. Take with meals. Activeibuprofen 600 mg oral tablet (1 source)Nonsteroidal Anti-inflammatory DrugStart: 06-03-1376rwva 1 tablet by mouth every six hours as needed for paintopiramate 25 mg oral tablet (13 sources)topiramate (Topamax) 25 MG tablet 1 (one) time each day at the same time ActivetraMADol hydrochloride 50 mg oral tablet (1 source)Opioid AgonistStart: 28-68-2404nxys 1 tablet by mouth every six hours as needed for pain Problems Active Problems Problem ClassificationProblemDateDocumented DateEpisodic/ChronicAbdominal pain (1 source)Unspecified abdominal painEpisodicAllergic reactions (6 sources)Vesicular eczema; Translations: [Eczema]Onset: EpisodicHeadache; including migraine (4 sources)Vnrkhahp49-80-6149JmmzecyOepoyyloc of unspecified nature or uncertain behavior (6 sources)Neoplasm of uncertain behavior of skin; Translations: [Neoplasm of uncertain behavior of skin]Onset: 45-29-7898VlwxpxeiJzymc aftercare (4 sources)Surgical follow-up; Translations: [Encounter for follow-up examination after completed treatment for conditions other than malignant neoplasm]35-80-3960OmckkataAuvun non-traumatic joint disorders (1 source)Pain in right hipEpisodicProlapse of female genital organs (9 sources)Uterine prolapse; Translations: [Uterovaginal prolapse, unspecified] Onset: 454538-96-5870AawhghtFerdjmyr codes; unclassified (4 sources)Sfjjmsst36-36-3353Qsbhfjrd Past or Other Problems Problem ClassificationProblemDateDocumented DateEpisodic/ChronicOther screening for suspected conditions (not mental disorders or infectious disease) (5 sources)Cancer cervix screening status; Translations: [Encounter for screening for malignant neoplasm of cervix]Onset: 840215-27-8625Efkxbfsj Results Test NameValueInterpretationReference RangeFacilityECG 12-LEADon 55-68-1720[address] [address] Electrocardiograph Report Signed Patient: OLIVE TURPIN MR#: [id number] : 1960 Acct:[id number] Age/Sex: 64 / F ADM Date: 01/02/25 Loc: [place] 213-[address]: Miranda Arredondo M.D. 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 Measurements Intervals [place] Rate: 89 P: 63 MI: 126 QRS: -27 QRSD: 116 T: 86 QT: 398 QTc: 444 Interpretive Statements 1100 Sinus rhythm LEFT BUNDLE BRANCH BLOCK 9150 abnormal ECG No previous ECG available for comparison Electronically Signed On 01-02-2025 21:00:35 EDT by ASPEN CHAVEZ M.D. Dictated By: ASPEN CHAVZE Signed By: 01/02/25 210 DD/ 1834 TD/TT: Director Of Security:TBHRadiology, Radiologist, - 01/02/2025 [place] [address] Electrocardiograph Report Signed Patient: OLIVE TURPIN MR#: [id number] : 1960 Acct:[id number] Age/Sex: 64 / F ADM Date: 01/02/25 Loc: [place] 213-[address]: Miranda Arredondo M.D. Ordering Physician: Shelia Arnold Date of Service: 01/02/25 Procedure(s): ECG 12 lead Accession Number(s): [id number] cc: [facility] Test Date: 2025-01-02 Pat Name: OLIVE TURPIN Department: Room: - Gender: Female Engineer Intern: : 1960 Requested By: 0923 Order Number: [id number] Reading MD: ASPEN CHAVEZ M.D. Measurements Intervals [place] Rate: 89 P: 63 MI: 126 QRS: -27 QRSD: 116 T: 86 QT: 398 QTc: 444 Interpretive Statements 1100 Sinus rhythm LEFT BUNDLE BRANCH BLOCK 9150 abnormal ECG No previous ECG available for comparison Electronically Signed On 01-02-2025 21:00:35 EDT by ASPEN CHAVEZ M.D. Dictated By: ASPEN CHAVEZ Signed By: 01/02/252100 DD/ 33 TD/TT: Director Of Security: MARISA HealthcareRadiology Study observation (narrative)[facility] CenterEC 12-LEAD Ordered By: Radiologist Radiology on 77-65-2478JLQF c-crowd Work Phone: [place] 12-18-2024 Specimen: [id number] Received: 12/18/24 Status: MADELYN Xie Num: [id number] Spec Type: Surgical Subm Dr: Fiona Fraser DO Tissues: A Uterus w/ or w/o tubes ovaries except neoplastic or prolap (CERVIX, UTERUS Procedures: , Gross/Kalia L5 Age/ Patient Sex Location Account Attending Physician Olive Turpin 64/F [place] [id number] Fiona Fraser, DO SPEC NUM: [id number] RECD: 12/18/24 STATUS: MADELYN XIE NUM: [id number] BRADLEY: 12/18/240000 [facility] DR: Fiona Fraser, DO ENTERED: 12/18/[address] [facility] [address]: OTILIA TYPE: Surgical DEPT: S ENTERED BY: [id number] RECV BY: [id number] ORDERED: /, Gross/Micro L5 ORDERED: , Gross/Micro L5 Pathological [...] to 0.8 cm in diameter. The Specimen: [id number] Received: 12/18/24 Status: MADELYN Xie Num: [id number] Spec Type: Surgical Subm Dr: Fiona Fraser DO Tissues: A Uterus w/ or w/o tubes ovaries except neoplastic or prolap (CERVIX, UTERUS Procedures: , Gross/Micro L5 Patient: Olive Turpin [id number] (Continued) Specimen: [id number] Received: 12/18/24 (Continued) Gross Description (Continued) Signed (signature on file) Joel March MD 12/19/24 1100 Specimen: [id number] Received: 12/18/24 Status: MADELYN Xie Num: [id number] Spec Type: Surgical Subm Dr: Fiona Fraser, DO Tissues: A Uterus w/ or w/o tubes ovaries except neoplastic or prolap (CERVIX, UTERUS Procedures: , Gross/Micro L5 Patient: Olive Turpin [id number] (Continued) Specimen: [id number] Received: 12/18/24 (Continued) Gross Description (Continued) specimen [...] sepulveda-pink to yellow, and (more content not included)...NormalThe [facility] Physician GroupBasic Metabolic Panelon 41-56-3164MXN/1.73 sq M.predicted MDRD (S/P/Bld) [Vol rate/Area]mL/min/{1.73_m2}NormalThe [facility] Physician GroupComment on above:Performed By: #### BMP #### [place] [id number] USABasic metabolic 1998 panelon 44-99-6786Pajds gap [Moles/Vol]9.3 mmol/L6.0 - 15.0NOMS HealthcareCalcium [Mass/Vol]9.5 mg/dL8.6 - 10.3 mg/dLNOMS HealthcareChloride [Moles/Vol]108 mmol/LHigh98 - 107 mmol/LNOMS HealthcareCO2 [Moles/Vol]29.7 mmol/L21.0 - 31.0 mmol/LNOMS HealthcareCreatinine (U) [Mass/Vol]0.63 mg/dL0.60 - 1.20 mg/dLNOMS HealthcareESTIMATED GFRNOMS HealthcareGlucose [Mass/Vol]95 mg/dL70 - 100 mg/dLNOMD HealthcareComment on above:Random Glucose Reference Range is dependent on time and content of last meal. Glucose of more than 200 mg/dL in a nonstressed, ambulatory subject supports the diagnosis of Diabetes Mellitus. ADA recommended reference range Interpretation and review of laboratory resultsAbnormalNOMS HealthcarePotassium [Moles/Vol]4 mmol/L3.5 - 5.1 mmol/LNOMS HealthcareSodium [Moles/Vol]143 mmol/L 136 - 145 mmol/LNOMS HealthcareUrea nitrogen [Mass/Vol]11 mg/dL7 - 25 mg/dLNOMS HealthcareNOMS HealthcareBasophils [#/volume] in Blood by Automated countOrdered By: Fiona Fraser on 33-90-0466Basftrvkf (Bld) [#/Vol]0.1 10*3/uLNormal 0.0-0.2FSt. Elizabeth HospitalComment on above:Result Comment: PERFORMED BY: [place] [address] PATHOLOGIST REGIONAL CLINICAL DIRECTOR MICHELLE PATEL M.D.Performed By: #### CBC #### [facility] [address] [place] [address] USABasophils/100 leukocytes in Blood by Automated count Ordered By: Fiona Fraser on 50-79-5007Ufzvmhrte/100 WBC (Bld)0.8 %Normal. [facility] CampusComment on above:Performed By: #### CBC #### [place] [address] USACBC W Auto Differential panel (Bld)on 99-39-8760Gaabuoazv (Bld) [#/Vol]0.1 10*3/uL0.0 - 0.2 10*3/uLNOMS HealthcareBasophils/100 WBC Manual cnt (Syn fld)0.8 %.NOMS HealthcareEosinophils (Bld) [#/Vol]0.1 10*3/uL0.0 - 0.45 10*3/uLNOMS HealthcareEosinophils/100 WBC Manual cnt (Syn fld)1.4 %.NOM HealthcareErythrocyte distribution width (RBC) [Ratio]13.4 %11.9 - 15.3 %NOMS HealthcareHematocrit (Bld) [Volume fraction]38.9 %34.0 - 46.4 %[facility] Hemoglobin (Bld) [Mass/Vol]13.4 g/dL11.8 - 15.4 g/dLNOMS HealthcareLymphocytes (Bld) [#/Vol]1.6 10*3/uL1.00 - 4.8 10*3/uLNOMS HealthcareLymphocytes/100 WBC Manual cnt (Syn fld)26.6 %.[facility] CenterMCH (RBC) [Entitic mass]29.6 pg24.7 - 34.3 pgNOMS HealthcareMCHC (RBC) [Mass/Vol]34.4 g/dL32.0 - 35.0 g/dLTHE ORTHOPEDIC SPECIALTY [facility]ITAL HealthcareMCV (RBC) [Entitic vol]86 fL80 - 100 fLNOMS HealthcareMonocytes (Bld) [#/Vol]0.5 10*3/uL0.0 - 0.8 10*3/uLNOMS HealthcareMonocytes+Macrophages/100 WBC Manual cnt (Syn fld)7.9 %.NOMS HealthcareNeutrophils (Bld) [#/Vol]3.8 10*3/uL1.8 - 7.7 10*3/uLNOMS HealthcareNeutrophils/100 WBC Manual cnt (Syn fld)63.3 %.NOMS HealthcareNRBC0.1 /100{WBC}0 - 0.5 /100{WBC}NOMS HealthcarePlatelet mean volume (Bld) [Entitic vol]8.9 fL6.3 - 10.7 fLNOMS HealthcarePlatelets (Bld) [#/Vol]221 10*3/uL150 - 450 10*3/uLNOMS HealthcareRBC LM.HPF (Urine sed) [#/Area]4.52 10*6/uL3.60 - 5.00 10*6/uLNOMS HealthcareWBC (Bld) [#/Vol]6.1 10*3/uL3.8 - 11.6 10*3/uLNOMS HealthcareWBC LM.HPF (Urine sed) [#/Area]6.1 [CFU]/mL3.8 - 11.6 [CFU]/mLNOMS HealthcareTHE ORTHOPEDIC SPECIALTY [facility]PITAL HealthcareCalcium [Mass/volume] in Serum or Plasma Ordered By: Fiona Fraser on 52-76-9828Alnsqwz [Mass/Vol]9.5 mg/dLNormal 8.6-10.3FSt. Elizabeth HospitalComment on above:Result Comment: PERFORMED BY: [facility] [address] [place] [address] PATHOLOGIST REGIONAL CLINICAL DIRECTOR MICHELLE PATEL M.D.Performed By: #### BMP #### [facility] [address] [place] [address] USACarbon dioxide, total [Moles/volume] in Serum or Plasma Ordered By: Fiona Fraser on 26-08-5443KD8 [Moles/Vol]29.7 mmol/LNormal 21.0-31.0[facility] CampusComment on above:Performed By: #### BMP #### [facility] [address] [place] [address] USAChloride [Moles/volume] in Serum or PlasmaOrdered By: Fiona Fraser on 40-34-0093Fvgfkcem [Moles/Vol]108 mmol/MHvth76-333ClgionsdxTrinity Health System East CampusComment on above:Performed By: #### BMP #### [place] [address] USAComplete Blood Count Auto Diffon 95-44-9331Ddji Corpuscular HGB Conc34.4 g/cNVekwac83.0-35.0The [facility] Physician GroupComment on above:Performed By: #### CBC #### [place] [address] USANRBC%0.1 /100{WBC}Normal0-0.5The [facility] Comment on above:Performed By: #### CBC #### [place] [address] USAWhite Blood Count6.1 [CFU]/mLNormal3.8-11.6The [facility] Physician GroupComment on above:Performed By: #### CBC #### [place] [address] USACreatinine [Mass/volume] in Serum or PlasmaOrdered By: Fiona Fraser on 12-56-9321Qrrswujccl [Mass/Vol]0.63 mg/dLNormal0.60-1.20 [facility] CampusComment on above:Performed By: #### BMP #### [place] [address] USAECG 12 lead ECGon 29-25-5771GVK 12 lead ECGTRINITY HEALTH SYSTEM EAST CAMPUS [place] [address] [place] [address] Electrocardiograph Report Signed Patient: Olive Turpin MR#: [id number] : 1960 Acct:[id number] Age/Sex: 64 / F ADM Date: 12/04/24 Loc: PS Room: Type: [facility] Attending Dr: Fiona Fraser DO [...] Signed By Katelyn Jones MD 0 12/05/[address] [place] [address] Physician GroupEosinophils [#/volume] in Blood by Automated countOrdered By: Fiona Fraser on 48-38-6036Pdeywkznqfg (Bld) [#/Vol]0.1 10*3/uLNormal0.0-0.45[facility] CampusComment on above:Performed By: #### CBC #### [facility] [address] [place], [place] [address] USAEosinophils/100 leukocytes in Blood by Automated count Ordered By: Fiona Fraser on 58-04-6961Hsvbtgfnxmj/100 WBC (Bld)1.4 %Normal. [facility] CampusComment on above:Performed By: #### CBC #### [facility] [address] [place], [place] [address] USAErythrocyte distribution width [Ratio] by Automated count Ordered By: Fiona Fraser on 78-66-3148Hhqsqqcxtxp distribution width (RBC) [Ratio]13.4 %Gdxxij15.9-15.3FSt. Elizabeth HospitalComment on above: Performed By: #### CBC #### [facility] [address] [place] [address] USAErythrocytes [#/volume] in Blood by Automated countOrdered By: Fiona Fraser on 90-80-9015TZQ (Bld) [#/Vol]4.52 10*6/uLNormal3.60-5.00 [facility] CampusComment on above:Performed By: #### CBC #### [facility] [address] [place] [address] USAGlucose [Mass/volume] in Serum or PlasmaOrdered By: Fiona Fraser on 97-22-0088Lkowfsy [Mass/Vol]95 mg/hMLczjkj87-747FrtvtwsygTrinity Health System East CampusComment on above:ADA recommended reference rangeRandom Glucose Reference Range is dependent on time and content of last meal. Glucose of more than 200 mg/dL in a nonstressed, ambulatory subject supports the diagnosisof Diabetes Mellitus.Result Comment: Random Glucose Reference Range is dependent on time and content of last meal. Glucose of more than 200 mg/dL in a nonstressed, ambulatory subject supports the diagnosis of Diabetes Mellitus. ADA recommended reference rangePerformed By: #### BMP #### [place] [id number] USAHematocrit [Volume Fraction] of Blood by Automated count Ordered By: Fiona Fraser on 53-75-0877Oslqyzitpi (Bld) [Volume fraction]38.9 %Guuvfe16.0-46.4FSt. Elizabeth HospitalComment on above:Performed By: #### CBC #### [facility] [address] [place] [address] USAHemoglobin [Mass/volume] in BloodOrdered By: Fiona Fraser on 66-68-6158Mtmccheqkf (Bld) [Mass/Vol]13.4 g/aZYcctni54.8-15.4FSt. Elizabeth HospitalComment on above:Performed By: #### CBC #### [place] [id number] USAINR in Platelet poor plasma by Coagulation assayOrdered By: Fiona Fraser on 83-72-6646YTT Coag (PPP) [Relative time]1.0 {INR}Normal [facility] CampusComment on above:INR Therapeutic Range A) Pre- and Peroperative OAT started two weeks before surgery. NOT HIP SURGERY: 1.5 - 2.5 HIP SURGERY: 2 - 3B) Primary and secondary prevention of venous THROMBOSIS: 2 - 3C) Active venous thrombosis, pulmonary embolismand prevention of recurrent venous thrombosis: 2 - 3D) Prevention of arterial thromboembolismincluding patients with mechanical heart valves: 3 - 4.5Result Comment: INR Therapeutic Range A) Pre- and [...] patients with mechanical heart valves: 3 - 4.5Performed By: #### PT, PTT #### [place] [address] USALeukocytes [#/volume] corrected for nucleated erythrocytes in Blood by Automated counOrdered By: Fiona Fraser on 77-60-7263TUE corrected for nucl RBC Auto (Bld) [#/Vol]6.1 10*3/uL3.8-11.6FSt. Elizabeth HospitalLeukocytes [#/volume] in Blood by Automated countOrdered By: Fiona Evelio on 70-19-3571GQE (Bld) [#/Vol]6.1 10*3/uLNormal3.8-11.6FSt. Elizabeth HospitalComment on above:Performed By: #### CBC #### [facility] [address] [place] [address] USALymphocytes [#/volume] in Blood by Automated countOrdered By: Fiona Evelio on 79-92-0837Ksobznnhhjm (Bld) [#/Vol]1.6 10*3/uLNormal 1.00-4.8[facility] CampusComment on above:Performed By: #### CBC #### [facility] [address] [place] [address] USALymphocytes/100 leukocytes in Blood by Automated count Ordered By: Fiona Fraser on 38-14-4711Tfufxiazwba/100 WBC (Bld)26.6 %Normal. [facility] CampusComment on above:Performed By: #### CBC #### [facility] [address] [Entitic mass] by Automated countOrdered By: Fiona Fraser on 45-68-6186GHX (RBC) [Entitic mass]29.6 iqHbrzpy07.7-34.3FSt. Elizabeth HospitalComment on above:Performed By: #### CBC #### [place] [address] USAHC Auto (RBC) [Mass/Vol]Ordered By: Fiona Fraser on 27-25-3359SBFR (RBC) [Mass/Vol]34.4 g/dL32.0-35.0[facility] CampusMCV [Entitic volume] by Automated countOrdered By: Fiona Fraser on 69-04-9027ZDZ (RBC) [Entitic vol]86.0 zZMmpimf85-025ZbpfllniyTrinity Health System East CampusComment on above:Performed By: #### CBC #### [place] [address] USAMonocytes [#/volume] in Blood by Automated countOrdered By: Fiona Fraser on 54-12-2127Mwwhvnoix (Bld) [#/Vol]0.5 10*3/uLNormal0.0-0.8 [facility] CampusComment on above:Performed By: #### CBC #### [facility] [address] [place] [address] USAMonocytes/100 leukocytes in Blood by Automated count Ordered By: Fiona Fraser on 20-37-6904Lvtmlywey/100 WBC (Bld)7.9 %Normal. [facility] CampusComment on above:Performed By: #### CBC #### [place] [address] USANeutrophils [#/volume] in Blood by Automated countOrdered By: Fiona Fraser on 59-07-8713Mwhimiwycwa (Bld) [#/Vol]3.8 10*3/uLNormal 1.8-7.7FSt. Elizabeth HospitalComment on above:Performed By: #### CBC #### [facility] [address] [place] [address] USANeutrophils/100 leukocytes in Blood by Automated count Ordered By: Fiona Evelio on 78-27-3971Oyskymlmlnp/100 WBC (Bld)63.3 %Normal. [facility] CampusComment on above:Performed By: #### CBC #### [facility] [address] [place] [address] USANo Panel Informationon 69-69-8364VAUH HealthcareNo Panel InformationOrdered By: Fionachanel Fraser on 99-22-0684Yzvofhuid GFR (CKD-EPI)> 60.0 mL/MinTrinity Health System East CampusPharmacy Creatinine Clearance (Chem N/AFSt. Elizabeth HospitalNucleated erythrocytes [Presence] in Blood by Automated countOrdered By: Fiona Evelio on 06-16-2227Hbmotzsng RBC Auto Ql (Bld)0.1 /100{WBC}0-0.5FSt. Elizabeth HospitalPARTIAL THROMBOPLASTIN TIMEon 16-81-7682dEOJ Coag (Bld) [Time]29.7 s25.1 - 36.5 [facility] HospitalComment on above:A hematocrit value greater than 55% may lead to inaccurate results in coagulation testing. Patients having hematocrit values >55% require a special collection tube for coagulation studies. Please contact the laboratory at [phone] for redraw instructions. PST Type and Screenon 91-09-7168TTA and Rh group Nom (Bld)Blood group B Rh(D) positiveNoFirstHealth Montgomery Memorial Hospital Physician GroupComment on above:Order Comment: Date of Surgery: [id number] Comment: PERFORMED BY: [place] [address] PATHOLOGIST REGIONAL CLINICAL DIRECTOR MICHELLE PATEL M.D.PT Coag (Bld) [Time]on 22-89-9585DHR Coag (PPP) [Relative time]1 {INR}NOMS HealthcareComment on above:INR Therapeutic Range A) Pre- and Peroperative OAT [...] valves: 3 - 4.5 PT Coag (PPP) [Time]11.6 s9.0 - 12.9 sNOMS HealthcareComment on above:A hematocrit value greater than 55% may lead to inaccurate results in coagulation testing. Patients having hematocrit values >55% require a special collection tube for coagulation studies. Please contact the laboratory at [phone] for redraw instructions. Partial Thromboplastin Timeon 28-97-6496sUUF Coag (Bld) [Time]29.7 sNormal 25.1-36.5The [facility] Physician GroupComment on above:Result Comment: A hematocrit value greater than 55% may lead to inaccurate results in coagulation testing. Patients having hematocrit values >55% require a special collection tube for coagulation studies. Please contact the laboratory at [phone] for redraw instructions. PERFORMED BY: [place] [address] PATHOLOGIST REGIONAL CLINICAL DIRECTOR MICHELLE PAETL M.D.Performed By: #### PT, PTT #### [facility] [address] [place] [address] USAPlatelet mean volume [Entitic volume] in Blood by Automated countOrdered By: Fiona Fraser on 01-88-1239Vprsrfeo mean volume (Bld) [Entitic vol]8.9 fLNormal6.3-10.7FSt. Elizabeth HospitalComment on above:Performed By: #### CBC #### [facility] [address] [place] [address] USAPlatelets [#/volume] in Blood by Automated countOrdered By: Fiona Frasre on 64-94-3993Lpwnetqaa (Bld) [#/Vol]221 10*3/wOWyzsau960-540 [facility] CampusComment on above:Performed By: #### CBC #### [facility] [address] [place] [address] USAPotassium [Moles/volume] in Serum or PlasmaOrdered By: Fiona Fraser on 82-96-2396Jgrasigvs [Moles/Vol]4.0 mmol/LNormal3.5-5.1 [facility] CampusComment on above:Performed By: #### BMP #### [facility] [address] [place] [address] USAProthrombin time (PT)Ordered By: Fiona Fraser on 27-64-5834WM Coag (PPP) [Time]11.6 sNormal9.0-12.9[facility] East CampusCominsight surgical hospital on above:A hematocrit value greater than 55% may lead to inaccurate results in coagulation testing. Patientshaving hematocrit values >55% require a special collection tube for coagulation studies. Please contact the laboratory at [phone] for redraw instructions.Result Comment: A hematocrit value greater than 55% may lead to inaccurate results in coagulation testing. Patients having hematocrit values >55% require a special collection tube for coagulation studies. Please contact the laboratory at [phone] for redraw instructions.Performed By: #### PT, PTT #### [place] [address] USASerum or plasma anion gap determinationOrdered By: Fiona Fraser on 28-35-2647Gftxk gap [Moles/Vol]9.3 mmol/LNormal6.0-15.0 [facility] CampusComment on above:Performed By: #### BMP #### [facility] [address] [place] [address] USASodium [Moles/volume] in Serum or PlasmaOrdered By: Fiona Fraser on 21-67-0746Vbleqr [Moles/Vol]143 mmol/FGwrvpx207-232GvuysekqeTrinity Health System East CampusComment on above:Performed By: #### BMP #### [place] [address] USAUrea nitrogen [Mass/volume] in Serum or PlasmaOrdered By: Fiona Fraser on 54-76-6723Apnj nitrogen [Mass/Vol]11 mg/dLNormal12-08Tr[facility] CampusComment on above:Performed By: #### BMP #### [facility] [address] [place] [address] USAaPTT in Platelet poor plasma by Coagulation assayOrdered By: Fiona Fraser on 88-72-8658aSKZ Coag (PPP) [Time]29.7 s25.1-36.5FSt. Elizabeth HospitalComment on above:A hematocrit value greater than 55% may lead to inaccurate results in coagulation testing. Patientshaving hematocrit values >55% require a special collection tube for coagulation studies. Please c ontact the laboratory at [phone] for redraw instructions.MM screening mammo BI w/CADon [id number] screening mammo BI w/[facility] [address] [place] [address] [address] [id number] Mammography Report Signed Patient: Olive Turpin MR#: [id number] : 1960 Acct:[id number] Age/Sex: 63 / F Adm Date: 08/26/24 Loc: [place] Room: Type: [facility] Attending Dr: Laurie Camilo Ordering Provider: SELF,REFERRAL Date of Service: 08/26/24 Procedure(s): MM screening mammo BI w/CAD Accession Number(s): ([id number]) MM/MM screening mammo BI w/CAD: ROUTINE Copies [...] Ware Jr., D.OChaim08/28/2024 9:44 AM Dictation Location: [facility] Dictated By: Junaid Ware Jr, DO 08/28/24 0943 Signed By: 08/28/24 0944[facility] Physician GroupAmbulatory Visit Summaryon [id number] Visit SummaryAmbulatory Visit Summary OLIVE TURPIN :1960 Visit Date:02/15/2024 [...] you for choosing us for your care. [facility] CenterGeneral [facility] Office/Clinic Noteon [id number] Surgery Office/Clinic NoteGeneral Surgery Office/Clinic Note Chief Complaint follow up [...] swallowing difficulties, no hearing loss, no ear infection(s),no nose bleeds. Cardiovascular: normal blood pressure, no [...] 06/12/2020 Recorded SARS-CoV-2 (COVID-19) mRNA-1273 vaccine 05/14/2020 RecordedNoSt. Rita's HospitalComment on above:Result Comment: Electronically Signed By: DARIUS OCONNOR, Wali Saxena.br\Date and Time Signed: 02/15/24 15:15 EDTSurgical Pathology Reporton [id number] Pathology ReportThe [facility] [address] [facility] [place] [address]- Surgical Pathology Report Collected Date/Time: 02/02/2024 15:46 [...] and entirely submitted in one cassette. (DC) DC:[facility] Microscopic Description Microscopic examination performed unless gross only specified.[facility] CenterComment on above:Performed By: #### [id number] #### [facility] [address] [place], [place] [address]Wegwgdeixy Visit Summaryon [id number] Visit Summary Ambulatory Visit Summary OLIVE TURPIN :1960 Visit Date:02/02/2024 Ambulatory Visit Instructions Your Care Team Attending Physician - Wali MCCOY MD Primary Care Physician - Mireya Allen MD This Is Your Medications List eletriptan (Relpax 40 mg Tab) Procedures Performed Endometrial ablation. What to do next Scheduled Follow-Up Appointments Wednesday 3:00 PM EDT With: Wali MCCOY MD Where: [address], [address], [place] [id number]- Medications What How Much When Instructions Unchanged [...] you for choosing us for your care. [facility] CenterGeneral Surgery Office/Clinic Noteon [id number] Surgery Office/Clinic NoteGeneral Surgery Office/Clinic Note Chief Complaint in-office incisional [...] Ordered: Incisional biopsy of skin, single lesion 86732 Pathology Tissue Exam Follow-up No qualifying data [...] 06/12/2020 Recorded SARS-CoV-2 (COVID-19) mRNA-1273 vaccine 05/14/2020 RecordedUniversity Hospitals Lake West Medical CenterComment on above:Result Comment: Electronically Signed By: DARIUS OCONNOR, Wali Rick\Date and Time Signed: 02/02/24 15:34 EDTC ANAon 02-19-2023 DAISY Final No anaerobic growth after 72 hrs.[facility] Doctors HospitalComment on above:Performed By: #### KIN #### [facility] [address] [place] [id number] [place] 02-18-2023 Wound Final Light Growth of Methicillin-Resistant Staphylococcus aureus [...] vivo Per (CLSI) Clinical and Laboratory Standards [place]. oxacillin resistant, beta-lactamase positive (penicillin-R) staphlococci are considered resistant to all cephems,beta-lactam/ beta-lactamase inhibitor combination,carbapenems, and penicillins. INFECTION PREVENTION NOTE:CONTACT or DROPLET Isolation Precautions may be appropriate in addition to Standard Precautions for this patient with Multi-drug Resistant Organism.This patient may be a candidate for antibiotic nasal cream. Tetracycline S <=1 V Trimethoprim/Sulfa S <=10 V Vancomycin S 1 VNAdena Health SystemComment on above:Performed By: #### WDC #### [facility] (DEFAULT) [address] [place] [address] [id number] LABCORPon [id number] [Mass/Vol]8.3 ug/dLNormal4.5-12.0[facility] Brentwood HospitalComment on above:Performed By: #### T4LC #### [facility] [address] [place] [address] Dr. Ingris Del Cid AUTO DIFFon [id number] #0.1 103/ulNormal0.0-0.1[facility] Brentwood HospitalComment on above:Performed By: #### CBC #### [facility] [address] [place] [address] Dr. Ingris Berumensophils/100 WBC (Bld)1.1 %Normal0.2-2.0The [facility] Comment on above:Performed By: #### CBC #### [facility] [address] [place] [address] Dr. Ingris Sy #0.1 103/ulNormal0.0-0.7The [facility] CenterComment on above: Performed By: #### CBC #### [facility] [address] [place] [address] Dr. Ingris Mccoyosinophils/100 WBC (Bld)1.7 %Normal0.9-7.0The [facility] Comment on above:Performed By: #### CBC #### [facility] [address] [place] [address] Dr. Ingris Mccoyrythrocyte distribution width (RBC) [Ratio]12.6 %Fkjcug62.0-15.0 The [facility] CenterComment on above:Performed By: #### CBC #### [facility] [address] [place] [address] Dr. Ingris AcostaHematocrit (Bld) [Volume fraction]40.2 %Tozgnk95.0-48.0The [facility] CenterComment on above:Performed By: #### CBC #### [facility] [address] [place] [address] Dr. Ingris AcostaHemoglobin (Bld) [Mass/Vol]13.3 g/xRSbmlqg87.0-16.0The [facility] CenterComment on above:Performed By: #### CBC #### [facility] [address] [place] [address] Dr. Ingris AcostaIG #0.01 10e3/ulNormal0.00-0.03The [facility] CenterComment on above:Performed By: #### CBC #### [facility] [address] [place] [address] Dr. Ingris AcostaIG %0.2 %Normal0.0-0.5The [facility] CenterComment on above: Performed By: #### CBC #### [facility] [address] [place] [address] Dr. Ingris CruzMPH #1.7 103/ulNormal1.2-3.8The [facility] CenterComment on above:Performed By: #### CBC #### [facility] [address] [place] [address] Dr. Ingris Cruzmphocytes/100 WBC (Bld)36.2 %Zebgdi07.5-60.0The [facility] CenterComment on above:Performed By: #### CBC #### [facility] [address] [place] [address] Dr. Ingris West DIFF REQNONormalThe [facility] CenterComment on above: Performed By: #### CBC #### [facility] [address] [place] [address] Dr. Ingris Shelton (RBC) [Entitic mass]29.3 nfNmnmnq42.7-34.0The [facility] CenterComment on above:Performed By: #### CBC #### [facility] [address] [place] [address] Dr. Ingris Shelton (RBC) [Mass/Vol]33.1 g/nZSphslw22.9-35.2The [facility] CenterComment on above:Performed By: #### CBC #### [facility] [address] [place] [address] Dr. Ingris Shelton (RBC) [Entitic vol]88.5 eVJqunwg96.0-99.0The [facility] CenterComment on above:Performed By: #### CBC #### [facility] [address] [place] [address] Dr. Ingris Redd #0.5 103/ulNormal0.3-0.8The [facility] CenterComment on above:Performed By: #### CBC #### [facility] [address] [place] [address] Dr. Ingris Romoocytes/100 WBC (Bld)10.4 %Normal1.7-12.0The [facility] Comment on above:Performed By: #### CBC #### [facility] [address] [place] [address] Dr. Ingris Levy #2.3 103/ulNormal1.4-6.5The [facility] CenterComment on above:Performed By: #### CBC #### [facility] [address] [place] [address] Dr. Ingris Solisutrophils/100 WBC (Bld)50.4 %Thehvp38.0-75.0The [facility] CenterComment on above:Performed By: #### CBC #### [facility] [address] [address] [address] Ingris Holcomb mean volume (Bld) [Entitic vol]10.8 fLNormal9.5-13.5The [facility] on above:Performed By: #### CBC #### [facility] [address] [address] [address] Ingris AcostaPLT211 103/noPjzbsd790-085Gvp [facility] CenterComment on above: Performed By: #### CBC #### [facility] [address] [address] [address] Ingris AcostaRBC4.54 106/ulNormal4.20-5.40The [facility] CenterComment on above:Performed By: #### CBC #### [facility] [address] [place] [address] Dr. Ingris AcostaWBC4.6 103/ulNormal4.0-11.0The [facility] CenterComment on above: Performed By: #### CBC #### [facility] [address] [place] [address] Dr. Ingris AcostaFRSHRUTHI THYROXINE INDEX T7on 98-20-2648ZZP1.63Bssptz1.30-4.50The [facility] on above:Performed By: #### T7, TSH, CMP, LIPID #### [facility] [address] [place] [address] Dr. Ingris AcostaT3U32.0 %Wwgoro56.0-39.0The [facility] Hospital - Columbusment on above: Performed By: #### T7, TSH, CMP, LIPID #### [facility] [address] [place] [address] Dr. Ingris AcostaT4 [Mass/Vol]8.30 ug/dLNormal4.80-13.90The [facility] Comment on above:Performed By: #### T7, TSH, CMP, LIPID #### [facility] [address] [place] [address] Dr. Ingris AcostaGLYCOHEMOGLOBIN A1Con 54-53-7478LYB RECOMMENDATIONSEE BELOWNormal The [facility] CenterComment on above:Result Comment: ADA RECOMMENDED LIMIT 4.0 - 6.0 ADA THERAPEUTIC TARGET < 7.0 ACTION SUGGESTED > 7.0Performed By: #### A1C #### [facility] [address] [place] [address] Dr. Ingris AcostaGlucose [Mass/Vol]111 mg/dLMercy Health St. Vincent Medical CenterComment on above:Performed By: #### A1C #### [facility] [address] [place] [address] Dr. Ingris AcostaHbA1c (Bld) [Mass fraction]5.5 %Normal4.5-6.2[facility] Brent[facility] HospitalComment on above:Performed By: #### A1C #### [facility] [address] [place] [address] Dr. Ingris KeitaID PROFILEon 43-78-7799RGSP-HDL RATIO NORMSSCCI Hospital LimaCominsight surgical hospital on above:Result Comment: 3.3 - 4.4 LOW RISK 4.4 - 7.1 AVERAGE RISK 7.1 - 11.0 MODERATE RISK >11.0 HIGH RISKPerformed By: #### T7, TSH, CMP, LIPID #### [facility] [address] [place] [address] Dr. Ingris Ludwigesterol [Mass/Vol]153 mg/dLNormal<=200The [facility] Comment on above:Performed By: #### T7, TSH, CMP, LIPID #### [facility] [address] [place] [address] Dr. Ingris AcostaCholesterol in HDL [Mass/Vol]59 mg/zYRtnsdj49-52EhkSuburban Community Hospital & Brentwood HospitalCominsight surgical hospital on above:Performed By: #### T7, TSH, CMP, LIPID #### [facility] [address] [place] [address] Dr. Ingris AcostaCholesterol in LDL [Mass/Vol]80.8 mg/dLMercy Health St. Vincent Medical CenterCominsight surgical hospital on above:Performed By: #### T7, TSH, CMP, LIPID #### [facility] [address] [place] [address] Dr. Yilan ChangCholesterol.total/Cholesterol in HDL [Mass ratio]2.6 {ratio} NormalThe [facility] CenterComment on above:Performed By: #### T7, TSH, CMP, LIPID #### [facility] [address] [address] [address] Ingris Huber NORMAL> or = 60 mg/dl - LOW CARDIOVASCULAR RISK <40 mg/dl - HIGH CARDIOVASCULAR RISKMercy Health St. Vincent Medical CenterComment on above:Performed By: #### T7, TSH, CMP, LIPID #### [facility] [address] [place] [address] Dr. Ingris AcostaLDL CALC NORMALSEE BELOWNoUniversity Hospitals Parma Medical CenterComment on above:Result Comment: <100 mg/dl OPTIMAL 100 - 129 mg/dl NEAR OR ABOVE OPTIMAL 130 - 159 mg/dl BORDERLINE HIGH 160 - 189 mg/dl HIGH >190 mg/dl VERY HIGH Performed By: #### T7, TSH, CMP, LIPID #### [facility] [address] [place] [address] Dr. Ingris AcostaTriglyceride [Mass/Vol]66 mg/dLNormal<=150The [facility] Comment on above:Performed By: #### T7, TSH, CMP, LIPID #### [facility] [address] [place] [address] Dr. Ingris AlarconLDL CALC13.2 mg/dLNoUniversity Hospitals Parma Medical CenterComment on above: Performed By: #### T7, TSH, CMP, LIPID #### [facility] [address] [place] [address] Dr. Ingris AcostaPRORavi 14(COMP METB)on 28-83-1526Ibjopre [Mass/Vol]4.2 g/dLNormal 3.4-5.0The [facility] CenterComment on above:Performed By: #### T7, TSH, CMP, LIPID #### [facility] [address] [place] [address] Dr. Ingris AcostaAlbumin/Globulin [Mass ratio]1.4 {ratio}NormalThe [facility] CenterComment on above:Performed By: #### T7, TSH, CMP, LIPID #### [facility] [address] [address] [address] Ingris Thompson [Catalytic activity/Vol]106 U/IYjdmqn03-576Cot [facility] CenterComment on above:Performed By: #### T7, TSH, CMP, LIPID #### [facility] [address] [address] [address] Ingris Lockhart [Catalytic activity/Vol]34 U/NRoeivb24-49Ctk [facility] CenterComment on above:Performed By: #### T7, TSH, CMP, LIPID #### [facility] [address] [address] [address] Ingris Avilez gap [Moles/Vol]11.9 mmol/LNormalThe [facility] Comment on above:Performed By: #### T7, TSH, CMP, LIPID #### [facility] [address] [address] [address] Inrgis AcostaAST [Catalytic activity/Vol]14 U/LCritically qmq17-16Liz [facility] CenterComment on above:Performed By: #### T7, TSH, CMP, LIPID #### [facility] [address] [address] [address] Ingris AcostaBilirubin [Mass/Vol]0.5 mg/dLNormal0.2-1.0The [facility] Comment on above:Performed By: #### T7, TSH, CMP, LIPID #### [facility] [address] [address] [address] Ingris AcostaCalcium [Mass/Vol]9.2 mg/dLNormal8.5-10.1The [facility] Comment on above:Performed By: #### T7, TSH, CMP, LIPID #### [facility] [address] [address] [address] Ingris AcostaChloride [Moles/Vol]107 mmol/QMnhdqo07-279Jrr [facility] Comment on above:Performed By: #### T7, TSH, CMP, LIPID #### [facility] [address] [address] [address] Ingris AcostaCO2 [Moles/Vol]26.7 mmol/IXhprog19.0-32.0The [facility] Comment on above:Performed By: #### T7, TSH, CMP, LIPID #### [facility] [address] [address] [address] Ingris AcostaCreatinine [Mass/Vol]0.70 mg/dLNormal0.55-1.02[facility] Brent[facility] HospitalComment on above:Performed By: #### T7, TSH, CMP, LIPID #### [facility] [address] [place] [address] Dr. Ingris MccoyGFR-AF MALDIVIAN>60Normal>=60The [facility] CenterComment on above:Performed By: #### T7, TSH, CMP, LIPID #### [facility] [address] [place] [address] Dr. Ingris Reyna-NON AF MALDIVIAN>60Normal>=60The [facility] CenterComment on above:Performed By: #### T7, TSH, CMP, LIPID #### [facility] [address] [place] [address] Dr. Ingris AcostaGlobulin (S) [Mass/Vol]3.0 g/dLNormalThe [facility] CenterComment on above:Performed By: #### T7, TSH, CMP, LIPID #### [facility] [address] [place] [address] Dr. Ingris AcostaGlucose [Mass/Vol]96 mg/bKGkfbqe50-989ThmSuburban Community Hospital & [facility] Hospital Comment on above:Performed By: #### T7, TSH, CMP, LIPID #### [facility] [address] [place] [address] Dr. Ingris AcostaPotassium [Moles/Vol]3.6 mmol/LNormal3.5-5.1[facility] Comment on above:Performed By: #### T7, TSH, CMP, LIPID #### [facility] [address] [place] [address] Dr. Ingris AcostaProtein [Mass/Vol]7.2 g/dLNormal6.4-8.2The [facility] Comment on above:Performed By: #### T7, TSH, CMP, LIPID #### [facility] [address] [place] [address] Dr. Ingris Lathamdium [Moles/Vol]142 mmol/ERkgxml692-427PdaSuburban Community Hospital & [facility] Hospital Comment on above:Performed By: #### T7, TSH, CMP, LIPID #### [facility] [address] [place] [address] Dr. Ingris Dawkins nitrogen [Mass/Vol]14.0 mg/dLNormal7.0-18.0The [facility] CenterComment on above:Performed By: #### T7, TSH, CMP, LIPID #### [facility] [address] [place] [address] Dr. Ingris Dawkins nitrogen/Creatinine [Mass ratio]20.0 mg/mgNoUniversity Hospitals Parma Medical CenterComment on above:Performed By: #### T7, TSH, CMP, LIPID #### [facility] [address] [place] [address] Dr. Ingris Alcala 23-47-2203TES5.206 uIU/mLNormal0.358-3.740[facility] Brentwood HospitalComment on above:Performed By: #### T7, TSH, CMP, LIPID #### [facility] [address] [place] [address] Dr. Ingris HERNANDEZ BELOWMercy Health St. Vincent Medical CenterComment on above: Result Comment: <0.34 UIU/ml HYPERTHYROID 0.34-5.60 UIU/ml EUTHYROID >5.60 UIU/ml HYPOTHYROIDPerformed By: #### T7, TSH, CMP, LIPID #### [facility] [address] [place] [address] Dr. Ingris Del Cid AUTO DIFFon 78-63-6139WEPB #0.0 103/ulNormal0.0-0.1The [facility] CenterComment on above:Performed By: #### CBC #### [facility] [address] [place] [address] Jasen KarenBasophils/100 WBC (Bld)0.6 %Normal0.2-2.0[facility] Comment on above:Performed By: #### CBC #### [facility] [address] [place] [address] Jasen KarenEO #0.2 103/ulNormal0.0-0.7The [facility] - Columbusment on above: Performed By: #### CBC #### [facility] [address] [place] [address] Jasen KarenEosinophils/100 WBC (Bld)2.3 %Normal0.9-7.0The [facility] Comment on above:Performed By: #### CBC #### [facility] [address] [place] [address] Jasen KarenErythrocyte distribution width (RBC) [Ratio]12.6 %Bfuvpu32.0-15.0The [facility] - Columbusment on above:Performed By: #### CBC #### [facility] [address] [place] [address] Jasen KarenHematocrit (Bld) [Volume fraction]38.6 %Rovjwm54.0-48.0The [facility] CenterComment on above:Performed By: #### CBC #### [facility] [address] [place] [address] Jasen KarenHemoglobin (Bld) [Mass/Vol]12.7 g/xZDcbfip60.0-16.0The [facility] CenterComment on above:Performed By: #### CBC #### [facility] [address] [place] [address] Jasen KarenIG #0.03 10e3/ulNormal0.00-0.03The [facility] CenterComment on above:Performed By: #### CBC #### [facility] [address] [place] [address] Jasen KarenIG %0.4 %Normal0.0-0.5The [facility] CenterComment on above: Performed By: #### CBC #### [facility] [address] [place] [address] Jasen KarenLYMPH #1.3 103/ulNormal1.2-3.8The [facility] CenterComment on above: Performed By: #### CBC #### [facility] [address] [id number] Jasen KarenLymphocytes/100 WBC (Bld)18.8 %Critically low20.5-60.0The [facility] CenterComment on above:Performed By: #### CBC #### [facility] [address] [place] [address] Jasen KarenMANUAL DIFF REQNONormalThe [facility] CenterComment on above: Performed By: #### CBC #### [facility] [address] [place] [address] Jasen KarenMCH (RBC) [Entitic mass]29.0 txKmgpir50.7-34.0The [facility] Comment on above:Performed By: #### CBC #### [facility] [address] [place] [address] Jasen KarenMCHC (RBC) [Mass/Vol]32.9 g/rPGvfrbb39.9-35.2The [facility] Comment on above:Performed By: #### CBC #### [facility] [address] [place] [address] Jasen KarenMCV (RBC) [Entitic vol]88.1 nSWumjps37.0-99.0The [facility] Comment on above:Performed By: #### CBC #### [facility] [address] [place] [address] Jasen KarenMONO #0.6 103/ulNormal0.3-0.8The [facility] CenterComment on above: Performed By: #### CBC #### [facility] [address] [place] [address] Jasen KarenMonocytes/100 WBC (Bld)9.1 %Normal1.7-12.0The [facility] Comment on above:Performed By: #### CBC #### [facility] [address] [place] [address] Jasen KarenNEUT #4.8 103/ulNormal1.4-6.5The [facility] CenterComment on above: Performed By: #### CBC #### [facility] [address] [place] [address] Jasen ViverosenNeutrophils/100 WBC (Bld)68.8 %Owqksm69.0-75.0The [facility] Comment on above:Performed By: #### CBC #### [facility] [address] [place] [address] Jasen ViverosenPlatelet mean volume (Bld) [Entitic vol]10.8 fLNormal9.5-13.5The [facility] CenterComment on above:Performed By: #### CBC #### [facility] [address] [place] [address] Jasen QehxiUXA280 103/asPbrsxj223-015Pdp [facility] CenterComment on above: Performed By: #### CBC #### [facility] [address] [place] [address] Jasen KarenRBC4.38 106/ulNormal4.20-5.40The [facility] CenterComment on above: Performed By: #### CBC #### [facility] [address] [place] [address] Jasen KarenWBC7.0 103/ulNormal4.0-11.0The [facility] CenterComment on above: Performed By: #### CBC #### [facility] [address] [place] [address] Jasen ViverosenFREE THYROXINE INDEX T7on 17-45-0966NAJ9.74NormalThe [facility] CenterComment on above:Performed By: #### A1C #### [facility] [address] [place] [address] Jasen RriqqF7U22.0 %Wialvs08.5-40.5The [facility] CenterComment on above: Performed By: #### A1C #### [facility] [address] [place] [address] Jasen KarenT4 [Mass/Vol]8.30 ug/dLNormal5.53-11.00The [facility] CenterComment on above:Performed By: #### A1C #### [facility] [address] [place] [address] Jasen KarenGLYCOHEMOGLOBIN A1Con 61-55-3109RZL RECOMMENDATIONADA THERAPEUTIC TARGET 6.0 - 7.0 ACTION SUGGESTED > 7.0[facility] St. Vincent Medical CenterComment on above:Performed By: #### A1C #### [facility] [address] [address] Jasen KarenGlucose [Mass/Vol]111 mg/dLMercy Health St. Vincent Medical CenterComment on above:Performed By: #### A1C #### [facility] [address] [address] Jasen WovttYkY8u (Bld) [Mass fraction]5.5 %Normal<=6.0[facility] Comment on above:Performed By: #### A1C #### [facility] [address] [place] [address] Jasen KarenLIPID PROFILEon 18-84-3085WZFQ-HDL RATIO NORMSEE BELOWMercy Health St. Vincent Medical CenterComment on above:Result Comment: 3.3 - 4.4 LOW RISK 4.4 - 7.1 AVERAGE RISK 7.1 - 11.0 MODERATE RISK >11.0 HIGH RISKPerformed By: #### A1C #### [facility] [address] [place] [address] Jasen KarenCholesterol [Mass/Vol]147 mg/dLNormal<=200[facility] Comment on above:Performed By: #### A1C #### [facility] [address] [address] Jasen KarenCholesterol in HDL [Mass/Vol]50 mg/dLMercy Health St. [facility] Comment on above:Performed By: #### A1C #### [facility] [address] [place] [address] Jasen KarenCholesterol in LDL [Mass/Vol]76.6 mg/dLMercy Health St. [facility] Comment on above:Performed By: #### A1C #### [facility] [address] [place] [address] Jasen KarenCholesterol.total/Cholesterol in HDL [Mass ratio]2.9 {ratio}Normal The [facility] CenterComment on above:Performed By: #### A1C #### [facility] [address] [place] [address] Jasen KarenHDL NORMAL> or = 60 mg/dl - LOW CARDIOVASCULAR RISK <40 mg/dl - HIGH CARDIOVASCULAR RISKMercy Health St. Vincent Medical CenterCominsight surgical hospital on above:Performed By: #### A1C #### [facility] [address] [place] [address] Jasen KarenLDL CALC NORMALSEE BELOWMercy Health St. Vincent Medical CenterComment on above: Result Comment: <100 mg/dl OPTIMAL 100 - 129 mg/dl NEAR OR ABOVE OPTIMAL 130 - 159 mg/dl BORDERLINE HIGH 160 - 189 mg/dl HIGH >190 mg/dl VERY HIGHPerformed By: #### A1C #### [facility] [address] [place] [address] Jasen KarenTriglyceride [Mass/Vol]102 mg/dLNormal<=150[facility] Comment on above:Performed By: #### A1C #### [facility] [address] [place] [address] Jasen KarenVLDL CALC20.4 mg/dLNoUniversity Hospitals Parma Medical CenterComment on above: Performed By: #### A1C #### [facility] [address] [place] [address] Jasen KarenPROF 14(COMP METB)on 11-10-2216Dgbttqx [Mass/Vol]4.0 g/dLNormal 3.5-5.0[facility] HospitalComment on above:Performed By: #### A1C #### [facility] [address] [place] [address] Jasen KarenAlbumin/Globulin [Mass ratio]1.2 {ratio}NormalSuburban [facility] & [facility] Comment on above:Performed By: #### A1C #### [facility] [address] [place] [address] Jasen KarenALP [Catalytic activity/Vol]99 U/AKklmgh86-256WbwSuburban Community Hospital [facility] Comment on above:Performed By: #### A1C #### [facility] [address] [place] [address] Jasen KarenALT [Catalytic activity/Vol]20 U/LNormal9-52[facility] Comment on above:Performed By: #### A1C #### [facility] [address] [address] Jasen KarenAnion gap [Moles/Vol]13.3 mmol/LNormalSuburban Community Hospital & Brentwood HospitalComment on above:Performed By: #### A1C #### [facility] [address] [address] Jasen KarenAST [Catalytic activity/Vol]15 U/IZzrzxr18-23NbwSuburban Community Hospital & [facility] Comment on above:Performed By: #### A1C #### [facility] [address] [place] [address] Jasen KarenBilirubin [Mass/Vol]0.4 mg/dLNormal0.2-1.3TKettering Health [facility] Memorial Comment on above:Performed By: #### A1C #### [facility] [address] [place] [address] Jasen KarenCalcium [Mass/Vol]9.2 mg/dLNormal8.4-10.2[facility] Comment on above:Performed By: #### A1C #### [facility] [address] [place] [address] Jasen KarenChloride [Moles/Vol]109 mmol/LCritically pjka29-124MlaSuburban Community Hospital & Brentwood HospitalComment on above:Performed By: #### A1C #### [facility] [address] [place] [address] Jasen KarenCO2 [Moles/Vol]27.4 mmol/CTmesde91.0-30.0[facility] Comment on above:Performed By: #### A1C #### [facility] [address] [place] [address] Jasen KarenCreatinine [Mass/Vol]0.72 mg/dLNormal0.52-1.04[facility] Comment on above:Performed By: #### A1C #### [facility] [address] [address] Jasen KarenEGFR-AF MALDIVIAN>60Normal>=60The [facility] CenterComment on above: Performed By: #### A1C #### [facility] [address] [address] Jasen KarenEGFR-NON AF MALDIVIAN>60Normal>=60The [facility] CenterComment on above:Performed By: #### A1C #### [facility] [address] [address] Jasen KarenGlobulin (S) [Mass/Vol]3.3 g/dLNormThe Jewish HospitalComment on above:Performed By: #### A1C #### [facility] [address] [address] Jasen KarenGlucose [Mass/Vol]97 mg/rYWrpshr63-453Dxv [facility] CenterComment on above:Performed By: #### A1C #### [facility] [address] [place] [address] Jasen KarenPotassium [Moles/Vol]3.7 mmol/LNormal3.4-5.0The [facility] Comment on above:Performed By: #### A1C #### [facility] [address] [address] Jasen KarenProtein [Mass/Vol]7.3 g/dLNormal6.1-8.2The [facility] CenterComment on above:Performed By: #### A1C #### [facility] [address] [address] Jasen KarenSodium [Moles/Vol]146 mmol/LCritically sbqi897-467Asx [facility] CenterComment on above:Performed By: #### A1C #### [facility] [address] [address] Jasen KarenUrea nitrogen [Mass/Vol]15.0 mg/dLNormal7.0-17.0The [facility] CenterComment on above:Performed By: #### A1C #### [facility] [address] [address] Jasen KarenUrea nitrogen/Creatinine [Mass ratio]20.8 mg/mgNormalThe [facility] Health CenterComment on above:Performed By: #### A1C #### [facility] [address], [place] [address] Jasen Schofield 84-96-4855DMD9.227 uIU/mLNormal0.470-4.680The [facility] Health CenterComment on above:Performed By: #### T7, CMP, TSH, LIPID #### [facility] [address], [place] [address] Jasen De León [facility]FIELDNoUniversity Hospitals Parma Medical CenterComment on above:Result Comment: <0.34 UIU/ml HYPERTHYROID 0.34-5.60 UIU/ml EUTHYROID >5.60 UIU/ml HYPOTHYROIDPerformed By: #### T7, CMP, TSH, LIPID #### [facility] [address] [id number] Jasen Fairchild Vital Signs Date TimeVital SignValuePerforming AahlxgdffNcazoihm96-93-6043 15:49-0400Body mass index (BMI) [Ratio]25.13 kg/g0Hkxncbir Rinkes DO Work Phone: [facility] CenterAxzxgbrjop34-86-6005 15:49-0400Body qwpaqc05.33 kgKathleen Rinkes DO Work Phone: [facility] CenterEqxsgsrdgl85-07-6975 15:49-0400Diastolic blood ydfhawwk53 mm[Hg]Fiona Rinkes DO Work Phone: [facility] CenterWqnchqnkiu32-03-3059 15:49-0400Systolic blood mm[Hg]Fiona Rinkes DO Work Phone: [facility] CenterVmudljjkzk15-23-6249 10:28-0400Body mass index (BMI) [Ratio]25.13 kg/m6Itdziqtm Rinkes DO Work Phone: [facility] CenterRexmolfcik02-88-4607 10:28-0400Body mcudms91.33 kgKathleen Rinkes DO Work Phone: [facility] CenterTflonlghej01-09-4363 10:28-0400Diastolic blood uixggqus89 mm[Hg]Fiona Rinkes DO Work Phone: [facility] CenterSpbzfendrw97-97-8249 10:28-0400Systolic blood mm[Hg]Fiona Rinkes DO Work Phone: [facility] CenterExlfixxfcs32-92-6738 11:53-0400Diastolic blood mwntfbje12 mm[Hg]Mireya Allen MD Work Phone: 1(002)553-[address] [place], [place] 0110308-04-2025 11:53-0400 Heart rate71 /Sharri Allen MD Work Phone: 1(452)[facility]-[address] [place], [place] 0110308-04-2025 11:53-0400 Respiratory rate14 /Sharri Allen MD Work Phone: 1(006)[address] [place], [place] 3740608-04-2025 11:53-0400 SaO2% (BldA) [Mass fraction]98 %Mireya Allen MD Work Phone: 1(073)[address] [place], [place] 3740608-04-2025 11:53-0400 Systolic blood ounvaduv417 mm[Hg]Mireya Allen MD Work Phone: 1(525)[address] [place], [place] 3740608-04-2025 09:55-0400 Body mujwlpkbacq60.8 [degF]Mireya Allen MD Work Phone: 1(133)[address] [place], [place] 3740608-04-2025 09:15-0400 Inhaled oxygen flow rate8 L/Sharri Allen MD Work Phone: 1(450)[address] [place], [place] 3740608-04-2025 06:35-0400 Body fqwaup627.94 cmMireya Allen MD Work Phone: 1(600)[address] [place], [place] 3740608-04-2025 06:35-0400 Body qzkriw28.4 kgMireya Allen MD Work Phone: 1(243)[address]06-26-2025 14:15-0400 Body mass index (BMI) [Ratio]25.13 kg/q3Ptkfbqtg Rinkes DO Work Phone: [facility] CenterAlwffvsrib80-66-0144 14:15-0400Body dnzbal44.33 kgKathleen Rinkes DO Work Phone: [facility] CenterSuzacajodp96-85-4190 14:15-0400Diastolic blood gidrdocq85 mm[Hg]Fiona Rinkes DO Work Phone: [facility] CenterTwlmkzazkf35-44-0521 14:15-0400Systolic blood rvcexdqi365 mm[Hg]Fiona Rinkes DO Work Phone: [facility] CenterSvtftxiqrc60-48-5611 10:27-0400Body mass index (BMI) [Ratio]25.13 kg/z7Jamhhilh Rinkes DO Work Phone: [facility] CenterYpjufuqjbd70-83-8156 10:27-0400Body atecfs42.33 kgKathleen Rinkes DO Work Phone: [facility] CenterRhyrhgepam43-51-5419 10:27-0400Diastolic blood pwtcswau67 mm[Hg]Fiona Rinkes DO Work Phone: [facility] CenterYpbexzkyvc23-75-4423 10:27-0400Systolic blood auwiwfmg341 mm[Hg]Fiona Rinkes DO Work Phone: [facility] CenterEmjqoxkviw17-42-6366 14:06-0400Blood Pressure LocationMichael NILL 475-3571Nvrxnk-KtwedKettering Health Hamilton09-04-2024 14:06-0400Diastolic blood paubyqqr79 mm[Hg]Wali NILL [phone]-ZizklKettering Health Hamilton09-04-2024 14:06-0400Heart rate72 /minMichael NILL 171-2206Tvfmvj-OybtdKettering Health Hamilton09-04-2024 14:06-0400Respiratory rate16 /minMichael NILL 101-3026Gvhfvd-JxirnKettering Health Hamilton09-04-2024 14:06-0400Systolic blood tclgvgpo756 mm[Hg]Wali NILL 147-1639Veysfp-EhtewKettering Health Hamilton09-06-2023 14:30-0400Body .94 cmRobert Arash II Other no[employer] Other 09-06-2023 14:30-0400Body mass index (BMI) [Ratio] 23.62 kg/d7Mnzpsv [place] II Other noApplied [employer] Other 09-06-2023 14:30-0400Body faahqm08.7 kgRobert [place] II Other no[employer] Other Encounters Encounter DateEncounter TypeCare ProviderFacilityStart: 02-01-2025 End: 23-44-5860Wjazyx follow up visit related to original pxKathleen E Rinkes DO Work Phone: [facility] [place] OBGYNComment on above:Postoperative examinationStart: 02-01-2025 End: 95-78-5062ghwtmzdkfkDIJMOJHU E RINKESNot AvailableStart: 01-02-2025 End: 48-15-0426Antoybnqp Result EncounterShelia RODRIGUEZ Work Phone: noms External Department UnsolicitedStart: 01-02-2025 End: 54-81-5968Iydwpooen Result EncounterShelia RODRIGUEZ Work Phone: noms External Department UnsolicitedStart: 01-02-2025 End: 17-09-5978Qryuoz follow up visit related to original pxKathleen E Rinkes DO Work Phone: [facility] [place] OBGYNComment on above:Postoperative examinationStart: 01-02-2025 End: 98-22-1407ovietbpfytQDOEMMYB E RINKESNot AvailableStart: 12-18-2024 End: 64-34-2869Szgtqvwsr to same day surgery centerKathleen E Rinkes DO-Sur[facility] CenterStart: 12-18-2024 End: 69-28-7344imnrhdregeZjngqzz M Hoy MD Work Phone: [facility] Work Phone: Start: 12-04-2024 End: 95-04-7988Qgbauvl encounter procedureKathleen E Rinkes PW-Muu-Kwgavtam Testing Work Phone: Start: 12-04-2024 End: 37-61-3375qqmxozbwuoFqpeaes M Hoy MD Work Phone: [facility] Work Phone: Start: 93-70-4558Sssjqejwi for other preprocedural examinationKatchanel FraserHca Florida West[facility] Hospital Physician GroupStart: 12-04-2024 End: 56-93-8876Gzmgpdfe Result EncounterKathleen E Rinkes DO Work Phone: noms External Department UnsolicitedStart: 12-04-2024 End: 18-03-5466Pbyscsrs Result EncounterKathleen E Rinkes DO Work Phone: noms External Department UnsolicitedStart: 11-09-2024 End: 71-84-8495Zjerlj outpatient visit 25 minutesKathleen E Rinkes DO Work Phone: [facility] OBComment on above:Cystocele, midline; Uterine prolapseStart: 11-09-2024 End: 95-22-9201psrlxounqxILEALGRZ E RINKESNot AvailableStart: 11-08-2024 End: 83-92-9971lvildtwyetSYNCRQBP RINKESNot AvailableStart: 09-28-2024 End: 17-59-2265Epwiyk flowsheetKathleen E Rinkes DO Work Phone: [facility] OBStart: 09-28-2024 End: 11-54-6981Rxbmvh flowsheetKathleen E Rinkes DO Work Phone: [facility] OBStart: 09-28-2024 End: 92-73-7485Lnbhxmd encounter statusKathleen E Rinkes DO Work Phone: [facility] Work Phone: start: 09-28-2024 End: 41-89-5326Csycysqj preventive med est patient 40-64yrsKathleen E Rinkes DO Work Phone: [facility] OBComment on above:Encounter for gynecological examination without abnormal finding (Primary Dx); Screening for malignant neoplasm of cervix; Encounter for screening mammogram for breast cancer; Uterine prolapse; Cystocele, midlineStart: 09-28-2024 End: 16-41-9766vhpvftfdkfZXJFHKOU E RINKESNot AvailableStart: 08-26-2024 End: 12-59-7169Tiusjca encounter procedureMireya Allen MD Work Phone: [facility] Work Phone: Start: 08-26-2024 End: 59-62-4489gikcnxnteaYqjlhgt M Hoy MD Work Phone: [facility] Work Phone: Start: 02-15-2024 End: 69-58-1097mtejdexrhlHuypyzr R NILLFacility:[facility] HospitalueStart: 02-15-2024 End: 18-93-1466Zfajouo encounter procedureMichael R NILL [phone]-MzjjnMercy Memorial Hospitalue Start: 02-02-2024 End: 06-53-2241Usl Drop offMichael R NILL [facility] Start: 02-02-2024 End: 06-84-6343jsfgpizivoFkoicle R NILLFacility:FTMCStart: 02-02-2024 End: 87-31-1306Gsdxdax encounter procedureMichael R NILL [phone]-UlpzbMercy Memorial Hospitalue Start: 01-19-2024 End: 04-73-7413agjcsdrfyzDauhyac R NILLFacility: BellevueStart: 01-19-2024 End: 69-79-0611Jhokgae encounter procedureMichael R NILL [phone]-Pjgkt General Surgery Ayaan Start: 56-47-6632wlwcfhdzruKniquzr R NILLFacility:RAMYA BellevueStart: 05-08-2023 End: 78-87-1076tqobzbftqzEY Mireya M Hoy Work Phone: [facility] Work Phone: Start: 05-08-2023 End: 27-89-3963Pchsuqn encounter procedureMD Mireya Hoy Work Phone: [facility] Work Phone: Start: 02-16-2023 End: 60-44-2030sqkdnbxfsqFyhnfb [facility]ay[facility]– oakridgeFacility:[facility] HospitalStart: 01-20-2023 End: 51-28-3443Hqsycpt encounter procedureMD Mireya Hoy Work Phone: [facility] [place] [facility] Start: 01-20-2023 End: 61-33-6438nthwltglemWW Mireya M Hoy Work Phone: [facility] Work Phone: Start: 12-41-4627Dmrmtg outpatient new 45 minutes Kasi Antoine IIFPG [place] OrthopedicsStart: 04-04-2022 End: 67-48-1141wuctpjkyhmOW Mireya M Hoy Work Phone: [facility] Work Phone: Start: 04-04-2022 End: 11-84-0924Thakblh encounter procedureMD Mireya Hoy Work Phone: [facility] Start: 36-13-3134Wsdaouuqv for general adult medical examination without abnormal findingsDR MIREYA HOYThe [facility]ay HospitalStart: 2021 End: 47-45-5711csyliuzzkiHI MIREYA HOYFacility:U9Yblvg: 2021 End: 77-21-3208Vemxbwnbq for general adult medical examination without abnormal findingsDR MIREYA HOYFacility:Q9Jbeuv: 11-08-2020 End: 52-65-5952uftfvjshfmHR MIREYA HOYFacility:H1 Procedures DateProcedureProcedure DetailPerforming ClinicianStart: 90-33-2887CCN GenesisElsy RODRIGUEZ Work Phone: Start: 50-10-7364Knxfx hysterectomy via vaginal approachMireya Allen MD Work Phone: Start: 88-26-0219Amfowyts screenReferral SelfComment on above:Order Comment: Date of Surgery: [id number] Comment: PERFORMED BY: [address] [place] [address] PATHOLOGIST REGIONAL CLINICAL DIRECTOR MICHELLE PATEL M.D.Start: 51-50-2969eRPQ in Blood by Coagulation assayKathleen E Rinkes DO Work Phone: start: 97-16-8104Cmhixtbk blood count with white cell differential, automatedKathleen E Rinkes DO Work Phone: start: 47-94-6075Zekfwkiielu timeKathleen E Rinkes DO Work Phone: start: 93-09-1591HyowfgdkbnzOhnpvzzu Rinkes DO Work Phone: endometrial ablationMichael NILL H/O: hysterectomyS/P laparoscopic hysterectomyMireya Allen MD Work Phone: Plan of Treatment DateCare ActivityDetailAuthorStart: 06-97-7229Ftqktnusq for malignant neoplasm of cervixNOMS HealthcareStart: 10-02-2025 End: 54-75-3984Qyufeok encounter procedureNOMS SWS OBStart: 09-28-2025 End: 95-11-1068DTZ Breast - bilateral screeningBilateral screening mammogram with tomosynthesis Imaging Routine Encounter for screening mammogram for breast cancer Expected: 09/28/2025, Expires: 11/28/2025NOMS HealthcareComment on above: Expected: 09/28/2025, Expires: 11/28/2025Start: 51-46-5324Bzmrinybu for malignant neoplasm of breastMammogramNOMS HealthcareStart: 02-01-2025 End: 30-33-5670Lwuywqg encounter qkiupmhsl06/18/2025 4:00 PM EDT [facility] [address] [place] [address] Fiona Farser, DO [address] [place] [address] [facility] [place] OBGYNStart: 63-69-3223Fuwosxizx vaccinationNOMS HealthcareStart: 01-02-2025 End: 05-13-1594Obzxfut encounter dgpuiiage71/19/2025 10:15 AM EDT Office Visit [facility] [address] [place] [address] Fiona Fraser, DO [address] [place] [address] [facility] OBStart: 07-21-7532CkkiptwwwTrinity Health [facility] Start: 09-28-2024 End: 50-77-6929Ukhotcd encounter owfbicojw55/15/2025 10:30 AM EDT Office Visit [facility] [address] [place] [address] Fiona Fraser, DO [address] [place] [address] Encounter for gynecological examination without abnormal finding; Screening for malignant neoplasm of cervix; Encounter for screening mammogram for breast cancerNOMS [facility] OBComment on above:Encounter for gynecological examination without abnormal finding; Screening for malignant neoplasm of cervix; Encounter for screening mammogram for breast cancerStart: 26-00-0407KJ Breast - bilateral ScreeningUniversity Hospitals Portage Medical Centertart: 11-74-9430Cjdokqfdg mammography of bilateral breastsMM screening mammo BI w/CADUniversity Hospitals Portage Medical Centertart: 78-37-5769HL Breast - bilateral ScreeningUniversity Hospitals Portage Medical Centertart: 09-41-1755Howpgbdwz mammography of bilateral breastsMM screening mammo BI w/[facility] Hospitaltart: 26-61-8964Tlypr X-ray of right hipXR hip RT min 2V(w/wo pelvis)*[facility] Medical Centertart: 06-57-6142Larrzlzfc mammography of bilateral breastsMM screening mammo BI w/[facility] Hospitaltart: 49-95-9952Aulsixkza for malignant neoplasm of cervixPap SmearTHE [facility] HealthcareStart: 80-35-0828Yjxgyvutr for malignant neoplasm of colonNOMD HealthcareIGP, RFX APTIMA HPV ASCUIGP, RFX APTIMA HPV ASCU Lab Routine Screening for malignant neoplasm of cervix Ordered: 09/28/2024[facility] Work Phone: comment on above:Ordered: 09/28/2024Patient Education Know your [facility] Work Phone: Patient [facility] Work Phone: Immunizations Immunization DateImmunizationNotesCare XfyjahgaSsorhphu30-43-2191ewhzlismo virus vaccine, unspecified formulationKathleen Rinkes DO Work Phone: [facility] CenterPmheikwlxz19-09-4321ecatylqdr virus vaccine, unspecified formulationMichael NILL [phone]-OwmmaKettering Health Hamilton01-27-2021 SARS-CoV-2 (COVID-19) mRNA-1273 vaccineMichael NILL [phone]-TghbkKettering Health Hamilton12-29-2020 SARS-CoV-2 (COVID-19) mRNA-1273 vaccineMichael NILL [phone]-DocjgKettering Health Hamilton Payers DatePayer CategoryPayerPolicy [id number] Health [id number] Health Insurance [id number] 2.16.840.1.534452.3.57[id number] 2.16.840.1.755399.3.57[id number] 2.16.840.1.984381.3.57[id number] 2.16.840.1.052224.3.57[id number] 2.16.840.1.681954.3.57[id number] 2.16.840.1.459327.3.57[id number] 2.16.840.1.072491.3.57[id number] 2.16.840.1.639102.3.57[id number] 2.16.840.1.866625.3.57[id number] 2.16.840.1.705295.3.57[id number] 2.16.840.1.950465.3.57[id number] 2.16.840.1.205164.3.57[id number] 2.16.840.1.031483.3.579.2.576765-44-4766Mdbizpr Health [id number] [id number] 2..840.1.9[id number] 2.840.1.1[id number] 2..840.1.406015.3.579.2.531 Social History DateTypeDetailFacilityTobacco smoking status NHISUnknown if ever smokedSt. Anthony'S Hospital Ctr Work Phone: Start: 88-52-8030Wan Assigned At [facility]uder Hospitaltart: 04-19-2023 End: 44-34-0942Upm Assigned At [facility] Hospitaltart: 07-21-2023 End: 46-51-6915Kfovryt smoking statusNever smoked tobacco (finding)[facility] smoking statusNeverMcCullough[facility] smoking status NHISUnknown if ever smokedSt. Anthony'S Hospital [facility]tr Work Phone: Start: 46-44-3517XhmExcrpf (finding)[facility] Centertart: 76-06-6104Fmiorbi use and exposureSmokeless tobacco non-userNOMD HealthcareStart: 09-27-2024 End: 37-58-3960Wyochwefm beverage intakeCurrent drinker of alcohol (finding)[facility] HealthcareStart: 07-21-2023 End: 61-38-6152Buojlnqmi beverage intakeNOMS HealthcareHow often to you have a drink containing alcohol?Monthly or lessNOMS HealthcareHow many standard drinks containing alcohol do you have on a typical day?1 or 2NOMS HealthcareHow often do you have 6 or more drinks on 1 occasion?NeverNOMS HealthcareStart: 04-19-2023 Alcohol CommentCaffeine intake: 1-2 cups per dayNOMD HealthcareStart: 1960 Sex assigned at birthNot on fileNOMD Healthcare Goals DatePatient GoalDesired Activity/State Functional Status ThrsOfnsefrrtoRogxgvIudxjcww72-10-9825Xxuajssjnw statusPatient at Baseline [facility] Work Phone: 1([phone]bumcco StatusN/AFgera-Mcgrath General Surgery [place] Mental Status KuljXcrznrtxlnHsyrhvCjhtpbjh59-05-6044Odattexzv functionCognitive Status [facility] Work Phone: Clinical Notes 01-20-2023 to 02-01-2025 Note Date & CrtpPyseWdudldkr35-06-5396 History of Present illness Narrative* Fiona Fraser, DO - 02/01/2025 4:00 PM EDT Images from the original note were not included. Fiona Fraser D.O. Obstetrics and Gynecology Patient: Olive Turpin : 1960 (64 y.o.) Exam Date: 02/01/2025 Reason for Visit - Chief Complaint Patient presents with Post-op Visit 12/18/24 TLH/BSO anterior Colporrhapy. Denies vaginal bleeding/spotting. Denies bowel/bladder concerns. Denies pelvic pain/cramping, Denies intercourse. Visit Vitals BP 112/76 Wt 133 lb BMI 25.13 kg/m OB [...] 07/21/23 [place]nl, [place] [facility] [place] Systems - Const: Denies appetite [...] Review Audit Reviewed by Lacie Sabillon MA (Fundraising Specialist) on 02/01/25 at 1549 Medication Order Taking? Sig Documenting Provider Last Dose Status eletriptan (Relpax) 40 MG tablet [id number] 1 tablet Orally At onset of migraine. May repeat in 2 hours Fiona Fraser DO Active Eliquis 5 MG tablet [id number] Yes Take 1 tablet Orally twice daily; Duration: 30 days Fiona Fraser DO Active ferrous sulfate 325 (65 Fe) MG tablet [id number] Yes Take 325 mg by mouth in the morning. Take with meals. Fiona Fraser DO Active topiramate (Topamax) 25 MG tablet [id number] 1 (one) time each day at the same time Fiona Fraser DO Active Past Medical History: Diagnosis Date Cystocele History of cataract surgery 2009 samantha. History of medical problems prolapse (normal spontaneous vaginal delivery) ([facility] x2- full term Past Surgical History: Procedure [...] Extremities normal, atraumatic, no cyanosis or edema FEMALE GENITOURINARY: vaginal cuff well-healed, cystocele incision well- healed, no suture remaining, no granulation tissue noted. Diagnoses and all orders for this visit: Postoperative examination Incisions well-healed, no suture remaining, no granulation tissue. Patient to contact the office with any vaginal bleeding. ICD-10-CM 1. Postoperative examination Z09 documented in this encounterSaint Francis Medical [id number] History of Present illness Narrative* Fiona Fraser DO - 01/02/2025 10:15 AM [...] 07/21/23 wnl, M[place] 08[place] [facility] [place] Systems - Const: Denies appetite [...] Review Audit Reviewed by Lacie Sabillon MA (Fundraising Specialist) on 01/02/25 at 1028 Medication Order Taking? Sig Documenting Provider Last Dose Status eletriptan (Relpax) 40 MG tablet [id number] 1 tablet Orally At onset of migraine. May repeat in 2 hours Fiona Fraser DO Active topiramate (Topamax) 25 MG tablet [id number] 1 (one) time each day at the same time Fiona Fraser DO Active Past Medical History: Diagnosis Date Cystocele History of cataract surgery 2009 samantha. History of medical problems prolapse (normal spontaneous vaginal delivery) ([facility]) x2- full term Past Surgical History: [...] 1. Postoperative examination Z09 documented in this encounterSaint Francis Medical [id number] History of Present illness Narrative* Fiona Fraser DO - 11/09/2024 2:15 PM EDT Images from the original note were [...] 07/21/23 wnl, Mammogram 08[place]26/[place] [facility] [place] of Systems - Const: Denies appetite [...] Review Audit Reviewed by Lacie Sabillon MA (Fundraising Specialist) on 11/09/24 at 1415 Medication Order Taking? Sig Documenting Provider Last Dose Status eletriptan (Relpax) 40 MG tablet [id number] 1 tablet Orally At onset of migraine. May repeat in 2 hours Fiona Fraser DO Active topiramate (Topamax) 25 MG tablet [id number] 1 (one) time each day at the same time Fiona Fraser DO Active Past Medical History: Diagnosis Date Cystocele History of cataract surgery 2009 samantha. History of medical problems prolapse (normal spontaneous vaginal delivery) ([facility]) x2- full term Past Surgical History: [...] TLH/BSO, anterior repair. The surgical procedure was reviewedat length with the patient. The risks and alternatives of surgery were reviewed. The patient was advised of the potential complications of surgery- including, but not limited to- bleeding, infection,scarring, injury to the bowel/bladder/ureters/major blood vessels - further surgery to repair thoseinjuries- stroke, heart attack, blood clots to the legs/lungs or . Postoperative expectations and activity restrictions reviewed with the patient. Time was given for the patient to ask questionsand all questions have been answered. The surgical consent was signed. ICD-10-CM 1. Cystocele, midline N81.11 2. Uterine prolapse N81.4 documented in this encounterSaint Francis Medical [id number] History of Present illness Narrative* Fiona Fraser DO - 09/28/2024 10:30 AM EDT Images from the original note [...] 07/21/23 [place]nl, Mamm[place] 08[place] [facility] [place] - General: Chills denies. [...] Review Audit Reviewed by Lacie Sabillon MA (Fundraising Specialist) on 09/28/24 at 1026 Medication Order Taking? Sig Documenting Provider Last Dose Status eletriptan (Relpax) 40 MG tablet [id number] 1 tablet Orally At onset of migraine. May repeat in 2 hours Fiona Fraser DO Active topiramate (Topamax) 25 MG tablet [id number] 1 (one) time each day at the same time Fiona Fraser DO Active Past Medical History: Diagnosis Date Cystocele History of cataract surgery 2009 samantha. History of medical problems prolapse (normal spontaneous vaginal delivery) x2- full term Past Surgical History: Procedure Laterality Date CATARACT EXTRACTION, BILATERAL 2009 COLONOSCOPY 2016 ENDOMETRIAL ABLATION OTHER SURGICAL HISTORY 2012 Novasure ablation Family History Problem Relation Name Age of Onset Breast cancer Sister Kim Wilkins Breast cancer Sibling Physical Exam - General appearance, mentation, extraocular movements, facial strength and movement, hearing, upper and lower extremity strength and tone, sensation to gross testing, coordination, and gait are normalor at baseline unless noted below. General Examination: [...] 5. Cystocele, midline N81.11 documented in this encounterSaint Francis Medical [id number] NoteGeneral Surgery Office/Clinic Note Chief Complaint consultation for skin lesion HPI Staff 63 year old female presents on consultation from Dr. Allen for skin lesion. Reports noting red/purplediscoloration to right ankle approximately 4 months ago. [...] swallowing difficulties, no hearing loss, no ear infection(s),no nose bleeds. Cardiovascular: normal blood pressure, no [...] 06/12/2020 Recorded SARS-CoV-2 (COVID-19) mRNA-1273 vaccine 05/14/2020 RecordedSt. Mary'S Medical CenterComment on above:Result Comment: Electronically Signed By: DARIUS OCONNOR, Wali Rick\Date and Time Signed: 01/19/24 14:53 [id number] Evaluation note * Encounter Date Diagnosis Assessment Notes Treatment Notes Treatment Clinical Notes Jan, Right hip pain (ICD-10 - M25.551 ) Jan,Right flank pain (ICD-10 - R10.9) Jan,OtherWe had a long discussion today as I explained to her that her hip x-rays and MRI look relatively normal. Overall her exam is extremely benign. The fact that this is intermittent in nature to me does not seem overly concerning. At this point I would recommend getting into formal physical therapy chanda evaluation and treatment. She can follow-up as needed [employer] Other Evaluation + Plan note Future Appointments Appointment Date:02/02/2024 03:20:00 PM Scheduled Provider:Wali MCCOY MD Location:[facility] [place] Appointment Type: Procedure 30 [facility] Evaluation + Plan note Future Appointments Appointment Date:02/15/2024 03:00:00 PM Scheduled Provider:Wali MCCOY MD Location:[facility] [place] Appointment Type:GS Established 15 [facility] Evaluation noteNo assessment information available [facility] Work Phone: evaluation note* Diagnosis Encounter [...] vaginal wall prolapse documented in this encounter [facility] HealthcareEvaluation note* Diagnosis Postoperative examination Follow-up examination, following unspecified surgery documented in this encounter [facility] HealthcareEvaluation note* Diagnosis Postoperative examination Follow-up examination, following unspecified surgery documented in this encounter [facility] HealthcareHistory general Narrative - Reported* Type Description Date Surgical History ablation [employer] Other Hospital course Narrative No data available for this section [facility] Hospital Discharge instructions No data available for this section [facility] Hospital Discharge instructions Additional Instructions DISCHARGE INSTRUCTIONS [...] FOLLOW UP -Please call the office at ([phone]) to make follow appointment before leaving the hospital. -[address] [facility] Work Phone: Progress note No data available for this section [facility] [place] Reason for referral (narrative)No reason for referral information availableSt. [facility]'S [facility] Work Phone: Summary Purpose Family History No Family History Records Found Relationship Condition Age at Onset Recorded Date/T [place] sister Malignant neoplasm of breast Unknown Malignant neoplasmUnknown Advance Directives No Advanced Directives Records Found [...] and content) DATE CREATED AUTHOR 10/12/2021 [facility] DATE CREATED AUTHOR AUTHOR'S ORGANIZ ATION 02/20/2023 [facility] DATE CREATED AUTHOR AUTHOR'S ORGANIZ ATION 02/12/2024 [facility] DATE CREATED AUTHOR AUTHOR'S ORGANIZ ATION 02/17/2024 [facility] DATE CREATED AUTHOR AUTHOR'S ORGANIZ ATION 02/18/2024 [facility] DATE CREATED AUTHOR AUTHOR'S ORGANIZ ATION 02/03/2025 [facility] DATE CREATED AUTHOR AUTHOR'S ORGANIZ ATION 03/09/2025 [facility] Care Teams (unrecognized sec tion and content) Team Status: Inactive Member Role Status Dates Mireya Allen MD Primary Care Provider Active Fiona Fraser DOAttrhett ProviderActive Team Status: Active Member Role Status Wilubr Allen MD Primary Care Provider Active Team Status: Inactive Member Role Status Wilbur Allen MD Primary Care Provider Active Kasi Antoine II, MDAttending ProviderActive Team Status: Inactive Member Role Status Dates Mireya Allen MD Primary Care Provider Active Referral SelfAttending ProviderActiveKatBhupinder Caseyerring Provider Active Team Status: Inactive Member Role Status Dates Mireya Allen MD Primary Care Provider Active Start: August 26, 2024 End: August 26, 2024Referral SelfAttending ProviderActiveStart: August 26, 2024 End: August 26, 2024BHUMI Chandeferring ProviderActiveStart: August 26, 2024 End: August 26, 2024Team MemberRelationshipSpecialtyStart DateEnd Date Mireya Allen MD PCP - [facility] Dtquzrwn03/5/23Team MemberRelationshipSpecialtyStart End [facility]/23Team MemberRelationshipSpecialtyStart End [facility] Allen [facility] - [facility] Hfdorvhv66/5/23Team MemberRelationshipSpecialtyStart End Date Mireya Allen MD PCP - [facility] Zrfjzdgf55/5/23Team MemberRelationshipSpecialtyStart DateEnd Date Mireya Allen MD PCP - [facility]04/20/23 Team Status: Inactive Member Role Status Wilbur Allen MD Primary Care Provider Active Start: December 04, 2024 End: December 04, 2024Xu Chandending ProviderActiveStart: December 04, 2024 End: December 04, 2024 Team Status: Inactive Member Role Status Wilbur Allen MD Primary Care Provider Active Start: December 18, 2024 End: December 18, 2024Katchanel Fraser DOAttending ProviderActiveStart: December 18, 2024 End: December 18, 2024Team MemberRelationshipSpecialtyStart DateEnd Mireya Allen MD PCP - [facility]04/20/23Team MemberRelationshipSpecialtyStart DateEnd Mireya Allen MD PCP - [facility]04/20/23 Goals (unrecognized section and content) Goals may [...] FOR VISIT (unrecogniz ed section and content) ReasonCommentsGynecologic ExamPt would like to discuss hysterectomy, states in the past was recommended d/t prolapse. Denies bowel/bladder/breast concerns. Pt up to date with mammogram. Denies vaginal bleeding/spotting.ReasonComments Follow-upPt presents for US follow up. Denies concerns.ReasonCommentsPost-op Visit12/18/24 TLH/BSO anterior Colporrhapy. Denies vaginal bleeding/spotting. Denies bowel concerns. Pt notice a little bit of bladder leakage. Denies incision concerns. Pt will have random pain/discomfort about bellybutton.Reason CommentsPost-op Visit12/18/24 TLH/BSO anterior Colporrhapy. Denies vaginal bleeding/spotting. Denies bowel/bladder concerns. Denies pelvic pain/cramping, Denies intercourse. FOR RECORDS PERTAINING TO PATIENTS WHO ARE [...] BE BASED ON THE PRIMARY CLINICAL RECORDS. [facility] [employer] [facility]. provides no warranty or guarantee of the accuracy or completeness of information in this document.
--- NOTE | 2025-04-20 13:50 | CT_ITS ---
[address] [address] Patient Name: OLIVE TURPIN MRN: [id number] date: 1960 Sex: F Assigned Patient Location: LAB Current Patient Location: LAB Accession/Order Number: [id number] Exam Date: 04/20/2025 14:22 Report Date: 04/20/2025 15:02 At the request of: MIREYA MARTIN MD Procedure: CT angio chest CT ANGIOGRAM OF THE CHEST, PULMONARY EMBOLISM PROTOCOL: CLINICAL INFORMATION: History of pulmonary embolism. COMPARISON: CT chest 01/02/2025 TECHNIQUE: Following intravenous injection of contrast CT scans of the chest were obtained using pulmonary embolism protocol. Coronal and sagittal reconstructed images, as well as volume rendered CT pulmonary angiographic images were also submitted.The CT exam was performed using one or more of the following dose reduction techniques: Automated exposure control, adjustment of the MA and/or Kv according to patient size, or use of the iterative reconstruction technique. FINDINGS: Pulmonary Vasculature: Contrast bolus is adequate for evaluation of pulmonary embolism. Pulmonary trunk appears nondilated. No filling defects are identified to suggest pulmonary embolism. Mediastinum : Thoracic aorta is normal in caliber. No pericardial effusion. No lymphadenopathy. The esophagus is grossly unremarkable. Lungs: No focal consolidation, pneumothorax or pleural effusion. Biapical scarring. Bibasilar atelectasis. Upper abdomen: No acute findings Soft tissue/bones: Soft tissues surrounding the chest wall demonstrate no acute findings. Osseous structures demonstrate degenerative change. CT/CT angio chest IMPRESSION: PREVIOUSLY IDENTIFIED PULMONARY EMBOLISM INVOLVING THE RIGHT LOWER LOBE HAS RESOLVED. NO ACUTE PROCESS IS SEEN ON TODAY'S STUDY. Impression dictated by: Junaid Ware Jr., D.O. 04/20/2025 3:02 PM Dictation Location: [place] [address] Electronically authenticated by: [id number] Y Date: 04/20/2025 15:02
[2025-04-20 13:58] LABS: Estimated GFR (African America >60 (>=60 mL/min/1.73m^2); Estimated GFR (Non-African Ame >60 (>=60 mL/min/1.73m^2)
== END 2025-04-20 13:40 | disposition home or self-care (01) ==
LOC: LAB 13:39
PROVIDERS: Pathology Anatomic Pathology & Clinical Pathology; PCP Family Medicine; Visit Provider Family Medicine
DX: Z01.818 Encounter for other preprocedural examination (principal); I26.99 Other pulmonary embolism without acute cor pulmonale
CPT/HCPCS: 36415; 71275; 82565; Q9967